=== PATIENT | female | born 1970 | race Caucasian/White ===

== ENCOUNTER → 2019-02-18 15:51 | Outpatient (CLI) | payer OTHER, SELFPAY ==
--- NOTE | 2019-02-18 15:55 | BI_ITS ---
MAMMOGRAPHY - BILATERAL SCREENING REASON FOR EXAM: Female, 48 years old. Routine annual screening examination. PERTINENT HISTORY: Non-contributory. TECHNIQUE: Digital bilateral breast melchor (3D mammographic acquisition) in the CC and MLO projections. 2-D mediolateral oblique (MLO) and craniocaudad (CC) views of both breasts were obtained. CAD: Full Field Digital Mammography with Computer Added Detection was performed. COMPARISON: Comparison is made with prior study dated January 18, 2016 and June 21, 2010. FINDINGS: Breast Composition: The breasts are almost entirely fatty. There are no dominant masses or suspicious calcifications. A tissue clip marker is seen within the inferior medial portion of the right breast. No other significant abnormalities are identified. There has been no significant change since the prior study. BI/SCREENING MAMM (CAD), BILAT IMPRESSION: Stable bilateral screening mammogram. Yearly follow-up mammogram recommended. (A) ASSESSMENT CATEGORY: BIRADS Category 2: Benign. A letter regarding these results will be sent to the patient by the facility within 30 days. Approximately 10% of breast cancers are not detected by mammography. A normal mammogram should not delay biopsy of a clinically suspicious abnormality. [id number] Electronically Signed: Giovanny Whitney, at 8:26 EDT , Service support ,
== END ==
DX: Z12.31 Encounter for screening mammogram for malignant neoplasm of breast (principal)
CPT/HCPCS: 77063; 77067

== ENCOUNTER → 2020-09-13 17:20 | Outpatient (CLI) | payer MEDICAID, SELFPAY | PROVIDERS: PCP Internal Medicine; Visit Provider Internal Medicine | DX: B34.9 Viral infection, unspecified (principal); J45.20 Mild intermittent asthma, uncomplicated | CPT/HCPCS: 87635; C9803; U0003 ==

== ENCOUNTER → 2021-11-21 | Outpatient (CLI) | payer MEDICAID, SELFPAY | END | disposition home or self-care (01) | LOC: LABSPEC 12:51 | PROVIDERS: PCP Internal Medicine; Visit Provider Physician Assistant Surgical | DX: Z20.822 Contact with and (suspected) exposure to COVID-19 (principal) | CPT/HCPCS: 87635; U0005; U0003 ==

== ENCOUNTER 2023-05-16 10:23 | Day surgery (SDC) | payer MEDICAID, SELFPAY ==
[2023-05-16 10:50] VITALS: BP 143/67; PULSE 71; RESP 16; TEMP 36.6; O2SAT 97; BMI 45.2
[2023-05-16] MEDS: Lactated Ringers 1,000 ML 15 ML IV (10:52)
[2023-05-16 11:17] LABS: Bedside Glucose 112 mg/dL (74-106)
[2023-05-16] MEDS: Cefazolin 2 GM in 0.9% Normal Saline 100 ML IV (11:28)
--- NOTE | 2023-05-16 12:00 | CALC_PTH ---
PATIENT: ISAAC CHRISTOPHER LOC: [facility] – [place] U#:[id number] AGE/SX: 52/F ROOM: RE05/16/[address]: Dr. Beata Alanis MD : 1970 BED: DIS: 05/16/2023 SPEC #: [id number] RECD: 05/16/23 12:46 STATUS: EVELIO RIVERA #: [id number] GIGI: 05/16/23 12:[address]: Beata Alanis DEPT: SURGICAL PATHOLOGY RECD BY: Karely Gandhi ENTERED: 05/16/23 13:23 SP TYPE: Calculi OTHR DR: Dr. Librado Barrios MD Tissues: CALCULI Procedures: Surgery Specimen Level I HEADER OPERATION: Cysto, ureteroscopy, retro, laser, stent, stone basket extraction PRE-OP DIAGNOSIS: Right ureteral calculi TISSUE SUBMITTED: Right ureteral calculi pieces GROSS DIAGNOSIS Right ureteral calculi, removal: Unremarkable calculi (gross diagnosis only). AM:tara 05/17/2023 COMMENT The calculus is submitted in its entirety for chemical stone analysis. The results from this study will be reported separately. GROSS DESCRIPTION Received without fixative labeled with the patient's name and designated right ureteral calculi. The specimen consists of multiple irregular fragments of foreman calculi measuring in aggregate 0.5 x 0.3 x 0.2 cm. The entire specimen is submitted for stone analysis. / AM:tara 05/16/2023 CPT: 94885
--- NOTE | 2023-05-16 12:24 | DCINST_ITS ---
Discharge Instructions Diet Discharge Diet: No restrictions Activity Discharge Activity: Return to Normal Activity Dressing / Incision Call your doctor if you observe: Fever of 101 or Higher, Inability to urinate and Inability to have a bowel movement Follow Up Care Please Follow Up With: Beata Alains MD When: Next week for stent removal Test Results: Test results from this visit will be discussed in further detail at your follow- up appointment, if applicable. Discharge Plan Admission Attending Provider: Beata Alains Primary Care Provider: Librado Barrios Discharge Orders/Prescriptions Prescriptions: New phenazopyridine [Pyridium] 200 mg tablet 200 mg PO TID PRN PRN (Reason: Bladder Spasms) 7 Days Qty: 30 0RF cephalexin [cephalexin] 500 mg capsule 500 mg PO Q12 3 Days Qty: 6 0RF Continued multivitamin Tablet 1 tab PO DAILY metformin 500 mg Tablet 500 mg PO BID cetirizine 10 mg Tablet 10 mg PO DAILY meloxicam 15 mg Tablet 15 mg PO DAILY lisinopril 10 mg Tablet 10 mg PO DAILY glipizide 5 mg Tablet 5 mg PO DAILY hydrochlorothiazide 12.5 mg Tablet 12.5 mg PO DAILY cranberry djmd-X-rvdgtwyj coag 250-30-15 mg Tablet 1 tab PO DAILY HEMP OIL 25,000 mg PO/SL BID Mounjaro 5 mg/0.5 mL pen injector 7.5 mg SUBCUT FR oxycodone-acetaminophen [Percocet] 5-325 mg Tablet 1 tab PO Q4H PRN (Reason: Pain) 3 Days Qty: 14 0RF Discontinued tamsulosin 0.4 mg Capsule 0.4 mg PO DAILY Referrals / Follow Up: Librado Barrios MD [Primary Care Provider] - Disposition Disposition (needs filled in before D/C Order can be placed): Home, Self Care
[2023-05-16 12:28] VITALS: BP 113/65; BP 143/67; PULSE 88; RESP 18; TEMP 36.1; O2SAT 94
--- NOTE | 2023-05-16 12:28 | OP.PCM_ITS ---
Report of Operation Date of Procedure: 05/16/23 Pre-Operative Diagnosis: Right ureteral calculus Post-Operative Diagnosis: Same Surgery/Procedure Performed:: Cystoscopy, right ureteroscopy, holmium laser lithotripsy, stone basket extraction, retrograde pyelogram, right ureteral stent insertion Description of Surgical Findings:: Left duplicated ureter, right mid ureteral calculus approximately 7 to 8 mm with mid ureteral narrowing Surgeon: Beata Alanis Type of Anesthesia: General Specimen's removed: Stone fragments Description of Procedure: The patient is a 52-year-old female with a right ureteral calculus and continued pain who presents for surgical intervention. Informed consent was obtained. The patient was taken to the operating room and placed on the operating room table. Anesthesia monitored the head, neck, airway, IV access and vital signs throughout the case. Once anesthesia was appropriately administered, the patient was placed into dorsolithotomy position was prepped and draped in usual sterile fashion. The cystoscope was inserted through the urethra under direct visualization. The bladder mucosa was visualized in its entirety finding a left ureteral duplicated system. The right ureteral orifice was carefully intubated with a 0.035 Glidewire which initially curled at the level of the stone seen on fluoroscopy. It was repositioned and was then seen in the renal pelvis. At this time the semirigid ureteroscope was used to gain access to the right ureter and was gently advanced to the level of the stone. There was narrowing at the area of the stone but access was obtained. A 200 ?m laser fiber was then used to break the stone into small pieces which were removed with stone basket into the urinary bladder. Once all of the fragments seen were removed, a retrograde pyelogram was performed through the ureteroscope revealing narrowing of the ureter but no further filling defects. At this time the ureteroscope was removed under direct visualization revealing no injury to the ureter and no further stone fragments remaining. The cystoscope was then used to insert a 6 [place] 24 cm JJ stent with good positioning in the renal pelvis as well as the urinary bladder. The patient's bladder was then emptied and the stone fragments were irrigated out. After the final fragments were collected, the patient's bladder was emptied and the cystoscope was removed. The patient was then awakened and taken to the recovery room in good condition. There were no complications during this procedure. Grafts/Implants Used: 6 x 24 JJ stent Complications None Admit VTE Documentation VTE Present on Admission: Yes VTE Mechan Device Prophylaxis: SCD's VTE Pharm Prophylaxis ordered?: No Reason prophylaxis not ordered:: Treatment Not Indicated
[2023-05-16 12:30] VITALS: BP 121/65; BP 143/67; PULSE 96; RESP 18; O2SAT 97
[2023-05-16 12:45] VITALS: BP 122/76; BP 143/67; PULSE 82; RESP 18; O2SAT 98
[2023-05-16 12:56] VITALS: BP 116/94; BP 143/67; PULSE 78; RESP 18; TEMP 36.2; O2SAT 95
[2023-05-16 13:23] VITALS: BP 143/67
== END 2023-05-16 13:34 | disposition home or self-care (01) ==
LOC: SDC 10:25 → AC 10:27
PROVIDERS: PCP Internal Medicine; Referring Provider Urology; Visit Provider Urology
PROC: 0TJ98ZZ Inspection of Ureter, Via Natural or Artificial Opening Endoscopic (ICD-10-PCS; CPT 52352; principal; 2023-05-16 11:50)
DX: N20.1 Calculus of ureter (principal); E11.9 Type 2 diabetes mellitus without complications; N13.30 Unspecified hydronephrosis; I10 Essential (primary) hypertension; Z87.891 Personal history of nicotine dependence; Z87.442 Personal history of urinary calculi; Z79.899 Other long term (current) drug therapy; Z79.84 Long term (current) use of oral hypoglycemic drugs
CPT/HCPCS: 52356; 00873; 76000; 82360; 82962; 88300; J7120; C2617; J2405

== ENCOUNTER → 2024-03-13 | Outpatient (CLI) | payer MEDICAID, SELFPAY ==
--- NOTE | 2024-03-13 08:12 | BI_ITS ---
MAMMOGRAPHY - BILATERAL SCREENING REASON FOR EXAM: Female, 53 years old. Routine annual screening examination. PERTINENT HISTORY: Non-contributory. TECHNIQUE: Digital bilateral breast chapito (3D mammographic acquisition) in the CC and MLO projections. 2-D mediolateral oblique (MLO) and craniocaudad (CC) views of both breasts were obtained. CAD: Full Field Digital Mammography with Computer Added Detection was performed. COMPARISON: Comparison is made with prior study February 18, 2019 and September 17, 2016. Comparison also made to prior outside examination from the 2022. FINDINGS: Breast Composition: The breasts are almost entirely fatty. There are no dominant masses or suspicious calcifications. Stable fat-containing bilateral axillary lymph nodes. No other significant abnormalities are identified. There has been no significant change since the prior study. BI/SCRN MAMM (CAD)W/CHAPITO BILAT IMPRESSION: Stable bilateral screening mammogram. Yearly follow-up mammogram recommended. (A) ASSESSMENT CATEGORY: BIRADS Category 2: Benign. A letter regarding these results will be sent to the patient by the facility within 30 days. Approximately 10% of breast cancers are not detected by mammography. A normal mammogram should not delay biopsy of a clinically suspicious abnormality. [id number] Electronically Signed: Giovanny Whitney MD at 15:48 EDT ,
== END | disposition home or self-care (01) ==
LOC: OPBI 08:12
PROVIDERS: PCP Internal Medicine; Referring Provider Internal Medicine; Visit Provider Internal Medicine
DX: Z12.31 Encounter for screening mammogram for malignant neoplasm of breast (principal)
CPT/HCPCS: 77063; 77067

== ENCOUNTER → 2024-04-01 | Outpatient (CLI) | payer MEDICAID, SELFPAY ==
[2024-04-01 15:20] LABS: Mucous, Urine 0 SEEN /hpf (<or=2+); Red Blood Cells-Urine 0 SEEN /hpf (0-5); White Blood Cells 0 SEEN /hpf (0-5)
[2024-04-01 16:47] LABS: Absolute Lymphocyte Count 3.54 X10^3/uL (0.83-4.51); Absolute Neutrophil Count 5.9 X10^3/uL (2.0-7.7); Basophil# 0.05 X10^3/uL; Basophil% 0.5 % (0-1); Color, Urine Yellow (Yellow); Eosinophils% 1.9 % (0-5); Glucose, Dipstick Normal (Normal); Hematocrit 39.7 % (37-47); Hemoglobin 12.9 g/dL (12.0-15.0); Ketone-Dipstick Negative (Negative); Leukocyte Esterase-Dipstick Negative /ul (Negative); Lymphocyte # 3.54 X10^3/ul (0.83-4.51); Lymphocyte % 32.8 % (19-41); Mean Corp Hgb Conc 32.5 g/dL (32-36); Mean Corpuscular Hgb 28.9 pg (27.0-32.0); Mean Corpuscular Volume 88.8 fL (81-99); Mean Platelet Vol. 11.5 fl (6.2-12.0); Monocyte# 1.02 X10^3/uL; Monocyte% 9.5 % (0-10); NRBC Flagged by Analyzer 0 % (0-5); Neutrophil # 5.94 X10^3/uL (2.7-7.7); Nitrite-Dipstick Negative (Negative); Occult Blood-Urine Negative /ul (Negative); Platelet Count 243 K/mm3 (150-450); Protein-Dipstick Negative (Negative); RBC Distribution Width CV 12.6 % (11.6-14.6); RBC Distribution Width SD 40.9 fl (35.1-43.9); Red Blood Count 4.47 M/mm3 (4.2-5.4); Urine Bilirubin Dipstick Negative (Negative); Urine Clarity Clear (Clear); Urine Urobilinogen Normal (Normal); Urine pH 6.5 (5.0 - 8.0); White Blood Count 10.8 K/mm3 (4.4-11.0)
[2024-04-01 16:59] LABS: Bacteria 1+ /hpf (None Seen); Squamous Epithelial Cells - UA 0-5 SEEN /hpf (5-10)
[2024-04-01 17:03] LABS: Vitamin D,25 Hydroxy 36.2 ng/mL
[2024-04-01 17:15] LABS: AST(SGOT) 15 U/L (15-37); Alanine Aminotransfer ALT/SGPT 29 U/L (13-56); Albumin, Serum 3.7 g/dL (3.2-5.0); Alkaline Phosphatase 75 U/L (45-117); Anion Gap 6 (5-15); BUN 16 mg/dL (7-18); BUN/Creat Ratio 29.6 RATIO (10-20); Calcium,Total 9.6 mg/dL (8.5-10.1); Chloride 105 mmol/L (98-107); Creatinine, Serum 0.54 mg/dL (0.55-1.02); EST Glomerular Filtration Rate 125 mL/min (>60); Est Glom Filt Rate - Afr Amer 151 mL/min (>60); Globulin 3.7 g/dL (2.2-4.2); Glucose 106 mg/dL (74-106); Potassium 3.6 mmol/L (3.5-5.1); Protein, Total 7.4 g/dL (6.4-8.2); Sodium Level 139 mmol/L (136-145); Thyroid Stim Hormone (TSH) 0.25 uIU/mL (0.358-3.74); Troponin-I HS < 3 pg/mL (3.0-54.0)
== END | disposition home or self-care (01) ==
LOC: BIMLAB 15:18
PROVIDERS: PCP Internal Medicine; Visit Provider Internal Medicine
DX: R82.71 Bacteriuria (principal); R42 Dizziness and giddiness; R45.86 Emotional lability
CPT/HCPCS: 36415; 80053; 81001; 82306; 84443; 84484; 85025; 87086; 87088

== ENCOUNTER → 2024-06-10 | Outpatient (CLI) | payer MEDICAID, SELFPAY ==
[2024-06-10 12:32] LABS: Absolute Lymphocyte Count 2.22 X10^3/uL (0.83-4.51); Absolute Neutrophil Count 4.5 X10^3/uL (2.0-7.7); Basophil# 0.04 X10^3/uL; Basophil% 0.5 % (0-1); Eosinophil# 0.14 X10^3/uL; Eosinophils% 1.8 % (0-5); Hematocrit 39.8 % (37-47); Hemoglobin 12.7 g/dL (12.0-15.0); Lymphocyte # 2.22 X10^3/ul (0.83-4.51); Mean Corp Hgb Conc 31.9 g/dL (32-36); Mean Corpuscular Hgb 28.2 pg (27.0-32.0); Mean Corpuscular Volume 88.2 fL (81-99); Monocyte# 0.75 X10^3/uL; Monocyte% 9.8 % (0-10); NRBC Flagged by Analyzer 0 % (0-5); Neutrophil # 4.49 X10^3/uL (2.7-7.7); Neutrophil % 58.6 % (47-70); Platelet Count 227 K/mm3 (150-450); RBC Distribution Width CV 13.2 % (11.6-14.6); RBC Distribution Width SD 42.4 fl (35.1-43.9); Red Blood Count 4.51 M/mm3 (4.2-5.4); White Blood Count 7.7 K/mm3 (4.4-11.0)
[2024-06-10 12:56] LABS: ALB/GLOB Ratio 0.9 RATIO (0.9-2.4); AST(SGOT) 17 U/L (15-37); Alanine Aminotransfer ALT/SGPT 32 U/L (13-56); Albumin, Serum 3.5 g/dL (3.2-5.0); Alkaline Phosphatase 70 U/L (45-117); Anion Gap 8 (5-15); BUN 16 mg/dL (7-18); BUN/Creat Ratio 32.9 RATIO (10-20); Calcium,Total 9.1 mg/dL (8.5-10.1); Chloride 105 mmol/L (98-107); Cholesterol 169 mg/dL (200); Creatinine, Serum 0.49 mg/dL (0.55-1.02); EST Glomerular Filtration Rate 141 mL/min (>60); Est Glom Filt Rate - Afr Amer 170 mL/min (>60); Globulin 3.7 g/dL (2.2-4.2); Glucose 134 mg/dL (74-106); High Density Lipoprotein 61 mg/dL; Potassium 3.6 mmol/L (3.5-5.1); Protein, Total 7.2 g/dL (6.4-8.2); Sodium Level 140 mmol/L (136-145); Triglycerides 108 mg/dL; Very Low Density Lipoprotein 22 mg/dL (5-40)
[2024-06-10 13:01] LABS: Microalbumin,Random Urine < 5.0 mg/L (NO RANGE EST.)
[2024-06-10 13:25] LABS: Hemoglobin A1c 6.4 % (3.8-5.6)
== END | disposition home or self-care (01) ==
LOC: BIMLAB 08:50
PROVIDERS: PCP Internal Medicine; Referring Provider Internal Medicine; Visit Provider Internal Medicine
DX: I10 Essential (primary) hypertension (principal); E11.9 Type 2 diabetes mellitus without complications
CPT/HCPCS: 36415; 80053; 80061; 82043; 82570; 83036; 85025

== ENCOUNTER 2024-07-08 16:17 | Emergency (ER) | payer MEDICAID, SELFPAY ==
[2024-07-08 16:18] VITALS: BP 138/85; PULSE 95; RESP 20; TEMP 36; O2SAT 96; BMI 44.3
--- NOTE | 2024-07-08 16:42 | EX.ED.VIS.UR ---
HPI HPI - URI History of Present Illness Chief Complaint: Sore Throat Informant: patient Onset/Context/Timing Onset: Days Context: Gradual Onset Timing: Continuous Quality: Swelling Location: Throat Worsened by: Swallowing, Eating Solids and Drinking Liquids Relieved by: - (Nothing) Associated Symptoms Associated Symptoms: Positive for Nasal Congestion and Nonproductive cough; Negative for Headache, Sinus Pressure, Myalgias, Nausea, Vomiting, Diarrhea, Shortness of Breath, Chest Pain, Hemoptysis or Productive Cough Narrative Narrative: Patient presents with a sore throat that has been getting worse over the past several days. Patient states she went to urgent care few days ago and was given a prescription for prednisone. Patient states she still feels some swelling in her throat. Patient states her pain is worse with swallowing, eating, and drinking. Patient states she has had a nonproductive cough. Patient admits to some nasal congestion. Patient denies any nausea, vomiting, diarrhea. Patient denies any pain in her chest or shortness of breath. Patient denies any fevers or chills. ROS ROS ED Constitutional Constitutional ED: Denies chills or fever(s) Eyes Eyes: Denies blurry vision or change in vision ENT ENT ED: Reports sore throat; Denies rhinorrhea Cardiovascular Cardiovascular: Denies chest pain or palpitations Respiratory/Chest Respiratory/Chest: Reports cough; Denies dyspnea Gastrointestinal Gastrointestinal: Denies nausea or vomiting Genitourinary Genitourinary ED: Reports urinary frequency; Denies dysuria or hematuria Musculoskeletal Musculoskeletal: Denies back pain or neck pain Integumentary Denies abscess or rash Neurologic Neurologic: Denies headache(s) or weakness Allergic/Immunologic Allergic/Immunologic ED: Denies mouth swelling or urticaria [facility] Medical History Allergic reaction caused by a drug History of back problems Breast lump Ureteral calculus Post-menopausal Diabetes History of renal disease Former smoker Asthma History of stress test Home Medications ?Medication ?Instructions ?Recorded ?Last Taken ?Type HEMP OIL 25,000 mg PO/SL BID 05/10/23 Unknown History cetirizine 10 mg tablet 10 mg PO DAILY 05/10/23 Unknown History multivitamin 1 tab PO DAILY 05/10/23 Unknown History lactobacillus combination no.4 3 3,000 mmu cells PO DAILY 03/10/24 Unknown History billion cell capsule (Probiotic) hydrochlorothiazide 12.5 mg tablet 12.5 mg PO DAILY #30 tabs 06/03/24 Unknown Rx lisinopril 10 mg tablet 10 mg PO DAILY #30 tabs 06/03/24 Unknown Rx meloxicam 15 mg tablet 15 mg PO DAILY #30 tabs 06/03/24 Unknown Rx metformin 500 mg tablet 500 mg PO BID #30 tabs 06/03/24 Unknown Rx semaglutide 0.25 mg or 0.5 mg (2 0.5 mg (0.736 mL) subcut QWEEK #3 06/03/24 Unknown Rx mg/3 mL) subcutaneous pen injector mL prednisone 10 mg tablet 10 mg PO DAILY #30 tabs 07/06/24 Unknown Rx Allergy/AdvReac Type Severity Reaction Status Date / Time Anesthetics - Amide Type - Allergy Severe Anaphylaxis Verified 07/08/24 16:18 Select A Penicillins (PCN) Allergy Nausea Verified 07/08/24 16:18 adhesive AdvReac Rash Verified 07/08/24 16:18 Family History Father Asthma Diabetes COPD (chronic obstructive pulmonary disease) CVA (cerebral vascular accident) Depression Hypertension Grandmother Diabetes Asthma Surgical History History of renal stent History of tonsillectomy History of parathyroidectomy Social History adopted: No household members: spouse current occupational status: employed 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 pets and animals: Yes pets and animals: dog(s) and turtle(s) Smoking Status: Former smoker quit date: 11/25/99 pack-years: 1 Tobacco: How many years used: 3 alcohol intake: current alcohol intake frequency: holidays/special occasions only substance use type: marijuana caffeine: Yes (2) Type: carbonated beverages frequency: daily seatbelt use: always do you feel safe at home: Yes EXAM Physical Exam Const Vital Signs: 07/08/24 16:18 07/08/24 17:21 Temperature 96.8 F L Temperature Source Temporal Pulse Rate 95 94 Respiratory Rate 20 H 20 H Blood Pressure 138/85 H 147/88 H Blood Pressure Mean 102 107 Pulse Ox 96 98 Oxygen Delivery Method Room Air Room Air Positive well nourished and well developed General Appearance ED: well developed and NAD HEENT Reports moist mucous membranes HEENT Narrative: Oropharynx is clear. There is no exudate or edema noted. Uvula is midline. There is no unilateral swelling noted. Throat: posterior oropharynx normal Neck supple, no meningeal signs and no JVD Neck Narrative: There is mild tenderness over the trachea in the midline. There is no erythema or warmth noted. General: Negative for anterior neck swelling or lymphadenopathy Resp normal respiratory effort and clear to auscultation bilaterally Cardio Rate: regular rate Rhythm: regular rhythm GI non-tender and non-distended Palpation: soft Neuro oriented x3, CN's II-XII intact bilaterally and no sensory deficits noted Sensorium / Orientation: alert Motor Exam: strength 5/5 throughout Psych mental status grossly normal MDM MDM MDM Narrative Medical decision making narrative: Differential diagnosis includes parapharyngeal abscess, pharyngitis, viral illness, dehydration, electrolyte abnormality, and anxiety. CBC will be obtained to assess for leukocytosis and anemia. Basic metabolic profile will be obtained to assess for electrolyte abnormality and renal function. CT scan of the soft tissue neck will be obtained to assess for parapharyngeal abscess. COVID-19, RSV, and PCR will be obtained to assess for viral infection. Rapid strep will be obtained to assess for strep pharyngitis. Lab Data Attestation: I reviewed the patient's lab results. Lab results narrative: CBC was reviewed and was within normal limits. Basic metabolic profile was reviewed and was essentially within normal limits. COVID-19 PCR was reviewed and was negative. Influenza PCR was reviewed and was negative for influenza A and influenza B. RSV PCR was reviewed and was negative. Rapid strep was reviewed and was negative. Labs: Laboratory Results - last 24 hr 07/08/24 17:18 WBC 10.0 RBC 4.73 Hgb 13.1 Hct 41.1 MCV 86.9 MCH 27.7 MCHC 31.9 L RDW Std Deviation 43.9 RDW Coeff of Brandy 13.9 Plt Count 259 MPV 11.6 Immature Gran % (Auto) 0.400 Neut % (Auto) 77.1 H Lymph % (Auto) 19.1 [place] % (Auto) 3.2 Eos % (Auto) 0.0 Baso % (Auto) 0.2 Absolute Neuts (auto) 7.7 Absolute Lymphs (auto) 1.91 Nucleated RBC % 0 Sodium 138 Potassium 3.8 Chloride 104 Carbon Dioxide 26.0 Anion Gap 8 BUN 17 Creatinine 0.72 Estim Creat Clear Calc 112.33 Est GFR (MDRD) Af Amer 109 Est GFR (MDRD) Non-Af 90 BUN/Creatinine Ratio 23.7 H Glucose 242 H Calcium 9.4 Radiography Diagnostic Testing: Clinical Impression(s) from Imaging Studies Soft Tissue Neck CT 07/08/24 17:08 IMPRESSION: Left thyroid nodule. No adenopathy. No abscess or fluid collection. Electronically Signed: Feliberto Marcos MD at 18:52 EDT , CT scan of the soft tissue neck was obtained. There is a left thyroid nodule measuring approximately 1.9 cm. There is no lymphadenopathy. There is no abscess or fluid collection. This was interpreted by the radiologist and was also independently reviewed by myself. Treatment and Re-Evaluation Narrative: Patient was given IV fluids. Patient was advised of her findings. Patient was instructed to drink plenty of fluids. Patient was instructed to continue her prednisone as prescribed. Patient was instructed to follow-up with her primary care physician in 5 to 7 days. Patient was instructed to return if worse in any way. Patient understood and was agreeable with the plan. All questions were answered. Discharge Plan Triage Chief Complaint: Sore Throat ED Provider: Deshaun Dior Dx/Rx/DC Orders Clinical Impression: Thyroid nodule, Dysphagia Instructions: Treating Thyroid Problems, ED Dysphagia (Adult) Prescriptions: No Action Probiotic 3 billion cell capsule 3,000 mmu cells PO DAILY Rx Instructions: administer with a meal prednisone 10 mg tablet 10 mg PO DAILY Qty: 30 0RF Rx Instructions: 4 tablets daily x3 days, then 3 tablets daily x3 days, then 2 tablets daily x3 days, then 1 tablet daily x3 days multivitamin Tablet 1 tab PO DAILY cetirizine 10 mg Tablet 10 mg PO DAILY HEMP OIL 25,000 mg PO/SL BID hydrochlorothiazide 12.5 mg tablet 12.5 mg PO DAILY Qty: 30 1RF lisinopril 10 mg tablet 10 mg PO DAILY Qty: 30 1RF meloxicam 15 mg tablet 15 mg PO DAILY Qty: 30 1RF metformin 500 mg tablet 500 mg PO BID Qty: 30 1RF semaglutide 0.25 mg or 0.5 mg (2 mg/3 mL) pen injector 0.5 mg subcut QWEEK Qty: 3 1RF Primary Care Provider: Janell Torres Referrals: Janell Torres MD [Primary Care Provider] - 5-7 Days Print Language: Azerbaijani Disposition Disposition: Home, Self Care
--- NOTE | 2024-07-08 17:08 | CT_ITS ---
STUDY: CT SOFT TISSUE NECK WITH CONTRAST REASON FOR EXAM: Female, 54 years old. Throat pain RADIATION DOSAGE (If Supplied By Facility): CTDIvol = ( 17.23 ) mGy, DLP = ( 507.81 ) mGycm TECHNIQUE: The patient was scanned in a multi-detector CT scanner. High resolution transaxial imaging was performed following intravenous administration of [id number] 100ML. Sagittal and coronal images were reconstructed. Individualized dose optimization techniques were used for this CT. COMPARISON: None. FINDINGS: Normal bilateral parotid glands. Normal bilateral conductor orchestra spaces. Normal bilateral parapharyngeal spaces. Normal bilateral carotid spaces. Normal bilateral sublingual and submandibular glands and spaces. Normal visualized nasopharynx. Normal retropharyngeal space. Normal perivertebral space. Normal visualized bilateral faucial tonsils. The visualized tongue, tongue base and oropharynx are normal. The visualized cervical lymph nodes (levels I-) are within normal size limits, and maintain normal morphology. There is no demonstrated solid or cystic mass lesion. There is no abnormal contrast enhancement. Normal epiglottis, bilateral vallecula and hypopharynx. The pre-epiglottic and paraglottic adipose spaces are normal. Normal visualized bilateral piriform sinuses, aryepiglottic folds, vocal cords, and arytenoid-cricoid articulations. Normal subglottic trachea. There is 1.9 cm left thyroid nodule. Normal visualized pulmonary apices. Normal visualized paranasal sinuses. Normal visualized cervical spine. CT/Soft Tissue Neck WITH Contrast IMPRESSION: Left thyroid nodule. No adenopathy. No abscess or fluid collection. Electronically Signed: Feliberto Marcos MD at 18:52 EDT ,
[2024-07-08] MEDS: 0.9% Normal Saline (1000mL) 1,000 ML 1000 ML IV (17:18)
[2024-07-08 17:21] VITALS: BP 147/88; PULSE 94; RESP 20; O2SAT 98
[2024-07-08 17:37] LABS: Absolute Lymphocyte Count 1.91 X10^3/uL (0.83-4.51); Absolute Neutrophil Count 7.7 X10^3/uL (2.0-7.7); Basophil# 0.02 X10^3/uL; Basophil% 0.2 % (0-1); Hematocrit 41.1 % (37-47); Hemoglobin 13.1 g/dL (12.0-15.0); Lymphocyte # 1.91 X10^3/ul (0.83-4.51); Lymphocyte % 19.1 % (19-41); Mean Corp Hgb Conc 31.9 g/dL (32-36); Mean Corpuscular Hgb 27.7 pg (27.0-32.0); Mean Corpuscular Volume 86.9 fL (81-99); Mean Platelet Vol. 11.6 fl (6.2-12.0); Monocyte# 0.32 X10^3/uL; Monocyte% 3.2 % (0-10); NRBC Flagged by Analyzer 0 % (0-5); Neutrophil % 77.1 % (47-70); Platelet Count 259 K/mm3 (150-450); RBC Distribution Width CV 13.9 % (11.6-14.6); RBC Distribution Width SD 43.9 fl (35.1-43.9); Red Blood Count 4.73 M/mm3 (4.2-5.4)
[2024-07-08 17:55] LABS: Anion Gap 8 (5-15); BUN 17 mg/dL (7-18); BUN/Creat Ratio 23.7 RATIO (10-20); Calcium,Total 9.4 mg/dL (8.5-10.1); Chloride 104 mmol/L (98-107); Creatinine, Serum 0.72 mg/dL (0.55-1.02); EST Glomerular Filtration Rate 90 mL/min (>60); Est Glom Filt Rate - Afr Amer 109 mL/min (>60); Estimated Creatinine Clearance 112.33 ml/min; Glucose 242 mg/dL (74-106); Potassium 3.8 mmol/L (3.5-5.1); Sodium Level 138 mmol/L (136-145)
[2024-07-08 19:45] VITALS: BP 144/74; PULSE 87; RESP 16; TEMP 36.4; O2SAT 97
== END 2024-07-08 19:46 | disposition home or self-care (01) ==
PROVIDERS: Emergency Provider Emergency Medicine; PCP Internal Medicine; Visit Provider Emergency Medicine
DX: E04.1 Nontoxic single thyroid nodule (principal); E11.9 Type 2 diabetes mellitus without complications; R13.10 Dysphagia, unspecified; F12.90 Cannabis use, unspecified, uncomplicated; J45.909 Unspecified asthma, uncomplicated; Z87.891 Personal history of nicotine dependence
CPT/HCPCS: 70491; 80048; 85025; 87631; 87651; 96360; 99283; J7030; Q9967; A4216

== ENCOUNTER → 2024-07-14 | Outpatient (CLI) | payer MEDICAID, SELFPAY ==
[2024-07-14 12:42] LABS: Erythrocyte Sedimentation Rate 10 mm/hr (0-30)
[2024-07-14 13:01] LABS: CRP 4.27 mg/L (0.0-3.0); Free T3 2.2 pg/mL (2.18-3.98); Thyroid Stim Hormone (TSH) 0.261 uIU/mL (0.358-3.740)
[2024-07-16 14:10] LABS: Thyroglobulin Antibody 1.5 IU/mL (0.0-0.9); Thyroid Peroxidase AB < 9 IU/mL (0-34)
== END | disposition home or self-care (01) ==
LOC: BIMLAB 11:04
PROVIDERS: PCP Internal Medicine; Visit Provider Nurse Practitioner
DX: E04.1 Nontoxic single thyroid nodule (principal)
CPT/HCPCS: 36415; 84439; 84443; 84481; 85652; 86140; 86376; 86800

== ENCOUNTER → 2024-07-21 | Outpatient (CLI) | payer MEDICAID, SELFPAY ==
--- NOTE | 2024-07-21 14:05 | US_ITS ---
STUDY: THYROID ULTRASOUND REASON FOR EXAM: Female, 54 years old. thyroid nodule TECHNIQUE: Ultrasound evaluation of the thyroid was performed with real-time and static abraham-scale imaging. COMPARISON: None. FINDINGS: RIGHT LOBE: The right lobe of the thyroid gland measures 5.7 x 2.5 x 1.5 cm. There is a homogeneous echotexture. At least 3 solid nodules measuring up to 1.1 x 1.1 x 0.9 cm, 0.8 x 0.8 x 0.6 cm and 1 x 0.9 x 0.7 cm. They all appear somewhat heterogeneous. LEFT LOBE: The left lobe of the thyroid gland measures 5.8 x 2.3 x 2.3 cm. There is a homogeneous echotexture. At least 3 nodules noted. The largest appears complex cystic and measures 2.8 x 1.9 x 1.6 cm. The other 2 appear hypoechoic and measures 0.6 x 0.5 x 0.4 cm and 0.6 x 0.7 x 0.7 cm. ISTHMUS: The isthmus measures 0.7 cm . The regional lymph nodes are normal. US/Thyroid IMPRESSION: Multinodular thyroid goiter. Largest nodule on the left appears complex cystic measuring 2.8 x 1.9 x 1.6 cm. Biopsy recommended. Electronically Signed: Ramin Dowling MD at 0:28 EDT ,
== END | disposition home or self-care (01) ==
LOC: US 14:04
PROVIDERS: PCP Internal Medicine; Referring Provider Nurse Practitioner; Visit Provider Nurse Practitioner
DX: E04.1 Nontoxic single thyroid nodule (principal)
CPT/HCPCS: 76536

== ENCOUNTER → 2024-08-18 | Outpatient (CLI) | payer MEDICAID, SELFPAY ==
--- NOTE | 2024-08-18 | ASPSI_PTH ---
PATIENT: ISAAC CHRISTOPHER LOC: [facility] U#:[id number] AGE/SX: 54/F ROOM: RE08/18/[address]: Dr. Luis Ruiz MD : 1970 BED: DIS: 08/18/2024 SPEC #: [id number] RECD: 08/18/24 10:30 STATUS: EVELIO MIGUEL #: [id number] GIGI: 08/18/24 00:[address]: Luis Ruiz DEPT: CYTOLOGY RECD BY: Clifton Cruz ENTERED: 08/18/24 13:00 SP TYPE: GILLIAN MERINO DR: Dr. Janell Torres MD Tissues: A - Thyroid gland, NOS B - Thyroid gland, NOS Procedures: Surgery Specimen Level IV Cytospin Fluid Cytology Other HEADER OPERATION: Fine needle aspiration of thyroid nodule PRE-OP DIAGNOSIS: Thyroid nodule TISSUE SUBMITTED: A- Left thyroid nodule fluid, B- Left thyroid nodule slides DIAGNOSIS CYTOLOGY A. Left thyroid nodule fluid, fine needle aspiration (cytospin and cellblock): Consistent with benign follicular nodule, Sutherland Category II. B. Left thyroid nodule, fine needle aspiration (smears): Consistent with benign follicular nodule, S[place]land Category II. See comment. mr 08/19/2024 COMMENT The specimen is adequate for evaluation by combining number of clusters of follicular cells present in both specimens A and B. The Sutherland System for thyroid diagnostic categorization was used in the evaluation of this case. Correlation with clinical, radiologic findings and appropriate follow up are necessary. CYTOLOGY STUDY Slides are reviewed. CYTOLOGY GROSS A. Received is 30 ml of red fluid labeled with the patient's name and and designated per the requisition as Left thyroid nodule fluid. Submitted for cytology preparation including cell block. B. Received are 4 smears labeled with the patient's name and designated per the requisition as Left thyroid nodule. Submitted for staining. Mr 08/18/2024 TC:5 CPT: 83168m7,16595
== END | disposition home or self-care (01) ==
LOC: LABSPEC 10:37
PROVIDERS: PCP Internal Medicine; Referring Provider Surgery; Visit Provider Surgery
DX: E04.1 Nontoxic single thyroid nodule (principal)
CPT/HCPCS: 88108; 88161; 88305

== ENCOUNTER 2024-08-23 10:27 | Emergency (ER) | payer MEDICAID, SELFPAY ==
[2024-08-23 10:27] VITALS: BP 143/80; PULSE 72; RESP 16; TEMP 36.6; O2SAT 96; BMI 45.6
--- NOTE | 2024-08-23 10:59 | ED.VIS.CHEST ---
HPI History of Present Illness Chief Complaint: Chest Pain Informant: patient Onset/Context/Timing Onset: Today Activity at onset: sudden Timing: Continuous Quality: Positive for Sharp Location: Substernal Worsened By: Movement of Torso Relieved By: Rest, Remaining Still and - (Albuterol) Associated Symptoms: Positive for Dyspnea, Cough, Lightheadedness and Palpitations; Negative for Nausea, Vomiting, Diaphoresis, Fever or Acid Reflux Narrative Narrative: Patient presents with substernal chest pain that began this morning. Patient states it began approximately 4 hours prior to arrival. Patient describes it as sharp. Patient states it is over the substernal area. Patient states it is worse with movement. Patient states it is better with rest. Patient states she also took an albuterol nebulizer at home which seemed to help. Patient admits to shortness of breath and cough. Patient denies any nausea or vomiting. Patient denies any diaphoresis. Patient does admit to some lightheadedness. Patient also admits to some palpitations where she feels her heart pounding in her back. CVD Risk Factors: Positive for Hypertension and Diabetes; Negative for Hypercholesterolemia, Family History 1' </=55 or Smoking PE Risk Factors: Negative for Recent Immobilization, Prior DVT or PE or Cancer [facility] Medical History Hypertension Allergic reaction caused by a drug History of back problems Breast lump Ureteral calculus Post-menopausal Diabetes History of renal disease Former smoker Asthma History of stress test Home Medications ?Medication ?Instructions ?Recorded ?Last Taken ?Type multivitamin 1 tab PO DAILY 05/10/23 08/23/24 History hydrochlorothiazide 12.5 mg tablet 12.5 mg PO DAILY #30 tabs 06/03/24 08/23/24 Rx lisinopril 10 mg tablet 10 mg PO DAILY #30 tabs 06/03/24 08/23/24 Rx meloxicam 15 mg tablet 15 mg PO DAILY #30 tabs 06/03/24 08/23/24 Rx metformin 1,000 mg tablet 1,000 mg PO BID 90 days #180 tabs 07/14/24 08/23/24 Rx Allergy/AdvReac Type Severity Reaction Status Date / Time Anesthetics - Amide Type - Allergy Severe Anaphylaxis Verified 08/23/24 10:30 Select A Penicillins (PCN) Allergy Nausea Verified 08/23/24 10:30 adhesive AdvReac Rash Verified 08/23/24 10:30 Family History Father Asthma Diabetes COPD (chronic obstructive pulmonary disease) CVA (cerebral vascular accident) Depression Hypertension Grandmother Diabetes Asthma Surgical History History of renal stent History of tonsillectomy History of parathyroidectomy Social History adopted: No household members: spouse current occupational status: employed 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 pets and animals: Yes pets and animals: dog(s) and turtle(s) Smoking Status: Former smoker quit date: 11/25/99 pack-years: 1 Tobacco: How many years used: 3 alcohol intake: current alcohol intake frequency: holidays/special occasions only substance use type: marijuana caffeine: Yes (2) Type: carbonated beverages frequency: daily seatbelt use: always do you feel safe at home: Yes ROS ROS ED Constitutional Constitutional ED: Denies chills or fever(s) Eyes Eyes: Denies blurry vision or change in vision ENT ENT ED: Denies rhinorrhea or sore throat Cardiovascular Cardiovascular: Reports as per HPI, chest pain and palpitations Respiratory/Chest Respiratory/Chest: Reports cough and dyspnea Gastrointestinal Gastrointestinal: Denies nausea or vomiting Genitourinary Genitourinary ED: Denies dysuria or hematuria Musculoskeletal Musculoskeletal: Reports neck pain; Denies back pain Integumentary Denies abscess or rash Neurologic Neurologic: Denies headache(s) or weakness Allergic/Immunologic Allergic/Immunologic ED: Denies mouth swelling or urticaria EXAM Physical Exam Const Vital Signs: 08/23/24 10:27 08/23/24 10:44 08/23/24 11:14 Temperature 97.9 F Temperature Source Oral Pulse Rate 72 Respiratory Rate 16 Respiratory Effort Normal Short of Breath Blood Pressure 143/80 H Blood Pressure Mean 101 Pulse Ox 96 96 Oxygen Delivery Method Room Air Room Air 08/23/24 11:27 08/23/24 12:04 08/23/24 13:00 Temperature Temperature Source Pulse Rate 72 71 70 Respiratory Rate 11 L 17 Respiratory Effort Blood Pressure 136/81 H 133/85 H Blood Pressure Mean 99 101 Pulse Ox 99 97 98 Oxygen Delivery Method Room Air Room Air Room Air Positive well nourished and well developed General Appearance ED: well developed and NAD HEENT Reports moist mucous membranes Neck supple and no JVD Resp normal respiratory effort and clear to auscultation bilaterally Cardio regular rate and regular rhythm Extremity normal to inspection General Extremety ED: Negative for edema or tenderness General Extremity: Negative for edema Neuro oriented x3, CN's II-XII intact bilaterally and no sensory deficits noted Sensorium / Orientation: awake and alert Motor Exam: strength 5/5 throughout Psych mental status grossly normal Heart Score History: Slightly/Non-Suspicious ECG: Normal Age: >45 - <65 years Risk Factors: 1 or 2 Risk Factors Troponin: </= Normal Limit Score: 2 MDM MDM MDM Narrative Medical decision making narrative: Differential diagnosis includes cardiac dysrhythmia, cardiac ischemia, pneumonia, pneumothorax, pneumomediastinum, gastroesophageal reflux disease, and musculoskeletal pain. EKG will be obtained to assess for cardiac dysrhythmia and cardiac ischemia. Chest x-ray will be obtained to assess for pneumonia and pneumothorax. CBC will be obtained to assess for leukocytosis and anemia. Basic metabolic profile will be obtained to assess for electrolyte abnormality and renal function. High-sensitivity troponin will be obtained to assess for cardiac ischemia. 2-hour repeat high-sensitivity troponin will be obtained to assess for ongoing cardiac ischemia. Lab Data Attestation: I reviewed the patient's lab results. Lab results narrative: CBC was reviewed and was within normal limits. Basic metabolic profile was reviewed and was within normal limits. High-sensitivity troponin was reviewed and was less than 3. 2-hour repeat high-sensitivity troponin was reviewed and was less than 3. Labs: Laboratory Results - last 24 hr 08/23/24 08/23/24 10:41 12:43 WBC 7.7 RBC 4.49 Hgb 12.7 Hct 39.9 MCV 88.9 MCH 28.3 MCHC 31.8 L RDW Std Deviation 44.8 H RDW Coeff of Brandy 13.8 Plt Count 221 MPV 11.7 Immature Gran % (Auto) 0.300 Neut % (Auto) 52.9 Lymph % (Auto) 35.4 [place] % (Auto) 8.9 Eos % (Auto) 1.8 Baso % (Auto) 0.7 Absolute Neuts (auto) 4.1 Absolute Lymphs (auto) 2.71 Nucleated RBC % 0 Sodium 141 Potassium 3.5 Chloride 105 Carbon Dioxide 31.0 Anion Gap 5 BUN 11 Creatinine 0.52 L Estim Creat Clear Calc 158.15 Est GFR (MDRD) Af Amer 159 Est GFR (MDRD) Non-Af 131 BUN/Creatinine Ratio 21.2 H Glucose 158 H Calcium 9.5 Troponin I High Sens < 3 L < 3 L Radiography Chest X-Ray - ED: 2 View, Read by ED Physician, Read by Radiologist and No Acute Disease Diagnostic Testing: Clinical Impression(s) from Imaging Studies Chest X-Ray 08/23/24 11:14 IMPRESSION: Degenerative changes, as described above. No demonstrated acute cardiopulmonary process. Electronically Signed: Jairo Giron MD at 12:15 EDT Reading Location ID and State: [facility] / [place] , Service support , [place] and lateral chest x-ray was obtained. There are 2 views. On my independent interpretation, lung ribera are clear. There is normal cardiac silhouette. Bony thorax is normal. There is no acute process noted. Radiologist also interpreted the x-ray and agrees. EKG Initial EKG: Attestation: I personally reviewed and interpreted this EKG as follows: Interpretation: Sinus Rhythm (74) and No Acute Injury Pattern Comments: EKG was obtained. On my independent interpretation, it showed a normal sinus rhythm with a rate of 74. [place] interval, QRS interval, and QTc intervals were all normal. [place] was normal. There are no acute ST or T wave changes. Prior EKG tracings: not available for review Prior: No Prior Treatment and Re-Evaluation :: Patient was given aspirin here. Patient was feeling better on reevaluation. Patient was advised of her findings. Patient has a HEART score of 2. Patient was advised that this is low risk for acute cardiac event. Patient was instructed to follow-up with her primary care physician in 3 to 5 days. Patient was instructed to return if worse in any way. Patient understood and was agreeable with the plan. All questions were answered. Discharge Plan Triage Chief Complaint: Chest Pain ED Provider: Deshaun Dior Dx/Rx/DC Orders Clinical Impression: Chest pain, History of parathyroidectomy Instructions: ED Chest Pain, Uncertain Cause Prescriptions: No Action metformin 1,000 mg tablet 1,000 mg PO BID 90 Days Qty: 180 1RF multivitamin Tablet 1 tab PO DAILY hydrochlorothiazide 12.5 mg tablet 12.5 mg PO DAILY Qty: 30 1RF lisinopril 10 mg tablet 10 mg PO DAILY Qty: 30 1RF meloxicam 15 mg tablet 15 mg PO DAILY Qty: 30 1RF Primary Care Provider: Janell Torres Referrals: Janell Torres MD [Primary Care Provider] - 3-5 Days Print Language: Portuguese Disposition Disposition: Home, Self Care
[2024-08-23 11:14] VITALS: O2SAT 96
--- NOTE | 2024-08-23 11:14 | EKG12_ITS ---
Test Reason : CP Blood Pressure : / mmHG Vent. Rate : 074 BPM Atrial Rate : 074 BPM P-R Int : 138 ms QRS Dur : 094 ms QT Int : 386 ms P-R-T Axes : 021 -10 027 degrees QTc Int : 428 ms Normal sinus rhythm Low voltage QRS Possible Inferior infarct , age undetermined Cannot rule out Anterior infarct , age undetermined Abnormal ECG Confirmed by LISA FERRELL, SAMMY ([id number]), editor publications TAMIKO TREVINO ([id number]) on 08/25/2024 6:30:42 AM Referred By: REBECCA/CAROLYN Confirmed By:SAMMY GONZALEZ MD
--- NOTE | 2024-08-23 11:14 | RAD_ITS ---
STUDY: X-RAY CHEST REASON FOR EXAM: Female, 54 years old. chest pain TECHNIQUE: PA and lateral views of the chest. COMPARISON: None. FINDINGS: The lungs are clear and expanded. There is no demonstrated pleural abnormality. Normal size heart. Normal mediastinum and ariana. Normal visualized pulmonary arteries. There is atherosclerotic calcification of the aortic arch with tortuosity. There are diffuse degenerative changes of the visualized thoracic spine. Normal visualized ribs, clavicles, and shoulders. There is no demonstrated abnormality of the visualized soft tissue structures of the upper abdomen. RAD/Chest PA and Lateral IMPRESSION: Degenerative changes, as described above. No demonstrated acute cardiopulmonary process. Electronically Signed: Jairo Giron MD at 12:15 EDT ,
[2024-08-23] MEDS: Aspirin 81 MG TAB.CHEW 324 MG PO (11:18)
[2024-08-23 11:21] LABS: Absolute Lymphocyte Count 2.71 X10^3/uL (0.83-4.51); Absolute Neutrophil Count 4.1 X10^3/uL (2.0-7.7); Basophil# 0.05 X10^3/uL; Basophil% 0.7 % (0-1); Eosinophil# 0.14 X10^3/uL; Eosinophils% 1.8 % (0-5); Hematocrit 39.9 % (37-47); Hemoglobin 12.7 g/dL (12.0-15.0); Lymphocyte # 2.71 X10^3/ul (0.83-4.51); Lymphocyte % 35.4 % (19-41); Mean Corp Hgb Conc 31.8 g/dL (32-36); Mean Corpuscular Hgb 28.3 pg (27.0-32.0); Mean Corpuscular Volume 88.9 fL (81-99); Mean Platelet Vol. 11.7 fl (6.2-12.0); Monocyte# 0.68 X10^3/uL; Monocyte% 8.9 % (0-10); NRBC Flagged by Analyzer 0 % (0-5); Neutrophil # 4.05 X10^3/uL (2.7-7.7); Neutrophil % 52.9 % (47-70); Platelet Count 221 K/mm3 (150-450); RBC Distribution Width CV 13.8 % (11.6-14.6); RBC Distribution Width SD 44.8 fl (35.1-43.9); Red Blood Count 4.49 M/mm3 (4.2-5.4); White Blood Count 7.7 K/mm3 (4.4-11.0)
[2024-08-23 11:27] VITALS: PULSE 72; O2SAT 99
[2024-08-23 11:40] LABS: Anion Gap 5 (5-15); BUN 11 mg/dL (7-18); BUN/Creat Ratio 21.2 RATIO (10-20); Calcium,Total 9.5 mg/dL (8.5-10.1); Chloride 105 mmol/L (98-107); Creatinine, Serum 0.52 mg/dL (0.55-1.02); EST Glomerular Filtration Rate 131 mL/min (>60); Est Glom Filt Rate - Afr Amer 159 mL/min (>60); Estimated Creatinine Clearance 158.15 ml/min; Glucose 158 mg/dL (74-106); Potassium 3.5 mmol/L (3.5-5.1); Sodium Level 141 mmol/L (136-145); Troponin-I HS (w/2H Reflex) < 3 pg/mL (3.0-54.0)
[2024-08-23 12:04] VITALS: BP 136/81; PULSE 71; RESP 11; O2SAT 97
--- NOTE | 2024-08-23 12:06 | ED.RN ---
Patient ambulated to the restroom.
[2024-08-23 13:00] VITALS: BP 133/85; PULSE 70; RESP 17; O2SAT 98
[2024-08-23 13:17] LABS: Reflex Troponin-HS? (from REC) Y
[2024-08-23 13:34] LABS: Troponin-I HS < 3 pg/mL (3.0-54.0)
[2024-08-23 14:00] VITALS: BP 109/95; BP 133/85; PULSE 69; PULSE 70; RESP 17; TEMP 36.6; O2SAT 98
== END 2024-08-23 14:06 | disposition home or self-care (01) ==
PROVIDERS: Emergency Provider Emergency Medicine; PCP Internal Medicine; Visit Provider Emergency Medicine
DX: R07.9 Chest pain, unspecified (principal); E11.9 Type 2 diabetes mellitus without complications; I10 Essential (primary) hypertension; Z90.89 Acquired absence of other organs; Z79.84 Long term (current) use of oral hypoglycemic drugs; Z79.899 Other long term (current) drug therapy; Z87.891 Personal history of nicotine dependence
CPT/HCPCS: 71046; 80048; 84484; 85025; 93005; 99284; A4216

== ENCOUNTER 2024-09-21 08:54 | Emergency (ER) | payer MEDICAID, SELFPAY ==
[2024-09-21 08:56] VITALS: BP 138/70; PULSE 72; RESP 18; TEMP 36.6; O2SAT 97; BMI 45.8
[2024-09-21 09:04] VITALS: BP 138/76; PULSE 72; RESP 18; TEMP 36.6; O2SAT 97
--- NOTE | 2024-09-21 09:12 | CT_ITS ---
STUDY: CT ABDOMEN AND PELVIS WITHOUT CONTRAST REASON FOR EXAM: Female, 54 years old. Right flank pain. Burning with urination. RADIATION DOSAGE (If Supplied By Facility): CTDIvol = ( 23.91 ) mGy, DLP = ( 1308.14 ) mGycm TECHNIQUE: Transaxial images were obtained from the dome of the diaphragm to the symphysis pubis without oral contrast, and without intravenous contrast. Sagittal and coronal images were reconstructed. Individualized dose optimization techniques were used for this CT. COMPARISON: None. FINDINGS: Minimal increased linear markings in the posterior aspect of the lingular segment of the left upper lobe. The visualized portions of the heart are within normal limits. There is decreased attenuation of the liver consistent with steatosis. Normal gallbladder and extrahepatic biliary system. Normal spleen. Normal pancreas. Normal bilateral adrenal glands. Normal right kidney. There is a 1.7 mm nonobstructive calculus in the upper pole calyx of the left kidney. There is a small hiatal hernia. Normal small intestine. Normal colon. The appendix is visualized and appears normal. Normal abdominal aorta. Normal inferior vena cava. Normal retroperitoneum. Normal urinary bladder. Calcified phleboliths. Normal abdominal wall. This space narrowing and this degeneration at the L5-S1 level with spondylosis. CT/Abdomen/Pelvis without Cont IMPRESSION: Fatty infiltration of the liver. 1.7 mm nonobstructive calculus in the upper pole calyx of the left kidney. Electronically Signed: Giovanny Whitney MD at 10:21 EDT ,
--- NOTE | 2024-09-21 09:13 | EX.ED.DYSGE1 ---
HPI History of Present Illness Chief Complaint: Flank Pain Detail of Chief Complaint: Right flank pain Informant: patient Narrative Narrative: Patient presents with right-sided flank pain that started 2 days ago. Pains been relatively continuous. She had some dysuria yesterday. Patient started taking Azo. She denies fever. She has had some mild nausea. Currently rates her pain an 8 out of 10. She does have history of kidney stones. Pain does wrap around to her back. She denies hematuria. She denies fever. [facility] Medical History Hypertension Allergic reaction caused by a drug History of back problems Breast lump Ureteral calculus Post-menopausal Diabetes History of renal disease Former smoker Asthma History of stress test Home Medications ?Medication ?Instructions ?Recorded ?Last Taken ?Type multivitamin 1 tab PO DAILY 05/10/23 08/23/24 History hydrochlorothiazide 12.5 mg tablet 12.5 mg PO DAILY #30 tabs 06/03/24 08/23/24 Rx lisinopril 10 mg tablet 10 mg PO DAILY #30 tabs 06/03/24 08/23/24 Rx meloxicam 15 mg tablet 15 mg PO DAILY #30 tabs 06/03/24 08/23/24 Rx metformin 1,000 mg tablet 1,000 mg PO BID 90 days #180 tabs 07/14/24 08/23/24 Rx cyclobenzaprine 10 mg tablet 10 mg PO TID PRN Muscle Spasm #20 09/21/24 Unknown Rx TABLETS hydrocodone-acetaminophen 5-325mg 1 tab PO Q4H PRN PRN Pain 2 days 09/21/24 Unknown Rx 5mg-325mg #10 TABLETS Allergy/AdvReac Type Severity Reaction Status Date / Time Anesthetics - Amide Type - Allergy Severe Anaphylaxis Verified 09/21/24 08:55 Select A Penicillins (PCN) Allergy Nausea Verified 09/21/24 08:55 adhesive AdvReac Rash Verified 09/21/24 08:55 Family History Father Asthma Diabetes COPD (chronic obstructive pulmonary disease) CVA (cerebral vascular accident) Depression Hypertension Grandmother Diabetes Asthma Surgical History History of renal stent History of tonsillectomy History of parathyroidectomy Social History adopted: No household members: spouse current occupational status: employed 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 and animals: Yes pets and animals: dog(s) and turtle(s) Smoking Status: Former smoker quit date: 11/25/99 pack-years: 1 Tobacco: How many years used: 3 alcohol intake: current alcohol intake frequency: holidays/special occasions only substance use type: marijuana caffeine: Yes (2) Type: carbonated beverages frequency: daily seatbelt use: always do you feel safe at home: Yes ROS ROS ED Review of Systems ROS Unobtainable: other Constitutional Constitutional ED: Reports lethargy; Denies chills, fever(s), sweats or weight loss Eyes Eyes: Denies blurry vision, change in vision or diplopia ENT ENT ED: Denies rhinorrhea or sore throat Cardiovascular Cardiovascular: Denies chest pain, orthopnea or racing heartbeat Respiratory/Chest Respiratory/Chest: Denies cough, dyspnea, dyspnea on exertion, orthopnea or sputum Gastrointestinal Gastrointestinal: Reports abdominal pain and nausea; Denies diarrhea or vomiting Genitourinary Genitourinary ED: Reports dysuria; Denies hematuria or urinary frequency Musculoskeletal Musculoskeletal: Reports back pain; Denies arthralgias, myalgias or neck pain Integumentary Denies abscess, Abrasions or rash Neurologic Neurologic: Denies headache(s) or weakness Psychiatric Psychiatric: Denies anxiety, depression or suicidal thoughts Endocrine Endocrinology: Denies polydipsia, polyphagia or polyuria Hematologic/Lymphatic Hematologic/Lymphatic: Denies easy bleeding, easy bruising or lymphadenopathy Allergic/Immunologic Allergic/Immunologic ED: Denies mouth swelling, tongue swelling or urticaria EXAM Physical Exam Const Vital Signs: 09/21/24 08:56 09/21/24 09:04 09/21/24 11:08 Temperature 97.8 F 97.8 F 97.3 F L Temperature Source Oral Oral Oral Pulse Rate 72 72 72 Respiratory Rate 18 18 15 Blood Pressure 138/70 H 138/76 H 134/69 H Blood Pressure Mean 92 96 90 Pulse Ox 97 97 98 Oxygen Delivery Method Room Air Room Air Positive well nourished and well developed General Appearance ED: well developed and NAD HEENT Reports TM's clear and moist mucous membranes normocephalic and atraumatic; Negative for trauma or tenderness Tympanic Membrane ED: Yes TM's clear Eyes PERRL and EOMs intact bilaterally General Eye ED: Negative for pale conjunctiva or scleral icterus Neck no lymphadenopathy, supple and no JVD General: Negative for tenderness Chest Wall inspection of chest normal and palpation of chest normal Chest: Negative for tenderness Resp normal respiratory effort and clear to auscultation bilaterally Effort and Inspection: Negative for respiratory distress or pain with movement Auscultation: Negative for rhonchi, wheezes or diminished lung sounds Cardio regular rate, regular rhythm, S1 normal heart sound, S2 normal heart sound and no murmurs Peripheral Pulses: pulses 2+ throughout GI normal to inspection, nondistended, normoactive bowel sounds, soft to palpation, non-distended and no masses GI Narrative: Mild tenderness to the right lower quadrant with some mild guarding. There is no rebound, rigidity, peritoneal signs. She also has some mild CVA tenderness on the right Back/Spine no thoracic nor lumbar tenderness Back/Spine Narrative: Mild CVA tenderness on the right Extremity normal to inspection General Extremety ED: Negative for edema General Extremity: Negative for edema Neuro oriented x3, CN's II-XII intact bilaterally, no sensory deficits noted and gait normal Sensorium / Orientation: awake, alert, oriented to person, oriented to place and oriented to time Motor Exam: strength 5/5 throughout and strength abnormal Psych mental status grossly normal Skin no rashes or lesions noted and no wounds MDM MDM MDM Narrative Medical decision making narrative: Patient presents with right flank pain with prior history of kidney stone. The differential would be kidney stone versus appendicitis versus UTI or other acute process. Musculoskeletal back pain would be in the differential. IV line established. She was medicated with Toradol as well as morphine and Zofran. Her pain resolved. CBC with differential count of 7.2 with hemoglobin 12.4 and platelet count of 213. Chemistries unremarkable. LFTs were normal. Urinalysis without signs of infection. CT scan of the abdomen pelvis showed a left renal stone measuring 1.7 mm that is nonobstructive. Normal appendix. No acute findings otherwise of the abdomen pelvis. This point etiology of her pain unclear. Suspect likely musculoskeletal. Will start on Flexeril and give a few [place] for pain. Advised to follow-up with her primary care physician within the next 3 to 5 days. Patient has an appointment already scheduled for 2 days from now. Patient advised to return if worsening pain, weakness in the extremities, loss of bowel or bladder function, or condition should worsen anyway. Lab Data Attestation: I reviewed the patient's lab results. Labs: Laboratory Results - last 24 hr 09/21/24 09/21/24 09:20 09:25 WBC 7.2 RBC 4.24 Hgb 12.4 Hct 37.5 MCV 88.4 MCH 29.2 MCHC 33.1 RDW Std Deviation 43.1 RDW Coeff of Brandy 13.3 Plt Count 213 MPV 11.1 Immature Gran % (Auto) 0.400 Neut % (Auto) 57.1 Lymph % (Auto) 30.2 [place] % (Auto) 9.7 Eos % (Auto) 2.0 Baso % (Auto) 0.6 Absolute Neuts (auto) 4.1 Absolute Lymphs (auto) 2.16 Nucleated RBC % 0 Sodium 142 Potassium 3.5 Chloride 104 Carbon Dioxide 30.0 Anion Gap 9 BUN 17 Creatinine 0.59 Estim Creat Clear Calc 139.87 Est GFR (MDRD) Af Amer 136 Est GFR (MDRD) Non-Af 112 BUN/Creatinine Ratio 28.7 H Glucose 202 H Calcium 9.0 Total Bilirubin 0.40 Direct Bilirubin 0.12 AST 16 ALT 34 Alkaline Phosphatase 63 Total Protein 6.6 Albumin 3.4 Globulin 3.2 Urine Color Yellow Urine Clarity Sl. Cloudy Urine pH 6.0 Ur Specific [place] 1.015 Urine Protein 15 H Urine Glucose (UA) 250 H Urine Ketones Negative Urine Occult Blood Negative Urine Nitrite Negative Urine Bilirubin Negative Urine Urobilinogen Normal Ur Leukocyte Esterase 25 H Urine RBC 0 SEEN Urine WBC 0-5 SEEN Ur Squamous Epith Cells 0-5 SEEN Urine Bacteria 1+ Urine Mucus 0 SEEN Radiography Diagnostic Testing: Clinical Impression(s) from Imaging Studies Abdomen/Pelvis CT 09/21/24 09:12 IMPRESSION: Fatty infiltration of the liver. 1.7 mm nonobstructive calculus in the upper pole calyx of the left kidney. Electronically Signed: Giovanny Whitney MD at 10:21 EDT , Discharge Plan Triage Chief Complaint: Flank Pain ED Provider: Neto Berman Dx/Rx/DC Orders Clinical Impression: Back pain, Abdominal pain Instructions: ED Abdominal Pain Unkn Cause Fem, ED Back Pain (Acute or Chronic) Prescriptions: New cyclobenzaprine 10 mg tablet 10 mg PO TID PRN (Reason: Muscle Spasm) Qty: 20 0RF hydrocodone-acetaminophen 5-325 mg tablet 1 tab PO Q4H PRN PRN (Reason: Pain) 2 Days Qty: 10 0RF No Action metformin 1,000 mg tablet 1,000 mg PO BID 90 Days Qty: 180 1RF multivitamin Tablet 1 tab PO DAILY hydrochlorothiazide 12.5 mg tablet 12.5 mg PO DAILY Qty: 30 1RF lisinopril 10 mg tablet 10 mg PO DAILY Qty: 30 1RF meloxicam 15 mg tablet 15 mg PO DAILY Qty: 30 1RF Primary Care Provider: Janell Torres Referrals: Janell Torres MD [Primary Care Provider] - 2 Days Print Language: Japanese Disposition Disposition: Home, Self Care
[2024-09-21 09:30] LABS: Mucous, Urine 0 SEEN /hpf (<or=2+); Red Blood Cells-Urine 0 SEEN /hpf (0-5)
[2024-09-21 09:36] LABS: Absolute Lymphocyte Count 2.16 X10^3/uL (0.83-4.51); Absolute Neutrophil Count 4.1 X10^3/uL (2.0-7.7); Basophil# 0.04 X10^3/uL; Basophil% 0.6 % (0-1); Eosinophil# 0.14 X10^3/uL; Hematocrit 37.5 % (37-47); Hemoglobin 12.4 g/dL (12.0-15.0); Lymphocyte # 2.16 X10^3/ul (0.83-4.51); Lymphocyte % 30.2 % (19-41); Mean Corp Hgb Conc 33.1 g/dL (32-36); Mean Corpuscular Hgb 29.2 pg (27.0-32.0); Mean Corpuscular Volume 88.4 fL (81-99); Mean Platelet Vol. 11.1 fl (6.2-12.0); Monocyte# 0.69 X10^3/uL; Monocyte% 9.7 % (0-10); NRBC Flagged by Analyzer 0 % (0-5); Neutrophil # 4.09 X10^3/uL (2.7-7.7); Neutrophil % 57.1 % (47-70); Platelet Count 213 K/mm3 (150-450); RBC Distribution Width CV 13.3 % (11.6-14.6); RBC Distribution Width SD 43.1 fl (35.1-43.9); Red Blood Count 4.24 M/mm3 (4.2-5.4); White Blood Count 7.2 K/mm3 (4.4-11.0)
[2024-09-21 09:44] LABS: Color, Urine Yellow (Yellow); Glucose, Dipstick 250 mg/dl (Normal); Ketone-Dipstick Negative (Negative); Leukocyte Esterase-Dipstick 25 /ul (Negative); Nitrite-Dipstick Negative (Negative); Occult Blood-Urine Negative /ul (Negative); Protein-Dipstick 15 mg/dl (Negative); Specific Gravity, Urine 1.015 (1.002-1.030); Urine Bilirubin Dipstick Negative (Negative); Urine Clarity Sl. Cloudy (Clear); Urine Urobilinogen Normal (Normal)
[2024-09-21 09:44] LABS: Anion Gap 9 (5-15); BUN 17 mg/dL (7-18); BUN/Creat Ratio 28.7 RATIO (10-20); Chloride 104 mmol/L (98-107); Creatinine, Serum 0.59 mg/dL (0.55-1.02); EST Glomerular Filtration Rate 112 mL/min (>60); Est Glom Filt Rate - Afr Amer 136 mL/min (>60); Estimated Creatinine Clearance 139.87 ml/min; Glucose 202 mg/dL (74-106); Potassium 3.5 mmol/L (3.5-5.1); Sodium Level 142 mmol/L (136-145)
[2024-09-21] MEDS: Ketorolac 15 MG/ML Vial IV (09:45)
[2024-09-21] MEDS: Ondansetron 4 MG/2 ML Vial IV (09:45)
[2024-09-21] MEDS: Morphine 4 MG/ML Syringe IV (09:46)
[2024-09-21 09:51] LABS: Bacteria 1+ /hpf (None Seen); Squamous Epithelial Cells - UA 0-5 SEEN /hpf (5-10); White Blood Cells 0-5 SEEN /hpf (0-5)
[2024-09-21 11:08] VITALS: BP 134/69; PULSE 72; RESP 15; TEMP 36.3; O2SAT 98
[2024-09-21 11:09] LABS: AST(SGOT) 16 U/L (15-37); Alanine Aminotransfer ALT/SGPT 34 U/L (13-56); Albumin, Serum 3.4 g/dL (3.2-5.0); Alkaline Phosphatase 63 U/L (45-117); Bilirubin, Direct 0.12 mg/dL (0.00-0.30); Globulin 3.2 g/dL (2.2-4.2); Protein, Total 6.6 g/dL (6.4-8.2)
[2024-09-21 11:40] VITALS: BP 122/76; PULSE 81; RESP 15; TEMP 36.3; O2SAT 97
== END 2024-09-21 11:41 | disposition home or self-care (01) ==
PROVIDERS: Emergency Provider Emergency Medicine; PCP Internal Medicine; Visit Provider Emergency Medicine
DX: M54.9 Dorsalgia, unspecified (principal); E11.9 Type 2 diabetes mellitus without complications; R10.9 Unspecified abdominal pain; Z87.891 Personal history of nicotine dependence
CPT/HCPCS: 74176; 80048; 80076; 81001; 85025; 96374; 96375; 99283; A4216; J2405

== ENCOUNTER → 2024-09-23 | Outpatient (CLI) | payer MEDICAID, SELFPAY ==
[2024-09-23 17:32] LABS: Rheumatoid Factor < 10.0 IU/mL (<15)
[2024-09-23 17:39] LABS: Thyroid Stim Hormone (TSH) 0.458 uIU/mL (0.358-3.740)
--- OUTSIDE RECORDS SUMMARY | 2024-09-23 19:16 | XMS RPT_ITS | CCD ---
Author Organization [facility] Care Team Providers Care Regional Commercial Sales Manager Name Role Phone JAMESON BOOKER Attending Unavailable DO BROWNING Primary Care Unavailable NAM RISK MGRDO LUEVANO Primary Care Physician Denis FERRELL, Librado Douglas Primary Care Provider [phone] Denis FERRELL, Librado Douglas Primary Care Provider [phone] Denis FERRELL, Librado Douglas Primary Care Provider [phone] LALA SAM Referring Unavailable LIBRADO BARRIOS Primary Care Unavailable LALA SAM Referring Unavailable LIBRADO BARRIOS Primary Care Unavailable LIBRADO BARRIOS Referring Unavailable DENIS, LIBRADO Douglas Primary Care Unavailable ROSA ISELA MITCHELL Attending Unavailable LIBRADO BARRIOS Primary Care Unavailable LIBRADO BARRIOS Primary Care Unavailable ROSINA ELIZALDE Attending Unavailable LIBRADO BARRIOS Primary Care Unavailable ROSA ISELA MITCHELL Attending Unavailable LIBRADO BARRIOS Primary Care Unavailable LUX ALEJO Attending Unavailable LIBRADO BARRIOS Primary Care Unavailable ROSA ISELA MITCHELL Referring Unavailable DENIS, LIBRADO Douglas Primary Care Unavailable STEPHENROSA ISELA TREJO Attending Unavailable ROSA ISELA MITCHELL Referring Unavailable LIBRADO BARRIOS Primary Care Unavailable LALA SAM Attending Unavailable LIBRADO BARRIOS Primary Care Unavailable Denis FERRLEL, Librado Douglas Primary Care Provider [phone] Allergies Allergy Classification Reported Allergen(s) Allergy Type Date of Onset Reaction(s) Facility (1 source) Penicillin; Translations: [penicillins] Drug Allergy [facility] (20 sources) Adhesive agent; Translations: [ADHESIVE] Drug Allergy 07-31-2013 Other: See Comments [facility] Work Phone: (20 sources) Penicillin G; Translations: [PENICILLIN G] Drug Allergy 11-15-2005 Swelling, Shortness of Breath [facility] (20 sources) Penicillins; Translations: [PENICILLINS] Drug Allergy 05-24-2022 Hives [facility] (10 sources) Acrylic Acid And Acrylates; Translations: [ACRYLIC ACID AND ACRYLATES] Drug Allergy 05-16-2023 Rash [facility] Medications Current Medications Medication Drug Class(es) Dates Sig (Normalized) Sig (Original) acetaminophen 325 mg / HYDROcodone bitartrate 5 mg oral tablet (2 sources) Opioid Agonist Start: 03-14-2014 take 1 tablet by mouth every six hours [place] 325- 5 mg oral tablet Dose = 1 tab(s), Oral, q6h, # 20 tab(s), 0 Refill(s) Start Date: 03/14/14 Status: Ordered azithromycin 250 mg oral tablet (2 sources) Macrolide Antimicrobial Start: 06-04-2022 End: 06-07-2022 take 1 tablet by mouth once daily azithromycin (ZITHROMAX) 250 mg tablet Indications: Acute non-recurrent maxillary sinusitis Take 1 tablet by mouth once daily for 3 days. 3 tablet 0 06/04/2022 06/07/2022 Active Start: 05-30-2022 End: 06-04-2022 take 2 tablets by mouth once daily, then take 1 tablet by mouth once daily azithromycin (ZITHROMAX) 250 mg tablet Indications: Acute sinusitis, recurrence not specified, unspecified location Take 2 tablets by mouth once daily for 1 day, THEN 1 tablet once daily for 4 days. 6 tablet 0 05/30/2022 06/04/2022 Discontinued Comment on above: Take 1 tablet by love th once daily for 3 days. Take 2 tablets by mo [facility] once daily for 1 day, THEN 1 tablet once daily for 4 days. benzonatate 100 mg oral capsule (2 sources) Non-narcotic Antitussive Start: 3 End: 3 take 1 capsule by mouth every eight hours as needed for cough and cough benzonatate (TESSALON PERLES) 100 mg capsule Indications: Acute cough Take 1 capsule by mouth three times daily as needed for up to 7 days. 21 capsule 0 02/20/2023 02/27/2023 Active Comment on above: Take 1 capsule by mo [facility] three times daily as needed for up to 7 days. doxycycline monohydrate 100 mg oral tablet (2 sources) Tetracycline-class Drug Start: 3 End: 3 take 1 tablet by mouth twice daily doxycycline monohydrate 100 mg tablet Indications: Acute sinusitis, recurrence not specified, unspecified location Take 1 tablet by mouth twice daily for 5 days. 10 tablet 0 02/23/2023 02/28/2023 Active Start: 11-21-2022 End: 12-01-2022 take 1 tablet by mouth twice daily doxycycline monohydrate 100 mg tablet Indications: Bacterial sinusitis Take 1 tablet by mouth twice daily for 10 days. 20 tablet 0 11/21/2022 12/01/2022 Active Comment on above: Take 1 tablet by [facility] twice daily for 10 days. Take 1 tablet by [facility] twice daily for 5 days. fluticasone propionate 0.05 mg/actuat metered dose nasal spray (20 sources) Corticosteroid Start: 05-30-20 22 take 2 spray(s) by mouth once daily fluticasone (FLONASE) 50 mcg/actuation nasal spray Indications: Acute sinusitis, recurrence not specified, unspecified location Use 2 Sprays in each nostril once daily. Rinse mouth after use. 1 Each 05/30/2022 Active Comment on above: Use 2 Sprays in each nostril once daily. Rinse mouth after use. Inhalational Spacing Device (1 source) Start: 02-21-20 End: 02-21-20 Inhalational Spacing Device 1 Device one time only for 1 dose. 1 Each 0 02/20/2023 02/20/2023 Active Comment on above: 1 Device one time on ly for 1 dose. loratadine 10 mg oral tablet (20 sources) Start: 03-04-20 13 take 1 tablet by mouth once daily loratadine 10 mg tablet Take 10 mg by mouth once daily. Patient taking 1 tablet once daily. 0 03/04/2013 Active Comment on above: Take 10 mg by mouth once daily. Patient taking 1 tablet once daily. multivit with minerals/lutein (MULTIVITAMIN 50 PLUS ORAL) (20 sources) multivit with minerals/lutein (MULTIVITAMIN 50 PLUS ORAL) Take by mouth. Active multivit with mi nerals/lutein (MULTIVITAMIN 50 PLUS ORAL) Take by mouth. 0 Active Comment on above: Take by mouth. Multivitamin preparation (1 source) Start: 03-14-2014 take 1 tablet by mouth once daily Multi Vitamin Multi Vitamin, 1 tab, Oral, Daily Start Date: 03/14/14 Status: Ordered nirmatrelvir tablet 300 mg (150 mg x 2) and ritonavir tablet 100 mg in a dose pack (PAXLOVID) (3 sources) Start: 10-22-2023 End: 10-27-2023 nirmatrelvir tablet 300 mg (150 mg x 2) and ritonavir tablet 100 mg in a dose pack (PAXLOVID) Indications: COVID-19 virus infection Administer TWO pink nirmatrelvir 150 mg tablets and ONE white ritonavir 100 mg tablet for a total of three tablets twice daily. 30 tablet 0 10/22/2023 10/27/2023 Active Start: 11-12-2022 End: 11-17-2022 nirmatrelvir tablet 300 mg ( 150 mg x 2) and ritonavir tablet 100 mg in a dose pack (PAXLOVID) Administer TWO pink nirmatrelvir 150 mg tablets and ONE white ritonavir 100 mg tablet for a total of three tablets twice daily. 30 tablet 0 11/12/2022 11/17/2022 Active Comment on above: Administer TWO pink nirmatrelvir 150 mg tablets and ONE white ritonavir 100 mg tablet for a total of three tablets twice daily. phenylephrine hydrochloride 25 mg/ml ophthalmic solution (1 source) alpha-1 Adrenergic Agonist Start: 07-23-20 End: 07-24-20 PHENYLephrine 2.5 % 1 Drop (AK-DILATE, SOUTH-SYNEPHRINE) predniSONE 20 mg oral tablet (2 sources) Start: 02-21-20 End: 02-26-20 take 1 tablet by mouth once daily predniSONE (DELTASONE) 20 mg tablet Indications: Acute cough Take 1 tablet by mouth once daily for 5 days. 5 tablet 0 02/20/2023 02/25/2023 Active Comment on above: Take 1 tablet by [facility] once daily for 5 days. proparacaine hydrochloride 5 mg/ml ophthalmic solution (1 source) Local Anesthetic Start: 07-23-20 End: 07-24-20 proparacaine 0.5 % 1 Drop (ALCAINE) tropicamide 10 mg/ml ophthalmic solution (1 source) Anticholinergic Start: 07-23-20 End: 07-24-20 tropicamide 1 % 1 Drop (MYDRIACYL) Vitamin D3 (1 source) Start: 03-14-20 take 1 tablet by mouth once daily Vitamin D3 Vitamin D3, 1 tab, Oral, Daily, 0 Refill(s) Start Date: 03/14/14 Status: Ordered Vitamin Super B complex (1 source) Start: 03-14-20 take 1 tablet by mouth once daily Vitamin Super B complex Vitamin Super B complex, 1 tab, Oral, Daily Start Date: 03/14/14 Status: Ordered Completed/Discontinued Medications Medication Drug Class(es) Dates Sig (Normalized) Sig (Original) [id number] 200 actuat albuterol 0.09 mg/actuat metered dose inhaler (20 sources) beta2-Adrenergic Agonist Start: 02-20-2023 take 2 puff(s) by inhalation every six hours as needed for wheezing albuterol HFA (PROVENTIL HFA, VENTOLIN HFA) 90 mcg/actuation inhaler Indications: Acute cough Inhale 2 Puffs as instructed every 6 hours as needed for wheezing/shortnes s of breath. 1 Each 0 02/20/2023 Active Start: 12-12-2021 End: 12-17-2022 albuterol (PROVENTIL) 2.5 mg /3 mL (0.083 %) nebulizer solution Indications: Mild intermittent asthma without complication Use 3 mL via nebulizer every 4 hours as needed for wheezing/shortness of breath. Use over 5-15minutes. 90 mL 2 12/17/2022 Active Comment on above: Use 3 mL via nebuliz er every 4 hours as needed for wheezing/shortness of breath. Use over 5-15minutes. Inhale 2 Puffs as in structed every 6 hours as needed for wheezing/shortness of breath. Blood-Glucose Meter,Continuous (DEXCOM G6 BICYCLE I ASSEMBLER) misc (2 sources) Start: 04-15-2023 End: 05-27-2023 Blood-Glucose Meter,Continuous (DEXCOM G6 BICYCLE I ASSEMBLER) misc Indications: Type 2 diabetes mellitus without complication, without long-term current use of insulin (HCC) Dx: Type 2 DM - Controlled E11.9 Insulin: No 1 Each 0 04/15/2023 05/27/2023 Discontinued Start: 04-15-2023 Blood-Glucose Meter,Continuous (DEXCOM G6 BICYCLE I ASSEMBLER) misc Indications: Type 2 diabetes mellitus without complication, without long-term current use of insulin (HCC) Dx: Type 2 DM - Controlled E11.9 Insulin: No 1 Each 0 04/15/2023 Active Comment on above: Dx: Type 2 DM - Cont rolled E11.9 Insulin: No Blood-Glucose Meter,Continuous (DEXCOM G7 BICYCLE I ASSEMBLER) misc (13 sources) Start: 05-27-2023 Blood-Glucose Meter,Continuous (DEXCOM G7 BICYCLE I ASSEMBLER) misc Dx: Type 2 DM - Controlled E11.9 Insulin: No 1 Each 0 05/27/2023 Active Comment on above: Dx: Type 2 DM - Cont rolled E11.9 Insulin: No Blood-Glucose Sensor (DEXCOM G6 SENSOR) hany (2 sources) Start: 04-15-2023 End: 05-27-2023 Blood-Glucose Sensor (DEXCOM G6 SENSOR) hany Indications: Type 2 diabetes mellitus without complication, without long-term current use of insulin ([facility]) Dx: Type 2 DM - Controlled E11.9 Insulin: No 4 Each 3 04/15/2023 05/27/2023 Discontinued Start: 04-15-2023 Blood-Glucose Sensor (DEXCOM G6 SENSOR) hany Indications: Type 2 diabetes mellitus without complication, without long-term current use of insulin ([facility]) Dx: Type 2 DM - Controlled E11.9 Insulin: No 4 Each 3 04/15/2023 Active Comment on above: Dx: Type 2 DM - Cont rolled E11.9 Insulin: No Blood-Glucose Sensor (DEXCOM G7 SENSOR) hany (13 sources) Start: 12-09-2023 Blood-Glucose Sensor (DEXCOM G7 SENSOR) hany Dx: Type 2 DM - Controlled E11.9 Insulin: No 9 Each 3 12/09/2023 Active Start: 05-27-2023 Blood-Glucose Sensor (DEXCOM G7 SENSOR) hany Dx: Type 2 DM - Controlled E11.9 Insulin: No 9 Each 3 05/27/2023 Active Comment on above: Dx: Type 2 DM - Cont rolled E11.9 Insulin: No Blood-Glucose Transmitter (DEXCOM G6 TRANSMITTER) hany (14 sources) Start: 04-15-2023 Blood-Glucose Transmitter (DEXCOM G6 TRANSMITTER) hany Indications: Type 2 diabetes mellitus without complication, without long-term current use of insulin (HCC) Dx: Type 2 DM - Controlled E11.9 Insulin: No 1 Each 4 04/15/2023 Active Comment on above: Dx: Type 2 DM - Cont rolled E11.9 Insulin: No 0.5 ml dulaglutide 3 mg/ml auto-injector (13 sources) GLP-1 Receptor Agonist Start: 04-30-2022 End: 08-13-2022 dulaglutide (TRULICITY) 1.5 mg/0.5 mL pen injector Inject 1.5 mg subcutaneously one time a week. Inject once per week. Discard Pen After 2 mL 2 07/25/2022 08/13/2022 Discontinued (Dosage adjustment) Start: 12-30-2021 inject 0.75 mg by kowalski bcutaneous injection every week dulaglutide (TRULICITY) 0.75 mg/0.5 mL pen injector Inject 0.75 mg subcutaneously one time a week. Inject dose once per week. Discard Pen After 2 mL 2 12/30/2021 Active Comment on above: Inject 0.75 mg subcu taneously one time a week. Inject dose once per week. Discard Pen After Inject 1.5 mg subcut aneously one time a week. Inject once per week. Discard Pen After dulaglutide (TRULICITY) 3 mg/0.5 mL pen injector (8 sources) Start: 022 End: 023 inject 3 mg by subcutaneous injection every week dulaglutide (TRULICITY) 3 mg/0.5 mL pen injector Inject 3 mg subcutaneously one time a week. 2 mL 5 08/13/2022 12/17/2022 Discontinued Start: 08-13-2022 inject 3 mg by subcu taneous injection every week dulaglutide (TRULICITY) 3 mg/0.5 mL pen injector Inject 3 mg subcutaneously one time a week. 2 mL 5 08/13/2022 Active Comment on above: Inject 3 mg subcutan eously one time a week. glipiZIDE 5 mg oral tablet (20 sources) Sulfonylurea Start: take 0.25 tablet by mouth once daily as needed glipiZIDE (GLUCOTROL) 5 mg tablet Indications: Type 2 diabetes mellitus without complication, without long-term current use of insulin (HCC) Take 0.25 tablets by mouth once daily as needed. 0 08/05/2023 Active Start: 04-15-2023 End: 08-05-2023 take 1 tablet by mouth once daily at mealtime glipiZIDE (GLUCOTROL) 5 mg tablet Indications: Type 2 diabetes mellitus without complication, without long-term current use of insulin (HCC) Take 1 tablet by mouth daily with food. 30 tablet 5 04/15/2023 08/05/2023 Discontinued Start: 09-17-2022 End: 04-15-2023 take 1 tablet by mouth once daily at mealtime glipiZIDE (GLUCOTROL) 10 mg tablet Indications: Type 2 diabetes mellitus without complication, without long-term current use of insulin (HCC) Take 1 tablet by mouth daily with food. 90 tablet 3 09/17/2022 04/15/2023 Discontinued Start: 04-30-2022 End: 09-14-2022 take 1 tablet by mouth once daily at mealtime glipiZIDE (GLUCOTROL) 10 mg tablet Indications: Type 2 diabetes mellitus without complication, without long-term current use of insulin (HCC) Take 1 tablet by mouth daily with food. 0 04/30/2022 09/14/2022 Discontinued Start: 08-09-2021 take 1 tablet by love th twice daily before mealtime glipiZIDE (GLUCOTROL) 10 mg tablet Indications: Type 2 diabetes mellitus without complication, without long-term current use of insulin (HCC) Take 1 tablet by mouth twice daily before meals. 180 tablet 3 08/09/2021 Active Comment on above: Take 1 tablet by love th twice daily before meals. Take 1 tablet by love th daily with food. Take 0.25 tablets by mouth once daily as needed. hydroCHLOROthiazide 12.5 mg oral tablet (20 sources) Thiazide Diuretic Start: 023 take 1 tablet by mouth once daily hydroCHLOROthiazide 12.5 mg tablet Take 1 tablet by mouth once daily. 30 tablet 11 08/05/2023 Active Start: 12-12-2021 End: 08-05-2023 take 1 tablet by mouth once daily hydroCHLOROthiazide 25 mg tablet Take 1 tablet by mouth once daily. 30 tablet 5 04/15/2023 08/05/2023 Discontinued Comment on above: [facility] Lactobac no.41/Bifidobact no.7 (PROBIOTIC-10 ORAL) (20 sources) End: 04-15-2023 Lactobac no.41/Bifidobact no.7 (PROBIOTIC-10 ORAL) Take by mouth. 04/15/2023 Discontinued (Course of therapy completed) Lactobac no.41/B ifidobact no.7 (PROBIOTIC-10 ORAL) Take by mouth. 0 Active Comment on above: Take by mouth. lisinopril 10 mg oral tablet (20 sources) Angiotensin Converting Enzyme Inhibitor Start: take 1 tablet by mouth once daily lisinopril (ZESTRIL) 10 mg tablet Indications: Hypertension, unspecified type Take 1 tablet by mouth once daily. 30 tablet 11 08/05/2023 Active Start: 09-17-2022 End: 08-05-2023 take 1 tablet by mouth once daily lisinopril (ZESTRIL, PRINIVIL) 20 mg tablet Indications: Hypertension, unspecified type Take 1 tablet by mouth once daily. 90 tablet 3 09/17/2022 08/05/2023 Discontinued Start: 11-06-2021 End: 09-14-2022 take 1 tablet by mouth once daily lisinopril (ZESTRIL, PRINIVIL) 20 mg tablet Indications: Hypertension, unspecified type Take 1 tablet by mouth once daily. 30 tablet 5 03/30/2022 09/14/2022 Discontinued Start: 03-14-2014 lisinopril 5 m g oral tablet Dose : 5 mg = 1 tab(s), Oral, Daily Start Date: 03/14/14 Status: Ordered Comment on above: Take [facility]. loperamide hydrochloride 2 mg oral capsule (6 sources) Opioid Agonist Start: 10-22-20 take 1 capsule by mouth every six hours as needed loperamide (IMODIUM A-D) 2 mg cap(s) Take 1 capsule by mouth four times a day as needed for diarrhea. 20 capsule 0 10/22/2023 Active Comment on above: Take 1 capsule by mo uth four times a day as needed for diarrhea. meloxicam 15 mg oral tablet (20 sources) Nonsteroidal Anti-inflammatory Drug Start: 12-09-19 End: 02-18-20 take 1 tablet by mouth once daily at mealtime meloxicam (MOBIC) 15 mg tablet Take 1 tablet by mouth once daily. With food. 30 tablet 2 02/18/2024 Active Start: 06-27-2023 End: 10-30-2023 take 1 tablet by mouth once daily at mealtime meloxicam (MOBIC) 15 mg tablet Take 1 tablet by mouth once daily. With food. 30 tablet 2 10/30/2023 Active Start: 09-17-2022 End: 06-25-2023 take 1 tablet by mouth once daily at mealtime meloxicam (MOBIC) 15 mg tablet Take 1 tablet by mouth once daily. With food. 30 tablet 2 12/03/2022 04/03/2023 Discontinued Start: 12-12-2021 End: 09-14-2022 take 1 tablet by mouth once daily at mealtime meloxicam (MOBIC) 15 mg tablet Take 1 tablet by mouth once daily. With food. 30 tablet 2 07/13/2022 09/14/2022 Discontinued Comment on above: Take 1 tablet by love th once daily. With food. metFORMIN hydrochloride 500 mg oral tablet (20 sources) Biguanide Start: take 1 tablet by mouth once daily at breakfast, then take 2 tablets by mouth once daily at dinner metFORMIN (GLUCOPHAGE) 500 mg tablet Indications: Type 2 diabetes mellitus without complication, without long-term current use of insulin (HCC) Take 1 tablet by mouth daily with breakfast AND 2 tablets daily with dinner. 0 12/16/2023 Active Start: 11-06-2021 End: 04-15-2023 take 2 tablets by mouth twice daily at mealtime metFORMIN (GLUCOPHAGE) 500 mg tablet Indications: Type 2 diabetes mellitus without complication, without long-term current use of insulin (HCC) Take 2 tablets by mouth twice daily with meals. 120 tablet 5 04/15/2023 Active Comment on above: Take 2 tablets by mo uth twice daily with meals. Take 1 tablet by love th daily with breakfast AND 2 tablets daily with dinner. ondansetron 4 mg disintegrating oral tablet (7 sources) Serotonin-3 Receptor Antagonist Start: 10-22-20 take 1 tablet by mouth every six hours as needed ondansetron orally disintegrating (ZOFRAN ODT) 4 mg disintegrating tablet Take 1 tablet by mouth every 6 hours as needed for nausea/vomiting. 20 tablet 0 10/22/2023 Active Start: 03-14-2014 take 0.5 tablet by m outh every eight hours Zofran 4 mg oral tablet 1/2 tab(s), Oral, q8h, # 4 tab(s), 0 Refill(s) Start Date: 03/14/14 Status: Ordered Comment on above: Take 1 tablet by love th every 6 hours as needed for nausea/vomiting. semaglutide (OZEMPIC) 1 mg/dose (4 mg/3 mL) pen (1 source) Start: 2021 End: 2021 inject 1 mg by subcutaneous injection every week semaglutide (OZEMPIC) 1 mg/dose (4 mg/3 mL) pen Inject 1 mg subcutaneously one time a week. 3 mL 1 11/14/2022 11/15/2022 Discontinued (Availability) Comment on above: Inject 1 mg subcutan eously one time a week. tirzepatide (MOUNJARO) 10 mg/0.5 mL pen injector (6 sources) Start: 2022 inject 10 mg by subcutaneous injection every week tirzepatide (MOUNJARO) 10 mg/0.5 mL pen injector Inject 10 mg subcutaneously one time a week. 2 mL 5 10/02/2023 Active Start: 05-04-2023 End: 05-24-2023 inject 10 mg by subcutaneous injection every week tirzepatide (MOUNJARO) 10 mg/0.5 mL pen injector Inject 10 mg subcutaneously one time a week. 2 mL 5 05/04/2023 05/24/2023 Discontinued (Availability) Start: 04-15-2023 inject 10 mg by subc utaneous injection every week tirzepatide (MOUNJARO) 10 mg/0.5 mL pen injector Inject 10 mg subcutaneously one time a week. 2 mL 5 04/15/2023 Active Comment on above: Inject 10 mg subcuta neously one time a week. tirzepatide (MOUNJARO) 12.5 mg/0.5 mL pen injector (3 sources) Start: 024 inject 12.5 mg by subcutaneous injection every week tirzepatide (MOUNJARO) 12.5 mg/0.5 mL pen injector Inject 12.5 mg subcutaneously one time a week. 2 mL 5 12/16/2023 Active Comment on above: Inject 12.5 mg subcu taneously one time a week. tirzepatide (MOUNJARO) 5 mg/0.5 mL pen injector (4 sources) Start: 022 End: 023 inject 5 mg by subcutaneous injection every week tirzepatide (MOUNJARO) 5 mg/0.5 mL pen injector Inject 5 mg subcutaneously one time a week. 4 Each 1 11/15/2022 12/17/2022 Discontinued Start: 11-15-2022 inject 5 mg by subcu taneous injection every week tirzepatide (MOUNJARO) 5 mg/0.5 mL pen injector Inject 5 mg subcutaneously one time a week. 4 Each 1 11/15/2022 Active Comment on above: Inject 5 mg subcutan eously one time a week. tirzepatide (MOUNJARO) 7.5 mg/0.5 mL pen injector (13 sources) Start: End: inject 7.5 mg by subcutaneous injection every week tirzepatide (MOUNJARO) 7.5 mg/0.5 mL pen injector Indications: Type 2 diabetes mellitus without complication, without long-term current use of insulin (HCC) Inject 7.5 mg subcutaneously one time a week. 2 mL 5 05/24/2023 10/02/2023 Discontinued (Dosage adjustment) Start: 05-24-2023 inject 7.5 mg by sub cutaneous injection every week tirzepatide (MOUNJARO) 7.5 mg/0.5 mL pen injector Indications: Type 2 diabetes mellitus without complication, without long-term current use of insulin (HCC) Inject 7.5 mg subcutaneously one time a week. 2 mL 5 05/24/2023 Active Start: 12-17-2022 End: 04-15-2023 inject 7.5 mg by subcutaneous injection every week tirzepatide (MOUNJARO) 7.5 mg/0.5 mL pen injector Indications: Type 2 diabetes mellitus without complication, without long-term current use of insulin (HCC) Inject 7.5 mg subcutaneously one time a week. 2 mL 5 12/17/2022 04/15/2023 Discontinued Start: 12-17-2022 inject 7.5 mg by sub cutaneous injection every week tirzepatide (MOUNJARO) 7.5 mg/0.5 mL pen injector Indications: Type 2 diabetes mellitus without complication, without long-term current use of insulin (HCC) Inject 7.5 mg subcutaneously one time a week. 2 mL 5 12/17/2022 Active Comment on above: Inject 7.5 mg subcut aneously one time a week. vit A/vit C/vit E/zinc/copper (PRESERVISION AREDS ORAL) (20 sources) End: 08-05-2023 vit A/vit C/vit E/zinc/copper (PRESERVISION AREDS ORAL) Take by mouth. generic 08/05/2023 Discontinued (Discontinued by Patient) End: 08-05-2023 vit A/vit C/vit E/zinc/coppe r (PRESERVISION AREDS ORAL) Take by mouth. generic 0 08/05/2023 Discontinued (Discontinued by Patient) vit A/vit C/vit E/zinc/copper (PRESERVISION AREDS ORAL) Take by mouth. generic 0 Active Comment on above: Take by mouth. gener ic Problems Problem Classification Problem Date Documented Da te Episodic/Chronic Asthma (20 sources) Asthma; Translations: [Unspecified asthma, uncomplicated] Onset: 07-08-2019 12-17-2019 Chronic Blindness and vision defects (2 sources) Bilateral myopia of eyes; Translations: [Myopia, bilateral] 07-23-2023 Episodic Diabetes mellitus with complications (1 source) Diabetes mellitus due to underlying condition with hyperosmolarity without nonketotic hyperglycemic-hyperos molar coma ([facility]); Translations: [Diabetes mellitus due to underlying condition with hyperosmolarity without coma, without long-term current use of insulin (HCC)] Onset: 12-17-2019 Chronic Diabetes mellitus without complication (20 sources) Type 2 diabetes mellitus without complication; Translations: [Type 2 diabetes mellitus without complications] Onset: 04-07-2019 Chronic Essential hypertension (20 sources) Hypertensive disorder; Translations: [Essential (primary) hypertension] Onset: 03-04-2013 12-17-2019 Chronic Immunizations and screening for infectious disease (6 sources) Patient encounter status; Translations: [Encounter for immunization] Onset: 08-05-2023 Episodic Inflammation; infection of eye (except that caused by tuberculosis or sexually transmitteddisease) (1 source) Chronic allergic conjunctivitis; Translations: [Other chronic allergic conjunctivitis] Chronic Other connective tissue disease (1 source) Calcaneal spur of left foot; Translations: [Calcaneal spur, left foot] 01-03-2024 Episodic Other connective tissue disease (1 source) Left achilles tendonitis; Translations: [Achilles tendinitis, left leg] 01-03-2024 Episodic Other connective tissue disease (1 source) Calcaneal spur, left foot; Translations: [Calcaneal spur of foot, left] Onset: 12-25-2023 Episodic Other connective tissue disease (1 source) Achilles tendinitis, left leg; Translations: [Tendonitis, Achilles, left] Onset: 12-25-2023 Episodic Other endocrine disorders (20 sources) Hyperparathyroidism; Translations: [Hyperparathyroidism, unspecified] 07-08-2019 Chronic Other endocrine disorders (1 source) Hyperparathyroidism, unspecified; Translations: [Hyperparathyroidism (HCC)] Onset: 07-08-2019 Chronic Other eye disorders (2 sources) Tear film insufficiency; Translations: [Dry eye syndrome of bilateral lacrimal glands] Episodic Other gastrointestinal disorders (1 source) Loose stool; Translations: [Other fecal abnormalities] Episodic Other lower respiratory disease (1 source) Cough; Translations: [Acute cough] Episodic Other lower respiratory disease (1 source) Cough; Translations: [Acute cough] 02-20-2023 Episodic Other nervous system disorders (1 source) Lesion of ulnar nerve; Translations: [Lesion of ulnar nerve, unspecified upper limb] Onset: 02-14-2022 Chronic Other nutritional; endocrine; and metabolic disorders (20 sources) Body mass index 40+ - severely obese; Translations: [Morbid (severe) obesity due to excess calories] Onset: 07-23-2019 07-23-2019 Chronic Other nutritional; endocrine; and metabolic disorders (1 source) Morbid (severe) obesity due to excess calories; Translations: [Obesity, Class III, BMI 40-49.9 (morbid obesity) (HCC)] Onset: 07-23-2019 Chronic Other screening for suspected conditions (not mental disorders or infectious disease) (2 sources) Encounter for screening mammogram for malignant neoplasm of breast; Translations: [Encounter for screening for malignant neoplasm of colon] Onset: 08-05-2023 Episodic Other upper respiratory infections (1 source) Bacterial sinusitis; Translations: [Chronic sinusitis, unspecified] Chronic Other upper respiratory infections (3 sources) Sore throat symptom; Translations: [Acute pharyngitis, unspecified] Episodic Residual codes; unclassified (1 source) Treatment not available; Translations: [Procedure and treatment not carried out for other reasons] Episodic Unclassified (1 source) None (qualifier value) 03-14-2014 Viral infection (2 sources) Disease caused by 2019-nCoV; Translations: [COVID-19] Episodic Results Test Name Value Interpretation Reference Range Facility [facility] 01-23-2024 CNPN Telephone (INTMWS) -------- ISAAC AVILES ([id number]) 1970 F Date Time Provider Department 01/23/24 LIBRADO BARRIOS INTELEN During your visit today, we recorded the following information about you: Raquel Chew RN 01/23/2024 4:50 PM Signed Patient calls and states that she is losing Medicaid tomorrow and will have a government subsidiary insurance. Patient does not think this will cover Mounjaro. Patient asking what other medication options are? Please review and advise, ZAIRE Santacruz Victor H, MD 01/24/2024 3:29 PM Signed Similar medications are Ozempic or Trulicity. I suggest she check with her plan so we know what will be preferred. Berlin Moreno RN 01/24/2024 3:41 PM Signed Phoned pt and given provider's message below. Patient reports she has 1 mounjaro pen left-12.5 mg, and then she has the 7.5 mg, and plans to take that if she has to wait on insurance to get back to her. Reports she hasn't received the cards yet, but expecting them soon. Allergies As of Date: 01/23/2024 Noted Allergy Reaction PENICILLIN G 11/15/2005 7 - Swelling 12 - Shortness of Breath ACRYLIC ACID AND ACRYLATES 05/16/2023 2 - Rash ADHESIVE 07/31/2013 14 - Other: See Comments Comments: Patient notes severe reaction to almost any type of adhesive in the past. Most recently developed significant ulceration at site where steri-strips were used after core biopsy PENICILLINS 05/24/2022 4 - Hives Date Reviewed: 12/24/2023 Reviewed by: Candelaria Siegel RN - Fully Assessed Reason for Visit: Patient Question [1477] Prescriptions as of 01/28/2024 - tirzepatide (MOUNJARO) 12.5 mg/0.5 mL pen injector Inject 12.5 mg subcutaneously one time a week. - metFORMIN (GLUCOPHAGE) 500 mg tablet Take 1 tablet by mouth daily with breakfast AND 2 tablets daily with dinner. - Blood-Glucose Sensor (DEXCOM G7 SENSOR) hany Dx: Type 2 DM - Controlled E11.9 Insulin: No - meloxicam (MOBIC) 15 mg tablet Take 1 tablet by mouth once daily. With food. - ondansetron orally disintegrating (ZOFRAN ODT) 4 mg disintegrating tablet Take 1 tablet by mouth every 6 hours as needed for nausea/vomiting. - loperamide (IMODIUM A-D) 2 mg cap(s) Take 1 capsule by mouth four times a day as needed for diarrhea. - lisinopril (ZESTRIL) 10 mg tablet Take 1 tablet by mouth once daily. - hydroCHLOROthiazide 12.5 mg tablet Take 1 tablet by mouth once daily. - Blood-Glucose Meter,Continuous (DEXCOM G7 BICYCLE I ASSEMBLER) misc Dx: Type 2 DM - Controlled E11.9 Insulin: No - Blood-Glucose Transmitter (DEXCOM G6 TRANSMITTER) hany Dx: Type 2 DM - Controlled E11.9 Insulin: No - albuterol HFA (PROVENTIL HFA, VENTOLIN HFA) 90 mcg/actuation inhaler Inhale 2 Puffs as instructed every 6 hours as needed for wheezing/shortness of breath. - albuterol (PROVENTIL) 2.5 mg /3 mL (0.083 %) nebulizer solution Use 3 mL via nebulizer every 4 hours as needed for wheezing/shortness of breath. Use over 5-15minutes. - fluticasone (FLONASE) 50 mcg/actuation nasal spray Use 2 Sprays in each nostril once daily. Rinse mouth after use. - multivit with minerals/lutein (MULTIVITAMIN 50 PLUS ORAL) Take by mouth. - loratadine 10 mg tablet Take 10 mg by mouth once daily. Patient taking 1 tablet once daily. Problem List As Of Date 01/23/2024 Noted Resolved Hypertension [I10] 03/04/2013 Asthma [J45.909] 07/08/2019 DM (diabetes mellitus) ([facility]) [E11.9] 04/07/2019 Hyperparathyroidism ([facility]) [E21.3] Obesity, Class III, BMI >= 40 [E66.01] 07/23/2019 Encounter Status:Closed by RAQUEL CHEW on 01/28/24 [facility]on [facility]-03[facility] ([facility] -------- ISAAC AVILES ([id number]) 1970 F Date Time Provider Department 01/03/24 10:30 AM NURSE/DAR[facility] PODIWS During your visit today, we recorded the following information about you: Ceci Pendleton LPN 01/03/2024 4:28 PM Signed Per Isaac Keyes was provided with powerstep original inserts, size 9, and instructed/educated in its application, wear, and care. All questions were answered, and patient was able to demonstrate competence with the necessary skills to utilize the above equipment. Ceci Pendleton LPN Referring Provider: LALA SAM [[id number]] Allergies As of Date: 01/03/2024 Noted Allergy Reaction PENICILLIN G 11/15/2005 7 - Swelling 12 - Shortness of Breath ACRYLIC ACID AND ACRYLATES 05/16/2023 2 - Rash ADHESIVE 07/31/2013 14 - Other: See Comments Comments: Patient notes severe reaction to almost any type of adhesive in the past. Most recently developed significant ulceration at site where steri-strips were used after core biopsy PENICILLINS 05/24/2022 4 - Hives Date Reviewed: 12/24/2023 Reviewed by: Candelaria Siegel RN - Fully Assessed Primary Visit Diagnosis:Calcaneal spur of foot, left [M77.32] Other Visit Diagnosis:Tendonitis, Achilles, left [M76.62] Prescriptions as of 01/03/2024 - tirzepatide (MOUNJARO) 12.5 mg/0.5 mL pen injector Inject 12.5 mg subcutaneously one time a week. - metFORMIN (GLUCOPHAGE) 500 mg tablet Take 1 tablet by mouth daily with breakfast AND 2 tablets daily with dinner. - Blood-Glucose Sensor (DEXCOM G7 SENSOR) hany Dx: Type 2 DM - Controlled E11.9 Insulin: No - meloxicam (MOBIC) 15 mg tablet Take 1 tablet by mouth once daily. With food. - ondansetron orally disintegrating (ZOFRAN ODT) 4 mg disintegrating tablet Take 1 tablet by mouth every 6 hours as needed for nausea/vomiting. - loperamide (IMODIUM A-D) 2 mg cap(s) Take 1 capsule by mouth four times a day as needed for diarrhea. - lisinopril (ZESTRIL) 10 mg tablet Take 1 tablet by mouth once daily. - hydroCHLOROthiazide 12.5 mg tablet Take 1 tablet by mouth once daily. - Blood-Glucose Meter,Continuous (DEXCOM G7 BICYCLE I ASSEMBLER) misc Dx: Type 2 DM - Controlled E11.9 Insulin: No - Blood-Glucose Transmitter (DEXCOM G6 TRANSMITTER) hany Dx: Type 2 DM - Controlled E11.9 Insulin: No - albuterol HFA (PROVENTIL HFA, VENTOLIN HFA) 90 mcg/actuation inhaler Inhale 2 Puffs as instructed every 6 hours as needed for wheezing/shortness of breath. - albuterol (PROVENTIL) 2.5 mg /3 mL (0.083 %) nebulizer solution Use 3 mL via nebulizer every 4 hours as needed for wheezing/shortness of breath. Use over 5-15minutes. - fluticasone (FLONASE) 50 mcg/actuation nasal spray Use 2 Sprays in each nostril once daily. Rinse mouth after use. - multivit with minerals/lutein (MULTIVITAMIN 50 PLUS ORAL) Take by mouth. - loratadine 10 mg tablet Take 10 mg by mouth once daily. Patient taking 1 tablet once daily. Problem List As Of Date 01/03/2024 Noted Resolved Hypertension [I10] 03/04/2013 Asthma [J45.909] 07/08/2019 DM (diabetes mellitus) ([facility]) [E11.9] 04/07/2019 Hyperparathyroidism ([facility]) [E21.3] Obesity, Class III, BMI >= 40 [E66.01] 07/23/2019 Encounter Status:Closed by CECI PENDLETON on 01/03/24 [facility] XR FOOT 3V AP/LAT/OBL BILon 12-25-2023 XR FOOT 3V AP/LAT/OBL STANISLAW * * *Final Report* * * DATE OF EXAM: Dec 25 2023 9:18AM [id number] [id number] - XR FOOT 3V AP/LAT/OBL STANISLAW / PROCEDURE REASON: multiple diagnoses * * * * Physician Interpretation * * * * EXAMINATION: XR FOOT 3V AP/LAT/OBL STANISLAW CLINICAL HISTORY: Bilateral foot pain Technique: XR FOOT 3V AP/LAT/OBL STANISLAW -- BILATERAL with 5 views on 5 images Comparison: None RESULT: Right foot: No acute fracture or dislocation. Joint spaces are maintained. Plantar and posterior calcaneal spurs. Left foot: No acute fracture or dislocation. Joint spaces are maintained. Soft tissue calcifications of the peroneal tendon insertion. Plantar and posterior calcaneal spurs. IMPRESSION: No acute osseous abnormality Report Checker: PSCB Transcribe Date/Time: Dec 26 2023 10:28A Dictated by : LAURA GALLEGO MD This examination was interpreted and the report reviewed and electronically signed by: LAURA GALLEGO MD on Dec 26 2023 10:34AM EST [id number] Normal [facility] CNOVon 12-24-2023 CNOV Office Visit (PODIWS ) -------- ISAAC AVILES ([id number]) 1970 F Date Time Provider Department 12/24/23 2:15 PM LALA SAM During your visit today, we recorded the following information about you: Candelaria Siegel, ZAIRE 12/24/2023 3:39 PM Signed Patient presents with: Left Heel - New Patient, Pain Patient presents for second opinion regarding heel pain. Seen by Dr. Whitman and was advised surgery. Patient does not wish to have surgery at this time. She has tried 2 cortisone injections, Salonpas OTC, brace and [place]okka shoes. Lala Sam 02/25/2024 9:09 AM Addendum Initial Office Visit Subjective: This 53 year old female presents to clinic for diabetic foot check. Patient has the following complaints: left heel pain. Patient presents to clinic for evaluation of left heel. She has pain to the posterior aspect of left heel radiating to the plantar aspect She states the pain has been present for a couple of months. She has seen Dr. Whitman who initially treated her as tendonitis. Patient was treated with two steroid injections taken two weeks ago. She states the injections were administered two weeks apart. She recently had xray after the injections and was told she has posterior heel spur. Patient has been offered surgical intervention. Patient is not interested in surgery as she does not have the time to stay off her foot for 2 months. Patient is here for 2nd opinion. Patient admits to being diabetic for 10 years now and states that their blood sugar was 111 mg/dL this AM. Aldo'ts last A1c in October was 5.8. Patient +B/T/N in feet at this time. Patient -pain in legs when walking. No other pedal complaints at this time. No change in medications or medical history since last visit. PAIN EVALUATION 12/22/20232047 Pain Level: 7 Pain Location: Foot-Left Description: Aching;Burning;Sore;Tigh tness Duration Amount of Time: 24 Duration Units: Hours Frequency: Continuous Intervention/Comfort measure: Medication;Relaxation;Ot her: See comment Comments: Sometimes ice helps Hemoglobin A1C (%) Date Value 11/12/2023 5.8 04/08/2023 6.5 12/12/2022 7.0 03/07/2022 7.3 12/06/2021 10.1 05/31/2021 7.2 11/04/2020 7.5 05/11/2020 7.7 12/10/2019 6.6 Hemoglobin A1C (POCT) (%) Date Value 06/04/2022 6.4 PCP: Librado Barrios MD PAST MEDICAL HISTORY Diagnosis Date Asthma 07/08/2019 Breast mass, right 07/20/2013 fibrous. Cellulitis 08/01/2019 neck surgical site Depression 2012 DM (diabetes mellitus) (HCC) 04/07/2019 Hyperparathyroidism (HCC) 05/04/2019 Hypertension 03/04/2013 Infection of right breast 07/28/2013 Obesity, Class III, BMI >= 40 07/23/2019 Open wound of right breast 07/28/2013 Current Outpatient Medications Medication Sig tirzepatide (MOUNJARO) 12.5 mg/0.5 mL pen injector Inject 12.5 mg subcutaneously one time a week. metFORMIN (GLUCOPHAGE) 500 mg tablet Take 1 tablet by mouth daily with breakfast AND 2 tablets daily with dinner. Blood-Glucose Sensor (DEXCOM G7 SENSOR) hany Dx: Type 2 DM - Controlled E11.9 Insulin: No meloxicam (MOBIC) 15 mg tablet Take 1 tablet by mouth once daily. With food. ondansetron orally disintegrating (ZOFRAN ODT) 4 mg disintegrating tablet Take 1 tablet by mouth every 6 hours as needed for nausea/vomiting. loperamide (IMODIUM A-D) 2 mg cap(s) Take 1 capsule by mouth four times a day as needed for diarrhea. lisinopril (ZESTRIL) 10 mg tablet Take 1 tablet by mouth once daily. hydroCHLOROthiazide 12.5 mg tablet Take 1 tablet by mouth once daily. Blood-Glucose Meter,Continuous (DEXCOM G7 BICYCLE I ASSEMBLER) misc Dx: Type 2 DM - Controlled E11.9 Insulin: No Blood-Glucose Transmitter (DEXCOM G6 TRANSMITTER) hany Dx: Type 2 DM - Controlled E11.9 Insulin: No albuterol HFA (PROVENTIL HFA, VENTOLIN HFA) 90 mcg/actuation inhaler Inhale 2 Puffs as instructed every 6 hours as needed for wheezing/shortness of breath. albuterol (PROVENTIL) 2.5 mg /3 mL (0.083 %) nebulizer solution Use 3 mL via nebulizer every 4 hours as needed for wheezing/shortness of breath. Use over 5-15minutes. fluticasone (FLONASE) 50 mcg/actuation nasal spray Use 2 Sprays in each nostril once daily. Rinse mouth after use. multivit with minerals/lutein (MULTIVITAMIN 50 PLUS ORAL) Take by mouth. loratadine 10 mg tablet Take 10 mg by mouth once daily. Patient taking 1 tablet once daily. No current facility-administered medications for this visit. ALLERGIES Allergen Reactions Penicillin G Swelling, Shortness of Breath Acrylic Acid And Ac* Rash Adhesive Other: See Comments Patient notes severe reaction to almost any type of adhesive in the past. Most recently developed significant ulceration at site where steri-strips were used after core biopsy Penicillins Hives PAST SURGICAL HISTORY Procedure Laterality Date BREAST BIOPSY INCISIONAL RIGHT Right 07/20/2013 fibr (more content not included)... Normal [facility] CNOVon 12-16-2023 CNOV Office Visit (INTMWS ) -------- ISAAC AVILES ([id number]) 1970 F Date Time Provider Department 12/16/23 3:40 PM ROSA ISELA MITCHELL INTMWS During your visit today, we recorded the following information about you: Temperature Pulse Respiration Blood pressure 97.7 degrees 89/minute 14/minute 118/58 Weight Height 114.3 kg 1.6 m Rosa Isela Mitchell, RISK MGR.DATABASE ADMINISTRATOR 12/16/2023 4:11 PM Signed CC: Patient presents with: Follow Up: 4 month follow up -left heel spur seeing on 12/24/23 [facility] Isaac Aviles is a 53 year old female who presents today for above. Diabetes: Home blood sugar readings: significantly improved Hypoglycemia: No She is compliant with medication(s) but notes side effects of diarrhea due to Metformin. Last Ophthalmology exam: within the past 12 months Patient's last HgA1C : Hemoglobin A1C (%) Date Value 11/12/2023 5.8 04/08/2023 6.5 12/06/2021 10.1 05/31/2021 7.2 Hemoglobin A1C (POCT) (%) Date Value 06/04/2022 6.4 Initially able to lose 40 lbs easily on Mounjaro but has plateaued over the past few months. Admits to not exercising much due to weather and issues with her foot. Review of Systems See [facility] PAST MEDICAL HISTORY Diagnosis Date Asthma 07/08/2019 Breast mass, right 07/20/2013 fibrous. Cellulitis 08/01/2019 neck surgical site Depression 2012 DM (diabetes mellitus) ([facility]) 04/07/2019 Hyperparathyroidism ([facility]) 05/04/2019 Hypertension 03/04/2013 Infection of right breast 07/28/2013 Obesity, Class III, BMI >= 40 07/23/2019 Open wound of right breast 07/28/2013 PAST SURGICAL HISTORY Procedure Laterality Date BREAST BIOPSY INCISIONAL RIGHT Right 07/20/2013 fibrous PARATHYROIDECTOMY/EXPLOR ATION PARATHYROIDS 07/23/2019 REMOVAL OF KIDNEY STONE 04/2023 REMOVE TONSILS/ADENOIDS,<12 Y/O 1975 THYROID FINE NEEDLE ASPIRATION Left 05/04/2019 ALLERGIES Penicillin G, Acrylic Acid And Acrylates, Adhesive, and Penicillins MEDICATIONS metFORMIN (GLUCOPHAGE) 500 mg tablet Take 2 tablets by mouth two times a day with meals. Blood-Glucose Sensor (DEXCOM G7 SENSOR) hany Dx: Type 2 DM - Controlled E11.9 Insulin: No meloxicam (MOBIC) 15 mg tablet Take 1 tablet by mouth once daily. With food. ondansetron orally disintegrating (ZOFRAN ODT) 4 mg disintegrating tablet Take 1 tablet by mouth every 6 hours as needed for nausea/vomiting. loperamide (IMODIUM A-D) 2 mg cap(s) Take 1 capsule by mouth four times a day as needed for diarrhea. tirzepatide (MOUNJARO) 10 mg/0.5 mL pen injector Inject 10 mg subcutaneously one time a week. lisinopril (ZESTRIL) 10 mg tablet Take 1 tablet by mouth once daily. glipiZIDE (GLUCOTROL) 5 mg tablet Take 0.25 tablets by mouth once daily as needed. hydroCHLOROthiazide 12.5 mg tablet Take 1 tablet by mouth once daily. Blood-Glucose Meter,Continuous (DEXCOM G7 BICYCLE I ASSEMBLER) misc Dx: Type 2 DM - Controlled E11.9 Insulin: No Blood-Glucose Transmitter (DEXCOM G6 TRANSMITTER) hany Dx: Type 2 DM - Controlled E11.9 Insulin: No albuterol HFA (PROVENTIL HFA, VENTOLIN HFA) 90 mcg/actuation inhaler Inhale 2 Puffs as instructed every 6 hours as needed for wheezing/shortness of breath. albuterol (PROVENTIL) 2.5 mg /3 mL (0.083 %) nebulizer solution Use 3 mL via nebulizer every 4 hours as needed for wheezing/shortness of breath. Use over 5-15minutes. fluticasone (FLONASE) 50 mcg/actuation nasal spray Use 2 Sprays in each nostril once daily. Rinse mouth after use. multivit with minerals/lutein (MULTIVITAMIN 50 PLUS ORAL) Take by mouth. loratadine 10 mg tablet Take 10 mg by mouth once daily. Patient taking 1 tablet once daily. FAMILY HISTORY Problem Relation Age of Onset Diabetes Father Blindness Father Possibly related to diabetes, no history of blindness per patient other (CHF) Father 58 other (CVA) Father No Ocular Disease Mother Diabetes Maternal Grandmother No Ocular Disease Maternal Grandmother No Ocular Disease Maternal Grandfather No Ocular Disease Paternal Grandmother No Ocular Disease Paternal Grandfather Anesthesia Problems No Family History Blood Clots No Family History Clotting Disorder No Family History Social History Tobacco Use Smoking status: Former Smokeless tobacco: Never Tobacco comments: stopped in her 20's Vaping Use Vaping Use: Never used Substance Use Topics Alcohol use: No Drug use: No Comment: THC drops BP 118/58 (BP Site: Right Arm, BP Position: Sitting, BP Cuff Size: Large Adult) Pulse 89 Temp 36.5 ?C (97.7 ?F) Resp 14 Ht 160 cm (5' 3 ) Wt 114.3 kg (252 lb) LMP (LMP Unknown) SpO2 98% BMI 44.64 kg/m? Physical Exam Vitals reviewed. Constitutional: Appearance: Normal appearance. Neurological: Mental Status: She is alert. Psychiatric: Mood and Affect: Mood normal. Health maintenance reviewed with patient: Shingrix Vaccine(1 of 2) Never done Covid-19 Vaccine( (more content not included)... Normal [facility] CNPNon 12-16-2023 CNPN Telephone (INTMWS) -------- ISAAC AVILES ([id number]) 1970 F Date Time Provider Department 12/16/23 LIBRADO BARRIOS INTMWS During your visit today, we recorded the following information about you: Gladys Gleason RN 12/16/2023 5:20 PM Signed [facility] tells patient she needs prior authorization for increased dose of Mounjaro. PRIOR AUTHORIZATION Medication for Prior Authorization: Mounjaro 12.5 mg Other formulary meds available : NO Insurance Company: [place] Medicaid Insurance Company phone number: Patient insurance ID number: [id number] ZAIRE Epstein Janice, LPN 12/17/2023 8:46 AM Signed Prior authorization approved Payer: [facility] Your PA request for [id number] was approved for 120 days. The PA# assigned is [id number]. Approval Details Authorization number: [id number] Authorized from December 17, 2023 to April 15, 2024 My chart message to pt. Allergies As of Date: 12/16/2023 Noted Allergy Reaction PENICILLIN G 11/15/2005 7 - Swelling 12 - Shortness of Breath ACRYLIC ACID AND ACRYLATES 05/16/2023 2 - Rash ADHESIVE 07/31/2013 14 - Other: See Comments Comments: Patient notes severe reaction to almost any type of adhesive in the past. Most recently developed significant ulceration at site where steri-strips were used after core biopsy PENICILLINS 05/24/2022 4 - Hives Date Reviewed: 12/16/2023 Reviewed by: Rosa Isela Mitchell APRN.DATABASE ADMINISTRATOR - Fully Assessed Reason for Visit: Insurance Authorization [[id number]] Prescriptions as of 12/17/2023 - tirzepatide (MOUNJARO) 12.5 mg/0.5 mL pen injector Inject 12.5 mg subcutaneously one time a week. - metFORMIN (GLUCOPHAGE) 500 mg tablet Take 1 tablet by mouth daily with breakfast AND 2 tablets daily with dinner. - Blood-Glucose Sensor (DEXCOM G7 SENSOR) hany Dx: Type 2 DM - Controlled E11.9 Insulin: No - meloxicam (MOBIC) 15 mg tablet Take 1 tablet by mouth once daily. With food. - ondansetron orally disintegrating (ZOFRAN ODT) 4 mg disintegrating tablet Take 1 tablet by mouth every 6 hours as needed for nausea/vomiting. - loperamide (IMODIUM A-D) 2 mg cap(s) Take 1 capsule by mouth four times a day as needed for diarrhea. - lisinopril (ZESTRIL) 10 mg tablet Take 1 tablet by mouth once daily. - hydroCHLOROthiazide 12.5 mg tablet Take 1 tablet by mouth once daily. - Blood-Glucose Meter,Continuous (DEXCOM G7 BICYCLE I ASSEMBLER) misc Dx: Type 2 DM - Controlled E11.9 Insulin: No - Blood-Glucose Transmitter (DEXCOM G6 TRANSMITTER) hany Dx: Type 2 DM - Controlled E11.9 Insulin: No - albuterol HFA (PROVENTIL HFA, VENTOLIN HFA) 90 mcg/actuation inhaler Inhale 2 Puffs as instructed every 6 hours as needed for wheezing/shortness of breath. - albuterol (PROVENTIL) 2.5 mg /3 mL (0.083 %) nebulizer solution Use 3 mL via nebulizer every 4 hours as needed for wheezing/shortness of breath. Use over 5-15minutes. - fluticasone (FLONASE) 50 mcg/actuation nasal spray Use 2 Sprays in each nostril once daily. Rinse mouth after use. - multivit with minerals/lutein (MULTIVITAMIN 50 PLUS ORAL) Take by mouth. - loratadine 10 mg tablet Take 10 mg by mouth once daily. Patient taking 1 tablet once daily. Problem List As Of Date 12/16/2023 Noted Resolved Hypertension [I10] 03/04/2013 Asthma [J45.909] 07/08/2019 DM (diabetes mellitus) ([facility]) [E11.9] 04/07/2019 Hyperparathyroidism ([facility]) [E21.3] Obesity, Class III, BMI >= 40 [E66.01] 07/23/2019 Encounter Status:Closed by NEGAR FALCON on 12/17/23 Normal [facility] ALBUMIN/CREAT RATIO RND URon 11-12-2023 Albumin DL <= 20 mg/L (U) [Mass/Vol] mg/dL Normal [facility] Comment on above: Order Comment: Speci men Type: URINE SPECIMENOrdering Facility: [facility] Address: [address] [place] [address] Performed By: #### U ACR ####[facility] LABCLIA [id number] [place] [address] [place] Albumin/Creatinine (U) [Mass ratio] Normal [facility] Comment on above: Order Comment: Speci men Type: URINE SPECIMENOrdering Facility: [facility] Address: [address] [place] [address] Result Comment: Not calculated Adult Male and Female Nephrotic Criteria: <30 mg/g is considered normal to mildly increased 30-300 mg/g is considered moderately increased >300 mg/g is considered severely increased KDIGO. (2013). KDIGO 2012 Clinical Practice Guideline for the Evaluation and Management of Chronic Kidney Disease. Official Journal of the International Society of Nephrology, 3(1), 1-150. Performed By: #### U ACR ####[facility] LABCLIA [id number] [place] [address] [place] Creatinine (U) [Mass/Vol] 19.2 mg/dL Low 20.0-300.0 [facility] Comment on above: Order Comment: Speci men Type: URINE SPECIMENOrdering Facility: [facility] Address: [address] [place] [address] Performed By: #### U ACR ####[facility] LABCLIA [id number] [place] [address] [place] HbA1c (Bld)on 11-12-2023 Average glucose Estimated from glycated hemoglobin (Bld) [Mass/Vol] 120 mg/dL Normal [facility] Comment on above: Order Comment: Kym figueroa Type: BLOOD SPECIMENOrdering Facility: [facility] Address: [address] [place] [address] Result Comment: eAG: (Estimated average glucose) is a calculated value from HgbA1c and is solar sales representative of the average blood glucose level in the last 2-3 month period. Performed By: #### 5 5454-3 ####[facility] LABIA [id number] [place] [address] [place] HbA1c (Bld) [Mass fraction] 5.8 % High 4.3-5.6 [facility] Comment on above: Order Comment: Kym figueroa Type: BLOOD SPECIMENOrdering Facility: [facility] Address: [address] [place] [address] Result Comment: Amer ican Diabetes Association guidelines indicate that patients with HgbA1c in the range 5.7-6.4% are at increased risk for development of diabetes, and intervention by lifestyle modification may be beneficial. HgbA1c greater or equal to 6.5% is considered diagnostic of diabetes. Performed By: #### 5 5454-3 ####[facility] LABCLIA [id number] [place] [address] [place] Lipid 1996 panelon 3 Cholesterol [Mass/Vol] 167 mg/dL Normal <200 [facility] Comment on above: Order Comment: Kym figueroa Type: BLOOD SPECIMENOrdering Facility: [facility] Address: [address] [place] [address] Result Comment: <200 mg/dL, Desirable 200-239 mg/dL, Borderline high >239 mg/dL, High Performed By: #### 2 4331-1 ####[facility] LABIA [id number] [place] [address] [place] Cholesterol in HDL [Mass/Vol] 60 mg/dL Normal >39 [facility] Comment on above: Order Comment: Speci men Type: BLOOD SPECIMENOrdering Facility: [facility] Address: [address] [place] [address] Result Comment: 40-5 9 mg/dL, Acceptable >59 mg/dL, High: Negative risk factor for coronary heart disease <40 mg/dL, Low: Positive risk factor for coronary heart disease Performed By: #### 2 4331-1 ####[facility] LABCLIA [id number] [place] [address] [place] Cholesterol in LDL [Mass/Vol] 93 mg/dL Normal <100 [facility] Comment on above: Order Comment: Luz Marinai henry Type: BLOOD SPECIMENOrdering Facility: [facility] Address: [address] [place] [address] Result Comment: <100 mg/dL, Optimal 100-129 mg/dL, Near optimal/above optimal 130-159 mg/dL, Borderline high 160-189 mg/dL, High >189 mg/dL, Very high Secondary prevention optimal LDL Cholesterol levels are recommended to be < 70 mg/dL Performed By: #### 2 4331-1 ####[facility] LABCLIA [id number] [place] [address] [place] Cholesterol in LDL/Cholesterol in HDL [Mass ratio] 1.55 {ratio} Normal <2.54 [facility] Comment on above: Order Comment: Kym figueroa Type: BLOOD SPECIMENOrdering Facility: [facility] Address: [address] [place] [address] Result Comment: Jonathan le: 1. National Cholesterol Education Program ATP III Guideline At-A-Glance Quick Desk Reference: National Heart, Lung, and Blood [place]. National Institutes of Health. 2001: NIH Publication No. 01-3305. 2. An International Atherosclerosis Society position paper: global recommendations for the management of dyslipidemia: executive summary, Atherosclerosis. 2014: 232(2):410-413. Performed By: #### 2 4331-1 ####[facility] LABCLIA [id number] [place] [address] [place] Cholesterol in VLDL [Mass/Vol] 14 mg/dL Normal <30 [facility] Comment on above: Order Comment: Speci men Type: BLOOD SPECIMENOrdering Facility: [facility] Address: [address] [place] [address] Performed By: #### 2 4331-1 ####[facility] LABCLIA [id number] [place] [address] [place] Cholesterol non HDL [Mass/Vol] 107 mg/dL Normal <130 [facility] Comment on above: Order Comment: Speci men Type: BLOOD SPECIMENOrdering Facility: [facility] Address: [address] [place] [address] Result Comment: <130 mg/dL, Optimal 130-159 mg/dL, Near optimal/above optimal 160-189 mg/dL, Borderline high 190-219 mg/dL, High >219 mg/dL, Very high Secondary prevention optimal non HDL Cholesterol levels are recommended to be <100 mg/dL Performed By: #### 2 4331-1 ####[facility] LABCLIA [id number] [place] [address] [place] Cholesterol.total/C holesterol in HDL [Mass ratio] 2.78 {ratio} Normal <5.10 [facility] Comment on above: Order Comment: Speci men Type: BLOOD SPECIMENOrdering Facility: [facility] Address: [address] [place] [address] Performed By: #### 2 4331-1 ####[facility] LABCLIA [id number] [place] [address] [place] FASTING TIME 12 hrs Normal [facility] Comment on above: Order Comment: Speci men Type: BLOOD SPECIMENOrdering Facility: [facility] Address: [address] [place] [address] Performed By: #### 2 4331-1 ####[facility] LABCLIA [id number] [place] [address] [place] Triglyceride [Mass/Vol] 69 mg/dL Normal <150 [facility] Comment on above: Order Comment: Speci men Type: BLOOD SPECIMENOrdering Facility: [facility] Address: [address] [place] [address] Result Comment: <150 mg/dL, Normal 150-199 mg/dL, Borderline high 200-499 mg/dL, High >499 mg/dL, Very high Performed By: #### 2 4331-1 ####[facility] LABCLIA [id number] [id number] [id number] [facility] CNPNon 11-05-2023 CNPN Telephone (INTMWS) -------- ISAAC AVILES ([id number]) 1970 F Date Time Provider Department 11/05/23 LIBRADO BARRIOS INTWS During your visit today, we recorded the following information about you: Ebonie Pelaez LPN 11/05/2023 8:18 AM Signed Pt has an apt coming up 12/16/23 for 4 month follow up. Pt calling to get lab orders for fasting blood work. Please advise pt when orders are in place. Ignacia Valle LPN, LPN 11/05/2023 3:36 PM Signed Patient notified fasting lab order is in. Ignacia Carmona LPN Allergies As of Date: 11/05/2023 Noted Allergy Reaction PENICILLIN G 11/15/2005 7 - Swelling 12 - Shortness of Breath ACRYLIC ACID AND ACRYLATES 05/16/2023 2 - Rash ADHESIVE 07/31/2013 14 - Other: See Comments Comments: Patient notes severe reaction to almost any type of adhesive in the past. Most recently developed significant ulceration at site where steri-strips were used after core biopsy PENICILLINS 05/24/2022 4 - Hives Date Reviewed: 10/22/2023 Reviewed by: Lux Alejo APRN.RIBBON CLEANER - Fully Assessed Reason for Visit: requesting lab orders [Other] Primary Visit Diagnosis:Type 2 diabetes mellitus without complication, without long-term current use of insulin (HCC) [E11.9] Order(s):HGB A1C [EBWKS6A] Order #: [id number] FUTURE LIPID PANEL BASIC [SQLIPB] Order #: [id number] FUTURE ALBUMIN/CREAT RATIO RND UR [SQUACR] Order #: [id number] FUTURE Prescriptions as of 11/05/2023 - meloxicam (MOBIC) 15 mg tablet Take 1 tablet by mouth once daily. With food. - ondansetron orally disintegrating (ZOFRAN ODT) 4 mg disintegrating tablet Take 1 tablet by mouth every 6 hours as needed for nausea/vomiting. - loperamide (IMODIUM A-D) 2 mg cap(s) Take 1 capsule by mouth four times a day as needed for diarrhea. - tirzepatide (MOUNJARO) 10 mg/0.5 mL pen injector Inject 10 mg subcutaneously one time a week. - lisinopril (ZESTRIL) 10 mg tablet Take 1 tablet by mouth once daily. - glipiZIDE (GLUCOTROL) 5 mg tablet Take 0.25 tablets by mouth once daily as needed. - hydroCHLOROthiazide 12.5 mg tablet Take 1 tablet by mouth once daily. - Blood-Glucose Meter,Continuous (DEXCOM G7 BICYCLE I ASSEMBLER) misc Dx: Type 2 DM - Controlled E11.9 Insulin: No - Blood-Glucose Sensor (DEXCOM G7 SENSOR) hany Dx: Type 2 DM - Controlled E11.9 Insulin: No - metFORMIN (GLUCOPHAGE) 500 mg tablet Take 2 tablets by mouth twice daily with meals. - Blood-Glucose Transmitter (DEXCOM G6 TRANSMITTER) hany Dx: Type 2 DM - Controlled E11.9 Insulin: No - albuterol HFA (PROVENTIL HFA, VENTOLIN HFA) 90 mcg/actuation inhaler Inhale 2 Puffs as instructed every 6 hours as needed for wheezing/shortness of breath. - albuterol (PROVENTIL) 2.5 mg /3 mL (0.083 %) nebulizer solution Use 3 mL via nebulizer every 4 hours as needed for wheezing/shortness of breath. Use over 5-15minutes. - fluticasone (FLONASE) 50 mcg/actuation nasal spray Use 2 Sprays in each nostril once daily. Rinse mouth after use. - multivit with minerals/lutein (MULTIVITAMIN 50 PLUS ORAL) Take by mouth. - loratadine 10 mg tablet Take 10 mg by mouth once daily. Patient taking 1 tablet once daily. Problem List As Of Date 11/05/2023 Noted Resolved Hypertension [I10] 03/04/2013 Asthma [J45.909] 07/08/2019 DM (diabetes mellitus) ([facility]) [E11.9] 04/07/2019 Hyperparathyroidism ([facility]) [E21.3] Obesity, Class III, BMI >= 40 [E66.01] 07/23/2019 Encounter Status:Closed by IGNACIA CARMONA [facility] Telephone ([facility]) -------- ISAAC AVILES ([id number]) 1970 F Date Time Provider Department 10/02/23 LIBRADO BARRIOS [facility] During your visit today, we recorded the following information about you: Odalis Ambrocio LPN 10/02/2023 12:02 PM Signed PRIOR AUTHORIZATION Medication for Prior Authorization: Mounjaro 10mg Other formulary meds available : NA Insurance Company: Medicaid Insurance Company phone number: [phone] Patient insurance ID number: [id number] Patient Plan number: [id number] This med was authorized from 03/2023-03/2024 however pharmacy is saying they are not seeing approval, pt switched pharmacies. Erinn Lino LPN, Ma 10/02/2023 12:31 PM Signed PA on file shows approval for 10 mg till 04/17. Called patient to verify she is wanting to go to 10 mg. States rx was transferred to [facility] but advised 10 mg was canceled when that dose out of stock an sent 7.5 mg. Please send 10 mg to [facility] . Alla reprocessed PA was not going through due to denial before approval. They will call [facility] to fix issue Erinn Hathaway Ma Haily Hathaway Mabeth 10/02/2023 2:04 PM Signed Patient notified rx sent and alla notified [facility] of claim to make sure went through as paid. Patient will let us know if any other issue Erinn Hathaway Ma Allergies As of Date: 10/02/2023 Noted Allergy Reaction PENICILLIN G 11/15/2005 7 - Swelling 12 - Shortness of Breath ACRYLIC ACID AND ACRYLATES 05/16/2023 2 - Rash ADHESIVE 07/31/2013 14 - Other: See Comments Comments: Patient notes severe reaction to almost any type of adhesive in the past. Most recently developed significant ulceration at site where steri-strips were used after core biopsy PENICILLINS 05/24/2022 4 - Hives Date Reviewed: 08/05/2023 Reviewed by: Rosa Isela Yanez APRN.DATABASE ADMINISTRATOR - Fully Assessed Reason for Visit: Insurance Authorization [1693] Order(s):tirzepatide (MOUNJARO) 10 mg/0.5 mL pen injectorInject 10 mg subcutaneously one time a week.Disp: 2 mLRfl: 5 Prescriptions as of 10/02/2023 - tirzepatide (MOUNJARO) 10 mg/0.5 mL pen injector Inject 10 mg subcutaneously one time a week. - lisinopril (ZESTRIL) 10 mg tablet Take 1 tablet by mouth once daily. - glipiZIDE (GLUCOTROL) 5 mg tablet Take 0.25 tablets by mouth once daily as needed. - hydroCHLOROthiazide 12.5 mg tablet Take 1 tablet by mouth once daily. - meloxicam (MOBIC) 15 mg tablet Take 1 tablet by mouth once daily. With food. - Blood-Glucose Meter,Continuous (DEXCOM G7 BICYCLE I ASSEMBLER) misc Dx: Type 2 DM - Controlled E11.9 Insulin: No - Blood-Glucose Sensor (DEXCOM G7 SENSOR) hany Dx: Type 2 DM - Controlled E11.9 Insulin: No - metFORMIN (GLUCOPHAGE) 500 mg tablet Take 2 tablets by mouth twice daily with meals. - Blood-Glucose Transmitter (DEXCOM G6 TRANSMITTER) hany Dx: Type 2 DM - Controlled E11.9 Insulin: No - albuterol HFA (PROVENTIL HFA, VENTOLIN HFA) 90 mcg/actuation inhaler Inhale 2 Puffs as instructed every 6 hours as needed for wheezing/shortness of breath. - albuterol (PROVENTIL) 2.5 mg /3 mL (0.083 %) nebulizer solution Use 3 mL via nebulizer every 4 hours as needed for wheezing/shortness of breath. Use over 5-15minutes. - fluticasone (FLONASE) 50 mcg/actuation nasal spray Use 2 Sprays in each nostril once daily. Rinse mouth after use. - multivit with minerals/lutein (MULTIVITAMIN 50 PLUS ORAL) Take by mouth. - loratadine 10 mg tablet Take 10 mg by mouth once daily. Patient taking 1 tablet once daily. Problem List As Of Date 10/02/2023 Noted Resolved Hypertension [I10] 03/04/2013 Asthma [J45.909] 07/08/2019 DM (diabetes mellitus) ([facility]) [E11.9] 04/07/2019 Hyperparathyroidism ([facility]) [E21.3] Obesity, Class III, BMI >= 40 [E66.01] 07/23/2019 Prescriptions ordered this encounter Disp Refills Start End TIRZEPATIDE 10 MG/0.5 ML SUBCUTANEOU* 2 mL 5 10/02/2023 Route: SUBCUTANEOUS Sig: Inject 10 mg subcutaneously one time a week. Medications Discontinued During This Encounter Prescriptions - tirzepatide (MOUNJARO) 7.5 mg/0.5 mL pen injector (Discontinued) Inject 7.5 mg subcutaneously one time a week. Encounter Status:Closed by ERINN HATHAWAY MA on 10/02/23 [facility] CNOVaamir 08-05-2023 CNOV Office Visit (INT[facility] ) -------- ISAAC AVILES ([id number]) 1970 F Date Time Provider Department 08/05/23 3:20 PM OLDER, ROSA ISELA INTMWS During your visit today, we recorded the following information about you: Pulse Respiration Blood pressure Weight 72/minute 16/minute 103/71 112.5 kg Older, Rosa IselaRON 08/05/2023 4:03 PM Signed CC: Patient presents with: Follow Up Immunizations: Flu vaccination HPI Isaac Aviles is a 53 year old female who presents today for above. She is doing well overall, denies any concerns or issues today. She is taking all medications as prescribed without side effects. Her blood sugars are well controlled on CGM. She has lost about 40 lbs since starting Mounjaro but has reached a plateau. She would like to increase the dose of Mounjaro from 7.5 mg to 10 mg weekly however this dosage is not available at this time due to supply issues. She had bladder surgery for kidney stones by Dr. Alanis a few months ago and no issues since then. REVIEW OF SYSTEMS GENERAL: Negative for malaise,fever, night sweats RESPIRATORY: Negative for cough, wheezing and shortness of breath CARDIOVASCULAR: Negative for chest pain, leg swelling and palpitations PAST MEDICAL HISTORY Diagnosis Date Asthma 07/08/2019 Breast mass, right 07/20/2013 fibrous. Cellulitis 08/01/2019 neck surgical site Depression 2012 DM (diabetes mellitus) (HCC) 04/07/2019 Hyperparathyroidism (HCC) 05/04/2019 Hypertension 03/04/2013 Infection of right breast 07/28/2013 Obesity, Class III, BMI >= 40 07/23/2019 Open wound of right breast 07/28/2013 PAST SURGICAL HISTORY Procedure Laterality Date BREAST BIOPSY INCISIONAL RIGHT Right 07/20/2013 fibrous PARATHYROIDECTOMY/EXPLOR ATION PARATHYROIDS 07/23/2019 REMOVAL OF KIDNEY STONE 04/2023 REMOVE TONSILS/ADENOIDS,<12 Y/O 1975 THYROID FINE NEEDLE ASPIRATION Left 05/04/2019 ALLERGIES Penicillin G, Acrylic Acid And Acrylates, Adhesive, and Penicillins MEDICATIONS meloxicam (MOBIC) 15 mg tablet Take 1 tablet by mouth once daily. With food. Blood-Glucose Meter,Continuous (DEXCOM G7 BICYCLE I ASSEMBLER) misc Dx: Type 2 DM - Controlled E11.9 Insulin: No Blood-Glucose Sensor (DEXCOM G7 SENSOR) hany Dx: Type 2 DM - Controlled E11.9 Insulin: No tirzepatide (MOUNJARO) 7.5 mg/0.5 mL pen injector Inject 7.5 mg subcutaneously one time a week. metFORMIN (GLUCOPHAGE) 500 mg tablet Take 2 tablets by mouth twice daily with meals. hydroCHLOROthiazide 25 mg tablet Take 1 tablet by mouth once daily. (Patient taking differently: Take 12.5 mg by mouth once daily.) glipiZIDE (GLUCOTROL) 5 mg tablet Take 1 tablet by mouth daily with food. (Patient taking differently: Take by mouth daily with food. Taking half on a half tablet as needed) Blood-Glucose Transmitter (DEXCOM G6 TRANSMITTER) hany Dx: Type 2 DM - Controlled E11.9 Insulin: No albuterol HFA (PROVENTIL HFA, VENTOLIN HFA) 90 mcg/actuation inhaler Inhale 2 Puffs as instructed every 6 hours as needed for wheezing/shortness of breath. albuterol (PROVENTIL) 2.5 mg /3 mL (0.083 %) nebulizer solution Use 3 mL via nebulizer every 4 hours as needed for wheezing/shortness of breath. Use over 5-15minutes. lisinopril (ZESTRIL, PRINIVIL) 20 mg tablet Take 1 tablet by mouth once daily. (Patient taking differently: Take 10 mg by mouth once daily.) fluticasone (FLONASE) 50 mcg/actuation nasal spray Use 2 Sprays in each nostril once daily. Rinse mouth after use. multivit with minerals/lutein (MULTIVITAMIN 50 PLUS ORAL) Take by mouth. loratadine 10 mg tablet Take 10 mg by mouth once daily. Patient taking 1 tablet once daily. vit A/vit C/vit E/zinc/copper (PRESERVISION AREDS ORAL) Take by mouth. generic (Patient not taking: Reported on 08/05/2023) FAMILY HISTORY Problem Relation Age of Onset Diabetes Father Blindness Father Possibly related to diabetes, no history of blindness per patient other (CHF) Father 58 other (CVA) Father No Ocular Disease Mother Diabetes Maternal Grandmother No Ocular Disease Maternal Grandmother No Ocular Disease Maternal Grandfather No Ocular Disease Paternal Grandmother No Ocular Disease Paternal Grandfather Anesthesia Problems No Family History Blood Clots No Family History Clotting Disorder No Family History Social History Tobacco Use Smoking status: Former Smokeless tobacco: Never Tobacco comments: stopped in her 20's Vaping Use Vaping Use: Never used Substance Use Topics Alcohol use: No Drug use: No Comment: THC drops PHYSICAL EXAM BP 103/71 Pulse 72 Resp 16 Wt 112.5 kg (248 lb) LMP (LMP Unknown) BMI 43.93 kg/m? General Appearance: well appearing, in no acute distress, alert Pysch: mood and affect broad and appropriate Health maintenance reviewed with patient: INFLUENZA(1) due on 07/26/2023 LDL CHOLESTEROL due on 08/07/2023 COLORECTAL CANCER SCREENING due on (more content not included)... Normal [facility] CNCOon 07-05-2023 CNCO Letter Text [facility] CNPNon 07-05-2023 [facility] ISAAC AVILES ([id number]) 1970 F Date Time Provider Department 07/05/23 [facility] During your visit today, we recorded the following information about you: Lulu Garcia, ZAIRE 07/05/2023 12:31 PM Signed Patient calling to see if Dr. Monroy will write a letter for her to get out of jury duty on 07/22. She has already received her subpoena. 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 States she does not leave him for long periods and if she is at work,she is able to watch him. 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 Also anxiety and behavior issues. States Dr. Monroy knows him well. If Dr. 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 Brian Monroy MD 07/05/2023 12:38 PM Signed written Mary Ann Reyes 07/05/2023 3:37 PM Signed Patient informed letter is ready. She states she will pick it up on Saturday. Taken to medical records. Mary Ann Reyes Allergies As of Date: 07/05/2023 Noted Allergy Reaction PENICILLIN G 11/15/2005 7 - Swelling 12 - Shortness of Breath ADHESIVE 07/31/2013 14 - Other: See Comments Comments: Patient notes severe reaction to almost any type of adhesive in the past. Most recently developed significant ulceration at site where steri-strips were used after core biopsy PENICILLINS 05/24/2022 4 - Hives Date Reviewed: 05/02/2023 Reviewed by: Randolph Basurto APRN.DATABASE ADMINISTRATOR - Fully Assessed Reason for Visit: letter for jury duty release [Other] Prescriptions as of 07/05/2023 - meloxicam (MOBIC) 15 mg tablet Take 1 tablet by mouth once daily. With food. - Blood-Glucose Meter,Continuous (DEXCOM G7 BICYCLE I ASSEMBLER) misc Dx: Type 2 DM - Controlled E11.9 Insulin: No - Blood-Glucose Sensor (DEXCOM G7 SENSOR) hayn Dx: Type 2 DM - Controlled E11.9 Insulin: No - tirzepatide (MOUNJARO) 7.5 mg/0.5 mL pen injector Inject 7.5 mg subcutaneously one time a week. - metFORMIN (GLUCOPHAGE) 500 mg tablet Take 2 tablets by mouth twice daily with meals. - hydroCHLOROthiazide 25 mg tablet Take 1 tablet by mouth once daily. - glipiZIDE (GLUCOTROL) 5 mg tablet Take 1 tablet by mouth daily with food. - Blood-Glucose Transmitter (DEXCOM G6 TRANSMITTER) hany Dx: Type 2 DM - Controlled E11.9 Insulin: No - albuterol HFA (PROVENTIL HFA, VENTOLIN HFA) 90 mcg/actuation inhaler Inhale 2 Puffs as instructed every 6 hours as needed for wheezing/shortness of breath. - albuterol (PROVENTIL) 2.5 mg /3 mL (0.083 %) nebulizer solution Use 3 mL via nebulizer every 4 hours as needed for wheezing/shortness of breath. Use over 5-15minutes. - lisinopril (ZESTRIL, PRINIVIL) 20 mg tablet Take 1 tablet by mouth once daily. - fluticasone (FLONASE) 50 mcg/actuation nasal spray Use 2 Sprays in each nostril once daily. Rinse mouth after use. - multivit with minerals/lutein (MULTIVITAMIN 50 PLUS ORAL) Take by mouth. - vit A/vit C/vit E/zinc/copper (PRESERVISION AREDS ORAL) Take by mouth. generic - loratadine 10 mg tablet Take 10 mg by mouth once daily. Patient taking 1 tablet once daily. Problem List As Of Date 07/05/2023 Noted Resolved Hypertension [I10] 03/04/2013 Asthma [J45.909] 07/08/2019 DM (diabetes mellitus) ([facility]) [E11.9] 04/07/2019 Hyperparathyroidism ([facility]) [E21.3] Obesity, Class III, BMI >= 40 [E66.01] 07/23/2019 Encounter Status:Closed by MARY ANN REYES [facility]23 [facility] [facility]) -------- ISAAC AVILES ([id number]) 1970 F Date Time Provider Department 06/05/23 LIBRADO BARRIOS [facility] During your visit today, we recorded the following information about you: Ryanne Foster WORKDAY SENIOR ASSOCIATE 06/05/2023 11:41 AM Signed 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 Negar Falcon LPN 06/05/2023 12:13 PM Signed CALLED THE PHARMACY AND THEY REPORT FIRST THEY THE FILL WAS TOO SOON. PT FILLED DEXCOM 6 AND DEXCOM 7 WAS PROMPTING TOO SOON REJECTION. NOW THEY SAY IT JUST SAYS PA NEEDED.WITH NO EXPLANATION. Negar Falcon LPN 06/05/2023 1:02 PM Signed ISAAC AVILES (Connell: [id number]) - [id number] Dexcom G7 Lab Specialist device Status: Sent To Plan Created: June 05, 2023 Sent: June 05, 2023 Negar Falcon LPN 06/05/2023 3:48 PM Signed ALLA'S RESPONSE IS NO PA IS NEEDED. THIS INFO WAS SENT TO THE PHARMACY. Allergies As of Date: 06/05/2023 Noted Allergy Reaction PENICILLIN G 11/15/2005 7 - Swelling 12 - Shortness of Breath ADHESIVE 07/31/2013 14 - Other: See Comments Comments: Patient notes severe reaction to almost any type of adhesive in the past. Most recently developed significant ulceration at site where steri-strips were used after core biopsy PENICILLINS 05/24/2022 4 - Hives Date Reviewed: 05/02/2023 Reviewed by: Randolph Basurto APRN.DATABASE ADMINISTRATOR - Fully Assessed Reason for Visit: Insurance Authorization [[id number]] Prescriptions as of 06/05/2023 - Blood-Glucose Meter,Continuous (DEXCOM G7 BICYCLE I ASSEMBLER) misc Dx: Type 2 DM - Controlled E11.9 Insulin: No - Blood-Glucose Sensor (DEXCOM G7 SENSOR) hany Dx: Type 2 DM - Controlled E11.9 Insulin: No - tirzepatide (MOUNJARO) 7.5 mg/0.5 mL pen injector Inject 7.5 mg subcutaneously one time a week. - metFORMIN (GLUCOPHAGE) 500 mg tablet Take 2 tablets by mouth twice daily with meals. - hydroCHLOROthiazide 25 mg tablet Take 1 tablet by mouth once daily. - glipiZIDE (GLUCOTROL) 5 mg tablet Take 1 tablet by mouth daily with food. - Blood-Glucose Transmitter (DEXCOM G6 TRANSMITTER) hany Dx: Type 2 DM - Controlled E11.9 Insulin: No - meloxicam (MOBIC) 15 mg tablet Take 1 tablet by mouth once daily. With food. - albuterol HFA (PROVENTIL HFA, VENTOLIN HFA) 90 mcg/actuation inhaler Inhale 2 Puffs as instructed every 6 hours as needed for wheezing/shortness of breath. - albuterol (PROVENTIL) 2.5 mg /3 mL (0.083 %) nebulizer solution Use 3 mL via nebulizer every 4 hours as needed for wheezing/shortness of breath. Use over 5-15minutes. - lisinopril (ZESTRIL, PRINIVIL) 20 mg tablet Take 1 tablet by mouth once daily. - fluticasone (FLONASE) 50 mcg/actuation nasal spray Use 2 Sprays in each nostril once daily. Rinse mouth after use. - multivit with minerals/lutein (MULTIVITAMIN 50 PLUS ORAL) Take by mouth. - vit A/vit C/vit E/zinc/copper (PRESERVISION AREDS ORAL) Take by mouth. generic - loratadine 10 mg tablet Take 10 mg by mouth once daily. Patient taking 1 tablet once daily. Problem List As Of Date 06/05/2023 Noted Resolved Hypertension [I10] 03/04/2013 Asthma [J45.909] 07/08/2019 DM (diabetes mellitus) ([facility]) [E11.9] 04/07/2019 Hyperparathyroidism ([facility]) [E21.3] Obesity, Class III, BMI >= 40 [E66.01] 07/23/2019 Encounter Status:Closed by NEGAR FALCON LPN on 06/05/23 [facility] Juan 05-24-2023 JULIANA Telephone (INTMWS) -------- ISAAC AVILES ([id number]) 1970 F Date Time Provider Department 05/24/23 ROSA ISELA YANEZ INTZAIRA During your visit today, we recorded the following information about you: Lulu Garcia RN 05/24/2023 12:50 PM Signed Pt calling and states when she saw Rosa Isela last, her dose of Mounjaro was supposed to be increased to 10 mg from 7.5 mg. Pt states she has called a couple pharmacies with no luck on finding the medication. Pt instructed to attempt to call more pharmacies and let us know if she finds anyone with the med. But in the meantime, pt is wondering should she just stay on the 7.5 mg Mounjero or would Rosa Isela like to prescribe something different. If going to stay on 7.5 mg, pt will need new RX for it. Please call and advise. Rosa Isela Yanez APRN.DATABASE ADMINISTRATOR 05/24/2023 1:06 PM Signed Continue with 7.5 mg dose for now, hopefully will be able to get the 10 mg dose soon Rosa Isela Yanez APRN.TRIXIE Garcia RN 05/24/2023 1:53 PM Signed Pt called and is notified of providers results and instructions. Pt voices understanding. Pt states has the Dexcom G6 and states there is a lawsuit against the G6. She is wondering if Rosa Isela can order the G7? Also she wanted to let Rosa Isela know that she had a 10 mm kidney surgically removed last by Dr. Beata Alanis. ZAIRE Jackson APRN.TRIXIE 05/27/2023 10:14 AM Signed The following approved medication requests have been transmitted electronically. Requested Prescriptions Signed Prescriptions Disp Refills tirzepatide (MOUNJARO) 7.5 mg/0.5 mL pen injector 2 mL 5 Sig: Inject 7.5 mg subcutaneously one time a week. Authorizing Provider: ROSA ISELA YANEZ Blood-Glucose Meter,Continuous (DEXCOM G7 BICYCLE I ASSEMBLER) misc 1 Each 0 Sig: Dx: Type 2 DM - Controlled E11.9 Insulin: No Authorizing Provider: ROSA ISELA YANEZ Blood-Glucose Sensor (DEXCOM G7 SENSOR) hany 9 Each 3 Sig: Dx: Type 2 DM - Controlled E11.9 Insulin: No Authorizing Provider: ROSA ISELA YANEZ APRN.CNP Barbara Rhoads, RN 05/27/2023 4:15 PM Signed Pt called and is notified of providers instructions. Pt voices understanding. Lulu Garcia RN Allergies As of Date: 05/24/2023 Noted Allergy Reaction PENICILLIN G 11/15/2005 7 - Swelling 12 - Shortness of Breath ADHESIVE 07/31/2013 14 - Other: See Comments Comments: Patient notes severe reaction to almost any type of adhesive in the past. Most recently developed significant ulceration at site where steri-strips were used after core biopsy PENICILLINS 05/24/2022 4 - Hives Date Reviewed: 05/02/2023 Reviewed by: Randolph Basurto APRN.DATABASE ADMINISTRATOR - Fully Assessed Reason for Visit: Medication Problem [65] Visit Diagnosis:Type 2 diabetes mellitus without complication, without long-term current use of insulin (HCC) [E11.9] Order(s):tirzepatide (MOUNJARO) 7.5 mg/0.5 mL pen injectorInject 7.5 mg subcutaneously one time a week.Disp: 2 mLRfl: 5 Blood-Glucose Meter,Continuous (DEXCOM G7 BICYCLE I ASSEMBLER) miscDx: Type 2 DM - Controlled E11.9 Insulin: NoDisp: 1 EachRfl: 0 Blood-Glucose Sensor (DEXCOM G7 SENSOR) deviDx: Type 2 DM - Controlled E11.9 Insulin: NoDisp: 9 EachRfl: 3 Prescriptions as of 05/27/2023 - Blood-Glucose Meter,Continuous (DEXCOM G7 BICYCLE I ASSEMBLER) misc Dx: Type 2 DM - Controlled E11.9 Insulin: No - Blood-Glucose Sensor (DEXCOM G7 SENSOR) hany Dx: Type 2 DM - Controlled E11.9 Insulin: No - tirzepatide (MOUNJARO) 7.5 mg/0.5 mL pen injector Inject 7.5 mg subcutaneously one time a week. - metFORMIN (GLUCOPHAGE) 500 mg tablet Take 2 tablets by mouth twice daily with meals. - hydroCHLOROthiazide 25 mg tablet Take 1 tablet by mouth once daily. - glipiZIDE (GLUCOTROL) 5 mg tablet Take 1 tablet by mouth daily with food. - Blood-Glucose Transmitter (DEXCOM G6 TRANSMITTER) hany Dx: Type 2 DM - Controlled E11.9 Insulin: No - meloxicam (MOBIC) 15 mg tablet Take 1 tablet by mouth once daily. With food. - albuterol HFA (PROVENTIL HFA, VENTOLIN HFA) 90 mcg/actuation inhaler Inhale 2 Puffs as instructed every 6 hours as needed for wheezing/shortness of breath. - albuterol (PROVENTIL) 2.5 mg /3 mL (0.083 %) nebulizer solution Use 3 mL via nebulizer every 4 hours as needed for wheezing/shortness of breath. Use over 5-15minutes. - lisinopril (ZESTRIL, PRINIVIL) 20 mg tablet Take 1 tablet by mouth once daily. - fluticasone (FLONASE) 50 mcg/actuation nasal spray Use 2 Sprays in each nostril once daily. Rinse mouth after use. - multivit with minerals/lutein (MULTIVITAMIN 50 PLUS ORAL) Take by mouth. - vit A/vit C/vit E/zinc/copper (PRESERVISION AREDS ORAL) Take by mouth. generic - loratadine 10 mg tablet Take 10 mg by mouth once daily. Patient taking 1 tablet once daily. Problem List As Of Date 05/24/2023 Noted Resolved Hypertension [I10] 03/04/2013 Asthma [J45.909] 07/08/2019 DM (diabetes mellitus) ([facility]) [E11.9] 04/07/2019 Hyperparathyroidism ([facility]) [E2 (more content not included)... Normal [facility] CNOVon 05-02-2023 CNOV Office Visit (UCWSTR ) -------- ISAAC AVILES ([id number]) 1970 F Date Time Provider Department 05/02/23 9:30 AM RANDOLPH BASURTO [facility] During your visit today, we recorded the following information about you: Temperature Pulse Respiration Blood pressure 97 degrees 76/minute 16/minute 122/78 Weight 121.3 kg Randolph Basurto, RISK MGR.DATABASE ADMINISTRATOR 05/02/2023 9:59 AM Signed Subjective HPI Nontoxic-appearing female presents urgent care chief plaint nausea vomiting. Duration of symptoms 2 days. Associated symptoms nausea vomiting transient abdominal pain. States she has not vomited since yesterday. 1 episode of loose stool. Did take Pepto-Bismol today this is helped. No abdominal pain currently. Did have generalized abdominal pain. Presents today for evaluation. Unable to go to work due to nausea vomiting. No known sick contacts. No current pain. Denies any fever cough chest pain shortness of breath pleuritic pain hemoptysis or rashes. No urinary symptoms. Past medical history prescription medication use allergies reviewed. .Patient presents with: Nausea AND Vomiting: Nausea, vomiting, diarrhea, chills and right side pain x 2 days PAST MEDICAL HISTORY Diagnosis Date Asthma 07/08/2019 Breast mass, right 07/20/2013 fibrous. Cellulitis 08/01/2019 neck surgical site Depression 2012 DM (diabetes mellitus) ([facility]) 04/07/2019 Hyperparathyroidism ([facility]) 05/04/2019 Hypertension 03/04/2013 Infection of right breast 07/28/2013 Obesity, Class III, BMI >= 40 07/23/2019 Open wound of right breast 07/28/2013 PAST SURGICAL HISTORY Procedure Laterality Date BREAST BIOPSY INCISIONAL RIGHT Right 07/20/2013 fibrous PARATHYROIDECTOMY/EXPLOR ATION PARATHYROIDS 07/23/2019 REMOVE TONSILS/ADENOIDS,<12 Y/O 1975 THYROID FINE NEEDLE ASPIRATION Left 05/04/2019 ALLERGIES Penicillin G, Adhesive, and Penicillins MEDICATIONS metFORMIN (GLUCOPHAGE) 500 mg tablet Take 2 tablets by mouth twice daily with meals. hydroCHLOROthiazide 25 mg tablet Take 1 tablet by mouth once daily. glipiZIDE (GLUCOTROL) 5 mg tablet Take 1 tablet by mouth daily with food. tirzepatide (MOUNJARO) 10 mg/0.5 mL pen injector Inject 10 mg subcutaneously one time a week. Blood-Glucose Sensor (DEXCOM G6 SENSOR) hany Dx: Type 2 DM - Controlled E11.9 Insulin: No Blood-Glucose Meter,Continuous (DEXCOM G6 BICYCLE I ASSEMBLER) misc Dx: Type 2 DM - Controlled E11.9 Insulin: No Blood-Glucose Transmitter (DEXCOM G6 TRANSMITTER) hany Dx: Type 2 DM - Controlled E11.9 Insulin: No meloxicam (MOBIC) 15 mg tablet Take 1 tablet by mouth once daily. With food. albuterol HFA (PROVENTIL HFA, VENTOLIN HFA) 90 mcg/actuation inhaler Inhale 2 Puffs as instructed every 6 hours as needed for wheezing/shortness of breath. albuterol (PROVENTIL) 2.5 mg /3 mL (0.083 %) nebulizer solution Use 3 mL via nebulizer every 4 hours as needed for wheezing/shortness of breath. Use over 5-15minutes. lisinopril (ZESTRIL, PRINIVIL) 20 mg tablet Take 1 tablet by mouth once daily. fluticasone (FLONASE) 50 mcg/actuation nasal spray Use 2 Sprays in each nostril once daily. Rinse mouth after use. multivit with minerals/lutein (MULTIVITAMIN 50 PLUS ORAL) Take by mouth. vit A/vit C/vit E/zinc/copper (PRESERVISION AREDS ORAL) Take by mouth. generic loratadine 10 mg tablet Take 10 mg by mouth once daily. Patient taking 1 tablet once daily. FAMILY HISTORY Problem Relation Age of Onset Diabetes Father Blindness Father Possibly related to diabetes, no history of blindness per patient other (CHF) Father 58 other (CVA) Father No Ocular Disease Mother Diabetes Maternal Grandmother No Ocular Disease Maternal Grandmother No Ocular Disease Maternal Grandfather No Ocular Disease Paternal Grandmother No Ocular Disease Paternal Grandfather Anesthesia Problems No Family History Blood Clots No Family History Clotting Disorder No Family History Social History Tobacco Use Smoking status: Former Smokeless tobacco: Never Tobacco comments: stopped in her 20's Vaping Use Vaping Use: Never used Substance Use Topics Alcohol use: No Drug use: No Comment: THC drops BP 122/78 Pulse 76 Temp 36.1 ?C (97 ?F) (Tympanic) Resp 16 Wt 121.3 kg (267 lb 6.4 oz) LMP (LMP Unknown) SpO2 97% BMI 47.37 kg/m? Review of Systems Constitutional: Negative for chills, fever and malaise/fatigue. HENT: Negative for congestion, ear discharge, ear pain, sinus pain and sore throat. Eyes: Negative for blurred vision, pain, discharge and redness. Respiratory: Negative for cough, hemoptysis, sputum production, shortness of breath, wheezing and stridor. Cardiovascular: Negative for chest pain. Gastrointestinal: Positive for abdominal pain, diarrhea, nausea and vomiting. Negative for blood in stool and melena. Musculoskeletal: Negative for myalgias. Skin: Negative for itching and rash. Neurological: Ne (more content not included)... Normal [facility] 04-17-2023 [facility] Telephone (INTNitric BioWS) -------- ISAAC AVILES ([id number]) 1970 F Date Time Provider Department 04/17/23 LIBRADO BARRIOS INTBerlinWS During your visit today, we recorded the following information about you: Negar Falcon SOWMYA 04/18/2023 9:31 AM Signed Rec'd covermymed PA for tirzepatide. Pts insurance has denied this. She must try 3 formulary medicines for DM for 120 days. They are byetta 5 or 10 mcg Victozia 18mg/3ml pen Trulicity 0.75mg, 1.5mg, 3 mg and 4.5mg Farxiga 5 or 10 mg Invokana 100mg 300mg Jardaince 10 mg and 25mg Negar Curren WORKDAY SENIOR ASSOCIATE 04/18/2023 4:55 PM Signed NOW REC'D APPROVAL FROM 04/17/23 TO 04/18/24. PHARMACY NOTIFIED. MY CHART MESSAGE TO PT. Allergies As of Date: 04/17/2023 Noted Allergy Reaction PENICILLIN G 11/15/2005 7 - Swelling 12 - Shortness of Breath ADHESIVE 07/31/2013 14 - Other: See Comments Comments: Patient notes severe reaction to almost any type of adhesive in the past. Most recently developed significant ulceration at site where steri-strips were used after core biopsy PENICILLINS 05/24/2022 4 - Hives Date Reviewed: 04/15/2023 Reviewed by: Rosa Isela Yanez APRN.DATABASE ADMINISTRATOR - Fully Assessed Reason for Visit: Insurance Authorization [[id number]] Prescriptions as of 04/18/2023 - metFORMIN (GLUCOPHAGE) 500 mg tablet Take 2 tablets by mouth twice daily with meals. - hydroCHLOROthiazide 25 mg tablet Take 1 tablet by mouth once daily. - glipiZIDE (GLUCOTROL) 5 mg tablet Take 1 tablet by mouth daily with food. - tirzepatide (MOUNJARO) 10 mg/0.5 mL pen injector Inject 10 mg subcutaneously one time a week. - Blood-Glucose Sensor (DEXCOM G6 SENSOR) hany Dx: Type 2 DM - Controlled E11.9 Insulin: No - Blood-Glucose Meter,Continuous (DEXCOM G6 BICYCLE I ASSEMBLER) [facility] [place] Dx: Type 2 DM - Controlled E11.9 Insulin: No - Blood-Glucose Transmitter (DEXCOM G6 TRANSMITTER) hany Dx: Type 2 DM - Controlled E11.9 Insulin: No - meloxicam (MOBIC) 15 mg tablet Take 1 tablet by mouth once daily. With food. - albuterol HFA (PROVENTIL HFA, VENTOLIN HFA) 90 mcg/actuation inhaler Inhale 2 Puffs as instructed every 6 hours as needed for wheezing/shortness of breath. - albuterol (PROVENTIL) 2.5 mg /3 mL (0.083 %) nebulizer solution Use 3 mL via nebulizer every 4 hours as needed for wheezing/shortness of breath. Use over 5-15minutes. - lisinopril (ZESTRIL, PRINIVIL) 20 mg tablet Take 1 tablet by mouth once daily. - fluticasone (FLONASE) 50 mcg/actuation nasal spray Use 2 Sprays in each nostril once daily. Rinse mouth after use. - multivit with minerals/lutein (MULTIVITAMIN 50 PLUS ORAL) Take by mouth. - vit A/vit C/vit E/zinc/copper (PRESERVISION AREDS ORAL) Take by mouth. generic - loratadine 10 mg tablet Take 10 mg by mouth once daily. Patient taking 1 tablet once daily. Problem List As Of Date 04/17/2023 Noted Resolved Hypertension [I10] 03/04/2013 Asthma [J45.909] 07/08/2019 DM (diabetes mellitus) ([facility]) [E11.9] 04/07/2019 Hyperparathyroidism ([facility]) [E21.3] Obesity, Class III, BMI >= 40 [E66.01] 07/23/2019 Encounter Status:Closed by NEGAR FALCON LPN on 04/18/23 [facility] CNOVon 04-15-2023 CNOV Office Visit (INTMWS ) -------- STEFANISAAC Andres ([id number]) 1970 F Date Time Provider Department 04/15/23 3:40 PM ROSA ISELA YANEZ INTMWS During your visit today, we recorded the following information about you: Pulse Respiration Blood pressure Weight 82/minute 18/minute 114/72 120.2 kg Rosa Isela Yanez APRN.CNP 04/15/2023 3:50 PM Signed CC: Patient presents with: 4 month follow up HPI Isaac Campos Stefan is a 52 year old female who presents today for above. Diabetes: Home blood sugar readings: fasting average in the 120's-130's. Hypoglycemia: Yes, the past few weeks at least once a week her blood sugar has dropped into the 50's She is compliant with medication(s) and is tolerating med(s) without any side effects. Patient's last HgA1C was Hemoglobin A1C (%) Date Value 04/08/2023 6.5 12/12/2022 7.0 12/06/2021 10.1 05/31/2021 7.2 Hemoglobin A1C (POCT) (%) Date Value 06/04/2022 6.4 REVIEW OF SYSTEMS See HPI PAST MEDICAL HISTORY Diagnosis Date Asthma 07/08/2019 Breast mass, right 07/20/2013 fibrous. Cellulitis 08/01/2019 neck surgical site Depression 2012 DM (diabetes mellitus) ([facility]) 04/07/2019 Hyperparathyroidism (HCC) 05/04/2019 Hypertension 03/04/2013 Infection of right breast 07/28/2013 Obesity, Class III, BMI >= 40 07/23/2019 Open wound of right breast 07/28/2013 PAST SURGICAL HISTORY Procedure Laterality Date BREAST BIOPSY INCISIONAL RIGHT Right 07/20/2013 fibrous PARATHYROIDECTOMY/EXPLOR ATION PARATHYROIDS 07/23/2019 REMOVE TONSILS/ADENOIDS,<12 Y/O 1975 THYROID FINE NEEDLE ASPIRATION Left 05/04/2019 ALLERGIES Penicillin G, Adhesive, and Penicillins MEDICATIONS meloxicam (MOBIC) 15 mg tablet Take 1 tablet by mouth once daily. With food. albuterol HFA (PROVENTIL HFA, VENTOLIN HFA) 90 mcg/actuation inhaler Inhale 2 Puffs as instructed every 6 hours as needed for wheezing/shortness of breath. albuterol (PROVENTIL) 2.5 mg /3 mL (0.083 %) nebulizer solution Use 3 mL via nebulizer every 4 hours as needed for wheezing/shortness of breath. Use over 5-15minutes. tirzepatide (MOUNJARO) 7.5 mg/0.5 mL pen injector Inject 7.5 mg subcutaneously one time a week. hydroCHLOROthiazide (HYDRODIURIL, ESIDRIX) 25 mg tablet Take 1 tablet by mouth once daily. metFORMIN (GLUCOPHAGE) 500 mg tablet Take 2 tablets by mouth twice daily with meals. glipiZIDE (GLUCOTROL) 10 mg tablet Take 1 tablet by mouth daily with food. lisinopril (ZESTRIL, PRINIVIL) 20 mg tablet Take 1 tablet by mouth once daily. fluticasone (FLONASE) 50 mcg/actuation nasal spray Use 2 Sprays in each nostril once daily. Rinse mouth after use. (Patient not taking: No sig reported) multivit with minerals/lutein (MULTIVITAMIN 50 PLUS ORAL) Take by mouth. vit A/vit C/vit E/zinc/copper (PRESERVISION AREDS ORAL) Take by mouth. generic Lactobac no.41/Bifidobact no.7 (PROBIOTIC-10 ORAL) Take by mouth. (Patient not taking: No sig reported) loratadine 10 mg tablet Take 10 mg by mouth once daily. Patient taking 1 tablet once daily. FAMILY HISTORY Problem Relation Age of Onset Diabetes Father Blindness Father Possibly related to diabetes, no history of blindness per patient other (CHF) Father 58 other (CVA) Father No Ocular Disease Mother Diabetes Maternal Grandmother No Ocular Disease Maternal Grandmother No Ocular Disease Maternal Grandfather No Ocular Disease Paternal Grandmother No Ocular Disease Paternal Grandfather Anesthesia Problems No Family History Blood Clots No Family History Clotting Disorder No Family History Social History Tobacco Use Smoking status: Former Smokeless tobacco: Never Tobacco comments: stopped in her 20's Vaping Use Vaping Use: Never used Substance Use Topics Alcohol use: No Drug use: No Comment: THC drops PHYSICAL EXAM BP 114/72 Pulse 82 Resp 18 Wt 120.2 kg (265 lb) LMP (LMP Unknown) BMI 46.94 kg/m? General Appearance: well appearing, in no acute distress, alert Pysch: mood and affect broad and appropriate Health maintenance reviewed with patient: SHINGRIX VACCINE(1 of 2) due on 08/13/2023 COVID-19 VACCINE(4 - Booster for Moderna series) due on 08/13/2023 DILATED RETINAL EXAM due on 05/29/2023 LDL CHOLESTEROL due on 08/07/2023 COLORECTAL CANCER SCREENING due on 08/13/2023 HBA1C due on 10/09/2023 URINE ALBUMIN:CREATININE RATIO due on 12/17/2023 DIABETIC FOOT EXAM due on 12/17/2023 ANNUAL PCP TEAM CHRONIC DISEASE VISIT due on 12/17/2023 MAMMOGRAM due on 01/15/2024 BP CONTROLLED (<130/80) due on 02/23/2024 PAP TESTING due on 01/11/2025 HPV TESTING due on 01/11/2025 DTAP,TDAP,TD(2 - Td or Tdap) due on 12/12/2031 SPIROMETRY Completed INFLUENZA Completed DEPRESSION ASSESSMENT Completed HEPATITIS C SCREENING Completed HIV SCREENING Completed PNEUMOCOCCAL Completed HEPATITIS B Discontinued DATA REVIEWED: Most recent labs ASSESSMENT/PLAN: 1. Ty (more content not included)... Normal [facility] Basic metabolic 2000 panelon 04-08-2023 Anion gap [Moles/Vol] 11 mmol/L Normal 9-18 [facility] Comment on above: Order Comment: Speci men Type: BLOOD SPECIMENOrdering Facility: [facility] Address: [address] [address] Performed By: #### 2 4321-2, 3016-3 ####[facility] LABCLIA [id number] [place] [address] [place] Calcium [Mass/Vol] 9.5 mg/dL Normal 8.5-10.2 [facility] Comment on above: Order Comment: Speci men Type: BLOOD SPECIMENOrdering Facility: [facility] Address: [address] Performed By: #### 2 4321-2, 3016-3 ####[facility] LABCLIA [id number] [place] [address] [place] Chloride [Moles/Vol] 101 mmol/L Normal 97-105 [facility] Comment on above: Order Comment: Speci men Type: BLOOD SPECIMENOrdering Facility: [facility] Address: [address] Performed By: #### 2 4321-2, 3016-3 ####[facility] LABCLIA [id number] [place] [address] [place] CO2 [Moles/Vol] 26 mmol/L Normal 22-30 [facility] Comment on above: Order Comment: Speci men Type: BLOOD SPECIMENOrdering Facility: [facility] Address: [address] Performed By: #### 2 4321-2, 3016-3 ####[facility] LABCLIA [id number] [address] STATES OF [facility] Creatinine [Mass/Vol] 0.58 mg/dL Normal 0.58-0.96 [facility] Comment on above: Order Comment: Speci men Type: BLOOD SPECIMENOrdering Facility: [facility] Address: [address] [address] Performed By: #### 2 4321-2, 3016-3 ####[facility] LABCLIA [id number] [address] OF [facility] ESTIMATED GLOMERULAR FILTRATION RATE 109 mL/min/1.73m??? Normal >=60 [facility] Comment on above: Order Comment: Speci men Type: BLOOD SPECIMENOrdering Facility: [facility] Address: [address] [place] [address] Result Comment: Vera mated Glomerular Filtration Rate (eGFR) is calculated using the 2020 CKD-EPI creatinine equation. This equation utilizes serum creatinine, sex, and age as parameters. The creatinine assay has traceable calibration to isotope dilution-mass spectrometry. Refer to KDIGO guidelines for clinical interpretation. In patients with unstable renal function, e.g. those with acute kidney injury, the eGFR may not accurately reflect actual GFR. Performed By: #### 2 4321-2, 6-3 ####[facility] LABIA [id number] [place] [address] [place] Glucose [Mass/Vol] 99 mg/dL Normal 74-99 [facility] Comment on above: Order Comment: Speci men Type: BLOOD SPECIMENOrdering Facility: [facility] Address: [address] [address] Result Comment: The [place] Diabetes Association (ADA) provides guidance for cutoff values for fasting glucose and random glucose. The ADA defines fasting as no caloric intake for at least 8 hours. Fasting plasma glucose results between 100 to 125 mg/dL indicate increased risk for diabetes (prediabetes). Fasting plasma glucose results greater than or equal to 126 mg/dL meet the criteria for diagnosis of diabetes. In the absence of unequivocal hyperglycemia, results should be confirmed by repeat testing. In a patient with classic symptoms of hyperglycemia or hyperglycemic crisis, random plasma glucose results greater than or equal to 200 mg/dL meet the criteria for diagnosis of diabetes. Reference: Standards of Medical Care in Diabetes 2016, [place] [employer] Association. Diabetes Care. 2016.39(Suppl 1). Performed By: #### 2 4321-2, 6-3 ####[facility] LABCLIA [id number] [place] [address] [place] Potassium [Moles/Vol] 4.0 mmol/L Normal 3.7-5.1 [facility] Comment on above: Order Comment: Kym figueroa Type: BLOOD SPECIMENOrdering Facility: [facility] Address: [address] [place] [address] Performed By: #### 2 4320-, 3015-3 ####[facility] LABCLIA [id number] [place] [address] [place] Sodium [Moles/Vol] 138 mmol/L Normal 136-144 [facility] Comment on above: Order Comment: Kym figueroa Type: BLOOD SPECIMENOrdering Facility: [facility] Address: [address] [place] [address] Performed By: #### 2 4320-2, 3015-3 ####[facility] LABCLIA [id number] [place] [address] [place] Urea nitrogen [Mass/Vol] 15 mg/dL Normal 7-21 [facility] Comment on above: Order Comment: Kym figueroa Type: BLOOD SPECIMENOrdering Facility: [facility] Address: [address] [place] [address] Performed By: #### 2 4320-2, 3015-3 ####[facility] LABCLIA [id number] [place] [address] [place] HbA1c (Bld)on 04-08-2023 Average glucose Estimated from glycated hemoglobin (Bld) [Mass/Vol] 140 mg/dL Normal [facility] Comment on above: Order Comment: Kym figueroa Type: BLOOD SPECIMENOrdering Facility: [facility] Address: [address] [place] [address] Result Comment: eAG: (Estimated average glucose) is a calculated value from HgbA1c and is solar sales representative of the average blood glucose level in the last 2-3 month period. Performed By: #### 5 5454-3 ####[facility] LABIA [id number] [place] [address] [place] [facility] HbA1c (Bld) [Mass fraction] 6.5 % High 4.3-5.6 [facility] Comment on above: Order Comment: Kym figueroa Type: BLOOD SPECIMENOrdering Facility: [facility] Address: [address] [place] [address] Result Comment: [place] Diabetes Association guidelines indicate that patients with HgbA1c in the range 5.7-6.4% are at increased risk for development of diabetes, and intervention by lifestyle modification may be beneficial. HgbA1c greater or equal to 6.5% is considered diagnostic of diabetes. Performed By: #### 5 5454-3 ####[facility] LABIA [id number] [place] [address] [place] TSH SerPl-aCncon 04-08-2023 TSH Qn 0.572 m[IU]/L Normal 0.270-4.200 [facility] Comment on above: Order Comment: Kym figueroa Type: BLOOD SPECIMENOrdering Facility: [facility] Address: [address] [place] [address] Performed By: #### 2 4321-2, 3016-3 ####[facility] LABIA [id number] [place] [address] [place] XR CHEST 2V FRONTAL/LATon [facility] XR Chest PA and Lateralon IMPRESSION: Stable and overall unremarkable exam with no acute radiographic abnormality. Report Checker: CLAUDE Transcribe Date/Time: Feb 20 2023 9:22A Dictated by : JAC LEE MD This examination was interpreted and the report reviewed and electronically signed by: JAC LEE MD on Feb 20 2023 9:23AM [facility] DIVISION OF RADIOLOGY * * *Final Report* * * DATE OF EXAM: Feb 20 2023 9:06AM WOX 5291 - XR CHEST 2V FRONTAL/LAT / PROCEDURE REASON: Acute cough * * * * Physician Interpretation * * * * EXAMINATION: CHEST RADIOGRAPH (2 VIEW FRONTAL & LATERAL) CLINICAL HISTORY: Acute cough MQ: XC2_6 EXAM DATE/TIME: 02/20/2023 9:06 AM COMPARISON: 01/08/2020. RESULT: Lines, tubes, and devices: None. Lungs and pleura: No consolidation. No lung mass. No pleural effusion. No pneumothorax. Cardiomediastinal silhouette: Normal cardiomediastinal silhouette. Bones and soft tissues: There are mild degenerative changes involving the thoracic spine. DIVISION OF RADIOLOGY Provider, [facility] - 02/20/2023 * * *Final Report* * * DATE OF EXAM: Feb 20 2023 9:06AM WOX 5291 - XR CHEST 2V FRONTAL/LAT / PROCEDURE REASON: Acute cough * * * * Physician Interpretation * * * * EXAMINATION: CHEST RADIOGRAPH (2 VIEW FRONTAL & LATERAL) CLINICAL HISTORY: Acute cough MQ: XC2_6 EXAM DATE/TIME: 02/20/2023 9:06 AM COMPARISON: 01/08/2020. RESULT: Lines, tubes, and devices: None. Lungs and pleura: No consolidation. No lung mass. No pleural effusion. No pneumothorax. Cardiomediastinal silhouette: Normal cardiomediastinal silhouette. Bones and soft tissues: There are mild degenerative changes involving the thoracic spine. IMPRESSION IMPRESSION: Stable and overall unremarkable exam with no acute radiographic abnormality. Report Checker: CLAUDE Transcribe Date/Time: Feb 20 2023 9:22A Dictated by : JAC LEE MD This examination was interpreted and the report reviewed and electronically signed by: JAC LEE MD on Feb 20 2023 9:23AM [facility] Study observation (narrative) [facility] XR Chest PA and LateralOrder ed By: [facility] Provider on 02-20-2023 [facility] HEMOGLOBIN A1C (POC)on 06-04 HbA1c (Bld) [Mass fraction] 6.4 % 4.2 - 5.6 % [facility] STREP A MOLECULAR (POC)on Procedural Control Valid [facility] Strep A (POCT) Negative Negative [facility] ALLIED HEALTHon 01-08-2020 ALLIED HEALTH HNO ID: [id number] Author: Yelena (Rt) Javier Leigh Service: Radiology Author Type: Fire Technician Type: Allied Health Filed: 01/08/2020 3:52 PM Note Text: Radiology Service Progress Note PATIENT NAME: Isaac Aviles DATE OF SERVICE: January 08, 2020 TIME: 3:52 PM PATIENT IDENTITY VERIFICATION COMPLETED USING TWO (2) IDENTIFIERS: Name and Date of confirmed by patient verbally. PATIENT GENDER DATA: Female. status: : No status: NO. PATIENT RELEVANT IMPLANT DATA REVIEWED: Not Applicable RADIOLOGY DEPARTMENT: General X-ray: Exam(s) Completed: Chest X-Ray PERIPHERAL IV DATA: Not applicable SIGNED BY: RT Ez January 08, 2020 3:52 PM Normal [facility] CBC and Differentialon 01-08 Abs Baso 0.03 k/uL Normal <0.11 [facility] Comment on above: Performed By: #### C BCDIF, DDMER, PT, CK, CMP, LIPA, MG1 ####[facility] Asmixtd[address]i7238 [phone] Abs [place] 0.79 k/uL Normal <0.87 [facility] Comment on above: Performed By: #### C BCDIF, DDMER, PT, CK, CMP, LIPA, MG1 ####[facility] Rnxheyasfu1745 [phone] Abs Neut 5.93 k/uL Normal 1.45-7.50 [facility] Comment on above: Performed By: #### C BCDIF, DDMER, PT, CK, CMP, LIPA, MG1 ####[facility] Thq[address]h1053 [phone] Basophils/100 WBC (Bld) 0.3 % Normal [facility] Comment on above: Performed By: #### C BCDIF, DDMER, PT, CK, CMP, LIPA, MG1 ####[place] [address] Eosinophils (Bld) [#/Vol] 0.16 10*3/uL Normal <0.46 [facility] Comment on above: Performed By: #### C BCDIF, DDMER, PT, CK, CMP, LIPA, MG1 ####[address] [place] [address] Eosinophils/100 WBC (Bld) 1.6 % Normal [facility] Comment on above: Performed By: #### C BCDIF, DDMER, PT, CK, CMP, LIPA, MG1 ####[address] [place] [address] Erythrocyte distribution width (RBC) [Ratio] 13.6 % Normal 11.5-15.0 [facility] Comment on above: Performed By: #### C BCDIF, DDMER, PT, CK, CMP, LIPA, MG1 ####[address] [address] Hematocrit (Bld) [Volume fraction] 38.3 % Normal 36.0-46.0 [facility] Comment on above: Performed By: #### C BCDIF, DDMER, PT, CK, CMP, LIPA, MG1 ####[address] [place] [address] Hemoglobin (Bld) [Mass/Vol] 12.3 g/dL Normal 11.5-15.5 [facility] Comment on above: Performed By: #### C BCDIF, DDMER, PT, CK, CMP, LIPA, MG1 ####[address] [address] Lymphocytes (Bld) [#/Vol] 3.00 10*3/uL Normal 1.00-4.00 [facility] Comment on above: Performed By: #### C BCDIF, DDMER, PT, CK, CMP, LIPA, MG1 ####[address] [place] [address] Lymphocytes/100 WBC (Bld) 30.3 % Normal [facility] Comment on above: Performed By: #### C BCDIF, DDMER, PT, CK, CMP, LIPA, MG1 ####[facility] [address] [place] [address] MCH (RBC) [Entitic mass] 27.5 pG Normal 26.0-34.0 [facility] Comment on above: Performed By: #### C BCDIF, DDMER, PT, CK, CMP, LIPA, MG1 ####[facility] [address] [place] [address] MCHC (RBC) [Mass/Vol] 32.1 g/dL Normal 30.5-36.0 [facility] Comment on above: Performed By: #### C BCDIF, DDMER, PT, CK, CMP, LIPA, MG1 ####[address] [address] MCV (RBC) [Entitic vol] 85.7 fL Normal 80.0-100.0 [facility] Comment on above: Performed By: #### C BCDIF, DDMER, PT, CK, CMP, LIPA, MG1 ####[place] [address] Monocytes/100 WBC (Bld) 8.0 % Normal [facility] Comment on above: Performed By: #### C BCDIF, DDMER, PT, CK, CMP, LIPA, MG1 ####[place] [address] Neutrophils/100 WBC (Bld) 59.8 % Normal [facility] Comment on above: Performed By: #### C BCDIF, DDMER, PT, CK, CMP, LIPA, MG1 ####[place] [address] Platelet mean volume (Bld) [Entitic vol] 11.5 fL Normal 9.0-12.7 [facility] Comment on above: Performed By: #### C BCDIF, DDMER, PT, CK, CMP, LIPA, MG1 ####[facility] [address] [place] [address] Platelets (Bld) [#/Vol] 266 10*3/uL Normal 150-400 [facility] Comment on above: Performed By: #### C BCDIF, DDMER, PT, CK, CMP, LIPA, MG1 ####[facility] [address] [place] [address] RBC (Bld) [#/Vol] 4.47 10*6/uL Normal 3.90-5.20 [facility] Comment on above: Performed By: #### C BCDIF, DDMER, PT, CK, CMP, LIPA, MG1 ####[address] [address] WBC (Bld) [#/Vol] 9.91 10*3/uL Normal 3.70-11.00 [facility] Comment on above: Performed By: #### C BCDIF, DDMER, PT, CK, CMP, LIPA, MG1 ####[place] [address] CKon 01-08-2020 CK [Catalytic activity/Vol] 60 U/L Normal 42-196 [facility] Comment on above: Performed By: #### C BCDIF, DDMER, PT, CK, CMP, LIPA, MG1 ####[place] [address] Comp Metabolic Panelon 01-08 Albumin [Mass/Vol] 4.3 g/dL Normal 3.9-4.9 [facility] Comment on above: Performed By: #### C BCDIF, DDMER, PT, CK, CMP, LIPA, MG1 ####[place] [address] ALP [Catalytic activity/Vol] 72 U/L Normal 34-123 [facility] Comment on above: Performed By: #### C BCDIF, DDMER, PT, CK, CMP, LIPA, MG1 ####[place] [address] ALT [Catalytic activity/Vol] 19 U/L Normal 7-38 [facility] Comment on above: Performed By: #### C BCDIF, DDMER, PT, CK, CMP, LIPA, MG1 ####[facility] [address] [place] [address] Anion gap [Moles/Vol] 14 mmol/L Normal 9-18 [facility] Comment on above: Performed By: #### C BCDIF, DDMER, PT, CK, CMP, LIPA, MG1 ####[facility] [address] [place] [address] AST [Catalytic activity/Vol] 17 U/L Normal 13-35 [facility] Comment on above: Performed By: #### C BCDIF, DDMER, PT, CK, CMP, LIPA, MG1 ####[facility] [address] [place] [address] Bilirubin [Mass/Vol] 0.2 mg/dL Normal 0.2-1.3 [facility] Comment on above: Performed By: #### C BCDIF, DDMER, PT, CK, CMP, LIPA, MG1 ####[place] [address] Calcium [Mass/Vol] 10.0 mg/dL Normal 8.5-10.2 [facility] Comment on above: Performed By: #### C BCDIF, DDMER, PT, CK, CMP, LIPA, MG1 ####[place] [address] Chloride [Moles/Vol] 98 mmol/L Normal 97-105 [facility] Comment on above: Performed By: #### C BCDIF, DDMER, PT, CK, CMP, LIPA, MG1 ####[facility] [address] [place] [address] CO2 [Moles/Vol] 28 mmol/L Normal 22-30 [facility] Comment on above: Performed By: #### C BCDIF, DDMER, PT, CK, CMP, LIPA, MG1 ####[place] [address] Creatinine [Mass/Vol] 0.58 mg/dL Normal 0.58-0.96 [facility] Comment on above: Performed By: #### C BCDIF, DDMER, PT, CK, CMP, LIPA, MG1 ####[facility] [address] [place], [place] [phone] eGFR- Amer. >60 Normal [facility] Comment on above: Performed By: #### C BCDIF, DDMER, PT, CK, CMP, LIPA, MG1 ####[facility] [address]ux[address] GFR/1.73 sq M predicted among non-blacks MDRD (S/P/Bld) [Vol rate/Area] mL/min/{1.73_m2} Normal [facility] Comment on above: Result Comment: eGFR (Estimated GFR) Units of measure: mL/min/1.73 meters squared eGFR is derived from the reexpressed MDRD Study equation using the following parameters: serum creatinine, age, gender and race. The creatinine assay has been calibrated to be traceable to IDMS. An eGFR <60 mL/min/1.73m2 for >3 months is consistent with chronic kidney disease. Refer to KDOQI guidelines for clinical interpretation. In patients with unstable renal function, e.g. those with acute kidney injury, the eGFR may not accurately reflect actual GFR. Performed By: #### C BCDIF, DDMER, PT, CK, CMP, LIPA, MG1 ####[facility] [address] Glucose [Mass/Vol] 189 mg/dL High 74-99 [facility] Comment on above: Result Comment: The [place] Diabetes Association (ADA) provides guidance for cutoff values for fasting glucose and random glucose. The ADA defines fasting as no caloric intake for at least 8 hours. Fasting plasma glucose results between 100 to 125 mg/dL indicate increased risk for diabetes (prediabetes). Fasting plasma glucose results greater than or equal to 126 mg/dL meet the criteria for diagnosis of diabetes. In the absence of unequivocal hyperglycemia, results should be confirmed by repeat testing. In a patient with classic symptoms of hyperglycemia or hyperglycemic crisis, random plasma glucose results greater than or equal to 200 mg/dL meet the criteria for diagnosis of diabetes. Reference: Standards of Medical Care in Diabetes 2016, [place] [employer]. Diabetes Care. 2016.39(Suppl 1). Performed By: #### C BCDIF, DDMER, PT, CK, CMP, LIPA, MG1 ####[facility] [address] [place] [phone] Potassium [Moles/Vol] 3.7 mmol/L Normal 3.7-5.1 [facility] Comment on above: Performed By: #### C BCDIF, DDMER, PT, CK, CMP, LIPA, MG1 ####[facility] [address] [place] [address] Protein [Mass/Vol] 7.3 g/dL Normal 6.3-8.0 [facility] Comment on above: Performed By: #### C BCDIF, DDMER, PT, CK, CMP, LIPA, MG1 ####[facility] [address] [place] [address] Sodium [Moles/Vol] 140 mmol/L Normal 136-144 [facility] Comment on above: Performed By: #### C BCDIF, DDMER, PT, CK, CMP, LIPA, MG1 ####[facility] [address] [place] [address] Urea nitrogen [Mass/Vol] 13 mg/dL Normal 7-21 [facility] Comment on above: Performed By: #### C BCDIF, DDMER, PT, CK, CMP, LIPA, MG1 ####[facility] [address] [place] [address] D dimeron 01-08-2020 D dimer 330 ng/mL FEU Normal <500 [facility] Comment on above: Result Comment: 500 ng/mL FEU is the D Dimer cutoff to exclude DVT (deep vein thrombosis) and PE (pulmonary embolism) in patients with a low pre test probability. Supplemental Comment: In patients over 50 years with a low pre test probability for DVT and/or PE, an age adjusted D dimer cutoff can be calculated as [age x 10] ng/mL FEU. For example, a patient of 88 years would have an age adjusted D dimer cutoff of 880 ng/mL FEU. For patients with a suspected DVT, a D dimer level below 500 ng/mL FEU has a negative predictive value of >98.9%, a sensitivity of >96.9% and a specificity of >35.7%. For patients with a suspected PE, a D dimer level below 500 ng/mL FEU has a negative predictive value of >98.5%, and a sensitivity of >96.5% and a specificity of >38.8%. Reference: Pauly M, et al. CHRISTINA 2014 311:1117 and Van Renuka N, et al. Deborah Int Med 2016 165:253. Performed By: #### C BCDIF, DDMER, PT, CK, CMP, LIPA, MG1 ####[facility] [address] [place] [phone] ECG COMPLETEon 01-08-2020 ECG COMPLETE NAME : ISAAC AVILES PID : [id number] : 1970 Gender : Female Race : ORD : [id number] Procedure Date : Jan 08 2020 15:52:49 Edit Date : Jan 08 2020 16:22:01 Diagnosis:NORMAL SINUS RHYTHM INFERIOR INFARCT , AGE UNDETERMINED POSSIBLE ANTEROLATERAL INFARCT , AGE UNDETERMINED ABNORMAL ECG 1600 01/08/2020 Confirmed by DO DOYLE ALAN ([id number]), editor newspaper CULLEN HUMMEL ([id number]) on 01/08/2020 4:21:59 PM Ventricular Rate : 87 BPM Atrial Rate : 87 BPM P-R Interval : 136 ms QRS Duration : 92 ms Q-T Interval : 376 ms QTC Calculation(Bazett) : 452 ms P [place] : 40 degrees R [place] : -16 degrees T [place] : 30 degrees Test Reason : Chest Pain Location : 1 : ER 1 Overread By : DO DOYLE ALAN Edited By : CULLEN HUMMEL Referred By : , Acquired by : DEIRDRE [facility] ED NOTEon 01-08-2020 ED NOTE HNO ID: [id number] Author: Margarita PérezRn) ZAIRE Ulrich Service: ? Author Type: Registered Nurse Type: ED Notes Filed: 01/08/2020 6:39 PM Note Text: Patient in stable condition upon discharge. resp Even and unlabored. No distress or chest pain noted. Patient states she will take her bp meds wihen she gets home and is requesting to be discharged. Patient will follow up with primary doc in 2 days. Patient states she will return if any symptoms return or worsen. [facility] ED NOTE HNO ID: [id number] Author: Gwen PérezRnNancy Eldridge RN Service: Nursing Author Type: Registered Nurse Type: ED Notes Filed: 01/08/2020 3:34 PM Note Text: Pt presents to ED with c/o chest pain for two weeks. Pt takes lisinopril and HCTZ. Her MD told her she should go to ER when the chest pain first started but they decided to change medication dosages to see if that would help. She's noticed no difference in the chest pain after changing medications Normal [facility] ED PROV NOTEon 01-08-2020 ED PROV NOTE HNO ID: [id number] Author: Ronald Doyle DO Service: Emergency Medicine Author Type: Physician Type: ED Provider Notes Filed: 01/08/2020 6:21 PM Note Text: ED Provider Note Patient Name: Isaac Aviles SERVICE DATE: 01/08/20 History Patient presents with: Chest Pain: 2 weeks 49-year-old female patient presents to ED with intermittent right-sided chest pain ?2 weeks. It's a 4/10 in intensity at this time. No cough. No hemoptysis. No travel. No prolonged immobility. No history of DVT or PE. She has a history of hypertension, diabetes, hyperparathyroidism, right breast infection, right breast mass, asthma and cellulitis in the neck as well as depression. Patient does not relate the pain to meals. 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 She also believes that when her Dr. increased her lisinopril that coincided with the onset of the chest pain. She stopped that and started hydrochlorothiazide. She is also taking her meloxicam 3 times a day instead of 2. She takes this for diabetic neuropathy. PAST MEDICAL HISTORY Diagnosis Date - Asthma 07/08/2019 - Breast mass, right 07/20/2013 fibrous. - Cellulitis 08/01/2019 neck surgical site - Depression 2012 - DM (diabetes mellitus) (HCC) 04/07/2019 - Hyperparathyroidism (HCC) 05/04/2019 - Hypertension 03/04/2013 - Infection of right breast 07/28/2013 - Obesity, Class III, BMI >= 40 07/23/2019 - Open wound of right breast 07/28/2013 PAST SURGICAL HISTORY Procedure Laterality Date - BREAST BIOPSY INCISIONAL RIGHT Right 07/20/2013 fibrous - EXPLORE PARATHYROID GLANDS 07/23/2019 - REMOVE TONSILS/ADENOIDS,<12 Y/O 1975 - THYROID FINE NEEDLE ASPIRATION Left 05/04/2019 FAMILY HISTORY Problem Relation Age of Onset - Diabetes Father - other (CHF) Father 58 - other (CVA) Father - Diabetes Maternal Grandmother - Anesthesia Problems No Family History - Blood Clots No Family History - Clotting Disorder No Family History Social History Tobacco Use - Smoking status: Former Smoker - Smokeless tobacco: Never Used - Tobacco comment: stopped in her 20's Substance and Sexual Activity - Alcohol use: No Frequency: Never Binge frequency: Never - Drug use: No - Sexual activity: Not on file ALLERGIES Allergen Reactions - Penicillin G Swelling, Shortness of Breath - Adhesive Other: See Comments Patient notes severe reaction to almost any type of adhesive in the past. Most recently developed significant ulceration at site where steri-strips were used after core biopsy Review of Systems Constitutional: Negative for activity change and appetite change. HENT: Negative for congestion, drooling, rhinorrhea, sore throat, trouble swallowing and voice change. Eyes: Negative for photophobia, pain and visual disturbance. Respiratory: Negative for cough, chest tightness and shortness of breath. Cardiovascular: Positive for chest pain. Negative for leg swelling. Gastrointestinal: Negative for abdominal pain, blood in stool, constipation, diarrhea, nausea and vomiting. Genitourinary: Negative for decreased urine volume, dysuria, flank pain, frequency, hematuria and urgency. Musculoskeletal: Negative for back pain, joint swelling and neck pain. Skin: Negative for rash. Neurological: Negative for dizziness, weakness, light-headedness and headaches. Hematological: Negative for adenopathy. Psychiatric/Behavioral: The patient is not nervous/anxious. Physical Exam BP 177/84 Pulse 89 Temp (Src) 98.1 (Temporal) Resp 18 Wt 286 lb (129.7kg) SpO2 98% O2 Therapy: Room Air Physical Exam Vitals signs and nursing note reviewed. Constitutional: General: She is not in acute distress. Appearance: She is well-developed. HENT: Head: Normocephalic. Nose: Nose normal. Eyes: General: No scleral icterus. Right eye: No discharge. Left eye: No discharge. Conjunctiva/sclera: Conjunctivae normal. Pupils: Pupils are equal, round, and reactive to light. Neck: Musculoskeletal: Normal range of motion and neck supple. Trachea: No tracheal deviation. Cardiovascular: Rate and Rhythm: Normal rate and regular rhythm. Heart sounds: Normal heart sounds. No murmur. Pulmonary: Effort: Pulmonary effort is normal. No respiratory distress. Breath sounds: Normal breath sounds. No wheezing. Chest: Chest wall: No tenderness. Abdominal: General: Bowel sounds are normal. There is no distension. Palpations: Abdomen is soft. There is no mass. Tenderness: There is no abdominal tenderness. There is no guarding or rebound. Musculoskeletal: Normal range of motion. General: No tenderness. Right lower leg: She exhibits no swelling. Left lower leg: She exhibits no swelling. Lymphadenopathy: Cervical: No cervical adenopathy. Skin: General: Skin is warm and dry. Findings: No rash. Neurological: Mental Status: She is alert and oriented to person, place, and time. Cranial Nerves: No cranial nerve deficit. Deep Tendon Reflexes: Reflexes are normal and symmetric. Diagnostic Testing ED Labs Ordered and Reviewed - No data to display Procedures ED Course / Clinical Impression Clinical Impressions as of Jan 08 1820 Right-sided chest pain Shortness of breath Anxiety MDM / Disposition / Plan 49-year-old female patient presents to ED as above. She is not in distress. Work up initiated clean chest x-ray come EKG laboratory studies. She'll be medicated with aspirin. I gave her enteric-coated aspirin as she is concerned about ulcers with aspirin and her meloxicam. She'll be placed on a color television console monitor here and monitored throughout her workup in the ED. Workup: EKG obtained: EKG sinus rhythm 87 beats for minute. [place] interval 136 ms. QRS 92 ms. [place] is left axis deviated. Flat T wave in lead 3. ST segments are isoelectric. No acute ischemia. XR CHEST 2V FRONTAL/LAT Final Result IMPRESSION: No acute rubber turner: PSCB Transcribe Date/Time: Jan 08 2020 3:53P Dictated by : GHAZAL RUSHING DO This examination was interpreted and the report reviewed and electronically signed by: GHAZAL RUSHING DO on Jan 08 2020 3:54PM EST Results for orders placed or performed during the hospital encounter of 01/08/20 -COMP METABOLIC PANEL Result Value Ref Range Protein, Total 7.3 6.3 - 8.0 g/dL Albumin 4.3 3.9 - 4.9 g/dL Calcium 10.0 8.5 - 10.2 mg/dL Bilirubin, Total 0.2 0.2 - 1.3 mg/dL Alkaline Phosphatase 72 34 - 123 U/L AST 17 13 - 35 U/L Glucose 189 (H) 74 - 99 mg/dL BUN 13 7 - 21 mg/dL Creatinine 0.58 0.58 - 0.96 mg/dL Sodium 140 136 - 144 mmol/L Potassium 3.7 3.7 - 5.1 mmol/L Chloride 98 97 - 105 mmol/L CO2 28 22 - 30 mmol/L Anion Gap 14 9 - 18 mmol/L ALT 19 7 - 38 U/L eGFR- >60 eGFR-All Other Races >60 . -MAGNESIUM BLD Result Value Ref Range Magnesium 1.7 1.7 - 2.3 mg/dL -CK CREATINE KINASE Result Value Ref Range CK 60 42 - 196 U/L -HIGH SENSITIVITY TROPONIN T Result Value Ref Range BHUMIKA High Sensitivity <6 <12 ng/L -HIGH SENSITIVITY TROPONIN T Result Value Ref Range BHUMIKA High Sensitivity <6 <12 ng/L -D-DIMER Result Value Ref Range d Dimer 330 <500 ng/mL FEU -CBC + DIFF Result Value Ref Range WBC 9.91 3.70 - 11.00 k/uL RBC 4.47 3.90 - 5.20 m/uL Hemoglobin 12.3 11.5 - 15.5 g/dL Hematocrit 38.3 36.0 - 46.0 % MCV 85.7 80.0 - 100.0 fL MCH 27.5 26.0 - 34.0 pG MCHC 32.1 30.5 - 36.0 g/dL RDW-CV 13.6 11.5 - 15.0 % Platelet Count 266 150 - 400 k/uL MPV 11.5 9.0 - 12.7 fL Neut% 59.8 % Abs Neut (ANC) 5.93 1.45 - 7.50 k/uL Lymph% 30.3 % Abs Lymph 3.00 1.00 - 4.00 k/uL [place]% 8.0 % Abs [place] 0.79 <0.87 k/uL Eosin% 1.6 % Abs Eosin 0.16 <0.46 k/uL Baso% 0.3 % Abs Baso 0.03 <0.11 k/uL -PROTHROMBIN TIME/PT Result Value Ref Range PT Sec 10.2 9.7 - 13.0 sec PT INR 1.0 0.9 - 1.3 -LIPASE BLD Result Value Ref Range Lipase 24 16 - 61 U/L -ECG COMPLETE Result Value Ref Range 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 NAME : ISAAC AVILES PID : [id number] : 1970 Gender : Female Race : ORD : [id number] Procedure Date : Jan 08 2020 15:52:49 Edit Date : Jan 08 2020 16:22:01 Diagnosis:NORMAL SINUS RHYTHM INFERIOR INFARCT , AGE UNDETERMINED POSSIBLE ANTEROLATERAL INFARCT , AGE UNDETERMINED ABNORMAL ECG 1600 01/08/2020 Confirmed by DO DOYLE ALAN ([id number]), editor newspaper CULLEN HUMMEL ([id number]) on 01/08/2020 4:21:59 PM Ventricular Rate : 87 BPM Atrial Rate : 87 BPM P-R Interval : 136 ms QRS Duration : 92 ms Q-T Interval : 376 ms QTC Calculation(Bazett) : 452 ms P [place] : 40 degrees R [place] : -16 degrees T [place] : 30 degrees Test Reason : Chest Pain Location : 1 : ER 1 Overread By : DO DOYLE ALAN Edited By : CULLEN HUMMEL Referred By : , Acquired by : DEIRDRE, Chest x-ray negative. Troponins are negative ?2. Patient cleared by cardiac protocol. D-dimer normal. On reassessment she is rather anxious and talks about this and then becomes tearful. She notes a lot of stress especially overwork. I do believe some of her symptoms are related to that but I will refer her to cardiology for stress test. She passed her last stress test without difficulties. No other specific complaints. No chest discomfort on reassessment. The patient was DISCHARGED: Counseled patient and family regarding lab results AND radiology results AND suspected diagnosis AND need for follow-up. Discharged home with verbal and written instructions. They were instructed to return as needed for persistent or worsening symptoms or any new concerns. Condition at time of disposition: improved and stable SIGNATURE: DO Ronald Parson DO 01/08/20 1821 Normal [facility] High Sens Troponin Ton 01-08 High Sensitivity BHUMIKA <6 Normal <12 [facility] Comment on above: Result Comment: When assessing risk for acute coronary syndromes: In patients undergoing blood draw greater than or equal to 2 hours from symptom onset, with history of very low to moderate risk and non-ischemic ECG, an initial hs-Troponin T less than 12 ng/L AND a 1 hour delta hs-Troponin T less than 3 ng/L should be considered very low risk for 30 day MACE. Performed By: #### C BC, BHB #### [facility] [address] [facility] [phone] High Sensitivity BHUMIKA <6 Normal <12 [facility] Comment on above: Result Comment: When assessing risk for acute coronary syndromes: In patients undergoing blood draw greater than or equal to 2 hours from symptom onset, with history of very low to moderate risk and non-ischemic ECG, an initial hs-Troponin T less than 12 ng/L AND a 1 hour delta hs-Troponin T less than 3 ng/L should be considered very low risk for 30 day MACE. Performed By: #### H STNT ####[facility] [address] [place] [address] Lipaseon 01-08-2020 Lipase [Catalytic activity/Vol] 24 U/L Normal 16-61 [facility] Comment on above: Performed By: #### C BCDIF, DDMER, PT, CK, CMP, LIPA, MG1 ####[facility] [address] [place] [address] Magnesiumon 01-08-2020 Magnesium [Mass/Vol] 1.7 mg/dL Normal 1.7-2.3 [facility] Comment on above: Performed By: #### C BCDIF, DDMER, PT, CK, CMP, LIPA, MG1 ####[facility] [address] [place], [place] [id number] Protimeon 01-08-2020 PT Coag (PPP) [Time] 10.2 s Normal 9.7-13.0 [facility] Comment on above: Performed By: #### C BCDIF, DDMER, PT, CK, CMP, LIPA, MG1 ####[facility] [address] [place] [address] PT Coag (PPP) [Time] 1.0 s Normal 0.9-1.3 [facility] Comment on above: Result Comment: Bree min K Antagonist (VKA) Therapeutic Range: INR 2 to 3 (Target INR of 2.5) Note: For patients treated with VKA drugs, such as warfarin, the [place] [employer] 2012 Guideline recommends a therapeutic INR range of 2 to 3 (target INR of 2.5). This recommendation includes high-risk patients with antiphospholipid syndrome with previous arterial or venous thromboembolism, current-generation mechanical or bioprosthetic aortic heart valve replacement. Note: Patients with mechanical aortic valve replacement and additional risk factors for thromboembolic events (atrial fibrillation, previous thromboembolism, LV dysfunction, hypercoagulable conditions) or an older generation mechanical AVR (i.e., ball in-Cage) or any mechanical MVR should have a INR therapeutic range of 2.5 to 3.5 (target INR of 3). Dontae GH, et al. Chest 2012, 141:7S-47S Samantha RA, et al. [facility] 2017, 70: 252-289 Performed By: #### C BCDIF, DDMER, PT, CK, CMP, LIPA, MG1 ####[facility] [address] [place] [phone] XR CHEST 2V FRONTAL/LATon XR CHEST 2V FRONTAL/LAT * * *Final Report* * * DATE OF EXAM: Jan 08 2020 3:51PM MDX 5291 - XR CHEST 2V FRONTAL/LAT / PROCEDURE REASON: Chest pain * * * * Physician Interpretation * * * * EXAMINATION: CHEST RADIOGRAPH (2 VIEW FRONTAL and LATERAL) CLINICAL HISTORY: Chest pain MQ: XC2_5 Comparison: None RESULT: 1. Lines, Tubes, and Devices: None 2. Lungs and Pleura: The lungs are clear. No infiltrates, nodules or pleural effusions are seen. 3. Cardiomediastinal silhouette: Heart size within normal limits. Pulmonary vascularity is unremarkable. 4. Other: Bony structures unremarkable. IMPRESSION: No acute rubber turner: PSCB Transcribe Date/Time: Jan 08 2020 3:53P Dictated by : GHAZAL RUSHING DO This examination was interpreted and the report reviewed and electronically signed by: GHAZAL RUSHING DO on Jan 08 2020 3:54PM EST [id number] Normal [facility] CBC and Differentialon 10-28 Platelet mean volume (Bld) [Entitic vol] 13.5 fL High 9.0-12.7 [facility] Comment on above: Performed By: #### C BCDIF, IRON, TSH, FT4, CMP, LIPB, FERR, HBA1C, VITD #### [facility] Routine Lab [address] [phone] Platelets (Bld) [#/Vol] Normal 150-400 [facility] Comment on above: Result Comment: 169 Result checked and verified No clot detected. Performed By: #### C BCDIF, IRON, TSH, FT4, CMP, LIPB, FERR, HBA1C, VITD #### [facility] Routine Lab [address] [place] [phone] Abs Baso 0.05 k/uL Normal <0.11 [facility] Comment on above: Performed By: #### C BCDIF, IRON, TSH, FT4, CMP, LIPB, FERR, HBA1C, VITD #### [facility] Routine Lab [address] [place] [phone] Abs [place] 0.75 k/uL Normal <0.87 [facility] Comment on above: Performed By: #### C BCDIF, IRON, TSH, FT4, CMP, LIPB, FERR, HBA1C, VITD #### [facility] Routine Lab [address] [place] [phone] Abs Neut 5.85 k/uL Normal 1.45-7.50 [facility] Comment on above: Performed By: #### C BCDIF, IRON, TSH, FT4, CMP, LIPB, FERR, HBA1C, VITD #### [facility] Routine Lab [address] [place] [phone] Absolute nRBC <0.01 Normal <0.01 [facility] Comment on above: Performed By: #### C BCDIF, IRON, TSH, FT4, CMP, LIPB, FERR, HBA1C, VITD #### [facility] Routine Lab [address] [place] [phone] Basophils/100 WBC (Bld) 0.6 % Normal [facility] Comment on above: Performed By: #### C BCDIF, IRON, TSH, FT4, CMP, LIPB, FERR, HBA1C, VITD #### [facility] Routine Lab [address] [phone] DTYPE ADIFF Normal [facility] Comment on above: Performed By: #### C BCDIF, IRON, TSH, FT4, CMP, LIPB, FERR, HBA1C, VITD #### [facility] Routine Lab [address] [place] [phone] Eosinophils (Bld) [#/Vol] 0.14 10*3/uL Normal <0.46 [facility] Comment on above: Performed By: #### C BCDIF, IRON, TSH, FT4, CMP, LIPB, FERR, HBA1C, VITD #### [facility] Routine Lab [address] [place] [phone] Eosinophils/100 WBC (Bld) 1.6 % Normal [facility] Comment on above: Performed By: #### C BCDIF, IRON, TSH, FT4, CMP, LIPB, FERR, HBA1C, VITD #### [facility] Routine Lab [address] [place] [phone] Erythrocyte distribution width (RBC) [Ratio] 15.6 % High 11.5-15.0 [facility] Comment on above: Performed By: #### C BCDIF, IRON, TSH, FT4, CMP, LIPB, FERR, HBA1C, VITD #### [facility] Routine Lab [address] [place] [phone] Hematocrit (Bld) [Volume fraction] 39.8 % Normal 36.0-46.0 [facility] Comment on above: Performed By: #### C BCDIF, IRON, TSH, FT4, CMP, LIPB, FERR, HBA1C, VITD #### [facility] Routine Lab [address] [place] [phone] Hemoglobin (Bld) [Mass/Vol] 11.9 g/dL Normal 11.5-15.5 [facility] Comment on above: Performed By: #### C BCDIF, IRON, TSH, FT4, CMP, LIPB, FERR, HBA1C, VITD #### [facility] Routine Lab [address] [place] [address] Lymphocytes (Bld) [#/Vol] 2.12 10*3/uL Normal 1.00-4.00 [facility] Comment on above: Performed By: #### C BCDIF, IRON, TSH, FT4, CMP, LIPB, FERR, HBA1C, VITD #### [facility] Routine Lab [address] [place] [address] Lymphocytes/100 WBC (Bld) 23.8 % Normal [facility] Comment on above: Performed By: #### C BCDIF, IRON, TSH, FT4, CMP, LIPB, FERR, HBA1C, VITD #### [facility] Routine Lab [address] [place] [address] MCH (RBC) [Entitic mass] 26.6 pG Normal 26.0-34.0 [facility] Comment on above: Performed By: #### C BCDIF, IRON, TSH, FT4, CMP, LIPB, FERR, HBA1C, VITD #### [facility] Routine Lab [address] [place] [address] MCHC (RBC) [Mass/Vol] 29.9 g/dL Low 30.5-36.0 [facility] Comment on above: Performed By: #### C BCDIF, IRON, TSH, FT4, CMP, LIPB, FERR, HBA1C, VITD #### [facility] Routine Lab [address] [place] [address] MCV (RBC) [Entitic vol] 88.8 fL Normal 80.0-100.0 [facility] Comment on above: Performed By: #### C BCDIF, IRON, TSH, FT4, CMP, LIPB, FERR, HBA1C, VITD #### [facility] Routine Lab [address] [place] [address] Monocytes/100 WBC (Bld) 8.4 % Normal [facility] Comment on above: Performed By: #### C BCDIF, IRON, TSH, FT4, CMP, LIPB, FERR, HBA1C, VITD #### [facility] Routine Lab [address] [address] Neutrophils/100 WBC (Bld) 65.6 % Normal [facility] Comment on above: Performed By: #### C BCDIF, IRON, TSH, FT4, CMP, LIPB, FERR, HBA1C, VITD #### [facility] Routine Lab [address] [place] [address] NRBCs 0.0 /100 WBC Normal 0 [facility] Comment on above: Performed By: #### C BCDIF, IRON, TSH, FT4, CMP, LIPB, FERR, HBA1C, VITD #### [facility] Routine Lab [address] [place] [address] RBC (Bld) [#/Vol] 4.48 10*6/uL Normal 3.90-5.20 [facility] Comment on above: Performed By: #### C BCDIF, IRON, TSH, FT4, CMP, LIPB, FERR, HBA1C, VITD #### [facility] Routine Lab [address] [place] [address] WBC (Bld) [#/Vol] 8.91 10*3/uL Normal 3.70-11.00 [facility] Comment on above: Performed By: #### C BCDIF, IRON, TSH, FT4, CMP, LIPB, FERR, HBA1C, VITD #### [facility] Routine Lab [address] [place] [address] Comp Metabolic Panelon 10-28 Albumin [Mass/Vol] 4.0 g/dL Normal 3.9-4.9 [facility] Comment on above: Performed By: #### C BCDIF, IRON, TSH, FT4, CMP, LIPB, FERR, HBA1C, VITD #### [facility] Routine Lab [address] [address] ALP [Catalytic activity/Vol] 66 U/L Normal 34-123 [facility] Comment on above: Performed By: #### C BCDIF, IRON, TSH, FT4, CMP, LIPB, FERR, HBA1C, VITD #### [facility] Routine Lab [address] [address] ALT [Catalytic activity/Vol] 17 U/L Normal 7-38 [facility] Comment on above: Performed By: #### C BCDIF, IRON, TSH, FT4, CMP, LIPB, FERR, HBA1C, VITD #### [facility] Routine Lab [address] [place] [address] Anion gap [Moles/Vol] 14 mmol/L Normal 9-18 [facility] Comment on above: Performed By: #### C BCDIF, IRON, TSH, FT4, CMP, LIPB, FERR, HBA1C, VITD #### [facility] Routine Lab [address] [place] [address] AST [Catalytic activity/Vol] 21 U/L Normal 13-35 [facility] Comment on above: Performed By: #### C BCDIF, IRON, TSH, FT4, CMP, LIPB, FERR, HBA1C, VITD #### [facility] Routine Lab [address] [place] [address] Bilirubin Ql (U) 0.3 mg/dL Normal 0.2-1.3 [facility] Lab Comment on above: Performed By: #### C BCDIF, IRON, TSH, FT4, CMP, LIPB, FERR, HBA1C, VITD #### [facility] Routine Lab [address] [phone] Calcium [Mass/Vol] 9.2 mg/dL Normal 8.5-10.2 [facility] Comment on above: Performed By: #### C BCDIF, IRON, TSH, FT4, CMP, LIPB, FERR, HBA1C, VITD #### [facility] Routine Lab [address] [place] [address] Chloride [Moles/Vol] 103 mmol/L Normal 97-105 [facility] Comment on above: Performed By: #### C BCDIF, IRON, TSH, FT4, CMP, LIPB, FERR, HBA1C, VITD #### [facility] Routine Lab [address] [place] [phone] CO2 [Moles/Vol] 22 mmol/L Normal 22-30 [facility] Comment on above: Performed By: #### C BCDIF, IRON, TSH, FT4, CMP, LIPB, FERR, HBA1C, VITD #### [facility] Routine Lab [address] [place] [address] Creatinine [Mass/Vol] 0.51 mg/dL Low 0.58-0.96 [facility] Comment on above: Performed By: #### C BCDIF, IRON, TSH, FT4, CMP, LIPB, FERR, HBA1C, VITD #### [facility] Routine Lab [address] [place] [address] eGFR- Amer. >60 Normal [facility] Comment on above: Performed By: #### C BCDIF, IRON, TSH, FT4, CMP, LIPB, FERR, HBA1C, VITD #### [facility] Routine Lab [address] [place] [address] GFR/1.73 sq M predicted among non-blacks MDRD (S/P/Bld) [Vol rate/Area] mL/min/{1.73_m2} Normal [facility] Comment on above: Performed By: #### C BCDIF, IRON, TSH, FT4, CMP, LIPB, FERR, HBA1C, VITD #### [facility] Routine Lab [address] [place] [address] Glucose [Mass/Vol] 141 mg/dL High 74-99 [facility] Comment on above: Performed By: #### C BCDIF, IRON, TSH, FT4, CMP, LIPB, FERR, HBA1C, VITD #### [facility] Routine Lab [address] [place], [place] [address] Potassium [Moles/Vol] 4.3 mmol/L Normal 3.7-5.1 [facility] Comment on above: Performed By: #### C BCDIF, IRON, TSH, FT4, CMP, LIPB, FERR, HBA1C, VITD #### [facility] Routine Lab [address] [place], [place] [address] Protein [Mass/Vol] 6.8 g/dL Normal 6.3-8.0 [facility] Comment on above: Performed By: #### C BCDIF, IRON, TSH, FT4, CMP, LIPB, FERR, HBA1C, VITD #### [facility] Routine Lab [address] [place] [address] Sodium [Moles/Vol] 139 mmol/L Normal 136-144 [facility] Comment on above: Performed By: #### C BCDIF, IRON, TSH, FT4, CMP, LIPB, FERR, HBA1C, VITD #### [facility] Routine Lab [address] [place] [address] Urea nitrogen [Mass/Vol] 14 mg/dL Normal 7-21 [facility] Comment on above: Performed By: #### C BCDIF, IRON, TSH, FT4, CMP, LIPB, FERR, HBA1C, VITD #### [facility] Routine Lab [address] [place], [place] [address] Ferritinon 10-28-2019 Ferritin [Mass/Vol] 43.6 ng/mL Normal 14.7-205.1 [facility] Comment on above: Performed By: #### C BCDIF, IRON, TSH, FT4, CMP, LIPB, FERR, HBA1C, VITD #### [facility] Routine Lab [address] [address] Free T4on 10-28-2019 Free T4 [Mass/Vol] 1.1 ng/dL Normal 0.9-1.7 [facility] Comment on above: Performed By: #### C BCDIF, IRON, TSH, FT4, CMP, LIPB, FERR, HBA1C, VITD #### [facility] Routine Lab [address] [place] [address] Hemoglobin A1con 10-28-2019 HbA1c (Bld) [Mass fraction] 140 mg/dL Normal [facility] Comment on above: Performed By: #### C BCDIF, IRON, TSH, FT4, CMP, LIPB, FERR, HBA1C, VITD #### [facility] Routine Lab [address] [place] [address] HbA1c (Bld) [Mass fraction] 6.5 % High 4.3-5.6 [facility] Comment on above: Performed By: #### C BCDIF, IRON, TSH, FT4, CMP, LIPB, FERR, HBA1C, VITD #### [facility] Routine Lab [address] [place] [address] Iron and TIBCon 10-28-2019 Iron [Mass/Vol] 65 ug/dL Normal 41-186 [facility] Comment on above: Performed By: #### C BCDIF, IRON, TSH, FT4, CMP, LIPB, FERR, HBA1C, VITD #### [facility] Routine Lab [address] [place] [address] TIBC 303 ug/dL Normal 232-386 [facility] Comment on above: Performed By: #### C BCDIF, IRON, TSH, FT4, CMP, LIPB, FERR, HBA1C, VITD #### [facility] Routine Lab [address] [place] [address] Transferrin Saturatn 21 % Normal 15-57 [facility] Comment on above: Performed By: #### C BCDIF, IRON, TSH, FT4, CMP, LIPB, FERR, HBA1C, VITD #### [facility] Routine Lab [address] [place], [place] [address] Lipid Panel, Bas[place] 019 Cholesterol [Mass/Vol] 155 mg/dL Normal <200 [facility] Comment on above: Performed By: #### C BCDIF, IRON, TSH, FT4, CMP, LIPB, FERR, HBA1C, VITD #### [facility] Routine Lab [address] [place], [place] [address] Cholesterol in HDL [Mass/Vol] 46 mg/dL Normal >39 [facility] Comment on above: Performed By: #### C BCDIF, IRON, TSH, FT4, CMP, LIPB, FERR, HBA1C, VITD #### [facility] Routine Lab [address] [place], [place] [address] Cholesterol in LDL [Mass/Vol] 93 mg/dL Normal <100 [facility] Comment on above: Performed By: #### C BCDIF, IRON, TSH, FT4, CMP, LIPB, FERR, HBA1C, VITD #### [facility] Routine Lab [address] [place], [place] [address] Cholesterol in VLDL [Mass/Vol] 16 mg/dL Normal <30 [facility] Comment on above: Performed By: #### C BCDIF, IRON, TSH, FT4, CMP, LIPB, FERR, HBA1C, VITD #### [facility] Routine Lab [address] [place], [place] [address] Cholesterol non HDL [Mass/Vol] 109 mg/dL Normal <130 [facility] Comment on above: Performed By: #### C BCDIF, IRON, TSH, FT4, CMP, LIPB, FERR, HBA1C, VITD #### [facility] Routine Lab [address] [place], [place] [address] LDL:HDL Ratio 2.02 Normal <2.54 [facility] Comment on above: Performed By: #### C BCDIF, IRON, TSH, FT4, CMP, LIPB, FERR, HBA1C, VITD #### [facility] Routine Lab [address] [place] [phone] TC:HDL Ratio 3.37 Normal <5.10 [facility] Comment on above: Performed By: #### C BCDIF, IRON, TSH, FT4, CMP, LIPB, FERR, HBA1C, VITD #### [facility] Routine Lab [address] [place] [phone] Triglyceride [Mass/Vol] 79 mg/dL Normal <150 [facility] Comment on above: Performed By: #### C BCDIF, IRON, TSH, FT4, CMP, LIPB, FERR, HBA1C, VITD #### [facility] Routine Lab [address] [place] [phone] TSHon 10-28-2019 TSH Qn 0.887 uU/mL Normal 0.270-4.200 [facility] Comment on above: Performed By: #### C BCDIF, IRON, TSH, FT4, CMP, LIPB, FERR, HBA1C, VITD #### [facility] Routine Lab [address] [place] [phone] Vitamin D 25 Hydroxyon 10-28 Vitamin D 25 Hydroxy 35.3 ng/mL Normal 31.0-80.0 [facility] Comment on above: Performed By: #### C BCDIF, IRON, TSH, FT4, CMP, LIPB, FERR, HBA1C, VITD #### [facility] Routine Lab [address] [place] [phone] Lipid Panel, [place] 019 Fasting Time 12 hrs Normal [facility] Comment on above: Performed By: #### C BCDIF, IRON, TSH, FT4, CMP, LIPB, FERR, HBA1C, VITD #### [facility] [address] [place] [phone] ALLIED HEALTHon 08-01-2019 ALLIED HEALTH HNO ID: [id number] Author: WALTER Baer (Ct) Service: Radiology Author Type: Clinical Fire Technician Type: Allied Health Filed: 08/01/2019 2:52 AM Note Text: Radiology Service Progress Note PATIENT NAME: Isaac Aviles DATE OF SERVICE: August 01, 2019 TIME: 2:51 AM PATIENT IDENTITY VERIFICATION COMPLETED USING TWO (2) METHODS: Name and Date of confirmed by patient verbally. PATIENT GENDER DATA: Female. status: : No status: NO. PATIENT RELEVANT IMPLANT DATA REVIEWED: Not Applicable RADIOLOGY DEPARTMENT: CT; Exam(s) Completed: Neck PERIPHERAL IV DATA: Site assessment: Clean,Dry and Intact, Site disposition Left in for next appointment SIGNED BY: WALTER Baer August 01, 2019 2:51 AM Normal [facility] B-Hydroxybutyrateon 08-01-20 19 B-Hydroxybutyrate 0.21 mmol/L Normal <0.28 [facility] Comment on above: Performed By: #### C BC, BHB #### [facility] Laboratory [address] [place] [address] Blood Cultureon 08-01-2019 Bacteria identified Cx Nom (Bld) Culture Result - No growth 5 days Normal [facility] Comment on above: Performed By: #### B LCUL ####[address] [place], [place] [phone] Bacteria identified Cx Nom (Bld) Sp. Request/Comment: - The blood culture bottles are underfilled. Adding volume lower or higher than the 8 to 10 mL per bottle, which is the manufacturers recommended volume, may adversely affect the recovery and/or detection of organisms. 6.4 Culture Result - No growth 5 days Normal [facility] Comment on above: Performed By: #### B LCUL ####[address] [place], [place] [phone] CBCon 08-01-2019 Erythrocyte distribution width (RBC) [Ratio] 13.9 % Normal 11.5-15.0 [facility] Comment on above: Performed By: #### C BC, BHB #### [facility] [address] [phone] Hematocrit (Bld) [Volume fraction] 37.6 % Normal 36.0-46.0 [facility] Comment on above: Performed By: #### CARY AMIN #### [facility] [address] [phone] Hemoglobin (Bld) [Mass/Vol] 12.1 g/dL Normal 11.5-15.5 [facility] Comment on above: Performed By: #### CARY AMIN #### [facility] [address] [phone] MCH (RBC) [Entitic mass] 27.6 pG Normal 26.0-34.0 [facility] Comment on above: Performed By: #### CARY AMIN #### [facility] [address] [phone] MCHC (RBC) [Mass/Vol] 32.2 g/dL Normal 30.5-36.0 [facility] Comment on above: Performed By: #### CARY AMIN #### [facility] [address] [phone] MCV (RBC) [Entitic vol] 85.8 fL Normal 80.0-100.0 [facility] Comment on above: Performed By: #### CARY AMIN #### [facility] [address] [phone] Platelet mean volume (Bld) [Entitic vol] 12.0 fL Normal 9.0-12.7 [facility] Comment on above: Performed By: #### CARY AMIN #### [facility] [address] [phone] Platelets (Bld) [#/Vol] 220 10*3/uL Normal 150-400 [facility] Comment on above: Performed By: #### CARY AMIN #### [facility] [address] [phone] RBC (Bld) [#/Vol] 4.38 10*6/uL Normal 3.90-5.20 [facility] Comment on above: Performed By: #### CARY AMIN #### [facility] [address] [phone] WBC (Bld) [#/Vol] 13.23 10*3/uL High 3.70-11.00 [facility] Comment on above: Performed By: #### C , [facility] #### [facility] [address] [facility] [phone] CT NECK SOFT TISSUE W IVCONo n 08-01-2019 CT NECK SOFT TISSUE W IVCON * * *Final Report* * * DATE OF EXAM: Aug 01 2019 2:48AM [facility] 0013 - CT NECK SOFT TISSUE W IVCON / PROCEDURE REASON: Post operative complication suspected * * * * Physician Interpretation * * * * Examination: CT scan of the soft tissue neck with contrast. CT Contrast: Omnipaque 300 CT Contrast Volume (ml): 100 CT Contrast Route of Administration: Intravenous Dose-Length Product (DLP): 409 mGy*cm. CT Dose Reduction Employed: Automated exposure control (AEC) Clinical indication: Postoperative. Comparison: 07/08/2019. Findings: Postoperative/posttreatm ent changes: Minimal infiltration of the suprasternal subcutaneous fat with a small amount of underlying fluid may be postoperative in nature or inflammatory/infectious. Amount of fluid measures approximately 2.9 transverse by 0.8 AP centimeters. Nasal and oral cavities are unremarkable. Pharyngeal mucosal space is normal. Parotid and submandibular glands are unremarkable. Stable low-attenuation lesion within the left lobe of thyroid gland measuring 1.7 cm short axis. Remainder of the fascial spaces of the neck and their contents are normal. There is no lymphadenopathy by size criteria. Imaged intracranial contents are unremarkable. Imaged portions of the lungs are grossly clear. Infraglottic airway is patent. Osseous structures are unremarkable. Imaged paranasal sinuses are clear. Skull base and orbits unremarkable. Impression: Infiltration subcutaneous fat anterior aspect of the neck as above could be postoperative or inflammatory/infectious. Report Checker: PSCB Transcribe Date/Time: Aug 01 2019 3:11A Dictated by : MUSTAPHA SCHWARZ MD This examination was interpreted and the report reviewed and electronically signed by: MUSTAPHA SCHWARZ MD on Aug 01 2019 3:17AM EST [id number] Normal [facility] Comp Metabolic Panelon 08-01 Albumin [Mass/Vol] 4.3 g/dL Normal 3.9-4.9 [facility] Comment on above: Performed By: #### C MP #### [facility] [address] ALP [Catalytic activity/Vol] 87 U/L Normal 34-123 [facility] Comment on above: Performed By: #### C MP #### [facility] [address] [address] ALT [Catalytic activity/Vol] 19 U/L Normal 7-38 [facility] Comment on above: Performed By: #### C MP #### [facility] [address] [address] Anion gap [Moles/Vol] 13 mmol/L Normal 9-18 [facility] Comment on above: Performed By: #### C MP #### [facility] [address] [address] AST [Catalytic activity/Vol] 14 U/L Normal 13-35 [facility] Comment on above: Performed By: #### C MP #### [facility] [address] [address] Bilirubin [Mass/Vol] 0.3 mg/dL Normal 0.2-1.3 [facility] Comment on above: Performed By: #### C MP #### [facility] [address] [address] Calcium [Mass/Vol] 9.7 mg/dL Normal 8.5-10.2 [facility] Comment on above: Performed By: #### C MP #### [facility] [address] [address] Chloride [Moles/Vol] 102 mmol/L Normal 97-105 [facility] Comment on above: Performed By: #### C MP #### [facility] [address] CO2 [Moles/Vol] 22 mmol/L Normal 22-30 [facility] Comment on above: Performed By: #### C MP #### [facility] [address] [address] Creatinine [Mass/Vol] 0.55 mg/dL Low 0.58-0.96 [facility] Comment on above: Performed By: #### C MP #### [facility] [address] [address] eGFR- Amer. >60 Normal [facility] Comment on above: Performed By: #### C MP #### [facility] [address] [facility] [phone] GFR/1.73 sq M predicted among non-blacks MDRD (S/P/Bld) [Vol rate/Area] mL/min/{1.73_m2} Normal [facility] Comment on above: Result Comment: eGFR (Estimated GFR) Units of measure: mL/min/1.73 meters squared eGFR is derived from the reexpressed MDRD Study equation using the following parameters: serum creatinine, age, gender and race. The creatinine assay has been calibrated to be traceable to IDMS. An eGFR <60 mL/min/1.73m2 for >3 months is consistent with chronic kidney disease. Refer to KDOQI guidelines for clinical interpretation. In patients with unstable renal function, e.g. those with acute kidney injury, the eGFR may not accurately reflect actual GFR. Performed By: #### C MP #### [facility] [address] [facility] [phone] Glucose [Mass/Vol] 147 mg/dL High 74-99 [facility] Comment on above: Result Comment: The [place] [employer] (ADA) provides guidance for cutoff values for fasting glucose and random glucose. The ADA defines fasting as no caloric intake for at least 8 hours. Fasting plasma glucose results between 100 to 125 mg/dL indicate increased risk for diabetes (prediabetes). Fasting plasma glucose results greater than or equal to 126 mg/dL meet the criteria for diagnosis of diabetes. In the absence of unequivocal hyperglycemia, results should be confirmed by repeat testing. In a patient with classic symptoms of hyperglycemia or hyperglycemic crisis, random plasma glucose results greater than or equal to 200 mg/dL meet the criteria for diagnosis of diabetes. Reference: Standards of Medical Care in Diabetes 2016, [place] [employer]. Diabetes Care. 2016.39(Suppl 1). Performed By: #### C MP #### [facility] [address] [facility] [phone] Potassium [Moles/Vol] 3.8 mmol/L Normal 3.7-5.1 [facility] Comment on above: Performed By: #### C MP #### [facility] [address] [place] [address] Protein [Mass/Vol] 7.1 g/dL Normal 6.3-8.0 [facility] Comment on above: Performed By: #### C MP #### [facility] [address] [facility] [phone] Sodium [Moles/Vol] 137 mmol/L Normal 136-144 [facility] Comment on above: Performed By: #### C MP #### [facility] [address] [facility] [phone] Urea nitrogen [Mass/Vol] 14 mg/dL Normal 7-21 [facility] Comment on above: Performed By: #### C MP #### [facility] [address] [facility] [phone] ED NOTEon 08-01-2019 ED NOTE HNO ID: [id number] Author: Edith PérezRn) ZAIRE Lang Service: Nursing Author Type: Registered Nurse Type: ED Notes Filed: 08/01/2019 5:25 AM Note Text: Pt leaving at this time with [facility]. Report was given to transport team. [facility] ED NOTE HNO ID: [id number] Author: Edith PérezRnNancy Lang RN Service: Nursing Author Type: Registered Nurse Type: ED Notes Filed: 08/01/2019 5:05 AM Note Text: Pt tearful, very stressed and anxious about being readmitted to the hospital. [facility] ED NOTE HNO ID: [id number] Author: Mariana Alvarado RN Service: Nursing Author Type: Registered Nurse Type: ED Notes Filed: 08/01/2019 4:53 AM Note Text: Assisted up to restroom to void with steady gait. [facility] ED NOTE HNO ID: [id number] Author: Edith PérezRn) Rickey, RN Service: Nursing Author Type: Registered Nurse Type: ED Notes Filed: 08/01/2019 4:37 AM Note Text: Report called to Marily at [phone] [facility] ED NOTE HNO ID: [id number] Author: Edith PérezRnNancy Lang, RN Service: Nursing Author Type: Registered Nurse Type: ED Notes Filed: 08/01/2019 4:33 AM Note Text: Spoke to [facility] transport to confirm what is needed for transport [facility] ED NOTE HNO ID: [id number] Author: Edith PérezRnNancy Lang RN Service: Nursing Author Type: Registered Nurse Type: ED Notes Filed: 08/01/2019 3:43 AM Note Text: Pt up to the bathroom at this time. Son at bedside. [facility] ED NOTE HNO ID: [id number] Author: Edith PérezRn) ZAIRE Lang Service: Nursing Author Type: Registered Nurse Type: ED Notes Filed: 08/01/2019 3:43 AM Note Text: DrFransico at bedside with patient discussing transfer [facility] ED NOTE HNO ID: [id number] Author: Annetta (Rn) ZAIRE Quinones Service: ? Author Type: Registered Nurse Type: ED Notes Filed: 08/01/2019 12:58 AM Note Text: Patient had one of her parathyroid removed on Thrus by Dr Ventura at [facility]. Today became SOB flushed in the face And noticed that her incision was red and sore. [facility] ED PROV NOTEon 08-01-2019 ED PROV NOTE HNO ID: [id number] Author: Manohar Eaton MD Service: ? Author Type: Physician Type: ED Provider Notes Filed: 08/02/2019 6:23 AM Note Text: ED Provider Note Patient Name: Isaac Aviles SERVICE DATE: 08/01/19 History Patient presents with: Wound Care: post op incesion Shortness of Breath Patient is post-op one week parathyroidectomy. She has had increasing pain, swelling in the area of her incision, and it is now getting red and painful in the soft tissue of her neck above her incision. She has had redness there with pain for about three days, but it has been getting worse. She has also been having some high glucose readings in the last day. PAST MEDICAL HISTORY Diagnosis Date - Asthma - DM (diabetes mellitus) (HCC) - Hyperparathyroidism (HCC) - Hypertension PAST SURGICAL HISTORY Procedure Laterality Date - REMOVE TONSILS/ADENOIDS,<12 Y/O 76 FAMILY HISTORY Problem Relation Age of Onset - other (CHF) Father 58 - other (CVA) Father - Anesthesia Problems No Family History - Blood Clots No Family History - Clotting Disorder No Family History Social History Tobacco Use - Smoking status: Former Smoker - Smokeless tobacco: Never Used - Tobacco comment: stopped in her 20's Substance and Sexual Activity - Alcohol use: No - Drug use: No - Sexual activity: Not on file ALLERGIES Allergen Reactions - Penicillin G Swelling, Shortness of Breath - Adhesive Other: See Comments Patient notes severe reaction to almost any type of adhesive in the past. Most recently developed significant ulceration at site where steri-strips were used after core biopsy Review of Systems Constitutional: Negative. HENT: Negative. Eyes: Negative. Respiratory: Positive for shortness of breath. Cardiovascular: Negative. Gastrointestinal: Negative. Endocrine: Negative. Genitourinary: Negative. Musculoskeletal: Positive for neck pain. Skin: Negative. Allergic/Immunologic: Negative. Neurological: Negative. Hematological: Negative. Psychiatric/Behavioral: Negative. Physical Exam BP 186/84 Pulse 85 Temp (Src) 97 (Oral) Resp 16 Ht 5' 5 (1.65m) Wt 290 lb (131.5kg) SpO2 97% LMP 07/08/2019 BMI 48.26 kg/(m2). O2 Therapy: Room Air Physical Exam Constitutional: She is oriented to person, place, and time. She appears well-developed and well-nourished. HENT: Head: Normocephalic. Right Ear: External ear normal. Left Ear: External ear normal. Mouth/Throat: Oropharynx is clear and moist. Eyes: Conjunctivae and EOM are normal. Neck: Tenderness and erythema above incision, cellulitic appearance into neck almost to jaw Cardiovascular: Normal rate, regular rhythm and normal heart sounds. Pulmonary/Chest: Effort normal and breath sounds normal. Abdominal: Soft. Musculoskeletal: Normal range of motion. Neurological: She is alert and oriented to person, place, and time. Skin: Capillary refill takes less than 2 seconds. There is erythema. Psychiatric: She has a normal mood and affect. Her behavior is normal. Judgment and thought content normal. Nursing note and vitals reviewed. Diagnostic Testing ED Labs Ordered and Reviewed COMP METABOLIC PANEL - Abnormal; Notable for the following components: Result Value Ref Range Glucose 147 (*) 74 - 99 mg/dL Creatinine 0.55 (*) 0.58 - 0.96 mg/dL All other components within normal limits CBC - Abnormal; Notable for the following components: WBC 13.23 (*) 3.70 - 11.00 k/uL All other components within normal limits CRITICAL CARE PROFILE VENOUS - Abnormal; Notable for the following components: Carboxyhemoglobin, Venous 0.9 (*) % All other components within normal limits KETONES/ACETONE/BHB BLOOD CULTURE DRAW BLOOD CULTURE DRAW ..Course: Vital signs were reviewed. Triage records were reviewed. Medical records were reviewed. Nursing notes were reviewed and incorporated. Intravenous fluids were given. The following medications were administered: Vancomycin Labs reviewed and interpreted as .. Labs Reviewed COMP METABOLIC PANEL - Abnormal; Notable for the following components: Result Value Glucose 147 (*) Creatinine 0.55 (*) All other components within normal limits CBC - Abnormal; Notable for the following components: WBC 13.23 (*) All other components within normal limits CRITICAL CARE PROFILE VENOUS - Abnormal; Notable for the following components: Carboxyhemoglobin, Venous 0.9 (*) All other components within normal limits KETONES/ACETONE/BHB BLOOD CULTURE DRAW BLOOD CULTURE DRAW Radiographs were reviewed ..CT NECK SOFT TISSUE W IVCON Final Result A consult was requested and obtained from life consultant(s) Dr Montgomery, development consultant for endocrine surgery The life consultant made the following conclusions/recommendati ons: will transfer to [facility] for admission and surgery consult The case was discussed with the admitting physician. Medical Decision Making: Patient presents post-op about a week, parathyroidectomy, now worsening apparent cellulitis for 3 days, with a fluid collection in the area of incision, consistent with post-op abscess/cellulitis. Her lactate is normal, her WBC is elevated, she is PCN allergic. She was given IV fluids and started on IV Vancomycin. The attending who evaluated and managed this patient was Manohar Eaton . Plan: The patient was transferred Manohar Eaton MD Procedures ED Course / Clinical Impression Clinical Impressions as of Aug 02 622 Cellulitis, neck MDM / Disposition / Plan MDM SIGNATURE: MD Manohar Joyner MD 08/02/19 0623 [facility] NM THY UPTAKE AND SCANon NM THY UPTAKE AND SCAN * * *Final Report* * * DATE OF EXAM: May 21 2019 10:30AM [facility] 0040 - NM THY UPTAKE AND SCAN / PROCEDURE REASON: E05.90-Thyrotoxicosis without thyroid storm, unspecified thyrotoxicosis type * * * * Physician Interpretation * * * * I- I-123 NECK UPTAKE AND THYROID SCAN: HISTORY: 40-year-old female with history of hyperparathyroidism with bilateral thyroid nodules status post FNA of the left thyroid gland 04/2019. TECHNIQUE: 224.2 microcuries 123-I sodium iodide orally. COMPARISON: None CORRELATION: 03/26/2019 thyroid ultrasound RESULT: 4-hour neck uptake is 5.1% (normal range 5-15%). 24-hour neck uptake is 16.4% (normal range 10-25%). Parallel hole collimator images demonstrate no focal abnormal decreased uptake in the bilateral lobes. There is subtle increased uptake in the mid right lobe. IMPRESSION: * No definite scintigraphic abnormality corresponding to the thyroid nodules described on the final 03/26/2019 thyroid ultrasound. Follow-up thyroid ultrasound may be performed at a clinically suitable interval. * Normal 24-hour uptake of 16.4%. Report Checker: CLAUDE Transcribe Date/Time: May 21 2019 11:50A Dictated by : ERIN CHAVEZ MD This examination was interpreted and the report reviewed and electronically signed by: RIVERA LUTZ MD on May 21 2019 1:17PM EST [id number] [facility] HEALTH 05-20-2019 ALLIED HEALTH HNO ID: [id number] Author: [facility] WALTER Clark Service: Radiology Author Type: Clinical Fire Technician Type: Allied Health Filed: 05/20/2019 12:42 PM Note Text: RADIOLOGY SERVICE PROGRESS NOTE SERVICE DATE: 05/20/2019 SERVICE TIME: 12:40 PM PATIENT IDENTITY VERIFICATION COMPLETED USING TWO (2) METHODS: Patient confirmed name and Date of verbally. PATIENT GENDER DATA: .female : No ALLERGIES: Reviewed and unchanged MEDICATIONS REVIEWED: Not applicable PATIENT RELEVANT IMPLANT DATA REVIEWED: Not Applicable CREATININE: No results found for: CREAT, EGFROTH, EGFRAA P.O.C.T. RESULTS: N/A May 20, [address] PERFORMED: No IV SITE: NM only - not applicable, oral or physician administered agents given to patient POST EXAM PIV STATUS: Not applicable PROCEDURE TYPE: NM THYROID UPTAKE AND SCAN. 224.2 uCi I-123 administered orally ADMINISTRATION TIME: 9:52 PATIENT DISCHARGED TO: Ambulatory patient, left SD department area. A Diagnostic radioactive procedure has taken place, with no further precautions necessary other than routine body substance precautions. More information regarding radiation safety can be found using this link: [email or web address] SIGNATURE: Ashley Clark [facility] PATIENT NAME: Isaac Aviles DATE: May 20, 2019 TIME: 12:40 PM PAGER/CONTACT #: Normal [facility] PTH, [place] 03-04-2019 PTH, Intact 85 pg/mL High 15-65 [facility] Comment on above: Performed By: #### C BCDIF, IRON, TSH, FT4, CMP, LIPB, FERR, HBA1C, VITD #### [facility] Routine Lab [address] [phone] CBC and Differentialon 02-18 Abs Baso 0.05 k/uL Normal <0.11 [facility] Comment on above: Performed By: #### C BCDIF, IRON, TSH, FT4, CMP, LIPB, FERR, HBA1C, VITD #### [facility] Lab [address] [phone] Abs [place] 0.91 k/uL High <0.87 [facility] Comment on above: Performed By: #### C BCDIF, IRON, TSH, FT4, CMP, LIPB, FERR, HBA1C, VITD #### [facility] Lab [address] [place] [phone] Abs Neut 5.56 k/uL Normal 1.45-7.50 [facility] Comment on above: Performed By: #### C BCDIF, IRON, TSH, FT4, CMP, LIPB, FERR, HBA1C, VITD #### [facility] [address] [phone] Absolute nRBC <0.01 Normal <0.01 [facility] Comment on above: Performed By: #### C BCDIF, IRON, TSH, FT4, CMP, LIPB, FERR, HBA1C, VITD #### [facility] [address] [address] Basophils/100 WBC (Bld) 0.6 % Normal [facility] Comment on above: Performed By: #### C BCDIF, IRON, TSH, FT4, CMP, LIPB, FERR, HBA1C, VITD #### [facility] [address] [phone] DTYPE ADIFF Normal [facility] Comment on above: Performed By: #### C BCDIF, IRON, TSH, FT4, CMP, LIPB, FERR, HBA1C, VITD #### [facility] Lab [address] [place] [phone] Eosinophils (Bld) [#/Vol] 0.14 10*3/uL Normal <0.46 [facility] Comment on above: Performed By: #### C BCDIF, IRON, TSH, FT4, CMP, LIPB, FERR, HBA1C, VITD #### [facility] [address] [phone] Eosinophils/100 WBC (Bld) 1.6 % Normal [facility] Comment on above: Performed By: #### C BCDIF, IRON, TSH, FT4, CMP, LIPB, FERR, HBA1C, VITD #### [facility]ine Lab [address] [place] [phone] Erythrocyte distribution width (RBC) [Ratio] 13.2 % Normal 11.5-15.0 [facility] Comment on above: Performed By: #### C BCDIF, IRON, TSH, FT4, CMP, LIPB, FERR, HBA1C, VITD #### [facility] [address] [place] [phone] Hematocrit (Bld) [Volume fraction] 40.1 % Normal 36.0-46.0 [facility] Comment on above: Performed By: #### C BCDIF, IRON, TSH, FT4, CMP, LIPB, FERR, HBA1C, VITD #### [facility] [address], [place] [phone] Hemoglobin (Bld) [Mass/Vol] 12.7 g/dL Normal 11.5-15.5 [facility] Comment on above: Performed By: #### C BCDIF, IRON, TSH, FT4, CMP, LIPB, FERR, HBA1C, VITD #### [facility] [address] [place] [address] Lymphocytes (Bld) [#/Vol] 2.19 10*3/uL Normal 1.00-4.00 [facility] Comment on above: Performed By: #### C BCDIF, IRON, TSH, FT4, CMP, LIPB, FERR, HBA1C, VITD #### [facility] [address] [place] [address] Lymphocytes/100 WBC (Bld) 24.7 % Normal [facility] Comment on above: Performed By: #### C BCDIF, IRON, TSH, FT4, CMP, LIPB, FERR, HBA1C, VITD #### [facility] [address] [place] [address] MCH (RBC) [Entitic mass] 30.0 pG Normal 26.0-34.0 [facility] Comment on above: Performed By: #### C BCDIF, IRON, TSH, FT4, CMP, LIPB, FERR, HBA1C, VITD #### [facility] [address] [place] [address] MCHC (RBC) [Mass/Vol] 31.7 g/dL Normal 30.5-36.0 [facility] Comment on above: Performed By: #### C BCDIF, IRON, TSH, FT4, CMP, LIPB, FERR, HBA1C, VITD #### [facility] [address] [place] [address] MCV (RBC) [Entitic vol] 94.8 fL Normal 80.0-100.0 [facility] Comment on above: Performed By: #### C BCDIF, IRON, TSH, FT4, CMP, LIPB, FERR, HBA1C, VITD #### [facility] [address] [place], [place] [address] Monocytes/100 WBC (Bld) 10.3 % Normal [facility] Comment on above: Performed By: #### C BCDIF, IRON, TSH, FT4, CMP, LIPB, FERR, HBA1C, VITD #### [facility] [address] [place], [place] [address] Neutrophils/100 WBC (Bld) 62.8 % Normal [facility] Comment on above: Performed By: #### C BCDIF, IRON, TSH, FT4, CMP, LIPB, FERR, HBA1C, VITD #### [facility] [address] [place] [address] NRBCs 0.0 /100 WBC Normal 0 [facility] Comment on above: Performed By: #### C BCDIF, IRON, TSH, FT4, CMP, LIPB, FERR, HBA1C, VITD #### [facility] [address] [place] [address] Platelet mean volume (Bld) [Entitic vol] 12.9 fL High 9.0-12.7 [facility] Comment on above: Performed By: #### C BCDIF, IRON, TSH, FT4, CMP, LIPB, FERR, HBA1C, VITD #### [facility] [address] [place] [address] Platelets (Bld) [#/Vol] 203 10*3/uL Normal 150-400 [facility] Comment on above: Performed By: #### C BCDIF, IRON, TSH, FT4, CMP, LIPB, FERR, HBA1C, VITD #### [facility] [address] [place] [address] RBC (Bld) [#/Vol] 4.23 10*6/uL Normal 3.90-5.20 [facility] Reference Lab Comment on above: Performed By: #### C BCDIF, IRON, TSH, FT4, CMP, LIPB, FERR, HBA1C, VITD #### [facility] [address] [place] [address] WBC (Bld) [#/Vol] 8.87 10*3/uL Normal 3.70-11.00 [facility] Lab Comment on above: Performed By: #### C BCDIF, IRON, TSH, FT4, CMP, LIPB, FERR, HBA1C, VITD #### [facility] [place] [address] Comp Metabolic Panelon 02-18 Albumin [Mass/Vol] 4.1 g/dL Normal 3.9-4.9 [facility] Lab Comment on above: Performed By: #### C BCDIF, IRON, TSH, FT4, CMP, LIPB, FERR, HBA1C, VITD #### [facility] [address] [place] [address] ALP [Catalytic activity/Vol] 71 U/L Normal 34-123 [facility] Comment on above: Performed By: #### C BCDIF, IRON, TSH, FT4, CMP, LIPB, FERR, HBA1C, VITD #### [facility] [address] [place] [address] ALT [Catalytic activity/Vol] 23 U/L Normal 7-38 [facility] Comment on above: Performed By: #### C BCDIF, IRON, TSH, FT4, CMP, LIPB, FERR, HBA1C, VITD #### [facility] [address] [place] [address] Anion gap [Moles/Vol] 12 mmol/L Normal 9-18 [facility] Comment on above: Performed By: #### C BCDIF, IRON, TSH, FT4, CMP, LIPB, FERR, HBA1C, VITD #### [facility] [address] [place] [address] AST [Catalytic activity/Vol] 19 U/L Normal 13-35 [facility] Comment on above: Performed By: #### C BCDIF, IRON, TSH, FT4, CMP, LIPB, FERR, HBA1C, VITD #### [facility] [address] [place] [address] Bilirubin Ql (U) 0.2 mg/dL Normal 0.2-1.3 [facility] Reference Lab Comment on above: Performed By: #### C BCDIF, IRON, TSH, FT4, CMP, LIPB, FERR, HBA1C, VITD #### [facility] [address] [place] [address] Calcium [Mass/Vol] 10.7 mg/dL High 8.5-10.2 [facility] Comment on above: Performed By: #### C BCDIF, IRON, TSH, FT4, CMP, LIPB, FERR, HBA1C, VITD #### [facility] [address] [place] [address] Chloride [Moles/Vol] 103 mmol/L Normal 97-105 [facility] Comment on above: Performed By: #### C BCDIF, IRON, TSH, FT4, CMP, LIPB, FERR, HBA1C, VITD #### [facility] [address] [place] [address] CO2 [Moles/Vol] 27 mmol/L Normal 22-30 [facility] Comment on above: Performed By: #### C BCDIF, IRON, TSH, FT4, CMP, LIPB, FERR, HBA1C, VITD #### [facility] [address] [place], [place] [phone] Creatinine [Mass/Vol] 0.61 mg/dL Normal 0.58-0.96 [facility] Comment on above: Performed By: #### C BCDIF, IRON, TSH, FT4, CMP, LIPB, FERR, HBA1C, VITD #### [facility] [address] [place] [address] eGFR- Amer. >60 Normal [facility] Comment on above: Performed By: #### C BCDIF, IRON, TSH, FT4, CMP, LIPB, FERR, HBA1C, VITD #### [facility] [address] [place] [address] GFR/1.73 sq M predicted among non-blacks MDRD (S/P/Bld) [Vol rate/Area] mL/min/{1.73_m2} Normal [facility] Comment on above: Performed By: #### C BCDIF, IRON, TSH, FT4, CMP, LIPB, FERR, HBA1C, VITD #### [facility] [address] [place] [address] Glucose [Mass/Vol] 142 mg/dL High 74-99 [facility] Comment on above: Performed By: #### C BCDIF, IRON, TSH, FT4, CMP, LIPB, FERR, HBA1C, VITD #### [facility] [address] [place] [address] Potassium [Moles/Vol] 4.4 mmol/L Normal 3.7-5.1 [facility] Comment on above: Performed By: #### C BCDIF, IRON, TSH, FT4, CMP, LIPB, FERR, HBA1C, VITD #### [facility] [address] [place] [address] Protein [Mass/Vol] 7.0 g/dL Normal 6.3-8.0 [facility] Comment on above: Performed By: #### C BCDIF, IRON, TSH, FT4, CMP, LIPB, FERR, HBA1C, VITD #### [facility] [address] [place] [address] Sodium [Moles/Vol] 142 mmol/L Normal 136-144 [facility] Comment on above: Performed By: #### C BCDIF, IRON, TSH, FT4, CMP, LIPB, FERR, HBA1C, VITD #### [facility] Routine Lab [address] [place] [address] Urea nitrogen [Mass/Vol] 15 mg/dL Normal 7-21 [facility] Comment on above: Performed By: #### C BCDIF, IRON, TSH, FT4, CMP, LIPB, FERR, HBA1C, VITD #### [facility] [address] [place] [address] Free T4on 02-18-2019 Free T4 [Mass/Vol] 1.1 ng/dL Normal 0.9-1.7 [facility] Comment on above: Performed By: #### C BCDIF, IRON, TSH, FT4, CMP, LIPB, FERR, HBA1C, VITD #### [facility] [address] [place] [address] Hemoglobin A1con 02-18-2019 HbA1c (Bld) [Mass fraction] 6.0 % High 4.3-5.6 [facility] Comment on above: Performed By: #### C BCDIF, IRON, TSH, FT4, CMP, LIPB, FERR, HBA1C, VITD #### [facility] Routine Lab [address] [place] [address] HbA1c (Bld) [Mass fraction] 126 mg/dL Normal [facility] Comment on above: Performed By: #### C BCDIF, IRON, TSH, FT4, CMP, LIPB, FERR, HBA1C, VITD #### [facility] [address] [place] [address] Lipid Panel, [place] 019 Cholesterol [Mass/Vol] 154 mg/dL Normal <200 [facility] Comment on above: Performed By: #### C BCDIF, IRON, TSH, FT4, CMP, LIPB, FERR, HBA1C, VITD #### [facility] [address] [place] [address] Cholesterol in HDL [Mass/Vol] 51 mg/dL Normal >39 [facility] Comment on above: Performed By: #### C BCDIF, IRON, TSH, FT4, CMP, LIPB, FERR, HBA1C, VITD #### [facility] Routine Lab [address] [place] [address] Cholesterol in LDL [Mass/Vol] 79 mg/dL Normal <100 [facility] Comment on above: Performed By: #### C BCDIF, IRON, TSH, FT4, CMP, LIPB, FERR, HBA1C, VITD #### [facility] [address] [place] [address] Cholesterol in VLDL [Mass/Vol] 24 mg/dL Normal <30 [facility] Comment on above: Performed By: #### C BCDIF, IRON, TSH, FT4, CMP, LIPB, FERR, HBA1C, VITD #### [facility] [address] [place] [address] Cholesterol non HDL [Mass/Vol] 103 mg/dL Normal <130 [facility] Comment on above: Performed By: #### C BCDIF, IRON, TSH, FT4, CMP, LIPB, FERR, HBA1C, VITD #### [facility] Routine Lab [address] [place] [address] LDL:HDL Ratio 1.55 Normal <2.54 [facility] Comment on above: Performed By: #### C BCDIF, IRON, TSH, FT4, CMP, LIPB, FERR, HBA1C, VITD #### [facility] Lab [address] [place] [address] TC:HDL Ratio 3.02 Normal <5.10 [facility] Comment on above: Performed By: #### C BCDIF, IRON, TSH, FT4, CMP, LIPB, FERR, HBA1C, VITD #### [facility] [address] [place] [phone] Triglyceride [Mass/Vol] 120 mg/dL Normal <150 [facility] Comment on above: Performed By: #### C BCDIF, IRON, TSH, FT4, CMP, LIPB, FERR, HBA1C, VITD #### [facility] [address] [place] [address] TSHon 02-18-2019 TSH Qn 0.461 uU/mL Normal 0.400-5.500 [facility] Comment on above: Performed By: #### C BCDIF, IRON, TSH, FT4, CMP, LIPB, FERR, HBA1C, VITD #### [facility] [address] [place] [address] Vitamin D 25 Hydroxyon 02-18 Vitamin D 25 Hydroxy 35.3 ng/mL Normal 31.0-80.0 [facility] Comment on above: Performed By: #### C BCDIF, IRON, TSH, FT4, CMP, LIPB, FERR, HBA1C, VITD #### [facility] [address] [place], [place] [phone] Lipid Panel, [place] 019 Fasting Time 12 hrs Normal [facility] Comment on above: Performed By: #### C BCDIF, IRON, TSH, FT4, CMP, LIPB, FERR, HBA1C, VITD #### [facility] [address] [place] [address] HPV w/Genotypeon 01-13-2019 HPV HighRisk Other PCR. Normal [facility] HPV HighRisk Type 16 NHPV16 Normal [facility] HPV HighRisk Type 18 NHPV18 Normal [facility] CYTOLOGYon 01-08-2019 CYTOLOGY ADDITIONAL PROCEDURES PRESENT Specimen #: [id number] Submitting Physician: JOEL LOAIZA SPECIMEN SUBMITTED A: CERVICAL, SCREENING, FLUID FINAL DIAGNOSIS A. CERVICAL, SCREENING, FLUID Satisfactory for interpretation. No endocervical component. Negative for intraepithelial lesion or malignancy. This specimen has been analyzed by the ThinPrep Imaging System, an automated imaging and review system, which assists the laboratory in evaluating cells on ThinPrep Pap tests. Following automated imaging, selected ribera from every slide are reviewed by a ice handler. WALTER Burch(ASCP) (Electronic Signature) ADDITIONAL PROCEDURE(S) HUMAN PAPILLOMA VIRUS Date Ordered: 01/12/2019 Date Reported: 01/13/2019 Procedure Results and Interpretation Negative for HPV DNA high risk type 16 by PCR. Negative for HPV DNA high risk type 18 by PCR. Negative for HPV DNA high risk types: 31,33,35,39,45,51,52,56, 58,59,66,68 by PCR. This test was developed and its performance characteristics determined by [facility]'s [facility] [place] ([facility]). It has not been cleared or approved by the FDA. [facility] is regulated under CLIA as qualified to perform high-complexity testing. This test is used for clinical purposes. It should not be regarded as investigational or for research. CLINICAL DATA HPV Testing: Automatic HPV typing (HPV) Date of Last Menstrual Period: 1 month Clinical History: ROUTINE STAINS A: CERVICAL, SCREENING, FLUID THIN PREP MECHANICAL SERVICE SPECIALIST Sandra Navas M.D., Labor Economics Teacher Date of Report: 01/13/2019 Date of Procedure: 01/08/2019 Date of Receipt: 01/12/2019 Submitted by: JOEL LOAIZA Location: Diagnostic interpretation performed at [facility], [address] [place] [address]. The Pap Smear is a screening test for cervical cancer. False negative results occur with all screening tests, emphasizing the need for rescreening at recommended intervals, and clinical correlation. Normal [facility] Comment on above: Performed By: #### C #### See report for performing lab information. CBC and Differentialon 11-12 Abs Baso 0.05 k/uL Normal <0.11 [facility] Comment on above: Performed By: #### C BCDIF, IRON, TSH, FT4, CMP, LIPB, FERR, HBA1C, VITD #### [facility] [address] [place] [phone] Abs [place] 0.77 k/uL Normal <0.87 [facility] Lab Comment on above: Performed By: #### C BCDIF, IRON, TSH, FT4, CMP, LIPB, FERR, HBA1C, VITD #### [facility] [address] [place] [phone] Abs Neut 5.07 k/uL Normal 1.45-7.50 [facility] Comment on above: Performed By: #### C BCDIF, IRON, TSH, FT4, CMP, LIPB, FERR, HBA1C, VITD #### [facility] [address] [place] [address] Absolute nRBC <0.01 Normal <0.01 [facility] Comment on above: Performed By: #### C BCDIF, IRON, TSH, FT4, CMP, LIPB, FERR, HBA1C, VITD #### [facility] [address] [place] [phone] Basophils/100 WBC (Bld) 0.6 % Normal [facility] Comment on above: Performed By: #### C BCDIF, IRON, TSH, FT4, CMP, LIPB, FERR, HBA1C, VITD #### [facility] Lab [address] [place] [phone] DTYPE ADIFF Normal [facility] Lab Comment on above: Performed By: #### C BCDIF, IRON, TSH, FT4, CMP, LIPB, FERR, HBA1C, VITD #### [facility] [address] [place] [phone] Eosinophils (Bld) [#/Vol] 0.16 10*3/uL Normal <0.46 [facility] Comment on above: Performed By: #### C BCDIF, IRON, TSH, FT4, CMP, LIPB, FERR, HBA1C, VITD #### [facility] [address] [place] [phone] Eosinophils/100 WBC (Bld) 1.9 % Normal [facility] Comment on above: Performed By: #### C BCDIF, IRON, TSH, FT4, CMP, LIPB, FERR, HBA1C, VITD #### [facility] [address] [place] [phone] Erythrocyte distribution width (RBC) [Ratio] 13.0 % Normal 11.5-15.0 [facility] Comment on above: Performed By: #### C BCDIF, IRON, TSH, FT4, CMP, LIPB, FERR, HBA1C, VITD #### [facility] [address] [place] [phone] Hematocrit (Bld) [Volume fraction] 42.7 % Normal 36.0-46.0 [facility] Comment on above: Performed By: #### C BCDIF, IRON, TSH, FT4, CMP, LIPB, FERR, HBA1C, VITD #### [facility] [address] [place] [address] Hemoglobin (Bld) [Mass/Vol] 13.4 g/dL Normal 11.5-15.5 [facility] Comment on above: Performed By: #### C BCDIF, IRON, TSH, FT4, CMP, LIPB, FERR, HBA1C, VITD #### [facility] [address] [place] [address] Lymphocytes (Bld) [#/Vol] 2.23 10*3/uL Normal 1.00-4.00 [facility] Comment on above: Performed By: #### C BCDIF, IRON, TSH, FT4, CMP, LIPB, FERR, HBA1C, VITD #### [facility] [address] [place] [phone] Lymphocytes/100 WBC (Bld) 26.9 % Normal [facility] Comment on above: Performed By: #### C BCDIF, IRON, TSH, FT4, CMP, LIPB, FERR, HBA1C, VITD #### [facility] [address] [place] [address] MCH (RBC) [Entitic mass] 30.0 pG Normal 26.0-34.0 [facility] Comment on above: Performed By: #### C BCDIF, IRON, TSH, FT4, CMP, LIPB, FERR, HBA1C, VITD #### [facility] [address] [place] [address] MCHC (RBC) [Mass/Vol] 31.4 g/dL Normal 30.5-36.0 [facility] Comment on above: Performed By: #### C BCDIF, IRON, TSH, FT4, CMP, LIPB, FERR, HBA1C, VITD #### [facility] [address] [place] [address] MCV (RBC) [Entitic vol] 95.5 fL Normal 80.0-100.0 [facility] Comment on above: Performed By: #### C BCDIF, IRON, TSH, FT4, CMP, LIPB, FERR, HBA1C, VITD #### [facility] [address] [place] [address] Monocytes/100 WBC (Bld) 9.3 % Normal [facility] Comment on above: Performed By: #### C BCDIF, IRON, TSH, FT4, CMP, LIPB, FERR, HBA1C, VITD #### [facility] [address] [place] [address] Neutrophils/100 WBC (Bld) 61.3 % Normal [facility] Comment on above: Performed By: #### C BCDIF, IRON, TSH, FT4, CMP, LIPB, FERR, HBA1C, VITD #### [facility] [address] [place] [address] NRBCs 0.0 /100 WBC Normal 0 [facility] Comment on above: Performed By: #### C BCDIF, IRON, TSH, FT4, CMP, LIPB, FERR, HBA1C, VITD #### [facility] [address] [place] [address] Platelet mean volume (Bld) [Entitic vol] 12.6 fL Normal 9.0-12.7 [facility] Comment on above: Performed By: #### C BCDIF, IRON, TSH, FT4, CMP, LIPB, FERR, HBA1C, VITD #### [facility] [address] [place] [address] Platelets (Bld) [#/Vol] 180 10*3/uL Normal 150-400 [facility] Comment on above: Performed By: #### C BCDIF, IRON, TSH, FT4, CMP, LIPB, FERR, HBA1C, VITD #### [facility] [address] [place], [place] [address] RBC (Bld) [#/Vol] 4.47 10*6/uL Normal 3.90-5.20 [facility] Lab Comment on above: Performed By: #### C BCDIF, IRON, TSH, FT4, CMP, LIPB, FERR, HBA1C, VITD #### [facility] [address] [place] [address] WBC (Bld) [#/Vol] 8.28 10*3/uL Normal 3.70-11.00 [facility] Comment on above: Performed By: #### C BCDIF, IRON, TSH, FT4, CMP, LIPB, FERR, HBA1C, VITD #### [facility] [address] [place] [address] Comp Metabolic Panelon 11-12 Albumin [Mass/Vol] 4.1 g/dL Normal 3.9-4.9 [facility] Comment on above: Performed By: #### C BCDIF, IRON, TSH, FT4, CMP, LIPB, FERR, HBA1C, VITD #### [facility] [address] [place] [address] ALP [Catalytic activity/Vol] 72 U/L Normal 34-123 [facility] Comment on above: Performed By: #### C BCDIF, IRON, TSH, FT4, CMP, LIPB, FERR, HBA1C, VITD #### [facility] [address] [place] [address] ALT [Catalytic activity/Vol] 24 U/L Normal 7-38 [facility] Comment on above: Performed By: #### C BCDIF, IRON, TSH, FT4, CMP, LIPB, FERR, HBA1C, VITD #### [facility] [address] [place] [address] Anion gap [Moles/Vol] 12 mmol/L Normal 9-18 [facility] Comment on above: Performed By: #### C BCDIF, IRON, TSH, FT4, CMP, LIPB, FERR, HBA1C, VITD #### [facility] [address] [place] [address] AST [Catalytic activity/Vol] 24 U/L Normal 13-35 [facility] Comment on above: Performed By: #### C BCDIF, IRON, TSH, FT4, CMP, LIPB, FERR, HBA1C, VITD #### [facility] [address] [place] [address] Bilirubin Ql (U) 0.5 mg/dL Normal 0.2-1.3 [facility] Lab Comment on above: Performed By: #### C BCDIF, IRON, TSH, FT4, CMP, LIPB, FERR, HBA1C, VITD #### [facility] [address] [place] [address] Calcium [Mass/Vol] 10.8 mg/dL High 8.5-10.2 [facility] Comment on above: Performed By: #### C BCDIF, IRON, TSH, FT4, CMP, LIPB, FERR, HBA1C, VITD #### [facility] [address] [place] [address] Chloride [Moles/Vol] 104 mmol/L Normal 97-105 [facility] Comment on above: Performed By: #### C BCDIF, IRON, TSH, FT4, CMP, LIPB, FERR, HBA1C, VITD #### [facility] [address] [place] [address] CO2 [Moles/Vol] 22 mmol/L Normal 22-30 [facility] Comment on above: Performed By: #### C BCDIF, IRON, TSH, FT4, CMP, LIPB, FERR, HBA1C, VITD #### [facility] [address] [place] [address] Creatinine [Mass/Vol] 0.59 mg/dL Normal 0.58-0.96 [facility] Comment on above: Performed By: #### C BCDIF, IRON, TSH, FT4, CMP, LIPB, FERR, HBA1C, VITD #### [facility] [address] [place], [place] [address] eGFR- Amer. >60 Normal [facility] Comment on above: Performed By: #### C BCDIF, IRON, TSH, FT4, CMP, LIPB, FERR, HBA1C, VITD #### [facility] [address] [place] [address] GFR/1.73 sq M predicted among non-blacks MDRD (S/P/Bld) [Vol rate/Area] mL/min/{1.73_m2} Normal [facility] Comment on above: Performed By: #### C BCDIF, IRON, TSH, FT4, CMP, LIPB, FERR, HBA1C, VITD #### [facility] [address] [place] [address] Glucose [Mass/Vol] 152 mg/dL High 74-99 [facility] Comment on above: Performed By: #### C BCDIF, IRON, TSH, FT4, CMP, LIPB, FERR, HBA1C, VITD #### [facility] [address] [place] [phone] Potassium [Moles/Vol] 4.4 mmol/L Normal 3.7-5.1 [facility] Comment on above: Performed By: #### C BCDIF, IRON, TSH, FT4, CMP, LIPB, FERR, HBA1C, VITD #### [facility] [address] [place], [place] [address] Protein [Mass/Vol] 7.0 g/dL Normal 6.3-8.0 [facility] Comment on above: Performed By: #### C BCDIF, IRON, TSH, FT4, CMP, LIPB, FERR, HBA1C, VITD #### [facility] [address] [place] [address] Sodium [Moles/Vol] 138 mmol/L Normal 136-144 [facility] Comment on above: Performed By: #### C BCDIF, IRON, TSH, FT4, CMP, LIPB, FERR, HBA1C, VITD #### [facility]ine [facility] [address] [place] [phone] Urea nitrogen [Mass/Vol] 11 mg/dL Normal 7-21 [facility] Comment on above: Performed By: #### C BCDIF, IRON, TSH, FT4, CMP, LIPB, FERR, HBA1C, VITD #### [facility] [address] [place] [phone] Ferritinon 11-12-2018 Ferritin [Mass/Vol] 77.0 ng/mL Normal 14.7-205.1 [facility] Comment on above: Performed By: #### C BCDIF, IRON, TSH, FT4, CMP, LIPB, FERR, HBA1C, VITD #### [facility] [address] [place] [phone] Free T4on 11-12-2018 Free T4 [Mass/Vol] 1.1 ng/dL Normal 0.9-1.7 [facility] Comment on above: Performed By: #### C BCDIF, IRON, TSH, FT4, CMP, LIPB, FERR, HBA1C, VITD #### [facility] [address] [place] [address] Hemoglobin A1con 11-12-2018 HbA1c (Bld) [Mass fraction] 134 mg/dL Normal [facility] Comment on above: Performed By: #### C BCDIF, IRON, TSH, FT4, CMP, LIPB, FERR, HBA1C, VITD #### [facility] [address] [place] [address] HbA1c (Bld) [Mass fraction] 6.3 % High 4.3-5.6 [facility] Comment on above: Performed By: #### C BCDIF, IRON, TSH, FT4, CMP, LIPB, FERR, HBA1C, VITD #### [facility] Routine Lab [address] [address] Iron and TIBCon 11-12-2018 Iron [Mass/Vol] 75 ug/dL Normal 41-186 [facility] Comment on above: Performed By: #### C BCDIF, IRON, TSH, FT4, CMP, LIPB, FERR, HBA1C, VITD #### [facility] [address] [address] TIBC 302 ug/dL Normal 232-386 [facility] Comment on above: Performed By: #### C BCDIF, IRON, TSH, FT4, CMP, LIPB, FERR, HBA1C, VITD #### [facility] [address] [address] Transferrin Saturatn 25 % Normal 15-57 [facility] Comment on above: Performed By: #### C BCDIF, IRON, TSH, FT4, CMP, LIPB, FERR, HBA1C, VITD #### [facility] [address] [place] [address] Lipid Panel, [place] 018 Cholesterol [Mass/Vol] 157 mg/dL Normal <200 [facility] Comment on above: Performed By: #### C BCDIF, IRON, TSH, FT4, CMP, LIPB, FERR, HBA1C, VITD #### [facility] [address] [address] Cholesterol in HDL [Mass/Vol] 46 mg/dL Normal >39 [facility] Comment on above: Performed By: #### C BCDIF, IRON, TSH, FT4, CMP, LIPB, FERR, HBA1C, VITD #### [facility] Routine Lab [address] [phone] Cholesterol in LDL [Mass/Vol] 95 mg/dL Normal <100 [facility] Comment on above: Performed By: #### C BCDIF, IRON, TSH, FT4, CMP, LIPB, FERR, HBA1C, VITD #### [facility] [address] [phone] Cholesterol in VLDL [Mass/Vol] 16 mg/dL Normal <30 [facility] Comment on above: Performed By: #### C BCDIF, IRON, TSH, FT4, CMP, LIPB, FERR, HBA1C, VITD #### [facility] [address] [place] [phone] Cholesterol non HDL [Mass/Vol] 111 mg/dL Normal <130 [facility] Comment on above: Performed By: #### C BCDIF, IRON, TSH, FT4, CMP, LIPB, FERR, HBA1C, VITD #### [facility] [address] [phone] LDL:HDL Ratio 2.07 Normal <2.54 [facility] Comment on above: Performed By: #### C BCDIF, IRON, TSH, FT4, CMP, LIPB, FERR, HBA1C, VITD #### [facility] [address] [place] [phone] TC:HDL Ratio 3.41 Normal <5.10 [facility] Comment on above: Performed By: #### C BCDIF, IRON, TSH, FT4, CMP, LIPB, FERR, HBA1C, VITD #### [facility] [address] [phone] Triglyceride [Mass/Vol] 80 mg/dL Normal <150 [facility] Comment on above: Performed By: #### C BCDIF, IRON, TSH, FT4, CMP, LIPB, FERR, HBA1C, VITD #### [facility] Routine Lab [address] [phone] Fasting Time 12 hrs Normal [facility] Comment on above: Performed By: #### C BCDIF, IRON, TSH, FT4, CMP, LIPB, FERR, HBA1C, VITD #### [facility] Routine Lab [address] [address] TSHon 11-12-2018 TSH Qn 0.433 uU/mL Normal 0.400-5.500 [facility] Comment on above: Performed By: #### C BCDIF, IRON, TSH, FT4, CMP, LIPB, FERR, HBA1C, VITD #### [facility] Routine Lab [address] [address] Vitamin D 25 Hydroxyon 11-12 Vitamin D 25 Hydroxy 54.6 ng/mL Normal 31.0-80.0 [facility] Comment on above: Performed By: #### C BCDIF, IRON, TSH, FT4, CMP, LIPB, FERR, HBA1C, VITD #### [facility] Routine Lab [address] [address] Vital Signs Date Time Vital Sign Value Performing Clinician Facility 08-05-2023 15:16-0400 Body weight 112.49 kg Rosa Isela Older RISK MGR.DATABASE ADMINISTRATOR Work Phone: [facility] 08-05-2023 15:16-0400 Diastolic blood pressure 71 mm[Hg] Rosa Isela Older RISK MGR.DATABASE ADMINISTRATOR Work Phone: [facility] 08-05-2023 15:16-0400 Heart rate 72 /min Rosa Isela Older RISK MGR.DATABASE ADMINISTRATOR Work Phone: [facility] 08-05-2023 15:16-0400 Respiratory rate 16 /min Rosa Isela Older RISK MGR.DATABASE ADMINISTRATOR Work Phone: [facility] 08-05-2023 15:16-0400 Systolic blood pressure 103 mm[Hg] Rosa Isela Older RISK MGR.DATABASE ADMINISTRATOR Work Phone: [facility] 05-02-2023 09:33-0400 Body temperature 97 [degF] Randolph Pendlebury RISK MGR.DATABASE ADMINISTRATOR Work Phone: [facility] 05-02-2023 09:33-0400 Body weight 121.29 kg Randolph Pendlebury RISK MGR.DATABASE ADMINISTRATOR Work Phone: [facility] 05-02-2023 09:33-0400 Diastolic blood pressure 78 mm[Hg] Randolph Pendlebury RISK MGR.DATABASE ADMINISTRATOR Work Phone: [facility] 05-02-2023 09:33-0400 Heart rate 76 /min Randolph Pendlebury RISK MGR.DATABASE ADMINISTRATOR Work Phone: [facility] 05-02-2023 09:33-0400 Respiratory rate 16 /min Randolph Pendlebury RISK MGR.DATABASE ADMINISTRATOR Work Phone: [facility] 05-02-2023 09:33-0400 SaO2% (BldA) [Mass fraction] 97 % Randolph Pendlebury RISK MGR.DATABASE ADMINISTRATOR Work Phone: [facility] 05-02-2023 09:33-0400 Systolic blood pressure 122 mm[Hg] Randolph Pendlebury RISK MGR.DATABASE ADMINISTRATOR Work Phone: [facility] 02-22-2023 16:35-0400 Body temperature 98.8 [degF] Dary Praisler-Wood RISK MGR.DATABASE ADMINISTRATOR Work Phone: [facility] 02-22-2023 16:35-0400 Body weight 123.83 kg Dary Praisler-Wood RISK MGR.DATABASE ADMINISTRATOR Work Phone: [facility] 02-22-2023 16:35-0400 Diastolic blood pressure 74 mm[Hg] Dary Praisler-Wood RISK MGR.DATABASE ADMINISTRATOR Work Phone: [facility] 02-22-2023 16:35-0400 Heart rate 83 /min Dary Praisler-Wood RISK MGR.DATABASE ADMINISTRATOR Work Phone: [facility] 02-22-2023 16:35-0400 Respiratory rate 18 /min Dary Praisler-Wood RISK MGR.DATABASE ADMINISTRATOR Work Phone: [facility] 02-22-2023 16:35-0400 SaO2% (BldA) [Mass fraction] 97 % Dary Burger APRN.DATABASE ADMINISTRATOR Work Phone: [facility] 02-22-2023 16:35-0400 Systolic blood pressure 126 mm[Hg] Dary Burger APRN.DATABASE ADMINISTRATOR Work Phone: [facility] 02-20-2023 08:50-0400 Body temperature 97.39 [degF] Ciara Pena APRN.DATABASE ADMINISTRATOR Work Phone: [facility] 02-20-2023 08:50-0400 Body weight 123.83 kg Ciara Pena APRN.DATABASE ADMINISTRATOR Work Phone: [facility] 02-20-2023 08:50-0400 Diastolic blood pressure 80 mm[Hg] Ciara Pena APRN.DATABASE ADMINISTRATOR Work Phone: [facility] 02-20-2023 08:50-0400 Heart rate 88 /min Ciara Pena APRN.DATABASE ADMINISTRATOR Work Phone: [facility] 02-20-2023 08:50-0400 Respiratory rate 16 /min Ciara Pena APRN.DATABASE ADMINISTRATOR Work Phone: [facility] 02-20-2023 08:50-0400 SaO2% (BldA) [Mass fraction] 97 % Ciara Pena APRN.DATABASE ADMINISTRATOR Work Phone: [facility] 02-20-2023 08:50-0400 Systolic blood pressure 132 mm[Hg] Ciara Pena APRN.DATABASE ADMINISTRATOR Work Phone: [facility] 12-17-2022 13:26-0500 Body temperature 97 [degF] Librado Barrios MD Work Phone: [facility] 12-17-2022 13:26-0500 Body weight 125.19 kg Librado Barrios MD Work Phone: [facility] 12-17-2022 13:26-0500 Diastolic blood pressure 68 mm[Hg] Librado Barrios MD Work Phone: [facility] 12-17-2022 13:26-0500 Heart rate 80 /min Librado Barrios MD Work Phone: [facility] 12-17-2022 13:26-0500 Respiratory rate 20 /min Librado Barrios MD Work Phone: [facility] 12-17-2022 13:26-0500 Systolic blood pressure 130 mm[Hg] Librado Barrios MD Work Phone: [facility] 11-21-2022 12:45-0500 Body temperature 98.2 [degF] Sidney Carlos RISK MGR.DATABASE ADMINISTRATOR Work Phone: [facility] 11-21-2022 12:45-0500 Body weight 125.19 kg Sidney Carlos RISK MGR.DATABASE ADMINISTRATOR Work Phone: [facility] 11-21-2022 12:45-0500 Diastolic blood pressure 76 mm[Hg] Sidney Carlos RISK MGR.DATABASE ADMINISTRATOR Work Phone: [facility] 11-21-2022 12:45-0500 Heart rate 96 /min Sidney Carlos RISK MGR.DATABASE ADMINISTRATOR Work Phone: [facility] 11-21-2022 12:45-0500 Respiratory rate 16 /min Sidney Carlos RISK MGR.DATABASE ADMINISTRATOR Work Phone: [facility] 11-21-2022 12:45-0500 SaO2% (BldA) [Mass fraction] 97 % Sidney Carlos RISK MGR.DATABASE ADMINISTRATOR Work Phone: [facility] 11-21-2022 12:45-0500 Systolic blood pressure 128 mm[Hg] Sidney Carlos RISK MGR.DATABASE ADMINISTRATOR Work Phone: [facility] 08-13-2022 08:24-0400 Body weight 124.74 kg Rosa Isela Older RISK MGR.DATABASE ADMINISTRATOR Work Phone: [facility] 08-13-2022 08:24-0400 Diastolic blood pressure 78 mm[Hg] Rosa Isela Older RISK MGR.DATABASE ADMINISTRATOR Work Phone: [facility] 08-13-2022 08:24-0400 Heart rate 78 /min Rosa Isela Older RISK MGR.DATABASE ADMINISTRATOR Work Phone: [facility] 08-13-2022 08:24-0400 Respiratory rate 18 /min Rosa Isela Older RISK MGR.DATABASE ADMINISTRATOR Work Phone: [facility] 08-13-2022 08:24-0400 Systolic blood pressure 130 mm[Hg] Rosa Isela Older RISK MGR.DATABASE ADMINISTRATOR Work Phone: [facility] 06-04-2022 19:33-0400 Body temperature 97.7 [degF] Librado Barrios MD Work Phone: [facility] 06-04-2022 19:33-0400 Body weight 124.29 kg Librado Barrios MD Work Phone: [facility] 06-04-2022 19:33-0400 Diastolic blood pressure 80 mm[Hg] Librado Barrios MD Work Phone: [facility] 06-04-2022 19:33-0400 Heart rate 76 /min Librado Barrios MD Work Phone: [facility] 06-04-2022 19:33-0400 Respiratory rate 18 /min Librado Barrios MD Work Phone: [facility] 06-04-2022 19:33-0400 Systolic blood pressure 132 mm[Hg] Librado Barrios MD Work Phone: [facility] 05-24-2022 14:16-0400 Body temperature 98.01 [degF] Ramin Nelson MD Work Phone: [facility] 05-24-2022 14:16-0400 Body weight 124.92 kg Ramin Nelson MD Work Phone: [facility] 05-24-2022 14:16-0400 Diastolic blood pressure 84 mm[Hg] Ramin Nelson MD Work Phone: [facility] 05-24-2022 14:16-0400 Heart rate 84 /min Ramin Nelson MD Work Phone: [facility] 05-24-2022 14:16-0400 Respiratory rate 21 /min Ramin Nelson MD Work Phone: [facility] 05-24-2022 14:16-0400 SaO2% (BldA) [Mass fraction] 97 % Ramin Nelson MD Work Phone: [facility] 05-24-2022 14:16-0400 Systolic blood pressure 128 mm[Hg] Ramin Nelson MD Work Phone: [facility] 02-14-2022 11:24-0400 Body height 165.1 cm PAO DAVE MD [facility] 02-14-2022 11:24-0400 Body temperature 98.24 [degF] PAO DAVE MD [facility] 02-14-2022 11:24-0400 Body weight 124 kg PAO DAVE MD [facility] 02-14-2022 11:24-0400 diastolic 65 mm[Hg] PAO DAVE MD [facility] 02-14-2022 11:24-0400 Heart rate 81 /min PAO DAVE MD [facility] 02-14-2022 11:24-0400 Respiratory rate 16 /min PAO DAVE MD [facility] 02-14-2022 11:24-0400 systolic 125 mm[Hg] PAO DAVE MD [facility] Encounters Encounter Date Encounter Type Care Provider Facility Start: 02-18-2024 Refill Rosa Isela Slade Rylan juarez RISK MGR.DATABASE ADMINISTRATOR Work Phone: [facility] [place] Comment on above: Refill Request Start: 01-03-2024 End: 01-03-2024 ambulatory LALA SAM Facility:[facility] Start: 01-03-2024 End: 01-03-2024 Nursing evaluation of patient and report Nurse/Testrake [facility] Work Phone: Podiatry Comment on above: Calcaneal spur of fo ot, left (Primary Dx); Tendonitis, Achilles, left Start: 01-02-2024 ambulatory Lala vazquez Work Phone: Podiatry Comment on above: Foot pain Start: 12-25-2023 End: 12-25-2023 ambulatory LALA ARRIAGAVELMA Facility:[facility] Start: 12-24-2023 End: 12-24-2023 ambulatory [facility] Facility:[facility] Start: 12-16-2023 End: 12-17-2023 ambulatory ROSA ISELA Slade STEPHEN Facility:[facility] Start: 11-12-2023 End: 11-13-2023 ambulatory ROSA ISELA Slade STEPHEN Facility:[facility] Start: 11-05-2023 Telephone encounter Librado valencia MD Work Phone: [facility] [place] Comment on above: requesting lab order s Start: 10-30-2023 Refill Librado vickers MD Work Phone: [facility] [place] Comment on above: Refill Request Start: 10-22-2023 End: 10-22-2023 ambulatory LUX ALEJO Facility:[facility] Start: 10-22-2023 End: 10-22-2023 ambulatory Lux Alejo RISK MGR.RIBBON CLEANER Work Phone: [facility] [place] Comment on above: COVID-19 virus infec tion (Primary Dx) Start: 10-22-2023 End: 10-22-2023 Telemedicine consultation with patient Lux Alejo MARIEL.RIBBON CLEANER Work Phone: [facility] Start: 10-02-2023 Telephone encounter Librado valencia MD Work Phone: [facility] [place] Comment on above: Insurance Authorizat ion Start: 08-05-2023 End: 08-06-2023 ambulatory ROSA ISELA MITCHELL Facility:[facility] Start: 08-05-2023 End: 08-05-2023 Patient encounter procedure Rosa Isela Yanez RISK MGR.DATABASE ADMINISTRATOR Work Phone: [facility] [place] Comment on above: Type 2 diabetes chava itus without complication, without long- term current use of insulin (HCC) (Primary Dx); Obesity, Class III, BMI >= 40; Hypertension, unspecified type; Need for influenza vaccination; Screen for colon cancer Start: 07-23-2023 End: 07-23-2023 ambulatory ROSINA ELIZALDE Facility:[facility] Start: 07-23-2023 End: 07-23-2023 Patient encounter procedure Rosina Elizalde OD Work Phone: Ophthalmology Comment on above: Type 2 diabetes chava itus without complication, without long- term current use of insulin (HCC) (Primary Dx); Dry eye syndrome of both eyes; Myopia, bilateral; Presbyopia Start: 07-05-2023 Telephone encounter Brian Monroy MD Work Phone: [facility] [place] Comment on above: letter for jury duty release Start: 06-25-2023 Refill Librado vickers MD Work Phone: [facility] [place] Comment on above: Refill Request Start: 06-05-2023 Telephone encounter Librado valencia MD Work Phone: [facility] [place] Comment on above: Insurance Authorizat ion Start: 05-24-2023 Telephone encounter Rosa Isela Yanez APRN.DATABASE ADMINISTRATOR Work Phone: [facility] [place] Comment on above: Medication Problem Start: 05-02-2023 End: 05-02-2023 ambulatory LIBRADO BARRIOS Facility:[facility] Start: 05-02-2023 End: 05-02-2023 Office outpatient visit 15 minutes Randolph Basurto RISK MGR.DATABASE ADMINISTRATOR Work Phone: [facility] Comment on above: Loose stools (Primar y Dx) Start: 04-15-2023 End: 04-15-2023 ambulatory ROSA ISELA MITCHELL Facility:[facility] Start: 04-08-2023 End: 04-09-2023 ambulatory LIBRADO BARRIOS Facility:[facility] Start: 04-03-2023 Refill Librado vickers MD Work Phone: [facility] [place] Comment on above: Refill Request Start: 02-22-2023 End: 02-22-2023 Patient encounter procedure Dary Burger RISK MGR.DATABASE ADMINISTRATOR Work Phone: [facility] Comment on above: Acute sinusitis, rec urrence not specified, unspecified location (Primary Dx) Start: 02-20-2023 End: 02-20-2023 Subsequent hospital visit by physician Xr [facility] [place] Work Phone: Radiology Comment on above: Acute cough [R05.1] Start: 02-20-2023 End: 02-20-2023 Patient encounter procedure Ciara Pena APRN.DATABASE ADMINISTRATOR Work Phone: [facility] Comment on above: Acute cough (Primary Dx) Start: 01-16-2023 Documentation procedure [facility]og re[facility] Start: 01-16-2023 Letter encounter Mammography Coordinator [facility] Department Start: 12-17-2022 End: 12-17-2022 Patient encounter procedure Librado Barrios MD Work Phone: [facility] [place] Comment on above: Type 2 diabetes chava itus without complication, without long- term current use of insulin (HCC) (Primary Dx); Mild intermittent asthma without complication; Encounter for screening mammogram for malignant neoplasm of breast; Hyperparathyroidism (HCC) Start: 12-03-2022 Refill Rosa Isela Yanez APRN .DATABASE ADMINISTRATOR Work Phone: [facility] [place] Comment on above: Refill Request Start: 11-21-2022 End: 11-21-2022 Patient encounter procedure Sidney Gonzalez APRN.DATABASE ADMINISTRATOR Work Phone: [facility] Comment on above: Bacterial sinusitis (Primary Dx) Start: 11-13-2022 Telephone encounter Rosa Isela Yanez APRN.DATABASE ADMINISTRATOR Work Phone: [facility] [place] Comment on above: Medication Problem Start: 11-12-2022 End: 11-12-2022 ambulatory Ryan Christensen PA-C Work Phone: Telemedicine Comment on above: Treatment not availa ble (Primary Dx) COVID-19 virus infec tion (Primary Dx) Start: 11-12-2022 End: 11-12-2022 Telemedicine consultation with patient Rosa Isela Yanez APRN.DATABASE ADMINISTRATOR Work Phone: [facility] Start: 09-14-2022 Refill Librado vickers MD Work Phone: [facility] [place] Start: 08-13-2022 End: 08-13-2022 Patient encounter procedure Rosa Isela Yanez APRN.[facility] Work Phone: [facility] [place] Comment on above: Type 2 diabetes chava itus without complication, without long- term current use of insulin (HCC) (Primary Dx); Obesity, Class III, BMI >= 40; Primary hypertension; Encounter for immunization Start: 07-25-2022 Refill Librado vickers MD Work Phone: [facility] [place] Comment on above: Refill Request Start: 07-12-2022 Telephone encounter Rosa Isela Yanez APRN.[facility] Work Phone: [facility] [place] Comment on above: Lab Orders Refill Request Start: 06-04-2022 End: 06-04-2022 Patient encounter procedure Librado Barrios MD Work Phone: [facility] [place] Comment on above: Acute non-recurrent maxillary sinusitis (Primary Dx); Type 2 diabetes mellitus without complication, without long-term current use of insulin (HCC) Start: 05-29-2022 End: 05-29-2022 Patient encounter procedure Ernesto Ko MD Work Phone: Ophthalmology Comment on above: Type 2 diabetes chava itus without complication, without long- term current use of insulin (HCC) (Primary Dx); Dry eye syndrome of both eyes; Other chronic allergic conjunctivitis of both eyes Start: 05-25-2022 Telephone encounter Librado valencia MD Work Phone: [facility] [place] Comment on above: Patient Request Start: 05-24-2022 End: 05-24-2022 Patient encounter procedure Ramin Nelson MD Work Phone: [facility] Comment on above: Sore throat (Primary Dx) Start: 05-23-2022 Refill Rosa Isela Older RISK MGR .DATABASE ADMINISTRATOR Work Phone: [facility] [place] Comment on above: Refill Request Start: 03-27-2022 MC Get Medical Advice Librado Barrios MD Work Phone: [facility] [place] Comment on above: Medication refills Start: 03-01-2022 Refill Librado vickers MD Work Phone: [facility] [place] Comment on above: Refill Request Start: 02-21-2022 ambulatory Rosa Isela Older RISK MGR .DATABASE ADMINISTRATOR Work Phone: [facility] [place] Comment on above: Labs Start: 02-14-2022 End: 02-14-2022 Emergency department patient visit PAO DAVE MD [facility] Start: 01-25-2019 End: 01-25-2019 Emergency department patient visit JAMESON FARMERIENZA Facility:B Procedures Date Procedure Procedure Detail Performing Clinician Start: 08-05-2023 INFLUENZA VACCINE, A GE 6 MO - 64 YR, QUADRIVALENT (AFLURIA, FLULAVAL, FLUZONE) Rosa Isela Older RISK MGR.DATABASE ADMINISTRATOR Work Phone: Start: 02-20-2023 Radiologic exam ches t 2 views Ciara Pena RISK MGR.DATABASE ADMINISTRATOR Work Phone: Start: 01-15-2023 Mammography Mammograph y Coordinator Start: 08-13-2022 INFLUENZA VACCINE QUADRIVALENT 6 MO - 64 YRS IM Rosa Isela Older RISK MGR.DATABASE ADMINISTRATOR Work Phone: Start: 08-13-2022 Adult depression scr eening assessment Rosa Isela Older RISK MGR.DATABASE ADMINISTRATOR Work Phone: Start: 06-04-2022 Hemoglobin A1c/Hemoglobin.total in Blood Librado Barrios MD Work Phone: Start: 05-24-2022 STREP A MOLECULAR (POC) Ramin Nelson MD Work Phone: Start: 01-03-2022 Mammography Rosa Isela Older RISK MGR.DATABASE ADMINISTRATOR Work Phone: Start: 06-06-2021 Adult depression scr eening assessment Rosa Isela Older RISK MGR.DATABASE ADMINISTRATOR Work Phone: Tonsillectomy and adenoidectomy PAO DAVE MD Plan of Treatment Date Care Activity Detail Author Start: 12-12-2031 Urine microalbumin profile [facility] Start: 08-22-2026 Cologuard (FIT-DNA) Cologuard (FIT-DNA) [facility] Start: 08-22-2026 Colorectal Cancer Screening Colorectal Cancer Screening [facility] Start: 08-22-2026 Screening for malignant neoplasm of colon [facility] Start: 03-13-2025 Screening for malignant neoplasm of breast Mammogram Screening [facility] Start: 01-11-2025 HPV TESTING HPV TESTING [facility] Start: 01-11-2025 PAP TESTING PAP TESTING [facility] Start: 01-11-2025 Screening for malignant neoplasm of cervix [facility] Start: 12-16-2024 Annual PCP Team Chronic Disease Visit Annual PCP Team Chronic Disease Visit [facility] Start: 12-16-2024 BP Controlled (<130/80) BP Controlled (<130/80) [facility] Start: 11-12-2024 Hepatitis B screening Urine Albumin:Creatinine Ratio [facility] Start: 11-12-2024 Hepatitis B surface antibody level LDL Cholesterol [facility] Start: 08-05-2024 ANNUAL PCP TEAM CHRONIC DISEASE VISIT ANNUAL PCP TEAM CHRONIC DISEASE VISIT [facility] Start: 08-05-2024 BP CONTROLLED (<130/80) BP CONTROLLED (<130/80) [facility] Start: 07-26-2024 Covid-19 Vaccine () Covid-19 Vaccine () [facility] Start: 07-26-2024 Influenza vaccination Influenza Vaccine (#1) [facility] Start: 07-23-2024 Glaucoma screening Dilated Retinal Exam [facility] Start: 07-23-2024 Hepatitis C antibody, confirmatory test DILATED RETINAL EXAM [facility] Start: 05-13-2024 Hemoglobin A1c measurement HbA1C [facility] Start: 05-02-2024 BP CONTROLLED (<130/80) BP CONTROLLED (<130/80) [facility] Start: 04-15-2024 ANNUAL PCP TEAM CHRONIC DISEASE VISIT ANNUAL PCP TEAM CHRONIC DISEASE VISIT [facility] Start: 02-23-2024 BP CONTROLLED (<130/80) BP CONTROLLED (<130/80) [facility] Start: 01-15-2024 Mammography [facility] Start: 01-15-2024 Screening for malignant neoplasm of breast Mammogram Screening [facility] Start: 12-17-2023 3 comp foot exam completed DIABETIC FOOT EXAM [facility] Start: 12-17-2023 ANNUAL PCP TEAM CHRONIC DISEASE VISIT ANNUAL PCP TEAM CHRONIC DISEASE VISIT [facility] Start: 12-17-2023 Diabetic foot examination Diabetic Foot Exam [facility] Start: 12-17-2023 Hepatitis B screening URINE ALBUMIN:CREATININE RATIO [facility] Start: 11-21-2023 BP CONTROLLED (<130/80) BP CONTROLLED (<130/80) [facility] Start: 11-12-2023 ANNUAL PCP TEAM CHRONIC DISEASE VISIT ANNUAL PCP TEAM CHRONIC DISEASE VISIT [facility] Start: 11-05-2023 End: 02-04-2024 ALBUMIN/CREAT RATIO RND UR ALBUMIN/CREAT RATIO RND UR Lab Routine Type 2 diabetes mellitus without complication, without long-term current use of insulin (HCC) Expected: 11/05/2023, Expires: 02/04/2024 [facility] Work Phone: Comment on above: Expected: 11/05/2023, Expires: 4 Start: 11-05-2023 End: 02-04-2024 Hemoglobin A1c in Blood HGB A1C Lab Routine Type 2 diabetes mellitus without complication, without long-term current use of insulin (HCC) Expected: 11/05/2023, Expires: 02/04/2024 [facility] Work Phone: Comment on above: Expected: 11/05/2023, Expires: 4 Start: 11-05-2023 End: 02-04-2024 Lipid 1996 panel - Serum or Plasma LIPID PANEL BASIC Lab Routine Type 2 diabetes mellitus without complication, without long-term current use of insulin (HCC) Expected: 11/05/2023, Expires: 02/04/2024 [facility] Work Phone: Comment on above: Expected: 11/05/2023, Expires: 4 Start: 10-09-2023 Hemoglobin A1c measurement HbA1C [facility] Start: 10-09-2023 Hemoglobin A1c/Hemoglobin.total in Blood HBA1C [facility] Start: 08-13-2023 Adult depression screening assessment DEPRESSION SCREENING [facility] Start: 08-13-2023 ANNUAL PCP TEAM CHRONIC DISEASE VISIT ANNUAL PCP TEAM CHRONIC DISEASE VISIT [facility] Start: 08-13-2023 BP CONTROLLED (<130/80) BP CONTROLLED (<130/80) [facility] Start: 08-13-2023 COLORECTAL CANCER SCREENING COLORECTAL CANCER SCREENING [facility] Start: 08-13-2023 COVID-19 VACCINE (4 - Booster for Moderna series) COVID-19 VACCINE (4 - Booster for Moderna series) [facility] Comment on above: Postponed from 01/22/2022 (Declined at t his time) Postponed from 11/16 (Declined at this time) Start: 08-13-2023 COVID-19 VACCINE (4 - Moderna series) COVID-19 VACCINE (4 - Moderna series) [facility] Comment on above: Postponed from 11/16/2021 (Declined at t his time) Start: 08-13-2023 FECAL OCCULT BLOOD FECAL OCCULT BLOOD [facility] Start: 08-13-2023 Screening for malignant neoplasm of colon Fecal Occult Blood [facility] Start: 08-13-2023 SHINGRIX VACCINE (1 of 2) SHINGRIX VACCINE (1 of 2) [facility] Comment on above: Postponed from 2020 (Declined at t his time) Start: 08-07-2023 Hepatitis B surface antibody level LDL CHOLESTEROL [facility] Start: 08-05-2023 End: 10-05-2023 Hemoglobin A1c in Blood HGB A1C Lab Routine Type 2 diabetes mellitus without complication, without long-term current use of insulin (HCC) Expected: 08/05/2023, Expires: 10/05/2023 [facility] Work Phone: Comment on above: Expected: 08/05/2023, Expires: 3 Start: 08-05-2023 End: 10-05-2023 Lipid 1996 panel - Serum or Plasma LIPID PANEL BASIC Lab Routine Type 2 diabetes mellitus without complication, without long-term current use of insulin (HCC) Expected: 08/05/2023, Expires: 10/05/2023 [facility] Work Phone: Comment on above: Expected: 08/05/2023, Expires: 3 Start: 07-26-2023 Covid-19 Vaccine () Covid-19 Vaccine () [facility] Start: 07-26-2023 Influenza vaccination INFLUENZA (#1) [facility] Start: 06-11-2023 Hemoglobin A1c/Hemoglobin.total in Blood HBA1C [facility] Start: 06-04-2023 ANNUAL PCP TEAM CHRONIC DISEASE VISIT ANNUAL PCP TEAM CHRONIC DISEASE VISIT [facility] Start: 05-29-2023 Hepatitis C antibody, confirmatory test DILATED RETINAL EXAM [facility] Start: 04-30-2023 ANNUAL PCP TEAM CHRONIC DISEASE VISIT ANNUAL PCP TEAM CHRONIC DISEASE VISIT [facility] Start: 04-30-2023 BP CONTROLLED (<130/80) BP CONTROLLED (<130/80) [facility] Start: 04-16-2023 End: 06-16-2023 Basic metabolic 2000 panel - Serum or Plasma BASIC METABOLIC PNL Lab Routine Type 2 diabetes mellitus without complication, without long-term current use of insulin (HCC) Expected: 04/16/2023, Expires: 06/16/2023 [facility] Work Phone: Comment on above: Expected: 04/16/2023, Expires: 3 Start: 04-16-2023 End: 06-16-2023 Hemoglobin A1c in Blood HGB A1C Lab Routine Type 2 diabetes mellitus without complication, without long-term current use of insulin (HCC) Expected: 04/16/2023, Expires: 06/16/2023 [facility] Work Phone: Comment on above: Expected: 04/16/2023, Expires: 3 Start: 04-16-2023 End: 06-16-2023 Thyrotropin [Units/volume] in Serum or Plasma TSH BLD Lab Routine Hyperparathyroidism (HCC) Expected: 04/16/2023, Expires: 06/16/2023 [facility] Work Phone: Comment on above: Expected: 04/16/2023, Expires: 3 Start: 01-03-2023 Mammography MAMMOGRAM [facility] Start: 12-17-2022 End: 02-16-2023 ALBUMIN/CREAT RATIO RND UR [facility] Work Phone: Comment on above: Expected: 12/17/2022, Expires: 3 Start: 12-12-2022 ANNUAL PCP TEAM CHRONIC DISEASE VISIT ANNUAL PCP TEAM CHRONIC DISEASE VISIT [facility] Start: 12-12-2022 BP CONTROLLED (<130/80) BP CONTROLLED (<130/80) [facility] Start: 12-06-2022 Hepatitis B screening URINE ALBUMIN:CREATININE RATIO [facility] Start: 12-05-2022 Hemoglobin A1c/Hemoglobin.total in Blood HBA1C [facility] Start: 11-25-2022 DEPRESSION ASSESSMENT DEPRESSION ASSESSMENT [facility] Start: 11-12-2022 End: 01-12-2023 Hemoglobin A1c in Blood HGB A1C Lab Routine Type 2 diabetes mellitus without complication, without long-term current use of insulin (HCC) Expected: 11/12/2022, Expires: 01/12/2023 [facility] Work Phone: Comment on above: Expected: 11/12/2022, Expires: 3 Start: 09-06-2022 Hemoglobin A1c/Hemoglobin.total in Blood HBA1C [facility] Start: 08-12-2022 End: 10-12-2022 CBC panel - Blood by Automated count CBC Lab Routine Type 2 diabetes mellitus without complication, without long-term current use of insulin (HCC) Expected: 08/12/2022, Expires: 10/12/2022 [facility] Work Phone: Comment on above: Expected: 08/12/2022, Expires: 2 Start: 08-12-2022 End: 10-12-2022 Comprehensive metabolic 2000 panel - Serum or Plasma COMP METABOLIC PANEL Lab Routine Type 2 diabetes mellitus without complication, without long-term current use of insulin (HCC) Expected: 08/12/2022, Expires: 10/12/2022 [facility] Work Phone: Comment on above: Expected: 08/12/2022, Expires: 2 Start: 08-12-2022 End: 10-12-2022 Lipid 1996 panel - Serum or Plasma LIPID PANEL BASIC Lab Routine Type 2 diabetes mellitus without complication, without long-term current use of insulin (HCC) Expected: 08/12/2022, Expires: 10/12/2022 [facility] Work Phone: Comment on above: Expected: 08/12/2022, Expires: 2 Start: 07-26-2022 Influenza vaccination INFLUENZA (#1) [facility] Start: 06-06-2022 3 comp foot exam completed DIABETIC FOOT EXAM [facility] Start: 06-06-2022 Adult depression screening assessment DEPRESSION SCREENING [facility] Start: 06-06-2022 BP CONTROLLED (<130/80) BP CONTROLLED (<130/80) [facility] Start: 05-31-2022 Hepatitis B surface antibody level LDL CHOLESTEROL [facility] Start: 05-29-2022 Hepatitis C antibody, confirmatory test DILATED RETINAL EXAM [facility] Comment on above: Postponed from 01/17/2022 (Currently Sarah eduled) Start: 05-24-2022 End: 06-07-2022 SARS-CoV-2 (COVID-19) RNA [Presence] in Respiratory specimen by LISA with probe detection [facility] Work Phone: Comment on above: Expected: 05/24/2022, Expires: 2 Start: 03-06-2022 Hemoglobin A1c/Hemoglobin.total in Blood HBA1C [facility] Start: 03-02-2022 End: 05-02-2022 Basic metabolic 2000 panel - Serum or Plasma BASIC METABOLIC PNL Lab Routine Type 2 diabetes mellitus without complication, without long-term current use of insulin (HCC) Expected: 03/02/2022, Expires: 05/02/2022 [facility] Work Phone: Comment on above: Expected: 03/02/2022, Expires: 2 Start: 03-02-2022 End: 05-02-2022 Hemoglobin A1c/Hemoglobin.total in Blood HGB A1C Lab Routine Type 2 diabetes mellitus without complication, without long-term current use of insulin (HCC) Expected: 03/02/2022, Expires: 05/02/2022 [facility] Work Phone: Comment on above: Expected: 03/02/2022, Expires: 2 Start: 01-22-2022 COVID-19 VACCINE (4 - Booster for Moderna series) COVID-19 VACCINE (4 - Booster for Moderna series) [facility] Start: 01-17-2022 Hepatitis C antibody, confirmatory test DILATED RETINAL EXAM [facility] Start: 11-25-2021 DEPRESSION ASSESSMENT DEPRESSION ASSESSMENT [facility] Start: 08-28-2021 COLORECTAL CANCER SCREENING COLORECTAL CANCER SCREENING [facility] Start: 08-28-2021 FECAL OCCULT BLOOD FECAL OCCULT BLOOD [facility] Start: 2020 SHINGRIX VACCINE (1 of 2) SHINGRIX VACCINE (1 of 2) [facility] Start: 2015 COLOGUARD (FIT-DNA) COLOGUARD (FIT-DNA) [facility] Start: 2015 Colonoscopy COLONOSCOPY [facility] Start: [address] COLONOGRAPHY [facility] Start: 2015 Screening for malignant neoplasm of colon [facility] Start: 2015 SIGMOIDOSCOPY SIGMOIDOSCOPY [facility] Start: 1988 Anxiety Screening Anxiety Screening [facility] Start: 1988 Depression Screening Depression Screening [facility] COLOGUARD COLOGUARD Lab Ro utine Screen for colon cancer Ordered: 08/05/2023 [facility] Work Phone: Comment on above: Ordered: 08/05/2023 End: 01-16-2024 DOUG SCREENING DOUG SCREENING Radiology Routine Encounter for screening mammogram for malignant neoplasm of breast 1 Occurrences starting 12/17/2022 until 01/16/2024 [facility] Work Phone: Comment on above: 1 Occurrences starting 12/17/2022 until 01/16/2024 [facility] Immunizations Immunization Date Immunization Notes Care Provider Mirella becker 12-16-2023 COVID-19 vaccine, ag e 12+ yr, 2022- season ([employer]) Nurse/Testrake Wstr Work Phone: [facility] Work Phone: 08-05-2023 influenza, injectabl e, quadrivalent, contains preservative Rosa Isela Older RISK MGR.DATABASE ADMINISTRATOR Work Phone: [facility] Work Phone: 08-05-2023 influenza virus vacc ine, unspecified formulation Xr [place] Work Phone: [facility] 08-13-2022 influenza, injectabl e, quadrivalent, contains preservative Rosa Isela Older RISK MGR.DATABASE ADMINISTRATOR Work Phone: [facility] 04-30-2022 pneumococcal (PCV20) vaccine, 20 valent (PREVNAR 20) Rosa Isela Older RISK MGR.DATABASE ADMINISTRATOR Work Phone: [facility] 12-12-2021 tetanus toxoid, redu arnulfo diphtheria toxoid, and acellular pertussis vaccine, adsorbed Rosa Isela Older RISK MGR.DATABASE ADMINISTRATOR Work Phone: [facility] 08-19-2020 influenza, injectabl e, quadrivalent, contains preservative Rosa Isela Older RISK MGR.DATABASE ADMINISTRATOR Work Phone: [facility] 08-19-2020 pneumococcal polysaccharide vaccine, 23 valent Rosa Isela Older RISK MGR.DATABASE ADMINISTRATOR Work Phone: [facility] 08-31-2019 influenza, seasonal, injectable Rosa Isela Older RISK MGR.DATABASE ADMINISTRATOR Work Phone: [facility] Work Phone: 08-29-2019 influenza, seasonal, injectable Rosa Isela Older RISK MGR.DATABASE ADMINISTRATOR Work Phone: [facility] Payers Date Payer Category Payer Medicaid [id number] 2020 Medicaid [employer] [id number] 2020-Present [phone] [address] [place] [address] Medicaid [id number] 2020 Medicaid [id number] 2019 Self-pay 1970 Unknown [id number] Social History Date Type Detail Facility Never smoked tob acco (finding) [facility] Sex Assigned At [facility] Start: 07-08-2019 End: 11-21-2022 Tobacco smoking status NHIS Ex-smoker [facility] Work Phone: Start: 07-08-2019 End: 11-21-2022 Tobacco use and exposure Smokeless tobacco non-user [facility] Work Phone: Start: 12-12-2021 End: 02-20-2023 Alcohol intake Current non-drinker of alcohol (finding) [facility] Start: 01-11-2020 End: 11-12-2022 History SDOH Alcohol Frequency 1 [facility] Start: 08-17-2020 History SDOH Alcohol Std Drinks 98 [facility] Start: 08-17-2020 End: 11-12-2022 History SDOH Social Connections Phone 3 [facility] Start: 01-11-2020 End: 11-12-2022 History SDOH Social Connections Get Together 2 [facility] Start: 01-11-2020 History SDOH Physical Activity DPW 5 [facility] Start: 08-17-2020 History SDOH Physical Activity MPS 4 [facility] Start: 12-14-2019 Education 12 [facility] Start: 07-08-2019 End: 11-21-2022 Tobacco Comment stopped in her 20's [facility] Start: 1970 Sex Assigned At Female [facility] Start: 03-19-2022 End: 08-07-2022 Exposure to SARS-CoV-2 (event) Not sure [facility] Work Phone: History of tobacco use Current smoker [facility] Work Phone: Start: 11-12-2022 History SDOH Alcohol Std Drinks 0 [facility] Start: 11-12-2022 History SDOH Physical Activity DPW 6 [facility] Start: 11-12-2022 History SDOH Physical Activity MPS 14 [facility] Start: 11-12-2022 End: 12-07-2022 History of Social function [facility] Start: 11-12-2022 End: 12-07-2022 Social connection and isolation panel [facility] Do you belong to any clubs or organizations such as shinto groups, unions, [employer] or athletic groups, or school groups? No [facility] Are you now , , , , never or living with a partner? [facility] How often to you hav e a drink containing alcohol? Never [facility] How many standard dr inks containing alcohol do you have on a typical day? Patient does not drink [facility] How hard is it for y ou to pay for the very basics like food, housing, medical care, and heating Somewhat hard [facility] Do you feel stress - tense, restless, nervous, or anxious, or unable to sleep at night because your mind is troubled all the time - these days [OSQ] Not at all [facility] (I/We) worried wheth er (my/our) food would run out before (I/we) got money to buy more. Never true [facility] Start: 05-16-2019 Gender identity Identifies as female gender (finding) [facility] Start: 05-16-2019 Sexual orientation Heterosexual (finding) [facility] Clinical Notes 02-14-2022 to 02-18-2024 Telephone Encounter - Mark Guidry MA - 02/18/2024 8:52 AM EDTSCeci retana LPN - 01/03/2024 4:27 PM ESTTelephone Encounter - Ignacia Carmona SOWMYA - 11/05/2023 3:35 PM ESTPatient Instructions Note Date & Type Note [facility] 02-18-2024 Miscellaneous Notes Requested Prescriptions Pending Prescriptions Disp Refills meloxicam (MOBIC) 15 mg tablet 30 tablet 2 Sig: Take 1 tablet by mouth once daily. With food. Date of last office visit in primary care: 12/16/2023 Date of next office visit in primary care: 04/21/2024 Please advise. Thank you. Mark Guidry MA. documented in this encounter [facility] 01-03-2024 Note HNO ID: [id number] Author: CECI PENDLETON LPN Service: ? Author Type: LICENSED NURSE Type: Progress Notes Filed: 01/03/2024 16:28 Note Text: Per Dr. Sam, Isaac was provided with powerstep original inserts, size 9, and instructed/educated in its application, wear, and care. All questions were answered, and patient was able to demonstrate competence with the necessary skills to utilize the above equipment. Ceci Pendleton LPN [facility] 01-03-2024 History of Present illness Narrative Per Dr. Sam, Isaac was provided with powerstep original inserts, size 9, and instructed/educated in its application, wear, and care. All questions were answered, and patient was able to demonstrate competence with the necessary skills to utilize the above equipment. Ceci Pendleton LPN documented in this encounter [facility] 12-25-2023 Note HNO ID: [id number] Author: MALLORY WANG RT(Kali) Service: ? Author Type: Technologist Type: Progress Notes Filed: 12/25/2023 09:20 Note Text: Radiology Service Progress Note PATIENT NAME: Isaac Aviles DATE OF SERVICE: December 25, 2023 TIME: 9:02 AM PATIENT IDENTITY VERIFICATION COMPLETED USING TWO (2) IDENTIFIERS: Name and Date of confirmed by patient verbally. FALL SCREENING: Has the patient had 2 falls in the last year or 1 fall with injury or currently using an Ambulatory Assistive Device (Walker, Cane, Wheelchair, Crutches, etc.)? No PATIENT GENDER DATA: Female. status: : No status: NO. PATIENT RELEVANT IMPLANT DATA REVIEWED: Not Applicable PATIENT PRESENTS WITH AN IMPLANTABLE OR ATTACHED MICA SPREADER: No RADIOLOGY DEPARTMENT: General X-ray: Exam(s) Completed: Lower Extremity X-Ray(s): Feet, Bilateral and Wt. Bearing PERIPHERAL IV DATA: Not applicable SIGNED BY: RT Hebert(R) December 25, 2023 9:02 AM [facility] 12-24-2023 Note HNO ID: [id number] Author: CANDELARIA SIEGEL RN Service: ? Author Type: Registered Nurse Type: Progress Notes Filed: 12/24/2023 15:39 Note Text: Per Dr. Sam, Isaac was provided with a gel Achilles sleeve, size L/XL, and instructed/educated in its application, wear, and care. All questions were answered, and patient was able to demonstrate competence with the necessary skills to utilize the above equipment. Candelaria Siegel RN [facility] 12-24-2023 Note HNO ID: [id number] Author: LALA SAM, ? Service: ? Author Type: Physician Type: Progress Notes Filed: 02/25/2024 09:09 Note Text: Initial Office Visit Subjective: This 53 year old female presents to clinic for diabetic foot check. Patient has the following complaints: left heel pain. Patient presents to clinic for evaluation of left heel. She has pain to the posterior aspect of left heel radiating to the plantar aspect She states the pain has been present for a couple of months. She has seen Dr. Whitman who initially treated her as tendonitis. Patient was treated with two steroid injections taken two weeks ago. She states the injections were administered two weeks apart. She recently had xray after the injections and was told she has posterior heel spur. Patient has been offered surgical intervention. Patient is not interested in surgery as she does not have the time to stay off her foot for 2 months. Patient is here for 2nd opinion. Patient admits to being diabetic for 10 years now and states that their blood sugar was 111 mg/dL this AM. Patien'ts last A1c in October was 5.8. Patient +B/T/N in feet at this time. Patient -pain in legs when walking. No other pedal complaints at this time. No change in medications or medical history since last visit. PAIN EVALUATION 12/22/20232047 Pain Level: 7 Pain Location: Foot-Left Description: Aching;Burning;Sore;Tightness Duration Amount of Time: 24 Duration Units: Hours Frequency: Continuous Intervention/Comfort measure: Medication;Relaxation;Other: See comment Comments: Sometimes ice helps Hemoglobin A1C (%) Date Value 11/12/2023 5.8 04/08/2023 6.5 12/12/2022 7.0 03/07/2022 7.3 12/06/2021 10.1 05/31/2021 7.2 11/04/2020 7.5 05/11/2020 7.7 12/10/2019 6.6 Hemoglobin A1C (POCT) (%) Date Value 06/04/2022 6.4 PCP: Librado Barrios MD PAST MEDICAL HISTORY Diagnosis Date Asthma 07/08/2019 Breast mass, right 07/20/2013 fibrous. Cellulitis 08/01/2019 neck surgical site Depression 2012 DM (diabetes mellitus) (HCC) 04/07/2019 Hyperparathyroidism (HCC) 05/04/2019 Hypertension 03/04/2013 Infection of right breast 07/28/2013 Obesity, Class III, BMI >= 40 07/23/2019 Open wound of right breast 07/28/2013 Current Outpatient Medications Medication Sig tirzepatide (MOUNJARO) 12.5 mg/0.5 mL pen injector Inject 12.5 mg subcutaneously one time a week. metFORMIN (GLUCOPHAGE) 500 mg tablet Take 1 tablet by mouth daily with breakfast AND 2 tablets daily with dinner. Blood-Glucose Sensor (MeMeMeCOM G7 SENSOR) hany Dx: Type 2 DM - Controlled E11.9 Insulin: No meloxicam (MOBIC) 15 mg tablet Take 1 tablet by mouth once daily. With food. ondansetron orally disintegrating (ZOFRAN ODT) 4 mg disintegrating tablet Take 1 tablet by mouth every 6 hours as needed for nausea/vomiting. loperamide (IMODIUM A-D) 2 mg cap(s) Take 1 capsule by mouth four times a day as needed for diarrhea. lisinopril (ZESTRIL) 10 mg tablet Take 1 tablet by mouth once daily. hydroCHLOROthiazide 12.5 mg tablet Take 1 tablet by mouth once daily. Blood-Glucose Meter,Continuous (DEXCOM G7 BICYCLE I ASSEMBLER) misc Dx: Type 2 DM - Controlled E11.9 Insulin: No Blood-Glucose Transmitter (DEXCOM G6 TRANSMITTER) hany Dx: Type 2 DM - Controlled E11.9 Insulin: No albuterol HFA (PROVENTIL HFA, VENTOLIN HFA) 90 mcg/actuation inhaler Inhale 2 Puffs as instructed every 6 hours as needed for wheezing/shortness of breath. albuterol (PROVENTIL) 2.5 mg /3 mL (0.083 %) nebulizer solution Use 3 mL via nebulizer every 4 hours as needed for wheezing/shortness of breath. Use over 5-15minutes. fluticasone (FLONASE) 50 mcg/actuation nasal spray Use 2 Sprays in each nostril once daily. Rinse mouth after use. multivit with minerals/lutein (MULTIVITAMIN 50 PLUS ORAL) Take by mouth. loratadine 10 mg tablet Take 10 mg by mouth once daily. Patient taking 1 tablet once daily. No current facility-administered medications for this visit. ALLERGIES Allergen Reactions Penicillin G Swelling, Shortness of Breath Acrylic Acid And Ac* Rash Adhesive Other: See Comments Patient notes severe reaction to almost any type of adhesive in the past. Most recently developed significant ulceration at site where steri-strips were used after core biopsy Penicillins Hives PAST SURGICAL HISTORY Procedure Laterality Date BREAST BIOPSY INCISIONAL RIGHT Right 07/20/2013 fibrous PARATHYROIDECTOMY/EXPLORATION PARATHYROIDS 07/23/2019 REMOVAL OF KIDNEY STONE 04/2023 REMOVE TONSILS/ADENOIDS,<12 Y/O 1975 THYROID FINE NEEDLE ASPIRATION Left 05/04/2019 FAMILY HISTORY Problem Relation Age of Onset Diabetes Father Blindness Father Possibly related to diabetes, no history of blindness per patient other (CHF) Father 58 other (CVA) Father No Ocular Disease Mother Diabetes Maternal Grandmother No Ocular Disease Maternal Grandmother No Ocular Disease Maternal Grandfather (more content not included)... [facility] 12-24-2023 Note HNO ID: [id number] Author: CANDELARIA SIEGEL, RN Service: ? Author Type: Registered Nurse Type: Progress Notes Filed: 12/24/2023 15:39 Note Text: Patient presents with: Left Heel - New Patient, Pain Patient presents for second opinion regarding heel pain. Seen by Dr. Whitman and was advised surgery. Patient does not wish to have surgery at this time. She has tried 2 cortisone injections, Salonpas OTC, brace and Hokka shoes. [facility] 12-16-2023 Note HNO ID: [id number] Author: ROSA ISELA MITCHELL APRN.DATABASE ADMINISTRATOR Service: ? Author Type: Nurse Practitioner Type: Progress Notes Filed: 12/16/2023 16:11 Note Text: CC: Patient presents with: Follow Up: 4 month follow up -left heel spur seeing on 12/24/23 [facility] Isaac Aviles is a 53 year old female who presents today for above. Diabetes: Home blood sugar readings: significantly improved Hypoglycemia: No She is compliant with medication(s) but notes side effects of diarrhea due to Metformin. Last Ophthalmology exam: within the past 12 months Patient's last HgA1C : Hemoglobin A1C (%) Date Value 11/12/2023 5.8 04/08/2023 6.5 12/06/2021 10.1 05/31/2021 7.2 Hemoglobin A1C (POCT) (%) Date Value 06/04/2022 6.4 Initially able to lose 40 lbs easily on Mounjaro but has plateaued over the past few months. Admits to not exercising much due to weather and issues with her foot. Review of Systems See HPI PAST MEDICAL HISTORY Diagnosis Date Asthma 07/08/2019 Breast mass, right 07/20/2013 fibrous. Cellulitis 08/01/2019 neck surgical site Depression 2012 DM (diabetes mellitus) (HCC) 04/07/2019 Hyperparathyroidism (HCC) 05/04/2019 Hypertension 03/04/2013 Infection of right breast 07/28/2013 Obesity, Class III, BMI >= 40 07/23/2019 Open wound of right breast 07/28/2013 PAST SURGICAL HISTORY Procedure Laterality Date BREAST BIOPSY INCISIONAL RIGHT Right 07/20/2013 fibrous PARATHYROIDECTOMY/EXPLORATION PARATHYROIDS 07/23/2019 REMOVAL OF KIDNEY STONE 04/2023 REMOVE TONSILS/ADENOIDS,<12 Y/O 1976 THYROID FINE NEEDLE ASPIRATION Left 05/04/2019 ALLERGIES Penicillin G, Acrylic Acid And Acrylates, Adhesive, and Penicillins MEDICATIONS metFORMIN (GLUCOPHAGE) 500 mg tablet Take 2 tablets by mouth two times a day with meals. Blood-Glucose Sensor (DEXCOM G7 SENSOR) hany Dx: Type 2 DM - Controlled E11.9 Insulin: No meloxicam (MOBIC) 15 mg tablet Take 1 tablet by mouth once daily. With food. ondansetron orally disintegrating (ZOFRAN ODT) 4 mg disintegrating tablet Take 1 tablet by mouth every 6 hours as needed for nausea/vomiting. loperamide (IMODIUM A-D) 2 mg cap(s) Take 1 capsule by mouth four times a day as needed for diarrhea. tirzepatide (MOUNJARO) 10 mg/0.5 mL pen injector Inject 10 mg subcutaneously one time a week. lisinopril (ZESTRIL) 10 mg tablet Take 1 tablet by mouth once daily. glipiZIDE (GLUCOTROL) 5 mg tablet Take 0.25 tablets by mouth once daily as needed. hydroCHLOROthiazide 12.5 mg tablet Take 1 tablet by mouth once daily. Blood-Glucose Meter,Continuous (DEXCOM G7 BICYCLE I ASSEMBLER) [facility] [place] Dx: Type 2 DM - Controlled E11.9 Insulin: No Blood-Glucose Transmitter (DEXCOM G6 TRANSMITTER) hany Dx: Type 2 DM - Controlled E11.9 Insulin: No albuterol HFA (PROVENTIL HFA, VENTOLIN HFA) 90 mcg/actuation inhaler Inhale 2 Puffs as instructed every 6 hours as needed for wheezing/shortness of breath. albuterol (PROVENTIL) 2.5 mg /3 mL (0.083 %) nebulizer solution Use 3 mL via nebulizer every 4 hours as needed for wheezing/shortness of breath. Use over 5-15minutes. fluticasone (FLONASE) 50 mcg/actuation nasal spray Use 2 Sprays in each nostril once daily. Rinse mouth after use. multivit with minerals/lutein (MULTIVITAMIN 50 PLUS ORAL) Take by mouth. loratadine 10 mg tablet Take 10 mg by mouth once daily. Patient taking 1 tablet once daily. FAMILY HISTORY Problem Relation Age of Onset Diabetes Father Blindness Father Possibly related to diabetes, no history of blindness per patient other (CHF) Father 58 other (CVA) Father No Ocular Disease Mother Diabetes Maternal Grandmother No Ocular Disease Maternal Grandmother No Ocular Disease Maternal Grandfather No Ocular Disease Paternal Grandmother No Ocular Disease Paternal Grandfather Anesthesia Problems No Family History Blood Clots No Family History Clotting Disorder No Family History Social History Tobacco Use Smoking status: Former Smokeless tobacco: Never Tobacco comments: stopped in her 20's Vaping Use Vaping Use: Never used Substance Use Topics Alcohol use: No Drug use: No Comment: THC drops BP 118/58 (BP Site: Right Arm, BP Position: Sitting, BP Cuff Size: Large Adult) Pulse 89 Temp 36.5 ?C (97.7 ?F) Resp 14 Ht 160 cm (5' 3 ) Wt 114.3 kg (252 lb) LMP (LMP Unknown) SpO2 98% BMI 44.64 kg/m? Physical Exam Vitals reviewed. Constitutional: Appearance: Normal appearance. Neurological: Mental Status: She is alert. Psychiatric: Mood and Affect: Mood normal. Health maintenance reviewed with patient: Shingrix Vaccine(1 of 2) Never done Covid-19 Vaccine( season) due on 07/26/2023 Depression Assessment due on 11/25/2023 Diabetic Foot Exam due on 12/17/2023 Mammogram Screening due on 01/15/2024 HbA1C due on 05/13/2024 Dilated Retinal Exam due on 07/23/2024 Annual PCP Team Chronic Disease Visit due on 08/05/2024 BP Controlled (<130/80) due (more content not included)... [facility] 11-05-2023 Miscellaneous Notes Patient notified fasting lab order is in. Ignacia Carmona LPN Pt has an apt coming up 12/16/23 for 4 month follow up. Pt calling to get lab orders for fasting blood work. Please advise pt when orders are in place. Ebonie Pelaez LPN documented in this encounter [facility] 10-30-2023 Miscellaneous Notes Patient has been identified by name and date of : Yes Patient phones for refill(s): Requested Prescriptions Pending Prescriptions Disp Refills meloxicam (MOBIC) 15 mg tablet 30 tablet 2 Sig: Take 1 tablet by mouth once daily. With food. Date of last office visit in primary care: 08/05/2023 Date of next office visit in primary care: 12/16/2023 Last 2 Encounter Wt Readings: Date: Wt: 08/05/2023 112.5 kg (248 lb) 05/02/2023 121.3 kg (267 lb 6.4 oz) Previous labs/tests for medication: Not applicable Please advise. Thank you. Ignacia Carmona LPN. Patient has been identified by name and date of : Yes Requested Prescriptions Pending Prescriptions Disp Refills meloxicam (MOBIC) 15 mg tablet 30 tablet 2 Sig: Take 1 tablet by mouth once daily. With food. RX INSTRUCTIONS: Patient aware RX will be sent to [facility]'s pharmacy. No need to notify patient. Sharlene Schulz documented in this encounter [facility] 10-22-2023 Note HNO ID: [id number] Author: Lux Alejo APRN.RIBBON CLEANER Service: ? Author Type: Nurse Specialist Type: Progress Notes Filed: 10/22/2023 9:40 AM Note Text: Telemedicine Evaluation for COVID-19 Infection MyChart Zoom Video Visit was used for evaluation of this patient. I have communicated my name and active licensure. The patient's identity and physical location were verified at the time of this visit. Either the patient or their legal solar sales representative has been informed of the risks and benefits of -- and alternatives to -- treatment through a remote evaluation and consents to proceed with the evaluation remotely. SUBJECTIVE Isaac Aviles is a 53 year old female who presents with 1 day of symptoms that are worsening. Symptoms include: Fever (?100.4F): No or Chills: Yes Cough: Yes Shortness of breath: No or Difficulty breathing: No Fatigue: Yes Muscle aches: Yes Headache: Yes New loss of smell or taste: No Sore throat: Yes Nasal congestion: Yes or Rhinorrhea: Yes Nausea: Yes or Vomiting: No Diarrhea: Yes OTC meds/remedies that patient has tried: NSAIDs. High risk category assessment Diabetes Hypertension Exposures: Sick contacts? No Family or close contacts with confirmed/probable COVID-19 in last 14 days? No OBJECTIVE VIDEO EXAM no VS GENERAL: Ill-appearing, but non-toxic HEENT: no conjunctival injection, pupils equal and moist mucous membranes PULMONARY: breathing comfortably on room air , no coughing noted, and no wheezing noted Creatinine Date Value Ref Range Status 04/08/2023 0.58 0.58 - 0.96 mg/dL Final 08/07/2022 0.55 (L) 0.58 - 0.96 mg/dL Final 03/07/2022 0.48 (L) 0.58 - 0.96 mg/dL Final 05/31/2021 0.55 (L) 0.58 - 0.96 mg/dL Final ASSESSMENT/PLAN (U07.1) COVID-19 virus infection (primary encounter diagnosis) - Discussed symptom monitoring and supportive care - Red flag symptoms requiring follow up discussed This patient encounter involved the screening or treatment of novel coronavirus infection (COVID-19). Nirmatrelvir/Ritonavir (Paxlovid) Considerations Paxlovid is FDA-approved for treatment of mild to moderate COVID-19 in adults who are at high risk for progression to severe COVID-19. Consider use of Paxlovid in the following examples of high risk patients (list is not all inclusive): Age over 65 years Cardiovascular and cerebrovascular disease Chronic disease state (kidney, liver, lung) Diabetes (type 1 or type 2) Immunocompromised state (cancer, solid organ or blood stem cell transplant, HIV) Obesity Paxlovid warnings include serious drug interactions (co-administration with drugs highly dependent on CYP3A for clearance), hypersensitivity reactions, hepatotoxicity, and risk of HIV-1 resistance development. Lux Alejo APRN.RIBBON CLEANER October 22, 2023 9:33 AM 20 min in visit [facility] 10-22-2023 History of Present illness Narrative Telemedicine Evaluation for COVID-19 Infection MyChart Zoom Video Visit was used for evaluation of this patient. I have communicated my name and active licensure. The patient's identity and physical location were verified at the time of this visit. Either the patient or their legal solar sales representative has been informed of the risks and benefits of -- and alternatives to -- treatment through a remote evaluation and consents to proceed with the evaluation remotely. SUBJECTIVE Isaac Aviles is a 53 year old female who presents with 1 day of symptoms that are worsening. Symptoms include: Fever (?100.4F): No or Chills: Yes Cough: Yes Shortness of breath: No or Difficulty breathing: No Fatigue: Yes Muscle aches: Yes Headache: Yes New loss of smell or taste: No Sore throat: Yes Nasal congestion: Yes or Rhinorrhea: Yes Nausea: Yes or Vomiting: No Diarrhea: Yes OTC meds/remedies that patient has tried: NSAIDs. High risk category assessment Diabetes Hypertension Exposures: Sick contacts? No Family or close contacts with confirmed/probable COVID-19 in last 14 days? No OBJECTIVE VIDEO EXAM no VS GENERAL: Ill-appearing, but non-toxic HEENT: no conjunctival injection, pupils equal and moist mucous membranes PULMONARY: breathing comfortably on room air , no coughing noted, and no wheezing noted Creatinine Date Value Ref Range Status 04/08/2023 0.58 0.58 - 0.96 mg/dL Final 08/07/2022 0.55 (L) 0.58 - 0.96 mg/dL Final 03/07/2022 0.48 (L) 0.58 - 0.96 mg/dL Final 05/31/2021 0.55 (L) 0.58 - 0.96 mg/dL Final ASSESSMENT/PLAN (U07.1) COVID-19 virus infection (primary encounter diagnosis) - Discussed symptom monitoring and supportive care - Red flag symptoms requiring follow up discussed This patient encounter involved the screening or treatment of novel coronavirus infection (COVID-19). Nirmatrelvir/Ritonavir (Paxlovid) Considerations Paxlovid is FDA-approved for treatment of mild to moderate COVID-19 in adults who are at high risk for progression to severe COVID-19. Consider use of Paxlovid in the following examples of high risk patients (list is not all inclusive): Age over 65 years Cardiovascular and cerebrovascular disease Chronic disease state (kidney, liver, lung) Diabetes (type 1 or type 2) Immunocompromised state (cancer, solid organ or blood stem cell transplant, HIV) Obesity Paxlovid warnings include serious drug interactions (co-administration with drugs highly dependent on CYP3A for clearance), hypersensitivity reactions, hepatotoxicity, and risk of HIV-1 resistance development. Lux Alejo APRN.CNS October 22, 2023 9:33 AM 20 min in visit documented in this encounter [facility] 10-22-2023 Instructions Lux Alejo APRN.CNS - 10/22/2023 9:27 AM EST Images from the original note were not included. Beginning Home Isolation Isolation is used to separate people infected with SARS-CoV-2, the virus that causes COVID-19, from people who are not infected. People who are in isolation should stay home until it s safe for them to be around others. In the home, anyone sick or infected should separate themselves from others by staying in a specific sick room or area and using a separate bathroom (if available). Isolation or Quarantine: What's the difference? Quarantine keeps someone who might have been exposed to the virus away from others. Isolation keeps someone who is infected with the virus away from others, even in their home. Who needs to isolate People who have COVID-19 People who have symptoms of COVID-19 and are able to recover at home People who have no symptoms (are asymptomatic) but have tested positive for infection with SARS-CoV-2 Steps to take Stay home except to get medical care Monitor your symptoms. Stay in a separate room from other household members, if possible Use a separate bathroom, if possible Avoid contact with other members of the household and pets Don t share personal household items, like cups, towels, and utensils Wear a mask when around other people, if you are able to When to seek emergency medical attention Look for emergency warning signs* for COVID-19. If someone is showing any of these signs, seek emergency medical care immediately: Trouble breathing Persistent pain or pressure in the chest New confusion Inability to wake or stay awake Bluish lips or face *This list is not all possible symptoms. Please call your medical provider for any other symptoms that are severe or concerning to you. Call 911 or call ahead to your local emergency facility: Notify the screwdown operator that you are seeking care for someone who has or may have COVID-19. Ending Home Isolation - When you can be around others after you had or likely had COVID-19 When you can be around others after you had or likely had COVID-19 If You Test Positive for COVID-19 (Isolation) Everyone, regardless of vaccination status: Stay home for 5 days. Note: Day 0 is your first day of symptoms or the date of collection of a positive viral test if no symptoms. Day 1 is the first full day after symptoms developed or test specimen was collected. If you have no symptoms or your symptoms are resolving after 5 days, you can leave your house. Continue to wear a mask around others for 5 additional days. If you have a fever, continue to stay home until your fever resolves, even if it is longer than 5 days. If You Were Exposed to Someone with COVID-19 (Quarantine) If you: 1. Have been boosted OR 2. Completed the primary series of Pfizer or Moderna vaccine within the last 6 months OR 3. Completed the primary series of J&J vaccine within the last 2 months THEN: 1. Wear a mask around others for 10 days. 2. Test on day 5, if possible. If you develop symptoms get a test and stay home. If You Were Exposed to Someone with COVID-19 (Quarantine) If you: 1. Completed the primary series of Pfizer or Moderna vaccine over 6 months ago and are not boosted OR 2. Completed the primary series of J&J over 2 months ago and are not boosted OR 3. Are unvaccinated THEN: 1. Stay home for 5 days. After that continue to wear a mask around others for 5 additional days. 2. If you can't quarantine you must wear a mask for 10 days. 3. Test on day 5 if possible. If you develop symptoms get a test and stay home. I had COVID-19 or I tested positive for COVID-19 and I have a weakened immune system If you have a weakened immune system (immunocompromised) due to a health condition or medication, you might need to stay home and isolate longer than 10 days. Talk to your healthcare provider for more information. Your doctor may work with an infectious disease expert at your local health department to determine when you can be around others. How to Manage Common Symptoms Associated with COVID for Adults Fever- Fever is a temperature over 100.4 F and can occur when the body is fighting an infection. To help treat a fever: Drink plenty of fluids and stay well hydrated. Eat small amounts of easy to digest food. Rest. Your body needs rest to recover, but getting up and moving around the house frequently is a good idea. You should try to continue doing your normal daily activities (bathing, toileting, grooming, cooking), though you will probably feel tired, and need to rest often. Avoid any heavy activity or exercise, as this will increase your body temperature. Dress in light clothing and stay covered in a light sheet. Keep the room temperature cool. Take a slightly warm (not cold or cool) bath, or apply damp washcloths to the forehead and wrists. Cough- Cough is a common symptom associated with COVID and can be bothersome. To help treat a cough: Stay well hydrated. Try warm water or tea with lemon and/or honey to help soothe the cough. Use a humidifier to add moisture to the air. Try a product with menthol, like a cough drop or a rub for your chest such as Vicks, which can help reduce cough. Try cough drops. Avoid smoking and other strong odors or perfumes. Try breathing exercises to keep your lungs open and clear. Take a big deep breath through your nose and hold for 5 seconds before slowly releasing. Repeat frequently, while you are awake. Congestion- Runny nose or nasal congestion can occur with COVID. Treatment can help relieve symptoms: Try OTC nasal saline spray, or nasal saline rinse to relieve mucus congestion. Nasal strips can help keep nasal passages open, to increase airflow. Elevating your head with an extra pillow in bed can help reduce congestion. Using a humidifier can increase moisture in the air, and make breathing easier. Sore Throat- Another common symptom with COVID, can be managed at home by: Stay well hydrated. Gargle with salt water - mix teaspoon salt with 1 cup of warm water and gargle. This helps to loosen mucus in the back of the throat and may reduce discomfort. Try ice chips, popsicles or lozenges to soothe the throat. Nausea/Vomiting/Diarrhea- These are common symptoms, and staying hydrated is most important. If you are nauseous or vomiting, start with small sips of water every 10-15 minutes and increase as tolerated. You can try sucking an ice cube too. If tolerating, you can try pedialyte or Gatorade, or flat sprite or mitul-chikis. Start slowly and increase as you are able to. Instead of meals, try smaller, more frequent snacks. Try eating bland foods like crackers, toast, rice, and applesauce. Avoid spicy, greasy or fried foods and dairy containing foods. Even if you aren't feeling hungry due to lack of smell or taste, it is important to try to take in some food when you are able. After drinking and eating, rest in an upright position for up to two hours as needed to help decrease nauseous feelings. Try closing your eyes, avoid moving and watching TV. Avoid strong odors that can make you feel more nauseated. When to seek emergency medical attention Look for emergency warning signs for COVID-19. If having any of these symptoms, seek emergency medical care immediately: Trouble breathing Persistent pain or pressure in the chest New confusion Inability to wake or stay awake Bluish lips or face *This list is not all possible symptoms. Please call your medical provider for any other symptoms that are severe or concerning to you. FACT SHEET FOR PATIENTS, PARENTS, AND CAREGIVERS EMERGENCY USE AUTHORIZATION (EUA) OF PAXLOVID FOR CORONAVIRUS DISEASE 2019 (COVID-19) You are being given this Fact Sheet because your healthcare provider believes it is necessary to provide you with PAXLOVID for the treatment of aufr-yc-qvimsuke coronavirus disease (COVID-19) caused by the SARS-CoV-2 virus. This Fact Sheet contains information to help you understand the risks and benefits of taking the PAXLOVID you may receive. This Fact Sheet also contains information about how to take PAXLOVID and how to report side effects or problems with the appearance or packaging of PAXLOVID. The U.S. Food and Drug Administration (FDA) has issued an Emergency Use Authorization (EUA) to make PAXLOVID available for the treatment of mnnz-ep-owyizklq COVID-19 in adults and children 12 years of age and older weighing at least 88 pounds (40 kg) who are at high risk for progression to severe COVID-19, including hospitalization or (for more details about an EUA please see What is an Emergency Use Authorization? at the end of this document). Read this Fact Sheet for information about PAXLOVID. Talk to your healthcare provider about your options or if you have any questions. It is your choice to take PAXLOVID. What is COVID-19? COVID-19 is caused by a virus called a coronavirus. You can get COVID-19 through close contact with another person who has the virus. COVID-19 illnesses have ranged from very derw-tm-kwevow, including illness resulting in . While information so far suggests that most COVID-19 illness is mild, serious illness can happen and may cause some of your other medical conditions to become worse. Older people and people of all ages with severe, long lasting (chronic) medical conditions like heart disease, lung disease, and diabetes, for example seem to be at higher risk of being hospitalized for COVID-19. What is PAXLOVID? PAXLOVID is a medicine that is available under EUA for the treatment of rglb-kg-tyorpxby COVID-19 in adults and children 12 years of age and older weighing at least 88 pounds (40 kg) who are at high risk for progression to severe COVID-19, including hospitalization or . Although PAXLOVID is FDA-approved for the treatment of COVID-19 in certain adults (see section What other treatment choices are there?), PAXLOVID use in children remains investigational because it is still being studied. There is limited information about the safety and effectiveness of using PAXLOVID to treat children with pmnc-mo-kdidjqsg COVID-19. What is the most important information I should know about PAXLOVID? PAXLOVID can interact with other medicines causing severe or life-threatening side effects or . It is important to know the medicines that should not be taken with PAXLOVID. Do not take PAXLOVID if: you are taking any of the following medicines: o alfuzosin o amiodarone o apalutamide o carbamazepine o colchicine o dihydroergotamine o dronedarone o eletriptan o eplerenone o ergotamine o finerenone o flecainide o flibanserin o ivabradine o lomitapide o lovastatin o lumacaftor/ivacaftor o lurasidone o methylergonovine o midazolam (oral) o naloxegol o phenobarbital o phenytoin o pimozide o primidone o propafenone o quinidine o ranolazine o rifampin o rifapentine o [place] s Wort (hypericum perforatum) o sildenafil (Revatio ) for pulmonary arterial hypertension o silodosin o simvastatin o tolvaptan o triazolam o ubrogepant o voclosporin These are not the only medicines that may cause serious or life-threatening side effects if taken with PAXLOVID. PAXLOVID may increase or decrease the levels of multiple other medicines. It is very important to tell your healthcare provider about all of the medicines you are taking because additional laboratory tests or changes in the dose of your other medicines may be necessary during treatment with PAXLOVID. Your healthcare provider may also tell you about specific symptoms to watch out for that may indicate that you need to stop or decrease the dose of some of your other medicines. you are allergic to nirmatrelvir, ritonavir, or any of the ingredients in PAXLOVID. See the end of this leaflet for a complete list of ingredients in PAXLOVID. See What are the important possible side effects of PAXLOVID? for signs and symptoms of allergic reactions. What should I tell my healthcare provider before I take PAXLOVID? Tell your healthcare provider if you: have kidney problems. You may need a different dose of PAXLOVID. have liver problems, including hepatitis. have Human Immunodeficiency Virus 1 (HIV-1) infection. PAXLOVID may lead to some HIV-1 medicines not working as well in the future. are or plan to become . It is not known if PAXLOVID can harm your unborn baby. Tell your healthcare provider right away if you are or if you become . are or plan to breastfeed. It is not known if PAXLOVID can pass into your breast milk. Talk to your healthcare provider about the best way to feed your baby during treatment with PAXLOVID. Some medicines may interact with PAXLOVID and may cause serious side effects. Tell your healthcare provider about all the medicines you take, including prescription and pdby-kod-hvymwxv medicines, vitamins, and herbal supplements. Your healthcare provider can tell you if it is safe to take PAXLOVID with other medicines. You can ask your healthcare provider or pharmacist for a list of medicines that interact with PAXLOVID. Do not start taking a new medicine without telling your healthcare provider. Tell your healthcare provider if you are taking combined control (hormonal contraceptive). PAXLOVID may affect how your hormonal contraceptives work. Females who are able to become should use another effective alternative form of contraception or an additional barrier method of contraception during treatment with PAXLOVID. Talk to your healthcare provider if you have any questions about contraceptive methods that might be right for you. How do I take PAXLOVID? Take PAXLOVID exactly as your healthcare provider tells you to take it. PAXLOVID consists of 2 medicines: nirmatrelvir tablets and ritonavir tablets. The 2 medicines are taken together 2 times each day for 5 days. Nirmatrelvir is an oval, pink tablet. Ritonavir is a white or off-white tablet. PAXLOVID is available in 2 Dose Packs (see Figures A and B below). Your healthcare provider will prescribe the PAXLOVID Dose Pack that is right for you. If you have kidney disease, your healthcare provider may prescribe a lower dose (see Figure B). Talk to your healthcare provider to make sure you receive the correct Dose Pack. Do not remove your PAXLOVID tablets from the blister card before you are ready to take your dose. Take your first dose of PAXLOVID in the morning or evening, depending on when you sweet pickled fruit maker your prescription, or as your healthcare provider tells you to. Swallow the tablets whole. Do not chew, break, or crush the tablets. Take PAXLOVID with or without food. Do not stop taking PAXLOVID without talking to your healthcare provider, even if you feel better. If you miss a dose of PAXLOVID within 8 hours of the time it is usually taken, take it as soon as you remember. If you miss a dose by more than 8 hours, skip the missed dose and take the next dose at your regular time. Do not take 2 doses of PAXLOVID at the same time. If you take too much PAXLOVID, call your healthcare provider or go to the nearest hospital emergency room right away. If you are taking a ritonavir- or cobicistat-containing medicine to treat hepatitis C or HIV-1 infection, you should continue to take your medicine as prescribed by your healthcare provider. Talk to your healthcare provider if you do not feel better or if you feel worse after 5 days. What are the important possible side effects of PAXLOVID? PAXLOVID may cause serious side effects, including: Allergic reactions, including severe allergic reactions (anaphylaxis) have happened during treatment with PAXLOVID. Stop taking PAXLOVID and get medical help right away if you get any of the following symptoms of an allergic reaction: o skin rash, hives, blisters or peeling skin o painful sores or ulcers in the mouth, nose, throat or genital area o swelling of the mouth, lips, tongue or face o trouble swallowing or breathing o throat tightness o hoarseness Liver Problems. Tell your healthcare provider right away if you get any of the following signs and symptoms of liver problems during treatment with PAXLOVID: o loss of appetite o yellowing of your skin and the white of eyes o dark-colored urine o pale colored stools o itchy skin o stomach-area (abdominal) pain The most common side effects of PAXLOVID include: altered sense of taste and diarrhea. Other possible side effects include: headache vomiting abdominal pain nausea high blood pressure feeling generally unwell These are not all the possible side effects of PAXLOVID. For more information, ask your healthcare provider or pharmacist. What other treatment choices are there? PAXLOVID is FDA-approved for the treatment of csqi-fv-titpzrxh COVID-19 in certain adults; however, there are not sufficient quantities of the approved presentations (i.e., dose packs) of PAXLOVID at this time. This EUA continues to authorize the emergency use of PAXLOVID for the approved patient population to ensure continued access in order to meet the public health need. VEKLURY (remdesivir) is FDA-approved for the treatment of riku-du-kcfcvxtv COVID-19 in certain adults and children. Talk with your healthcare provider to see if VEKLURY is appropriate for you. For information on the emergency use of other medicines that are authorized by FDA to treat people with COVID-19, please go to https://www.fda.gov/emergency-prep mmsbcpos-dru-rhkefylz/nxb-bmtzr-at ggxkbiah-yrq-aacznd-framework/zakia pupee-huj-kmxbgzhtanwxh. Your healthcare provider may talk with you about clinical trials for which you may be eligible. It is your choice to be treated or not to be treated with PAXLOVID. Should you decide not to receive it or for your child not to receive it, it will not change your standard medical care. What if I am or ? There is limited experience treating women or mothers with PAXLOVID. For a mother and unborn baby, the benefit of taking PAXLOVID may be greater than the risk from the treatment. If you are , discuss your options and specific situation with your healthcare provider. If you are , discuss your options and specific situation with your healthcare provider. How do I report side effects or problems with the appearance or packaging of PAXLOVID? Contact your healthcare provider if you have any side effects that bother you or do not go away. Report side effects or problems with the appearance or packaging of PAXLOVID (see Figures A and B above for examples of PAXLOVID Dose Packs) to [employer] at www.fda.gov/medWedding.com.my or call 2-700-WYB-5657 or you can report side effects to [employer] at the contact information provided below. How should I store PAXLOVID? Store PAXLOVID tablets at room temperature, between 68?F to 77?F (20?C to 25?C). Keep PAXLOVID and all medicines out of the reach of children. What if I have questions about the expiration date for my PAXLOVID? The FDA has extended the expiration date (shelf-life) for some lots of PAXLOVID. To find the extended expiration date, enter the lot number found on the side of carton or bottom of blister pack at this website: https://www.paxlovidlotexTrans [employer]/ or talk with your healthcare provider. Information on the authorized shelf-life extensions for PAXLOVID may also be found at https://www.fda.gov/emergency-prep rqhvkifa-jkl-qnuovmed/pwm-pjsnc-ri fyfscxbu-cty-tfcigj-framework/expi gmwshy-jdaezl-rguafncdn. How can I learn more about COVID-19? Ask your healthcare provider. Visit https://www.cdc.gov/COVID19. Contact your local or state public health department. What is an Emergency Use Authorization (EUA)? The [place] FDA has made PAXLOVID available under an emergency access mechanism called an Emergency Use Authorization (EUA). The EUA is supported by a [place] of Health and Human Services ([facility]) declaration that circumstances exist to justify the emergency use of drugs and biological products during the COVID-19 pandemic. In issuing an EUA, the FDA has determined, among other things, that based on the total amount of scientific evidence available including data from adequate and well-controlled clinical trials, if available, it is reasonable to believe that the product may be effective for diagnosing, treating, or preventing COVID-19, or a serious or life-threatening disease or condition caused by COVID-19; that the known and potential benefits of the product, when used to diagnose, treat, or prevent such disease or condition, outweigh the known and potential risks of such product; and that there are no adequate, approved, and available alternatives. All of these criteria must be met to allow for the product to be available under an EUA. The EUA for PAXLOVID is in effect for the duration of the COVID-19 declaration justifying emergency use of this product, unless the relevant EUA declaration is terminated or the EUA revoked (after which the products may no longer be used under the EUA). What are the ingredients in PAXLOVID? Active ingredient: nirmatrelvir and ritonavir Nirmatrelvir inactive ingredients: colloidal silicon dioxide, croscarmellose sodium, lactose monohydrate, microcrystalline cellulose, and sodium stearyl fumarate. Film-coating contains: hydroxy propyl methylcellulose, iron oxide red, polyethylene glycol, and titanium dioxide. Ritonavir inactive ingredients: anhydrous dibasic calcium phosphate, colloidal silicon dioxide, copovidone, sodium stearyl fumarate, and sorbitan monolaurate. The film coating may contain: colloidal anhydrous silica, colloidal silicon dioxide, hydroxypropyl cellulose, hypromellose, polyethylene glycol, polysorbate 80, talc, and titanium dioxide. Additional Information For general questions, visit the website or call the telephone number provided below. Website: www.[employer] Telephone number: (1-877-c19-pack) Distributed by [employer] of [employer] [place] [address] [id number] Revised: 03/2023 documented in this encounter [facility] 10-02-2023 Miscellaneous Notes Patient notified rx sent and alla notified [facility] of claim to make sure went through as paid. Patient will let us know if any other issue Erinn Hathaway Ma PA on file shows approval for 10 mg till 04/17. Called patient to verify she is wanting to go to 10 mg. States rx was transferred to [facility] but advised 10 mg was canceled when that dose out of stock an sent 7.5 mg. Please send 10 mg to [facility] . Alla reprocessed PA was not going through due to denial before approval. They will call jarad to fix issue Erinn Hathaway Ma PRIOR AUTHORIZATION Medication for Prior Authorization: Mounjaro 10mg Other formulary meds available : NA Insurance Company: Medicaid Insurance Company phone number: [phone] Patient insurance ID number: [id number] Patient Plan number: [id number] This med was authorized from 03/2023-03/2024 however pharmacy is saying they are not seeing approval, pt switched pharmacies. Odalis Ambrocio LPN documented in this encounter [facility] 08-05-2023 Note HNO ID: [id number] Author: Rosa Isela Yanez APRN.DATABASE ADMINISTRATOR Service: ? Author Type: Nurse Practitioner Type: Progress Notes Filed: 08/05/2023 4:03 PM Note Text: CC: Patient presents with: Follow Up Immunizations: Flu vaccination HPI Isaac Aviles is a 53 year old female who presents today for above. She is doing well overall, denies any concerns or issues today. She is taking all medications as prescribed without side effects. Her blood sugars are well controlled on CGM. She has lost about 40 lbs since starting Mounjaro but has reached a plateau. She would like to increase the dose of Mounjaro from 7.5 mg to 10 mg weekly however this dosage is not available at this time due to supply issues. She had bladder surgery for kidney stones by Dr. Alanis a few months ago and no issues since then. REVIEW OF SYSTEMS GENERAL: Negative for malaise,fever, night sweats RESPIRATORY: Negative for cough, wheezing and shortness of breath CARDIOVASCULAR: Negative for chest pain, leg swelling and palpitations PAST MEDICAL HISTORY Diagnosis Date Asthma 07/08/2019 Breast mass, right 07/20/2013 fibrous. Cellulitis 08/01/2019 neck surgical site Depression 2012 DM (diabetes mellitus) (HCC) 04/07/2019 Hyperparathyroidism (HCC) 05/04/2019 Hypertension 03/04/2013 Infection of right breast 07/28/2013 Obesity, Class III, BMI >= 40 07/23/2019 Open wound of right breast 07/28/2013 PAST SURGICAL HISTORY Procedure Laterality Date BREAST BIOPSY INCISIONAL RIGHT Right 07/20/2013 fibrous PARATHYROIDECTOMY/EXPLORATION PARATHYROIDS 07/23/2019 REMOVAL OF KIDNEY STONE 04/2023 REMOVE TONSILS/ADENOIDS,<12 Y/O 1975 THYROID FINE NEEDLE ASPIRATION Left 05/04/2019 ALLERGIES Penicillin G, Acrylic Acid And Acrylates, Adhesive, and Penicillins MEDICATIONS meloxicam (MOBIC) 15 mg tablet Take 1 tablet by mouth once daily. With food. Blood-Glucose Meter,Continuous (DEXCOM G7 BICYCLE I ASSEMBLER) misc Dx: Type 2 DM - Controlled E11.9 Insulin: No Blood-Glucose Sensor (DEXCOM G7 SENSOR) hany Dx: Type 2 DM - Controlled E11.9 Insulin: No tirzepatide (MOUNJARO) 7.5 mg/0.5 mL pen injector Inject 7.5 mg subcutaneously one time a week. metFORMIN (GLUCOPHAGE) 500 mg tablet Take 2 tablets by mouth twice daily with meals. hydroCHLOROthiazide 25 mg tablet Take 1 tablet by mouth once daily. (Patient taking differently: Take 12.5 mg by mouth once daily.) glipiZIDE (GLUCOTROL) 5 mg tablet Take 1 tablet by mouth daily with food. (Patient taking differently: Take by mouth daily with food. Taking half on a half tablet as needed) Blood-Glucose Transmitter (DEXCOM G6 TRANSMITTER) hany Dx: Type 2 DM - Controlled E11.9 Insulin: No albuterol HFA (PROVENTIL HFA, VENTOLIN HFA) 90 mcg/actuation inhaler Inhale 2 Puffs as instructed every 6 hours as needed for wheezing/shortness of breath. albuterol (PROVENTIL) 2.5 mg /3 mL (0.083 %) nebulizer solution Use 3 mL via nebulizer every 4 hours as needed for wheezing/shortness of breath. Use over 5-15minutes. lisinopril (ZESTRIL, PRINIVIL) 20 mg tablet Take 1 tablet by mouth once daily. (Patient taking differently: Take 10 mg by mouth once daily.) fluticasone (FLONASE) 50 mcg/actuation nasal spray Use 2 Sprays in each nostril once daily. Rinse mouth after use. multivit with minerals/lutein (MULTIVITAMIN 50 PLUS ORAL) Take by mouth. loratadine 10 mg tablet Take 10 mg by mouth once daily. Patient taking 1 tablet once daily. vit A/vit C/vit E/zinc/copper (PRESERVISION AREDS ORAL) Take by mouth. generic (Patient not taking: Reported on 08/05/2023) FAMILY HISTORY Problem Relation Age of Onset Diabetes Father Blindness Father Possibly related to diabetes, no history of blindness per patient other (CHF) Father 58 other (CVA) Father No Ocular Disease Mother Diabetes Maternal Grandmother No Ocular Disease Maternal Grandmother No Ocular Disease Maternal Grandfather No Ocular Disease Paternal Grandmother No Ocular Disease Paternal Grandfather Anesthesia Problems No Family History Blood Clots No Family History Clotting Disorder No Family History Social History Tobacco Use Smoking status: Former Smokeless tobacco: Never Tobacco comments: stopped in her 20's Vaping Use Vaping Use: Never used Substance Use Topics Alcohol use: No Drug use: No Comment: THC drops PHYSICAL EXAM BP 103/71 Pulse 72 Resp 16 Wt 112.5 kg (248 lb) LMP (LMP Unknown) BMI 43.93 kg/m? General Appearance: well appearing, in no acute distress, alert Pysch: mood and affect broad and appropriate Health maintenance reviewed with patient: INFLUENZA(1) due on 07/26/2023 LDL CHOLESTEROL due on 08/07/2023 COLORECTAL CANCER SCREENING due on 08/13/2023 SHINGRIX VACCINE(1 of 2) due on 08/13/2023 COVID-19 VACCINE(4 - Moderna series) due on 08/13/2023 HBA1C due on 10/09/2023 URINE ALBUMIN:CREATININE RATIO due on 12/17/2023 DIABETIC FOOT EXAM due on 12/17/2023 MAMMOGRAM due on (more content not included)... [facility] 08-05-2023 History of Present illness Narrative CC: Patient presents with: Follow Up Immunizations: Flu vaccination HPI Isaac Aviles is a 53 year old female who presents today for above. She is doing well overall, denies any concerns or issues today. She is taking all medications as prescribed without side effects. Her blood sugars are well controlled on CGM. She has lost about 40 lbs since starting Mounjaro but has reached a plateau. She would like to increase the dose of Mounjaro from 7.5 mg to 10 mg weekly however this dosage is not available at this time due to supply issues. She had bladder surgery for kidney stones by Dr. Alanis a few months ago and no issues since then. REVIEW OF SYSTEMS GENERAL: Negative for malaise,fever, night sweats RESPIRATORY: Negative for cough, wheezing and shortness of breath CARDIOVASCULAR: Negative for chest pain, leg swelling and palpitations PAST MEDICAL HISTORY Diagnosis Date Asthma 07/08/2019 Breast mass, right 07/20/2013 fibrous. Cellulitis 08/01/2019 neck surgical site Depression 2012 DM (diabetes mellitus) (HCC) 04/07/2019 Hyperparathyroidism (HCC) 05/04/2019 Hypertension 03/04/2013 Infection of right breast 07/28/2013 Obesity, Class III, BMI >= 40 07/23/2019 Open wound of right breast 07/28/2013 PAST SURGICAL HISTORY Procedure Laterality Date BREAST BIOPSY INCISIONAL RIGHT Right 07/20/2013 fibrous PARATHYROIDECTOMY/EXPLORATION PARATHYROIDS 07/23/2019 REMOVAL OF KIDNEY STONE 04/2023 REMOVE TONSILS/ADENOIDS,<12 Y/O 1975 THYROID FINE NEEDLE ASPIRATION Left 05/04/2019 ALLERGIES Penicillin G, Acrylic Acid And Acrylates, Adhesive, and Penicillins MEDICATIONS meloxicam (MOBIC) 15 mg tablet Take 1 tablet by mouth once daily. With food. Blood-Glucose Meter,Continuous (DEXCOM G7 BICYCLE I ASSEMBLER) misc Dx: Type 2 DM - Controlled E11.9 Insulin: No Blood-Glucose Sensor (DEXCOM G7 SENSOR) hany Dx: Type 2 DM - Controlled E11.9 Insulin: No tirzepatide (MOUNJARO) 7.5 mg/0.5 mL pen injector Inject 7.5 mg subcutaneously one time a week. metFORMIN (GLUCOPHAGE) 500 mg tablet Take 2 tablets by mouth twice daily with meals. hydroCHLOROthiazide 25 mg tablet Take 1 tablet by mouth once daily. (Patient taking differently: Take 12.5 mg by mouth once daily.) glipiZIDE (GLUCOTROL) 5 mg tablet Take 1 tablet by mouth daily with food. (Patient taking differently: Take by mouth daily with food. Taking half on a half tablet as needed) Blood-Glucose Transmitter (DEXCOM G6 TRANSMITTER) hany Dx: Type 2 DM - Controlled E11.9 Insulin: No albuterol HFA (PROVENTIL HFA, VENTOLIN HFA) 90 mcg/actuation inhaler Inhale 2 Puffs as instructed every 6 hours as needed for wheezing/shortness of breath. albuterol (PROVENTIL) 2.5 mg /3 mL (0.083 %) nebulizer solution Use 3 mL via nebulizer every 4 hours as needed for wheezing/shortness of breath. Use over 5-15minutes. lisinopril (ZESTRIL, PRINIVIL) 20 mg tablet Take 1 tablet by mouth once daily. (Patient taking differently: Take 10 mg by mouth once daily.) fluticasone (FLONASE) 50 mcg/actuation nasal spray Use 2 Sprays in each nostril once daily. Rinse mouth after use. multivit with minerals/lutein (MULTIVITAMIN 50 PLUS ORAL) Take by mouth. loratadine 10 mg tablet Take 10 mg by mouth once daily. Patient taking 1 tablet once daily. vit A/vit C/vit E/zinc/copper (PRESERVISION AREDS ORAL) Take by mouth. generic (Patient not taking: Reported on 08/05/2023) FAMILY HISTORY Problem Relation Age of Onset Diabetes Father Blindness Father Possibly related to diabetes, no history of blindness per patient other (CHF) Father 58 other (CVA) Father No Ocular Disease Mother Diabetes Maternal Grandmother No Ocular Disease Maternal Grandmother No Ocular Disease Maternal Grandfather No Ocular Disease Paternal Grandmother No Ocular Disease Paternal Grandfather Anesthesia Problems No Family History Blood Clots No Family History Clotting Disorder No Family History Social History Tobacco Use Smoking status: Former Smokeless tobacco: Never Tobacco comments: stopped in her 20's Vaping Use Vaping Use: Never used Substance Use Topics Alcohol use: No Drug use: No Comment: THC drops PHYSICAL EXAM BP 103/71 Pulse 72 Resp 16 Wt 112.5 kg (248 lb) LMP (LMP Unknown) BMI 43.93 kg/m General Appearance: well appearing, in no acute distress, alert Pysch: mood and affect broad and appropriate Health maintenance reviewed with patient: INFLUENZA(1) due on 07/26/2023 LDL CHOLESTEROL due on 08/07/2023 COLORECTAL CANCER SCREENING due on 08/13/2023 SHINGRIX VACCINE(1 of 2) due on 08/13/2023 COVID-19 VACCINE(4 - Moderna series) due on 08/13/2023 HBA1C due on 10/09/2023 URINE ALBUMIN:CREATININE RATIO due on 12/17/2023 DIABETIC FOOT EXAM due on 12/17/2023 MAMMOGRAM due on 01/15/2024 ANNUAL PCP TEAM CHRONIC DISEASE VISIT due on 04/15/2024 BP CONTROLLED (<130/80) due on 05/02/2024 DILATED RETINAL EXAM due on 07/23/2024 PAP TESTING due on 01/11/2025 HPV TESTING due on 01/11/2025 DTAP,TDAP,TD(2 - Td or Tdap) due on 12/12/2031 SPIROMETRY Completed DEPRESSION ASSESSMENT Completed HEPATITIS C SCREENING Completed HIV SCREENING Completed PNEUMOCOCCAL Completed HEPATITIS B Discontinued DATA REVIEWED: Most recent labs ASSESSMENT/PLAN: 1. Type 2 diabetes mellitus without complication, without long-term current use of insulin (HCC) - ICD9: 250.00, ICD10: E11.9 (primary diagnosis) - Controlled - Continue current medications. She will call if Monjauro 10 mg dose becomes available and we will increase Due for labs - LIPID PANEL BASIC - HGB A1C - GLIPIZIDE 5 MG TABLET 2. Obesity, Class III, BMI >= 40 - ICD9: 278.01, ICD10: E66.01 Stable See above 3. Hypertension, unspecified type - ICD9: 401.9, ICD10: I10 - Controlled - Continue current medications - Recommend home blood pressure monitoring, to bring results to next visit - Encouraged sodium restriction, DASH or Mediterranean diet - LISINOPRIL 10 MG TABLET 4. Need for influenza vaccination - ICD9: V04.81, ICD10: Z23 - INFLUENZA VACCINE, AGE 6 MO - 64 YR, QUADRIVALENT (AFLURIA, FLULAVAL, FLUZONE) 5. Screen for colon cancer - ICD9: V76.51, ICD10: Z12.11 - COLOGUARD Prescription instructions reviewed with patient as applicable. Potential red flag symptoms discussed with the patient. Reviewed appropriate action plan to take if red flag symptoms occur. Patient agreeable to treatment plan. During this patient visit I have spent approximately 20 minutes in counseling regarding treatment options, medications, test results, and coordinating care. Rosa Isela Yanez APRN.CNP documented in this encounter [facility] 07-23-2023 Note HNO ID: [id number] Author: Rosina Elizalde OD Service: ? Author Type: PROJECT ESTIMATOR Type: Progress Notes Filed: 07/23/2023 1:56 PM Note Text: 1. Type 2 diabetes mellitus without complication, without long-term current use of insulin (HCC) Risk of diabetic changes and vision loss can be minimized by tight control of blood sugar, blood pressure, and cholesterol levels. Educated patient to continue care with primary care doctor and/or stone circular sawyer to maintain optimum levels as they are important to avoid ocular complications. Encouraged patient to call the office immediately with any changes to vision or visual concerns. Advised to not wait until the next scheduled exam. 2. Dry eye syndrome of both eyes Mild- monitor Use artificial tears as needed 3. Myopia, bilateral 4. Presbyopia Finalized spec rx for distance only Continue with OTC readers for near Follow-up in 1 year for diabetic eye exam or sooner as needed Rosina Elizalde, MARIO July 23, 2023 1:55 PM [facility] [facility] 07-23-2023 History of Present illness Narrative 1. Type 2 diabetes mellitus without complication, without long-term current use of insulin (HCC) Risk of diabetic changes and vision loss can be minimized by tight control of blood sugar, blood pressure, and cholesterol levels. Educated patient to continue care with primary care doctor and/or stone circular sawyer to maintain optimum levels as they are important to avoid ocular complications. Encouraged patient to call the office immediately with any changes to vision or visual concerns. Advised to not wait until the next scheduled exam. 2. Dry eye syndrome of both eyes Mild- monitor Use artificial tears as needed 3. Myopia, bilateral 4. Presbyopia Finalized spec rx for distance only Continue with OTC readers for near Follow-up in 1 year for diabetic eye exam or sooner as needed Rosina Elizalde, OD July 23, 2023 1:55 PM documented in this encounter [facility] 07-05-2023 Miscellaneous Notes Patient informed letter is ready. She states she will pick it up on Saturday. Taken to medical records. Mary Ann Reyes written Patient calling to see if Dr. Monroy will write a letter for her to get out of jury duty on 07/22. She has already received her subpoena. 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 States she does not leave him for long periods and if she is at work,she is able to watch him. 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 Also anxiety and behavior issues. States Dr. Monroy knows him well. If Dr. 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 documented in this encounter [facility] 06-25-2023 Miscellaneous Notes Patient has been identified by name and date of : Yes, Salma Rahman RN Date 06/25/2023 Time 12:00 pm Pharmacy phones for refill(s): Requested Prescriptions Pending Prescriptions Disp Refills meloxicam (MOBIC) 15 mg tablet 30 tablet 2 Sig: Take 1 tablet by mouth once daily. With food. Date of last office visit with pcp: 04/15/2023 Future appt: 08/05/2023 Last 2 Encounter Wt Readings: Date: Wt: 05/02/2023 121.3 kg (267 lb 6.4 oz) 04/15/2023 120.2 kg (265 lb) Previous labs/tests for medication: Blood Pressure: BUN (mg/dL) Date Value 04/08/2023 15 05/31/2021 12 Sodium (mmol/L) Date Value 04/08/2023 138 05/31/2021 139 Last 1 Encounter BP Readings: Date: BP: 05/02/2023 122/78 Liver Function: ALT (U/L) Date Value 08/07/2022 25 05/31/2021 28 AST (U/L) Date Value 08/07/2022 19 05/31/2021 22 Please advise. Thank you. Salma Rahman RN documented in this encounter [facility] 06-05-2023 Miscellaneous Notes ALLA'S RESPONSE IS NO PA IS NEEDED. THIS INFO WAS SENT TO THE PHARMACY. ISAAC AVILES (Connell: [id number]) - [id number] Dexcom G7 Lab Specialist device Status: Sent To Plan Created: June 05, 2023 Sent: June 05, 2023 CALLED THE PHARMACY AND THEY REPORT FIRST THEY THE FILL WAS TOO SOON. PT FILLED DEXCOM 6 AND DEXCOM 7 WAS PROMPTING TOO SOON REJECTION. NOW THEY SAY IT JUST SAYS PA NEEDED.WITH NO EXPLANATION. 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 documented in this encounter [facility] 05-27-2023 Miscellaneous Notes Pt called and is notified of providers instructions. Pt voices understanding. Lulu Garcia RN The following approved medication requests have been transmitted electronically. Requested Prescriptions Signed Prescriptions Disp Refills tirzepatide (MOUNJARO) 7.5 mg/0.5 mL pen injector 2 mL 5 Sig: Inject 7.5 mg subcutaneously one time a week. Authorizing Provider: ROSA ISELA YANEZ Blood-Glucose Meter,Continuous (DEXCOM G7 BICYCLE I ASSEMBLER) misc 1 Each 0 Sig: Dx: Type 2 DM - Controlled E11.9 Insulin: No Authorizing Provider: ROSA ISELA YANEZ Blood-Glucose Sensor (DEXCOM G7 SENSOR) hany 9 Each 3 Sig: Dx: Type 2 DM - Controlled E11.9 Insulin: No Authorizing Provider: ROSA ISELA YANEZ APRN.CNP Pt called and is notified of providers results and instructions. Pt voices understanding. Pt states has the Dexcom G6 and states there is a lawsuit against the G6. She is wondering if Rosa Isela can order the G7? Also she wanted to let Rosa Isela know that she had a 10 mm kidney surgically removed last by Dr. Beata Alanis. Lulu Garcia RN Continue with 7.5 mg dose for now, hopefully will be able to get the 10 mg dose soon Rosa Isela Yanez APRN.CNP Pt calling and states when she saw Rosa Isela last, her dose of Mounjaro was supposed to be increased to 10 mg from 7.5 mg. Pt states she has called a couple pharmacies with no luck on finding the medication. Pt instructed to attempt to call more pharmacies and let us know if she finds anyone with the med. But in the meantime, pt is wondering should she just stay on the 7.5 mg Mounjero or would Rosa Isela like to prescribe something different. If going to stay on 7.5 mg, pt will need new RX for it. Please call and advise. documented in this encounter [facility] 05-02-2023 Note HNO ID: [id number] Author: Randolph Basurto APRN.DATABASE ADMINISTRATOR Service: ? Author Type: Nurse Practitioner Type: Progress Notes Filed: 05/02/2023 9:59 AM Note Text: Subjective HPI Nontoxic-appearing female presents urgent care chief plaint nausea vomiting. Duration of symptoms 2 days. Associated symptoms nausea vomiting transient abdominal pain. States she has not vomited since yesterday. 1 episode of loose stool. Did take Pepto-Bismol today this is helped. No abdominal pain currently. Did have generalized abdominal pain. Presents today for evaluation. Unable to go to work due to nausea vomiting. No known sick contacts. No current pain. Denies any fever cough chest pain shortness of breath pleuritic pain hemoptysis or rashes. No urinary symptoms. Past medical history prescription medication use allergies reviewed. .Patient presents with: Nausea AND Vomiting: Nausea, vomiting, diarrhea, chills and right side pain x 2 days PAST MEDICAL HISTORY Diagnosis Date Asthma 07/08/2019 Breast mass, right 07/20/2013 fibrous. Cellulitis 08/01/2019 neck surgical site Depression 2012 DM (diabetes mellitus) (HCC) 04/07/2019 Hyperparathyroidism (HCC) 05/04/2019 Hypertension 03/04/2013 Infection of right breast 07/28/2013 Obesity, Class III, BMI >= 40 07/23/2019 Open wound of right breast 07/28/2013 PAST SURGICAL HISTORY Procedure Laterality Date BREAST BIOPSY INCISIONAL RIGHT Right 07/20/2013 fibrous PARATHYROIDECTOMY/EXPLORATION PARATHYROIDS 07/23/2019 REMOVE TONSILS/ADENOIDS,<12 Y/O 1975 THYROID FINE NEEDLE ASPIRATION Left 05/04/2019 ALLERGIES Penicillin G, Adhesive, and Penicillins MEDICATIONS metFORMIN (GLUCOPHAGE) 500 mg tablet Take 2 tablets by mouth twice daily with meals. hydroCHLOROthiazide 25 mg tablet Take 1 tablet by mouth once daily. glipiZIDE (GLUCOTROL) 5 mg tablet Take 1 tablet by mouth daily with food. tirzepatide (MOUNJARO) 10 mg/0.5 mL pen injector Inject 10 mg subcutaneously one time a week. Blood-Glucose Sensor (DEXCOM G6 SENSOR) hany Dx: Type 2 DM - Controlled E11.9 Insulin: No Blood-Glucose Meter,Continuous (DEXCOM G6 BICYCLE I ASSEMBLER) misc Dx: Type 2 DM - Controlled E11.9 Insulin: No Blood-Glucose Transmitter (DEXCOM G6 TRANSMITTER) hany Dx: Type 2 DM - Controlled E11.9 Insulin: No meloxicam (MOBIC) 15 mg tablet Take 1 tablet by mouth once daily. With food. albuterol HFA (PROVENTIL HFA, VENTOLIN HFA) 90 mcg/actuation inhaler Inhale 2 Puffs as instructed every 6 hours as needed for wheezing/shortness of breath. albuterol (PROVENTIL) 2.5 mg /3 mL (0.083 %) nebulizer solution Use 3 mL via nebulizer every 4 hours as needed for wheezing/shortness of breath. Use over 5-15minutes. lisinopril (ZESTRIL, PRINIVIL) 20 mg tablet Take 1 tablet by mouth once daily. fluticasone (FLONASE) 50 mcg/actuation nasal spray Use 2 Sprays in each nostril once daily. Rinse mouth after use. multivit with minerals/lutein (MULTIVITAMIN 50 PLUS ORAL) Take by mouth. vit A/vit C/vit E/zinc/copper (PRESERVISION AREDS ORAL) Take by mouth. generic loratadine 10 mg tablet Take 10 mg by mouth once daily. Patient taking 1 tablet once daily. FAMILY HISTORY Problem Relation Age of Onset Diabetes Father Blindness Father Possibly related to diabetes, no history of blindness per patient other (CHF) Father 58 other (CVA) Father No Ocular Disease Mother Diabetes Maternal Grandmother No Ocular Disease Maternal Grandmother No Ocular Disease Maternal Grandfather No Ocular Disease Paternal Grandmother No Ocular Disease Paternal Grandfather Anesthesia Problems No Family History Blood Clots No Family History Clotting Disorder No Family History Social History Tobacco Use Smoking status: Former Smokeless tobacco: Never Tobacco comments: stopped in her 20's Vaping Use Vaping Use: Never used Substance Use Topics Alcohol use: No Drug use: No Comment: THC drops BP 122/78 Pulse 76 Temp 36.1 ?C (97 ?F) (Tympanic) Resp 16 Wt 121.3 kg (267 lb 6.4 oz) LMP (LMP Unknown) SpO2 97% BMI 47.37 kg/m? Review of Systems Constitutional: Negative for chills, fever and malaise/fatigue. HENT: Negative for congestion, ear discharge, ear pain, sinus pain and sore throat. Eyes: Negative for blurred vision, pain, discharge and redness. Respiratory: Negative for cough, hemoptysis, sputum production, shortness of breath, wheezing and stridor. Cardiovascular: Negative for chest pain. Gastrointestinal: Positive for abdominal pain, diarrhea, nausea and vomiting. Negative for blood in stool and melena. Musculoskeletal: Negative for myalgias. Skin: Negative for itching and rash. Neurological: Negative for dizziness and headaches. Objective Physical Exam Constitutional: General: She is not in acute distress. Appearance: She is not diaphoretic. HENT: Head: Normocephalic. Nose: Nose normal. Mouth/Throat: Mouth: Mucous membranes are moist. Pharynx: (more content not included)... [facility] 05-02-2023 History of Present illness Narrative Subjective HPI Nontoxic-appearing female presents urgent care chief plaint nausea vomiting. Duration of symptoms 2 days. Associated symptoms nausea vomiting transient abdominal pain. States she has not vomited since yesterday. 1 episode of loose stool. Did take Pepto-Bismol today this is helped. No abdominal pain currently. Did have generalized abdominal pain. Presents today for evaluation. Unable to go to work due to nausea vomiting. No known sick contacts. No current pain. Denies any fever cough chest pain shortness of breath pleuritic pain hemoptysis or rashes. No urinary symptoms. Past medical history prescription medication use allergies reviewed. .Patient presents with: Nausea & Vomiting: Nausea, vomiting, diarrhea, chills and right side pain x 2 days PAST MEDICAL HISTORY Diagnosis Date Asthma 07/08/2019 Breast mass, right 07/20/2013 fibrous. Cellulitis 08/01/2019 neck surgical site Depression 2012 DM (diabetes mellitus) ([facility]) 04/07/2019 Hyperparathyroidism (HCC) 05/04/2019 Hypertension 03/04/2013 Infection of right breast 07/28/2013 Obesity, Class III, BMI >= 40 07/23/2019 Open wound of right breast 07/28/2013 PAST SURGICAL HISTORY Procedure Laterality Date BREAST BIOPSY INCISIONAL RIGHT Right 07/20/2013 fibrous PARATHYROIDECTOMY/EXPLORATION PARATHYROIDS 07/23/2019 REMOVE TONSILS/ADENOIDS,<12 Y/O 1975 THYROID FINE NEEDLE ASPIRATION Left 05/04/2019 ALLERGIES Penicillin G, Adhesive, and Penicillins MEDICATIONS metFORMIN (GLUCOPHAGE) 500 mg tablet Take 2 tablets by mouth twice daily with meals. hydroCHLOROthiazide 25 mg tablet Take 1 tablet by mouth once daily. glipiZIDE (GLUCOTROL) 5 mg tablet Take 1 tablet by mouth daily with food. tirzepatide (MOUNJARO) 10 mg/0.5 mL pen injector Inject 10 mg subcutaneously one time a week. Blood-Glucose Sensor (DEXCOM G6 SENSOR) hany Dx: Type 2 DM - Controlled E11.9 Insulin: No Blood-Glucose Meter,Continuous (DEXCOM G6 BICYCLE I ASSEMBLER) misc Dx: Type 2 DM - Controlled E11.9 Insulin: No Blood-Glucose Transmitter (DEXCOM G6 TRANSMITTER) hany Dx: Type 2 DM - Controlled E11.9 Insulin: No meloxicam (MOBIC) 15 mg tablet Take 1 tablet by mouth once daily. With food. albuterol HFA (PROVENTIL HFA, VENTOLIN HFA) 90 mcg/actuation inhaler Inhale 2 Puffs as instructed every 6 hours as needed for wheezing/shortness of breath. albuterol (PROVENTIL) 2.5 mg /3 mL (0.083 %) nebulizer solution Use 3 mL via nebulizer every 4 hours as needed for wheezing/shortness of breath. Use over 5-15minutes. lisinopril (ZESTRIL, PRINIVIL) 20 mg tablet Take 1 tablet by mouth once daily. fluticasone (FLONASE) 50 mcg/actuation nasal spray Use 2 Sprays in each nostril once daily. Rinse mouth after use. multivit with minerals/lutein (MULTIVITAMIN 50 PLUS ORAL) Take by mouth. vit A/vit C/vit E/zinc/copper (PRESERVISION AREDS ORAL) Take by mouth. generic loratadine 10 mg tablet Take 10 mg by mouth once daily. Patient taking 1 tablet once daily. FAMILY HISTORY Problem Relation Age of Onset Diabetes Father Blindness Father Possibly related to diabetes, no history of blindness per patient other (CHF) Father 58 other (CVA) Father No Ocular Disease Mother Diabetes Maternal Grandmother No Ocular Disease Maternal Grandmother No Ocular Disease Maternal Grandfather No Ocular Disease Paternal Grandmother No Ocular Disease Paternal Grandfather Anesthesia Problems No Family History Blood Clots No Family History Clotting Disorder No Family History Social History Tobacco Use Smoking status: Former Smokeless tobacco: Never Tobacco comments: stopped in her 20's Vaping Use Vaping Use: Never used Substance Use Topics Alcohol use: No Drug use: No Comment: THC drops BP 122/78 Pulse 76 Temp 36.1 C (97 F) (Tympanic) Resp 16 Wt 121.3 kg (267 lb 6.4 oz) LMP (LMP Unknown) SpO2 97% BMI 47.37 kg/m Review of Systems Constitutional: Negative for chills, fever and malaise/fatigue. HENT: Negative for congestion, ear discharge, ear pain, sinus pain and sore throat. Eyes: Negative for blurred vision, pain, discharge and redness. Respiratory: Negative for cough, hemoptysis, sputum production, shortness of breath, wheezing and stridor. Cardiovascular: Negative for chest pain. Gastrointestinal: Positive for abdominal pain, diarrhea, nausea and vomiting. Negative for blood in stool and melena. Musculoskeletal: Negative for myalgias. Skin: Negative for itching and rash. Neurological: Negative for dizziness and headaches. Objective Physical Exam Constitutional: General: She is not in acute distress. Appearance: She is not diaphoretic. HENT: Head: Normocephalic. Nose: Nose normal. Mouth/Throat: Mouth: Mucous membranes are moist. Pharynx: Oropharynx is clear. No oropharyngeal exudate or posterior oropharyngeal erythema. Eyes: Conjunctiva/sclera: Conjunctivae normal. Pupils: Pupils are equal, round, and reactive to light. Cardiovascular: Rate and Rhythm: Normal rate and regular rhythm. Heart sounds: Normal heart sounds. Pulmonary: Effort: Pulmonary effort is normal. No tachypnea, accessory muscle usage or respiratory distress. Breath sounds: Normal breath sounds. No stridor. No wheezing, rhonchi or rales. Abdominal: Palpations: Abdomen is soft. Tenderness: There is no abdominal tenderness. There is no guarding or rebound. Musculoskeletal: Cervical back: Normal range of motion and neck supple. No rigidity or tenderness. Lymphadenopathy: Cervical: No cervical adenopathy. Skin: General: Skin is warm and dry. Neurological: Mental Status: She is alert and oriented to person, place, and time. ASSESSMENT/PLAN: 1. Loose stools - ICD9: 787.7, ICD10: R19.5 Diagnosed with loose stool. No current abdominal pain. No blood in vomit or stool. No evidence of dehydration. Treat conservatively at this time. Patient was educated on supportive therapies. Patient will follow up with primary care provider as needed. Patient was instructed to immediately proceed to emergency room for any new, worsening, or symptoms lasting longer than anticipated. The patient's clinical presentation is otherwise unremarkable at this time. Based on exam and clinical finding, the patient is stable for discharge. Plan of care was discussed with patient. Patient verbalizes understanding and agrees to plan of care. This note was generated using VeraLight software. It may contain errors in wording, punctuation, or spelling. Randolph Basurto APRN.TRIXIE documented in this encounter [facility] 04-15-2023 Note HNO ID: [id number] Author: Rosa Isela Yanez APRN.CNP Service: ? Author Type: Nurse Practitioner Type: Progress Notes Filed: 04/15/2023 3:50 PM Note Text: CC: Patient presents with: 4 month follow up HPI Isaac Aviles is a 52 year old female who presents today for above. Diabetes: Home blood sugar readings: fasting average in the 120's-130's. Hypoglycemia: Yes, the past few weeks at least once a week her blood sugar has dropped into the 50's She is compliant with medication(s) and is tolerating med(s) without any side effects. Patient's last HgA1C was Hemoglobin A1C (%) Date Value 04/08/2023 6.5 12/12/2022 7.0 12/06/2021 10.1 05/31/2021 7.2 Hemoglobin A1C (POCT) (%) Date Value 06/04/2022 6.4 REVIEW OF SYSTEMS See HPI PAST MEDICAL HISTORY Diagnosis Date Asthma 07/08/2019 Breast mass, right 07/20/2013 fibrous. Cellulitis 08/01/2019 neck surgical site Depression 2012 DM (diabetes mellitus) ([facility]) 04/07/2019 Hyperparathyroidism (HCC) 05/04/2019 Hypertension 03/04/2013 Infection of right breast 07/28/2013 Obesity, Class III, BMI >= 40 07/23/2019 Open wound of right breast 07/28/2013 PAST SURGICAL HISTORY Procedure Laterality Date BREAST BIOPSY INCISIONAL RIGHT Right 07/20/2013 fibrous PARATHYROIDECTOMY/EXPLORATION PARATHYROIDS 07/23/2019 REMOVE TONSILS/ADENOIDS,<12 Y/O 1975 THYROID FINE NEEDLE ASPIRATION Left 05/04/2019 ALLERGIES Penicillin G, Adhesive, and Penicillins MEDICATIONS meloxicam (MOBIC) 15 mg tablet Take 1 tablet by mouth once daily. With food. albuterol HFA (PROVENTIL HFA, VENTOLIN HFA) 90 mcg/actuation inhaler Inhale 2 Puffs as instructed every 6 hours as needed for wheezing/shortness of breath. albuterol (PROVENTIL) 2.5 mg /3 mL (0.083 %) nebulizer solution Use 3 mL via nebulizer every 4 hours as needed for wheezing/shortness of breath. Use over 5-15minutes. tirzepatide (MOUNJARO) 7.5 mg/0.5 mL pen injector Inject 7.5 mg subcutaneously one time a week. hydroCHLOROthiazide (HYDRODIURIL, ESIDRIX) 25 mg tablet Take 1 tablet by mouth once daily. metFORMIN (GLUCOPHAGE) 500 mg tablet Take 2 tablets by mouth twice daily with meals. glipiZIDE (GLUCOTROL) 10 mg tablet Take 1 tablet by mouth daily with food. lisinopril (ZESTRIL, PRINIVIL) 20 mg tablet Take 1 tablet by mouth once daily. fluticasone (FLONASE) 50 mcg/actuation nasal spray Use 2 Sprays in each nostril once daily. Rinse mouth after use. (Patient not taking: No sig reported) multivit with minerals/lutein (MULTIVITAMIN 50 PLUS ORAL) Take by mouth. vit A/vit C/vit E/zinc/copper (PRESERVISION AREDS ORAL) Take by mouth. generic Lactobac no.41/Bifidobact no.7 (PROBIOTIC-10 ORAL) Take by mouth. (Patient not taking: No sig reported) loratadine 10 mg tablet Take 10 mg by mouth once daily. Patient taking 1 tablet once daily. FAMILY HISTORY Problem Relation Age of Onset Diabetes Father Blindness Father Possibly related to diabetes, no history of blindness per patient other (CHF) Father 58 other (CVA) Father No Ocular Disease Mother Diabetes Maternal Grandmother No Ocular Disease Maternal Grandmother No Ocular Disease Maternal Grandfather No Ocular Disease Paternal Grandmother No Ocular Disease Paternal Grandfather Anesthesia Problems No Family History Blood Clots No Family History Clotting Disorder No Family History Social History Tobacco Use Smoking status: Former Smokeless tobacco: Never Tobacco comments: stopped in her 20's Vaping Use Vaping Use: Never used Substance Use Topics Alcohol use: No Drug use: No Comment: THC drops PHYSICAL EXAM BP 114/72 Pulse 82 Resp 18 Wt 120.2 kg (265 lb) LMP (LMP Unknown) BMI 46.94 kg/m? General Appearance: well appearing, in no acute distress, alert Pysch: mood and affect broad and appropriate Health maintenance reviewed with patient: SHINGRIX VACCINE(1 of 2) due on 08/13/2023 COVID-19 VACCINE(4 - Booster for Moderna series) due on 08/13/2023 DILATED RETINAL EXAM due on 05/29/2023 LDL CHOLESTEROL due on 08/07/2023 COLORECTAL CANCER SCREENING due on 08/13/2023 HBA1C due on 10/09/2023 URINE ALBUMIN:CREATININE RATIO due on 12/17/2023 DIABETIC FOOT EXAM due on 12/17/2023 ANNUAL PCP TEAM CHRONIC DISEASE VISIT due on 12/17/2023 MAMMOGRAM due on 01/15/2024 BP CONTROLLED (<130/80) due on 02/23/2024 PAP TESTING due on 01/11/2025 HPV TESTING due on 01/11/2025 DTAP,TDAP,TD(2 - Td or Tdap) due on 12/12/2031 SPIROMETRY Completed INFLUENZA Completed DEPRESSION ASSESSMENT Completed HEPATITIS C SCREENING Completed HIV SCREENING Completed PNEUMOCOCCAL Completed HEPATITIS B Discontinued DATA REVIEWED: Most recent labs ASSESSMENT/PLAN: 1. Type 2 diabetes mellitus without complication, without long-term current use of insulin (HCC) - ICD9: 250.00, ICD10: E11.9 (primary diagnosis) - Improving control - Continue Metformin - Decrease glipizide to 5 mg daily due to hypoglycem (more content not included)... [facility] 04-03-2023 Miscellaneous Notes Patient has been identified by name and date of : Pharmacy phones for refill(s): Requested Prescriptions Pending Prescriptions Disp Refills meloxicam (MOBIC) 15 mg tablet 30 tablet 2 Sig: Take 1 tablet by mouth once daily. With food. Date of last office visit in primary care: 12/17/2022, has appt 04/15/2023 Last 2 Encounter Wt Readings: Date: Wt: 02/22/2023 123.8 kg (273 lb) 02/20/2023 123.8 kg (273 lb) Previous labs/tests for medication: Not applicable Please advise. Thank you. Juana Kelley LPN documented in this encounter [facility] 02-22-2023 History of Present illness Narrative Subjective Cough Pertinent negatives include no chills, no ear pain, no sore throat and no myalgias. Isaac Aviles is a 52 year old female who presents with cough, congestion, sinus pressure, and losing her voice and nasal drainage. She has had her symptoms for a total of 5 days. She was seen here on day 3 of her illness and advised she likely had a viral illness and was given prednisone, an inhaler, and tessalon perles. She states she is still sick and has had to miss work. She has not had a fever. In addition to her prescriptions she has been taking Mucinex complete. Review of Systems Constitutional: Negative for chills and fever. HENT: Positive for congestion and sinus pain ( pressure ). Negative for ear pain and sore throat. Respiratory: Positive for cough. Cardiovascular: Negative. Gastrointestinal: Negative for diarrhea, nausea and vomiting. Musculoskeletal: Negative for myalgias. BP 126/74 Pulse 83 Temp 37.1 C (98.8 F) (Tympanic) Resp 18 Wt 123.8 kg (273 lb) LMP (LMP Unknown) SpO2 97% BMI 48.36 kg/m PAST MEDICAL HISTORY Diagnosis Date Asthma 07/08/2019 Breast mass, right 07/20/2013 fibrous. Cellulitis 08/01/2019 neck surgical site Depression 2012 DM (diabetes mellitus) (HCC) 04/07/2019 Hyperparathyroidism (HCC) 05/04/2019 Hypertension 03/04/2013 Infection of right breast 07/28/2013 Obesity, Class III, BMI >= 40 07/23/2019 Open wound of right breast 07/28/2013 PAST SURGICAL HISTORY Procedure Laterality Date BREAST BIOPSY INCISIONAL RIGHT Right 07/20/2013 fibrous PARATHYROIDECTOMY/EXPLORATION PARATHYROIDS 07/23/2019 REMOVE TONSILS/ADENOIDS,<12 Y/O 1975 THYROID FINE NEEDLE ASPIRATION Left 05/04/2019 ALLERGIES Penicillin G, Adhesive, and Penicillins MEDICATIONS predniSONE (DELTASONE) 20 mg tablet Take 1 tablet by mouth once daily for 5 days. albuterol HFA (PROVENTIL HFA, VENTOLIN HFA) 90 mcg/actuation inhaler Inhale 2 Puffs as instructed every 6 hours as needed for wheezing/shortness of breath. albuterol (PROVENTIL) 2.5 mg /3 mL (0.083 %) nebulizer solution Use 3 mL via nebulizer every 4 hours as needed for wheezing/shortness of breath. Use over 5-15minutes. tirzepatide (MOUNJARO) 7.5 mg/0.5 mL pen injector Inject 7.5 mg subcutaneously one time a week. hydroCHLOROthiazide (HYDRODIURIL, ESIDRIX) 25 mg tablet Take 1 tablet by mouth once daily. metFORMIN (GLUCOPHAGE) 500 mg tablet Take 2 tablets by mouth twice daily with meals. meloxicam (MOBIC) 15 mg tablet Take 1 tablet by mouth once daily. With food. glipiZIDE (GLUCOTROL) 10 mg tablet Take 1 tablet by mouth daily with food. lisinopril (ZESTRIL, PRINIVIL) 20 mg tablet Take 1 tablet by mouth once daily. multivit with minerals/lutein (MULTIVITAMIN 50 PLUS ORAL) Take by mouth. vit A/vit C/vit E/zinc/copper (PRESERVISION AREDS ORAL) Take by mouth. generic loratadine 10 mg tablet Take 10 mg by mouth once daily. Patient taking 1 tablet once daily. [START ON 02/23/2023] doxycycline monohydrate 100 mg tablet Take 1 tablet by mouth twice daily for 5 days. benzonatate (TESSALON PERLES) 100 mg capsule Take 1 capsule by mouth three times daily as needed for up to 7 days. (Patient not taking: Reported on 02/22/2023) fluticasone (FLONASE) 50 mcg/actuation nasal spray Use 2 Sprays in each nostril once daily. Rinse mouth after use. (Patient not taking: No sig reported) Lactobac no.41/Bifidobact no.7 (PROBIOTIC-10 ORAL) Take by mouth. (Patient not taking: No sig reported) FAMILY HISTORY Problem Relation Age of Onset Diabetes Father Blindness Father Possibly related to diabetes, no history of blindness per patient other (CHF) Father 58 other (CVA) Father No Ocular Disease Mother Diabetes Maternal Grandmother No Ocular Disease Maternal Grandmother No Ocular Disease Maternal Grandfather No Ocular Disease Paternal Grandmother No Ocular Disease Paternal Grandfather Anesthesia Problems No Family History Blood Clots No Family History Clotting Disorder No Family History Social History Tobacco Use Smoking status: Former Smokeless tobacco: Never Tobacco comments: stopped in her 20's Vaping Use Vaping Use: Never used Substance Use Topics Alcohol use: No Drug use: No Comment: THC drops Objective Physical Exam Vitals and nursing note reviewed. Constitutional: General: She is not in acute distress. Appearance: Normal appearance. She is obese. She is not ill-appearing or toxic-appearing. HENT: Right Ear: Tympanic membrane, ear canal and external ear normal. Left Ear: Tympanic membrane, ear canal and external ear normal. Nose: Mucosal edema and congestion present. Mouth/Throat: Mouth: Mucous membranes are moist. Pharynx: Oropharynx is clear. Uvula midline. No oropharyngeal exudate or posterior oropharyngeal erythema. Cardiovascular: Rate and Rhythm: Normal rate and regular rhythm. Heart sounds: Normal heart sounds. Pulmonary: Effort: Pulmonary effort is normal. No respiratory distress. Breath sounds: Normal breath sounds. No wheezing or rales. Musculoskeletal: Cervical back: Neck supple. Lymphadenopathy: Cervical: No cervical adenopathy. Skin: General: Skin is warm and dry. Findings: No erythema or rash. Neurological: Mental Status: She is alert. ASSESSMENT/PLAN: 1. Acute sinusitis, recurrence not specified, unspecified location - ICD9: 461.9, ICD10: J01.90 - Supportive care with plenty of fluids, rest, and analgesia prn. - patient advised that her illness is likely viral in origin, despite my professional opinion and recommendations patient insists that she will not get better unless she gets an antibiotic and if I get an antibiotic I will be better in 2 or 3 days . Patient advised that in 2-3 days the viral illness will likely have resolved on its own. She still insists on antibiotic treatment. - DOXYCYCLINE MONOHYDRATE 100 MG TABLET - Follow-up with your PCP in 3-5 days if symptoms have not improved or sooner if symptoms worsen - Discussed red flags and need for immediate medical evaluation if any occur. - Discussed supportive care treatment with fluids, rest and analgesia. - Discussed expected course of illness Dary Burger APRN.CNP documented in this encounter [facility] 02-22-2023 Instructions Dary Burger APRN.CNP - 02/22/2023 4:52 PM EDT ASSESSMENT/PLAN: 1. Acute sinusitis, recurrence not specified, unspecified location - ICD9: 461.9, ICD10: J01.90 - Supportive care with plenty of fluids, rest, and analgesia prn. - patient advised that her illness is likely viral in origin, despite my professional opinion and recommendations patient insists that she will not get better unless she gets an antibiotic and if I get an antibiotic I will be better in 2 or 3 days . Patient advised that in 2-3 days the viral illness will likely have resolved on its own. She still insists on antibiotic treatment. - DOXYCYCLINE MONOHYDRATE 100 MG TABLET - Follow-up with your PCP in 3-5 days if symptoms have not improved or sooner if symptoms worsen - Discussed red flags and need for immediate medical evaluation if any occur. - Discussed supportive care treatment with fluids, rest and analgesia. - Discussed expected course of illness Dary Burger APRN.CNP Treatment for Viral Upper Respiratory Tract Infections Your body will kill off the virus by itself. Additionally, you can prime your body's immune system. This may help you get better more quickly. Drink lots of fluids Make sure you are eating well Get plenty of rest We do not have any medications that kill off these viruses. Antibiotics are used to treat bacterial infections; however, they are not active against viral infections. There are some things that might help you feel better, though. Vaporizers, humidifiers, hot showers, and hot fluids help open respiratory and sinus passages Dougherty Nasal Thompson may offer relief of nasal and head congestion Franky's Vapor Rub may relieve congestion Tylenol and Advil help control fevers and headaches Salt water gargles help relieve sore throats Chloraceptic spray or throat lozenges may also help relieve sore throat symptoms Occasionally, viral infections turn into something more serious. You should see your doctor or return to the Urgent Care if: You have fevers for longer than five days You have fevers above 102 degrees You are still sick after 10 days You have shortness of breath or wheezing After several days you are getting worse rather than better documented in this encounter [facility] 02-20-2023 History of Present illness Narrative Radiology Service Progress Note PATIENT NAME: Isaac Aviles DATE OF SERVICE: February 20, 2023 TIME: 8:59 AM PATIENT IDENTITY VERIFICATION COMPLETED USING TWO (2) IDENTIFIERS: Name and Date of confirmed by patient verbally. FALL SCREENING: Has the patient had 2 falls in the last year or 1 fall with injury or currently using an Ambulatory Assistive Device (Walker, Cane, Wheelchair, Crutches, etc.)? No PATIENT GENDER DATA: Female. status: : No status: NO. PATIENT RELEVANT IMPLANT DATA REVIEWED: Not Applicable RADIOLOGY DEPARTMENT: General X-ray: Exam(s) Completed: Chest X-Ray PERIPHERAL IV DATA: Not applicable SIGNED BY: RT Arturo(R) February 20, 2023 8:59 AM documented in this encounter [facility] 02-20-2023 History of Present illness Narrative CC: Patient presents with: Sinus Problem: sinus pressure, drainage, cough, sore throat and headache x 2 days Said the sore throat is better now HPI: Isaac Aviles is a 52 year old female who presents to the office with complaint of head congestion, cough, nonproductive, and sinus symptoms for a few days. Symptoms are staying the same. Associated symptoms includes headache. Denies fever, nausea, vomiting , and diarrhea. Treatments tried include OTC cold medicine with minor relief of symptoms. Sick contacts: unknown. History of asthma, frequent episodes of bronchitis, chronic bronchitis, bronchiectasis or COPD: yes asthma Smoker: No Seasonal/environmental allergies: No The ROS is otherwise negative. The patient's pmh, medications, allergies, and past visits are reviewed. PHYSICAL EXAM: BP 132/80 Pulse 88 Temp 36.3 C (97.4 F) Resp 16 Wt 123.8 kg (273 lb) LMP 11/24/2020 SpO2 97% BMI 48.36 kg/m General appearance: alert, cooperative, pleasant, in no acute distress Head: Normocephalic Eyes: EOM's intact, conjunctiva pink and moist, no icterus, sclera white, non-injected Ears: Right ear: External ear/canal- Normal, TM - clear with good landmarks. Left ear: External ear/canal- Normal, TM - clear with good landmarks Oropharynx:moist without lesions, No erythema, exudates or tonsillar hypertrophy. Heart: Negative. RRR without obvious murmur, gallop, or rubs. No ectopy. Lungs: mild wheezing diffusely PAST MEDICAL HISTORY Diagnosis Date Asthma 07/08/2019 Breast mass, right 07/20/2013 fibrous. Cellulitis 08/01/2019 neck surgical site Depression 2012 DM (diabetes mellitus) ([facility]) 04/07/2019 Hyperparathyroidism ([facility]) 05/04/2019 Hypertension 03/04/2013 Infection of right breast 07/28/2013 Obesity, Class III, BMI >= 40 07/23/2019 Open wound of right breast 07/28/2013 PAST SURGICAL HISTORY Procedure Laterality Date BREAST BIOPSY INCISIONAL RIGHT Right 07/20/2013 fibrous PARATHYROIDECTOMY/EXPLORATION PARATHYROIDS 07/23/2019 REMOVE TONSILS/ADENOIDS,<12 Y/O 1976 THYROID FINE NEEDLE ASPIRATION Left 05/04/2019 ALLERGIES Penicillin G, Adhesive, and Penicillins MEDICATIONS albuterol (PROVENTIL) 2.5 mg /3 mL (0.083 %) nebulizer solution Use 3 mL via nebulizer every 4 hours as needed for wheezing/shortness of breath. Use over 5-15minutes. tirzepatide (MOUNJARO) 7.5 mg/0.5 mL pen injector Inject 7.5 mg subcutaneously one time a week. hydroCHLOROthiazide (HYDRODIURIL, ESIDRIX) 25 mg tablet Take 1 tablet by mouth once daily. metFORMIN (GLUCOPHAGE) 500 mg tablet Take 2 tablets by mouth twice daily with meals. meloxicam (MOBIC) 15 mg tablet Take 1 tablet by mouth once daily. With food. glipiZIDE (GLUCOTROL) 10 mg tablet Take 1 tablet by mouth daily with food. lisinopril (ZESTRIL, PRINIVIL) 20 mg tablet Take 1 tablet by mouth once daily. multivit with minerals/lutein (MULTIVITAMIN 50 PLUS ORAL) Take by mouth. loratadine 10 mg tablet Take 10 mg by mouth once daily. Patient taking 1 tablet once daily. fluticasone (FLONASE) 50 mcg/actuation nasal spray Use 2 Sprays in each nostril once daily. Rinse mouth after use. (Patient not taking: No sig reported) vit A/vit C/vit E/zinc/copper (PRESERVISION AREDS ORAL) Take by mouth. generic (Patient not taking: Reported on 02/20/2023) Lactobac no.41/Bifidobact no.7 (PROBIOTIC-10 ORAL) Take by mouth. (Patient not taking: No sig reported) FAMILY HISTORY Problem Relation Age of Onset Diabetes Father Blindness Father Possibly related to diabetes, no history of blindness per patient other (CHF) Father 58 other (CVA) Father No Ocular Disease Mother Diabetes Maternal Grandmother No Ocular Disease Maternal Grandmother No Ocular Disease Maternal Grandfather No Ocular Disease Paternal Grandmother No Ocular Disease Paternal Grandfather Anesthesia Problems No Family History Blood Clots No Family History Clotting Disorder No Family History Social History Tobacco Use Smoking status: Former Smokeless tobacco: Never Tobacco comments: stopped in her 20's Vaping Use Vaping Use: Never used Substance Use Topics Alcohol use: No Drug use: No Comment: THC drops ASSESSMENT/PLAN: 1. Acute cough - ICD9: 786.2, ICD10: R05.1 - XR CHEST 2V FRONTAL/LAT - PREDNISONE 20 MG TABLET - ALBUTEROL SULFATE HFA 90 MCG/ACTUATION AEROSOL INHALER - BENZONATATE 100 MG CAPSULE Prescription instructions reviewed with patient as applicable. Potential red flag symptoms discussed with the patient. Reviewed appropriate action plan to take if red flag symptoms occur. Patient agreeable to treatment plan. Ciara Pena APRN.TRIXIE documented in this encounter [facility] 01-16-2023 Miscellaneous Notes January 16, 2023 PID: [id number] Isaac Aviles [address] [place] [address] Dear Ms. Aviles, We are pleased to inform you that the results of your recent breast imaging exam on 01/15/2023 are normal. Early detection of cancer is very important. We also understand recommendations regarding breast cancer screening are controversial. Please discuss with your primary care provider which strategy is best for you and whether a mammogram is right for you. Your imaging studies and report will be kept on file at [facility] as part of your permanent medical record and are available for your continuing care. Thank you for allowing us to help in meeting your health care needs. Sincerely, Dr. Parson Interpreting Radiologist [facility] (Normal over 40) documented in this encounter [facility] 12-17-2022 History of Present illness Narrative This note was created using AppBrickriter. Subjective Isaac Aviles is a 52 year old female. Her diabetes mellitus was elevating after the holidays. She did not bring her meter but glucose readings have been in the 150 range. Her hypertension was fair and asthma was controlled. She saw Dr. Whitman and was waiting on orthotics for right heel spur. Review of Systems Constitutional: Negative. Respiratory: Negative. Cardiovascular: Negative. Gastrointestinal: Negative. Neurological: Negative. ACTIVE PROBLEM LIST Hypertension Asthma Dm (Diabetes Mellitus) (Hcc) Hyperparathyroidism (Hcc) Obesity, Class III, BMI >= 40 Current Outpatient Medications Medication Sig hydroCHLOROthiazide (HYDRODIURIL, ESIDRIX) 25 mg tablet Take 1 tablet by mouth once daily. metFORMIN (GLUCOPHAGE) 500 mg tablet Take 2 tablets by mouth twice daily with meals. meloxicam (MOBIC) 15 mg tablet Take 1 tablet by mouth once daily. With food. tirzepatide (MOUNJARO) 5 mg/0.5 mL pen injector Inject 5 mg subcutaneously one time a week. glipiZIDE (GLUCOTROL) 10 mg tablet Take 1 tablet by mouth daily with food. lisinopril (ZESTRIL, PRINIVIL) 20 mg tablet Take 1 tablet by mouth once daily. multivit with minerals/lutein (MULTIVITAMIN 50 PLUS ORAL) Take by mouth. vit A/vit C/vit E/zinc/copper (PRESERVISION AREDS ORAL) Take by mouth. generic albuterol (PROVENTIL) 2.5 mg /3 mL (0.083 %) nebulizer solution Use 3 mL via nebulizer every 4 hours as needed for wheezing/shortness of breath. Use over 5-15minutes. loratadine 10 mg tablet Take 10 mg by mouth once daily. Patient taking 1 tablet once daily. dulaglutide (TRULICITY) 3 mg/0.5 mL pen injector Inject 3 mg subcutaneously one time a week. (Patient not taking: Reported on 12/17/2022) fluticasone (FLONASE) 50 mcg/actuation nasal spray Use 2 Sprays in each nostril once daily. Rinse mouth after use. (Patient not taking: No sig reported) Lactobac no.41/Bifidobact no.7 (PROBIOTIC-10 ORAL) Take by mouth. (Patient not taking: No sig reported) No current facility-administered medications for this visit. Objective BP 130/68 (BP Site: Left Arm, BP Position: Sitting, BP Cuff Size: Large Adult) Pulse 80 Temp 36.1 C (97 F) (Temporal) Resp 20 Wt 125.2 kg (276 lb) LMP 11/24/2020 BMI 48.89 kg/m Physical Exam Constitutional: Appearance: She is not ill-appearing. Cardiovascular: Rate and Rhythm: Normal rate and regular rhythm. Heart sounds: No murmur heard. No gallop. Pulmonary: Effort: Pulmonary effort is normal. Breath sounds: Normal breath sounds. No wheezing or rales. Abdominal: Tenderness: There is no abdominal tenderness. Musculoskeletal: Right lower leg: No edema. Left lower leg: No edema. Neurological: Mental Status: She is alert. Feet:Shoes and socks removed, No deformities, ulcers, calluses, normal distal pulses, and sensitive to 10 gm monofilament Component Latest Ref Rng & Units 12/12/2022 Hemoglobin A1C 4.3 - 5.6 % 7.0 (H) Estimated Average Glucose mg/dL 154 Assessment and Plan 1. Type 2 diabetes mellitus without complication, without long-term current use of insulin (HCC) - ICD9: 250.00, ICD10: E11.9 (primary diagnosis) worsening control - ALBUMIN/CREAT RATIO RND UR - TIRZEPATIDE 7.5 MG/0.5 ML SUBCUTANEOUS PEN INJECTOR. Dose increased. Discussed medication dosage, usage, goals of therapy, and side effects. - BASIC METABOLIC PNL - HGB A1C 2. Mild intermittent asthma without complication - ICD9: 493.90, ICD10: J45.20 Mild intermittent Asthma stable - ALBUTEROL SULFATE 2.5 MG/3 ML (0.083 %) SOLUTION FOR NEBULIZATION 3. Encounter for screening mammogram for malignant neoplasm of breast - ICD9: V76.12, ICD10: Z12.31 - DOUG SCREENING 4. Hyperparathyroidism (HCC) - ICD9: 252.00, ICD10: E21.3 Monitor. - TSH BLD Librado Barrios MD documented in this encounter [facility] 12-03-2022 Miscellaneous Notes Patient has been identified by name and date of : Yes Patient phones for refill(s): Requested Prescriptions Pending Prescriptions Disp Refills hydroCHLOROthiazide (HYDRODIURIL, ESIDRIX) 25 mg tablet 30 tablet 5 Sig: Take 1 tablet by mouth once daily. metFORMIN (GLUCOPHAGE) 500 mg tablet 120 tablet 5 Sig: Take 2 tablets by mouth twice daily with meals. meloxicam (MOBIC) 15 mg tablet 30 tablet 2 Sig: Take 1 tablet by mouth once daily. With food. Date of last office visit in primary care: 11/12/2022 4 month follow-up: 12/17/2022 Last 2 Encounter Wt Readings: Date: Wt: 11/21/2022 125.2 kg (276 lb) 08/13/2022 124.7 kg (275 lb) Previous labs/tests for medication: Diabetes: Hemoglobin A1C (%) Date Value 03/07/2022 7.3 12/06/2021 10.1 05/31/2021 7.2 Hemoglobin A1C (POCT) (%) Date Value 06/04/2022 6.4 Blood Pressure: BUN (mg/dL) Date Value 08/07/2022 13 05/31/2021 12 Sodium (mmol/L) Date Value 08/07/2022 139 05/31/2021 139 Last 1 Encounter BP Readings: Date: BP: 11/21/2022 128/76 Please advise. Thank you. Ignacia Carmona LPN documented in this encounter [facility] 11-21-2022 History of Present illness Narrative Subjective HPI HPI Isaac Aviles is a 52 year old female who presents today for CC of sinus pressure, ear pressure, cough. This started 10 days, dx with covid. Has tried otc medication without relief. Symptoms are worsened by nothing. Risk factors hx of sinus infections. nonsmoker. .Patient presents with: Sinus Problem: sinus pressure, drainage, bilateral ear pressure, dx with covid last week PAST MEDICAL HISTORY Diagnosis Date Asthma 07/08/2019 Breast mass, right 07/20/2013 fibrous. Cellulitis 08/01/2019 neck surgical site Depression 2012 DM (diabetes mellitus) (HCC) 04/07/2019 Hyperparathyroidism (HCC) 05/04/2019 Hypertension 03/04/2013 Infection of right breast 07/28/2013 Obesity, Class III, BMI >= 40 07/23/2019 Open wound of right breast 07/28/2013 PAST SURGICAL HISTORY Procedure Laterality Date BREAST BIOPSY INCISIONAL RIGHT Right 07/20/2013 fibrous PARATHYROIDECTOMY/EXPLORATION PARATHYROIDS 07/23/2019 REMOVE TONSILS/ADENOIDS,<12 Y/O 1976 THYROID FINE NEEDLE ASPIRATION Left 05/04/2019 ALLERGIES Penicillin G, Adhesive, and Penicillins MEDICATIONS tirzepatide (MOUNJARO) 5 mg/0.5 mL pen injector Inject 5 mg subcutaneously one time a week. glipiZIDE (GLUCOTROL) 10 mg tablet Take 1 tablet by mouth daily with food. lisinopril (ZESTRIL, PRINIVIL) 20 mg tablet Take 1 tablet by mouth once daily. meloxicam (MOBIC) 15 mg tablet Take 1 tablet by mouth once daily. With food. dulaglutide (TRULICITY) 3 mg/0.5 mL pen injector Inject 3 mg subcutaneously one time a week. hydroCHLOROthiazide (HYDRODIURIL, ESIDRIX) 25 mg tablet Take 1 tablet by mouth once daily. metFORMIN (GLUCOPHAGE) 500 mg tablet Take 2 tablets by mouth twice daily with meals. multivit with minerals/lutein (MULTIVITAMIN 50 PLUS ORAL) Take by mouth. vit A/vit C/vit E/zinc/copper (PRESERVISION AREDS ORAL) Take by mouth. generic albuterol (PROVENTIL) 2.5 mg /3 mL (0.083 %) nebulizer solution Use 3 mL via nebulizer every 4 hours as needed for wheezing/shortness of breath. Use over 5-15minutes. loratadine 10 mg tablet Take 10 mg by mouth once daily. Patient taking 1 tablet once daily. doxycycline monohydrate 100 mg tablet Take 1 tablet by mouth twice daily for 10 days. fluticasone (FLONASE) 50 mcg/actuation nasal spray Use 2 Sprays in each nostril once daily. Rinse mouth after use. (Patient not taking: Reported on 08/13/2022) Lactobac no.41/Bifidobact no.7 (PROBIOTIC-10 ORAL) Take by mouth. (Patient not taking: Reported on 08/13/2022) FAMILY HISTORY Problem Relation Age of Onset Diabetes Father Blindness Father Possibly related to diabetes, no history of blindness per patient other (CHF) Father 58 other (CVA) Father No Ocular Disease Mother Diabetes Maternal Grandmother No Ocular Disease Maternal Grandmother No Ocular Disease Maternal Grandfather No Ocular Disease Paternal Grandmother No Ocular Disease Paternal Grandfather Anesthesia Problems No Family History Blood Clots No Family History Clotting Disorder No Family History Social History Tobacco Use Smoking status: Former Smokeless tobacco: Never Tobacco comments: stopped in her 20's Vaping Use Vaping Use: Never used Substance Use Topics Alcohol use: No Drug use: No Comment: THC drops Review of Systems Constitutional: Positive for fever. HENT: Positive for congestion, ear pain and sinus pain. Negative for ear discharge, nosebleeds and sore throat. Respiratory: Positive for cough. Negative for shortness of breath and wheezing. Cardiovascular: Negative for chest pain. Musculoskeletal: Negative for neck pain. Objective Blood pressure 128/76, pulse 96, temperature 36.8 C (98.2 F), resp. rate 16, weight 125.2 kg (276 lb), last menstrual period 11/24/2020, SpO2 97 %. Physical Exam Constitutional: General: She is not in acute distress. Appearance: She is not toxic-appearing or diaphoretic. HENT: Head: Normocephalic and atraumatic. Right Ear: Hearing, tympanic membrane, ear canal and external ear normal. Left Ear: Hearing, tympanic membrane, ear canal and external ear normal. Nose: Right Sinus: Frontal sinus tenderness present. Left Sinus: Frontal sinus tenderness present. Mouth/Throat: Pharynx: Uvula midline. No pharyngeal swelling, oropharyngeal exudate, posterior oropharyngeal erythema or uvula swelling. Eyes: General: Lids are normal. No scleral icterus. Right eye: No discharge. Left eye: No discharge. Conjunctiva/sclera: Conjunctivae normal. Pupils: Pupils are equal, round, and reactive to light. Neck: Trachea: Trachea normal. Cardiovascular: Rate and Rhythm: Normal rate and regular rhythm. Heart sounds: Normal heart sounds. Pulmonary: Effort: Pulmonary effort is normal. Breath sounds: Normal breath sounds. Musculoskeletal: Cervical back: Normal range of motion and neck supple. Lymphadenopathy: Cervical: No cervical adenopathy. Right cervical: No superficial cervical adenopathy. Left cervical: No superficial cervical adenopathy. Skin: Findings: No rash. Neurological: Mental Status: She is alert and oriented to person, place, and time. ASSESSMENT/PLAN: 1. Bacterial sinusitis - ICD9: 473.9, 041.9, ICD10: J32.9, B96.89 - Will begin treatment with as per antibiotic as written, see orders - Supportive care with plenty of fluids, rest, and analgesia prn. - Follow up in 5-7 days if symptoms persist or worsen. - DOXYCYCLINE MONOHYDRATE 100 MG TABLET Sidney Gonzalez APRN.TRIXIE documented in this encounter [facility] 11-15-2022 Miscellaneous Notes Patient notified, advised may need PA. Patient will contact pharmacy. Ignacia Carmona LPN Can try to get prior authorization for Mounjaro--since on higher dose of Trulicity at 3 mg, would start at 5 mg dose. 4 weeks given with 1 RF in case Trulicity still on backorder. The following approved medication requests have been transmitted electronically. Requested Prescriptions Signed Prescriptions Disp Refills tirzepatide (MOUNJARO) 5 mg/0.5 mL pen injector 4 Each 1 Sig: Inject 5 mg subcutaneously one time a week. Authorizing Provider: EVELIO HARMON MD Patient says Ozempic & Trulicity is on backorder. Questions what she needs to do at this point. Ignacia Carmona LPN Can not complete this PA electronically with [employer]. Ozempic is also on back orders. Pharmacy gets supplies sporadically. Will see what happens when pharmacy runs rx with insurance first. We could try Ozempic instead, a prior authorization may be needed. Rosa Isela Yanez APRN.CNP Pt calls to report that [facility] has advised her that Trulicity is on backorder and they have no idea when it will be available. Pt reports she has called around to other pharmacies and is hearing the same thing. Pt reports she is due Saturday for a shot and does not have any. Pt is asking what she should do. Josephine Hernandez LPN documented in this encounter [facility] 11-12-2022 Instructions Rosa Isela Yanez APRN.CNP - 11/12/2022 1:45 PM EST FACT SHEET FOR PATIENTS, PARENTS, AND CAREGIVERS EMERGENCY USE AUTHORIZATION (EUA) OF PAXLOVID FOR CORONAVIRUS DISEASE 2019 (COVID-19) You are being given this Fact Sheet because your healthcare provider believes it is necessary to provide you with PAXLOVID for the treatment of uybm-gj-ycscrhll coronavirus disease (COVID-19) caused by the SARS-CoV-2 virus. This Fact Sheet contains information to help you understand the risks and benefits of taking the PAXLOVID you have received or may receive. The U.S. Food and Drug Administration (FDA) has issued an Emergency Use Authorization (EUA) to make PAXLOVID available during the COVID-19 pandemic (for more details about an EUA please see What is an Emergency Use Authorization? at the end of this document). PAXLOVID is not an FDA-approved medicine in the [place]. Read this Fact Sheet for information about PAXLOVID. Talk to your healthcare provider about your options or if you have any questions. It is your choice to take PAXLOVID. What is COVID-19? COVID-19 is caused by a virus called a coronavirus. You can get COVID-19 through close contact with another person who has the virus. COVID-19 illnesses have ranged from very pwjs-ho-npxdiu, including illness resulting in . While information so far suggests that most COVID-19 illness is mild, serious illness can happen and may cause some of your other medical conditions to become worse. Older people and people of all ages with severe, long lasting (chronic) medical conditions like heart disease, lung disease, and diabetes, for example seem to be at higher risk of being hospitalized for COVID-19. What is PAXLOVID? PAXLOVID is an investigational medicine used to treat yhob-iz-jzrqbjov COVID-19 in adults and children [12 years of age and older weighing at least 88 pounds (40 kg)] with positive results of direct SARS-CoV-2 viral testing, and who are at high risk for progression to severe COVID-19, including hospitalization or . PAXLOVID is investigational because it is still being studied. There is limited information about the safety and effectiveness of using PAXLOVID to treat people with typq-ol-oesykmdr COVID-19. The FDA has authorized the emergency use of PAXLOVID for the treatment of dvxr-kx-yxruhkwl COVID-19 in adults and children [12 years of age and older weighing at least 88 pounds (40 kg)] with a positive test for the virus that causes COVID-19, and who are at high risk for progression to severe COVID-19, including hospitalization or , under an EUA. 1 Revised: 09 February 2022 What should I tell my healthcare provider before I take PAXLOVID? Tell your healthcare provider if you: Have any allergies Have liver or kidney disease Are or plan to become Are a child Have any serious illnesses Tell your healthcare provider about all the medicines you take, including prescription and emfv-krl-zmdaksj medicines, vitamins, and herbal supplements. Some medicines may interact with PAXLOVID and may cause serious side effects. Keep a list of your medicines to show your healthcare provider and pharmacist when you get a new medicine. You can ask your healthcare provider or pharmacist for a list of medicines that interact with PAXLOVID. Do not start taking a new medicine without telling your healthcare provider. Your healthcare provider can tell you if it is safe to take PAXLOVID with other medicines. Tell your healthcare provider if you are taking combined hormonal contraceptive. PAXLOVID may affect how your control pills work. Females who are able to become should use another effective alternative form of contraception or an additional barrier method of contraception. Talk to your healthcare provider if you have any questions about contraceptive methods that might be right for you. How do I take PAXLOVID? PAXLOVID consists of 2 medicines: nirmatrelvir and ritonavir. Take 2 pink tablets of nirmatrelvir with 1 white tablet of ritonavir by mouth 2 times each day (in the morning and in the evening) for 5 days. For each dose, take all 3 tablets at the same time. If you have kidney disease, talk to your healthcare provider. You may need a different dose. Swallow the tablets whole. Do not chew, break, or crush the tablets. Take PAXLOVID with or without food. Do not stop taking PAXLOVID without talking to your healthcare provider, even if you feel better. If you miss a dose of PAXLOVID within 8 hours of the time it is usually taken, take it as soon as you remember. If you miss a dose by more than 8 hours, skip the missed dose and take the next dose at your regular time. Do not take 2 doses of PAXLOVID at the same time. If you take too much PAXLOVID, call your healthcare provider or go to the nearest hospital emergency room right away. If you are taking a ritonavir-or cobicistat-containing medicine to treat hepatitis C or Human Immunodeficiency Virus (HIV), you should continue to take your medicine as prescribed by your healthcare provider. Talk to your healthcare provider if you do not feel better or if you feel worse after 5 days. Who should generally not take PAXLOVID? Do not take PAXLOVID if: You are allergic to nirmatrelvir, ritonavir, or any of the ingredients in PAXLOVID You are taking any of the following medicines: Alfuzosin Pethidine, propoxyphene Ranolazine Amiodarone, dronedarone, flecainide, propafenone, quinidine Colchicine Lurasidone, pimozide, clozapine Dihydroergotamine, ergotamine, methylergonovine Lovastatin, simvastatin Sildenafil (Revatio ) for pulmonary arterial hypertension (PAH) Triazolam, oral midazolam Apalutamide Carbamazepine, phenobarbital, phenytoin Rifampin Zay s Wort (hypericum perforatum) Taking PAXLOVID with these medicines may cause serious or life-threatening side effects or affect how PAXLOVID works. These are not the only medicines that may cause serious side effects if taken with PAXLOVID. PAXLOVID may increase or decrease the levels of multiple other medicines. It is very important to tell your healthcare provider about all of the medicines you are taking because additional laboratory tests or changes in the dose of your other medicines may be necessary while you are taking PAXLOVID. Your healthcare provider may also tell you about specific symptoms to watch out for that may indicate that you need to stop or decrease the dose of some of your other medicines. What are the important possible side effects of PAXLOVID? Possible side effects of PAXLOVID are: Allergic Reactions. Allergic reactions can happen in people taking PAXLOVID, even after only 1 dose. Stop taking PAXLOVID and call your healthcare provider right away if you get any of the following symptoms of an allergic reaction: hives trouble swallowing or breathing swelling of the mouth, lips, or face throat tightness hoarseness skin rash Liver Problems. Tell your healthcare provider right away if you have any of these signs and symptoms of liver problems: loss of appetite, yellowing of your skin and the whites of eyes (jaundice), dark-colored urine, pale colored stools and itchy skin, stomach area (abdominal) pain. Resistance to HIV Medicines. If you have untreated HIV infection, PAXLOVID may lead to some HIV medicines not working as well in the future. Other possible side effects include: altered sense of taste diarrhea high blood pressure muscle aches These are not all the possible side effects of PAXLOVID. Not many people have taken PAXLOVID. Serious and unexpected side effects may happen. PAXLOVID is still being studied, so it is possible that all of the risks are not known at this time. What other treatment choices are there? Veklury (remdesivir) is FDA-approved for the treatment of hpjn-lu-woezgusd COVID-19 in certain adults and children. Talk with your doctor to see if Veklury is appropriate for you. Like PAXLOVID, FDA may also allow for the emergency use of other medicines to treat people with COVID-19. Go to https://www.fda.gov/emergency-prep aredness-andresponse/wpv-lrurh-syt sgsasdr-sik-rfvqal-framework/emerg wmgx-wwy-moohpsffsgtir for information on the emergency use of other medicines that are authorized by FDA to treat people with COVID-19. Your healthcare provider may talk with you about clinical trials for which you may be eligible. It is your choice to be treated or not to be treated with PAXLOVID. Should you decide not to receive it or for your child not to receive it, it will not change your standard medical care. What if I am or ? There is health economist treating women or mothers with PAXLOVID. For a mother and unborn baby, the benefit of taking PAXLOVID may be greater than the risk from the treatment. If you are , discuss your options and specific situation with your healthcare provider. It is recommended that you use effective barrier contraception or do not have sexual activity while taking PAXLOVID. If you are , discuss your options and specific situation with your healthcare provider. How do I report side effects with PAXLOVID? Contact your healthcare provider if you have any side effects that bother you or do not go away. Report side effects to FDA [place] at www.fda.gov/medBioserietch or call 8-439-VTV1468 or you can report side effects to [employer]). at the contact information provided below. Website Fax number Telephone number [email or web address] How should I store PAXLOVID? Store PAXLOVID tablets at room temperature, between 68?F to 77?F (20?C to 25?C). How can I learn more about COVID-19? Ask your healthcare provider. Visit https://www.cdc.gov/COVID19. Contact your local or state public health department. What is an Emergency Use Authorization (EUA)? The [place] FDA has made PAXLOVID available under an emergency access mechanism called an Emergency Use Authorization (EUA). The EUA is supported by a [place] of Health and Human Service (HHS) declaration that circumstances exist to justify the emergency use of drugs and biological products during the COVID-19 pandemic. PAXLOVID for the treatment of sqrl-ql-mcscnbwd COVID-19 in adults and children [12 years of age and older weighing at least 88 pounds (40 kg)] with positive results of direct SARS-CoV-2 viral testing, and who are at high risk for progression to severe COVID-19, including hospitalization or , has not undergone the same type of review as an FDA-approved product. In issuing an EUA under the COVID-19 public health emergency, the FDA has determined, among other things, that based on the total amount of scientific evidence available including data from adequate and well-controlled clinical trials, if available, it is reasonable to believe that the product may be effective for diagnosing, treating, or preventing COVID-19, or a serious or life-threatening disease or condition caused by COVID-19; that the known and potential benefits of the product, when used to diagnose, treat, or prevent such disease or condition, outweigh the known and potential risks of such product; and that there are no adequate, approved, and available alternatives. All of these criteria must be met to allow for the product to be used in the treatment of patients during the COVID-19 pandemic. The EUA for PAXLOVID is in effect for the duration of the COVID-19 declaration justifying emergency use of this product, unless terminated or revoked (after which the products may no longer be used under the EUA). Additional Information For general questions, visit the website or call the telephone number provided below. Website Telephone number [employer] (3-148-E58-NLQL) You can also go to www.[employer] or call for more information. Pfizer Distributed by [employer] [place] [address] [id number] Revised: 09 February 2022 documented in this encounter [facility] 11-12-2022 History of Present illness Narrative This Team Access Model visit is a virtual encounter. It required patient-provider interaction for the medical decision making as documented below. Patient agrees to the visit: Yes Patient Location: [place] CC: Patient presents with: Covid Positive HPI: Isaac Aviles is a 52 year old female who is contacted today for a virtual visit. This is an established patient of Dr. Librado Barrios MD. COVID positive test on 11/11/22, day 3 of symptoms. Symptoms are moderate REVIEW OF SYSTEMS See HPI PAST MEDICAL HISTORY Diagnosis Date Asthma 07/08/2019 Breast mass, right 07/20/2013 fibrous. Cellulitis 08/01/2019 neck surgical site Depression 2012 DM (diabetes mellitus) (HCC) 04/07/2019 Hyperparathyroidism (HCC) 05/04/2019 Hypertension 03/04/2013 Infection of right breast 07/28/2013 Obesity, Class III, BMI >= 40 07/23/2019 Open wound of right breast 07/28/2013 PAST SURGICAL HISTORY Procedure Laterality Date BREAST BIOPSY INCISIONAL RIGHT Right 07/20/2013 fibrous PARATHYROIDECTOMY/EXPLORATION PARATHYROIDS 07/23/2019 REMOVE TONSILS/ADENOIDS,<12 Y/O 1976 THYROID FINE NEEDLE ASPIRATION Left 05/04/2019 ALLERGIES Penicillin G, Adhesive, and Penicillins MEDICATIONS glipiZIDE (GLUCOTROL) 10 mg tablet Take 1 tablet by mouth daily with food. lisinopril (ZESTRIL, PRINIVIL) 20 mg tablet Take 1 tablet by mouth once daily. meloxicam (MOBIC) 15 mg tablet Take 1 tablet by mouth once daily. With food. dulaglutide (TRULICITY) 3 mg/0.5 mL pen injector Inject 3 mg subcutaneously one time a week. fluticasone (FLONASE) 50 mcg/actuation nasal spray Use 2 Sprays in each nostril once daily. Rinse mouth after use. (Patient not taking: Reported on 08/13/2022) hydroCHLOROthiazide (HYDRODIURIL, ESIDRIX) 25 mg tablet Take 1 tablet by mouth once daily. metFORMIN (GLUCOPHAGE) 500 mg tablet Take 2 tablets by mouth twice daily with meals. multivit with minerals/lutein (MULTIVITAMIN 50 PLUS ORAL) Take by mouth. vit A/vit C/vit E/zinc/copper (PRESERVISION AREDS ORAL) Take by mouth. generic Lactobac no.41/Bifidobact no.7 (PROBIOTIC-10 ORAL) Take by mouth. (Patient not taking: Reported on 08/13/2022) albuterol (PROVENTIL) 2.5 mg /3 mL (0.083 %) nebulizer solution Use 3 mL via nebulizer every 4 hours as needed for wheezing/shortness of breath. Use over 5-15minutes. loratadine 10 mg tablet Take 10 mg by mouth once daily. Patient taking 1 tablet once daily. FAMILY HISTORY Problem Relation Age of Onset Diabetes Father Blindness Father Possibly related to diabetes, no history of blindness per patient other (CHF) Father 58 other (CVA) Father No Ocular Disease Mother Diabetes Maternal Grandmother No Ocular Disease Maternal Grandmother No Ocular Disease Maternal Grandfather No Ocular Disease Paternal Grandmother No Ocular Disease Paternal Grandfather Anesthesia Problems No Family History Blood Clots No Family History Clotting Disorder No Family History Social History Tobacco Use Smoking status: Former Smokeless tobacco: Never Tobacco comments: stopped in her 20's Vaping Use Vaping Use: Never used Substance Use Topics Alcohol use: No Drug use: No Comment: THC drops Exam GENERAL: Ill-appearing, but non-toxic HEENT: no conjunctival injection, pupils equal, moist mucous membranes, and oropharynx clear without erythema PULMONARY: breathing comfortably on room air , coughing, and no wheezing noted ASSESSMENT/PLAN: 1. COVID-19 virus infection - ICD9: 079.89, ICD10: U07.1 Nirmatrelvir/Ritonavir (Paxlovid) Eligibility and Patient Discussion [facility] Formulary Restriction Criteria: Adult outpatients 18 years and older with ALL of the following: [x] Patient has positive SARS-COV-2 viral test (PCR or antigen test) during current illness [x] Patient has symptoms for 5 days or less [x] Not requiring hospitalization at any time for management of COVID-19 [x] Not requiring supplemental oxygen or a change in baseline supplemental oxygen [x] Not utilized for pre-exposure or post-exposure prophylaxis for prevention of COVID-19 [x] Patient does not have severe renal impairment (eGFR < 30 mL/min) or severe hepatic impairment (Child-Fischer Class C) [x] Meeting at least one of the criteria for high risk of progression to severe COVID-19: [] Age over 65 years [] Cancer [] Chronic kidney disease [] Chronic liver disease [] Chronic lung diseases, including cystic fibrosis [] Dementia or other neurological conditions [x] Diabetes (type 1 or type 2) [] Disabilities, including Down syndrome and neurodevelopmental disorders [x] Heart conditions [] HIV infection [] Immunocompromised state [] Mental health conditions [] Medical related technological dependence (tracheostomy, gastrostomy, or positive pressure ventilation (not related to COVID) [] Overweight and obesity (BMI greater or equal to 25 for adults) [] Physical inactivity [] [] Sickle cell disease or thalassemia [] Smoking, current or former [] Solid organ or blood stem cell transplant [] Stroke or cerebrovascular disease [] Substance use disorders [] Tuberculosis [] People from racial and ethnic minority groups Criteria above are met: Yes Date of Positive Test:11/11/22 Date of Symptom Onset: 11/09/22 Patient received COVID vaccine: Yes Drug-Drug interactions reviewed: Yes. No significant drug interactions were identified. I have discussed the use of the investigational therapeutic, nirmatrelvir/ritonavir, for the treatment of mild to moderate COVID-19 and its use under Emergency Use Authorization with the patient. The patient was informed that nirmatrelvir/ritonavir is not an FDA approved drug and that it is authorized for use under this Emergency Use Authorization. The patient was also informed of the significant known benefits and potential risks of nirmatrelvir/ritonavir, and the extent to which such potential risks and benefits are unknown. The patient was informed that there is mandatory reporting of all medication errors and serious adverse events potentially related to nirmatrelvir/ritonavir treatment within 7 calendar days from the onset of the event and that events up to 28 days after completion of therapy need to be reported. The discussion included alternatives to receiving nirmatrelvir/ritonavir, including clinical trials, and potential the risks and benefits of those alternatives. The patient was provided electronically with the Fact Sheet for Patients, Parents and Caregivers . The patient was also instructed that in addition to the treatment with nirmatrelvir/ritonavir, he/she should continue to self-isolate and use infection control measures (e.g., wear mask, isolate, social distance, avoid sharing personal items, clean and disinfect high touch surfaces, and frequent handwashing) according to CDC guidelines. The patient stated understanding and gave verbal consent to proceeding with nirmatrelvir/ritonavir treatment. Prescription instructions reviewed with patient as applicable. Potential red flag symptoms discussed with the patient. Reviewed appropriate action plan to take if red flag symptoms occur. Patient agreeable to treatment plan. Rosa Isela Yanez APRN.CNP documented in this encounter [facility] 11-12-2022 History of Present illness Narrative This is an [facility] eVisit note for Isaac Esposito/Questionnaire reviewed The chief complaint for the visit - Patient presents with: Covid19 Concern Recommendations/Treatment plan - See My Chart Message to patient Ryan Christensen PA-C documented in this encounter [facility] 09-15-2022 Miscellaneous Notes Last office visit: 08/13/22 Next appointment scheduled: 12/17/22 Last labs: 08/07/22 Patient has been identified by name and date of : Yes Last office visit in this department: 08/13/2022 RX INSTRUCTIONS: Patient aware RX will be sent to pharmacy. No need to notify patient. Patient phones requesting refills as follows: Requested Prescriptions Pending Prescriptions Disp Refills glipiZIDE (GLUCOTROL) 10 mg tablet Sig: Take 1 tablet by mouth daily with food. lisinopril (ZESTRIL, PRINIVIL) 20 mg tablet 30 tablet 5 Sig: Take 1 tablet by mouth once daily. meloxicam (MOBIC) 15 mg tablet 30 tablet 2 Sig: Take 1 tablet by mouth once daily. With food. Please review and advise. Sandra Teresa documented in this encounter [facility] 08-13-2022 History of Present illness Narrative CC: Patient presents with: F/U 3 Month HPI Isaac Aviles is a 52 year old female who presents today for above. She is concerned about her Creatinine level on her blood work (0.55). Stated she read that Meloxicam can lower her levels so she stopped taking it yesterday and wants to see if it improves. She is checking her blood sugars daily, average around 120 or less. Denies low blood sugar. Tolerating diabetes medications without side effects. Denies increased thirst, urinary frequency, nocturia, fatigue, unintentional weight loss, blurred vision, numbness, tingling or pain in extremities, ulcers or sores on feet REVIEW OF SYSTEMS General: no fevers, no chills, no change in energy, and no significant changes in weight Respiratory: no cough, no wheezing, no shortness of breath, no hemoptysis Cardiovascular: no chest pain, no chest pressure, no palpitations, and no swelling PAST MEDICAL HISTORY Diagnosis Date Asthma 07/08/2019 Breast mass, right 07/20/2013 fibrous. Cellulitis 08/01/2019 neck surgical site Depression 2012 DM (diabetes mellitus) (HCC) 04/07/2019 Hyperparathyroidism (HCC) 05/04/2019 Hypertension 03/04/2013 Infection of right breast 07/28/2013 Obesity, Class III, BMI >= 40 07/23/2019 Open wound of right breast 07/28/2013 PAST SURGICAL HISTORY Procedure Laterality Date BREAST BIOPSY INCISIONAL RIGHT Right 07/20/2013 fibrous PARATHYROIDECTOMY/EXPLORATION PARATHYROIDS 07/23/2019 REMOVE TONSILS/ADENOIDS,<12 Y/O 1975 THYROID FINE NEEDLE ASPIRATION Left 05/04/2019 ALLERGIES Penicillin G, Adhesive, and Penicillins MEDICATIONS dulaglutide (TRULICITY) 1.5 mg/0.5 mL pen injector Inject 1.5 mg subcutaneously one time a week. Inject once per week. Discard Pen After meloxicam (MOBIC) 15 mg tablet Take 1 tablet by mouth once daily. With food. glipiZIDE (GLUCOTROL) 10 mg tablet Take 1 tablet by mouth daily with food. hydroCHLOROthiazide (HYDRODIURIL, ESIDRIX) 25 mg tablet Take 1 tablet by mouth once daily. metFORMIN (GLUCOPHAGE) 500 mg tablet Take 2 tablets by mouth twice daily with meals. lisinopril (ZESTRIL, PRINIVIL) 20 mg tablet Take 1 tablet by mouth once daily. multivit with minerals/lutein (MULTIVITAMIN 50 PLUS ORAL) Take by mouth. vit A/vit C/vit E/zinc/copper (PRESERVISION AREDS ORAL) Take by mouth. generic albuterol (PROVENTIL) 2.5 mg /3 mL (0.083 %) nebulizer solution Use 3 mL via nebulizer every 4 hours as needed for wheezing/shortness of breath. Use over 5-15minutes. loratadine 10 mg tablet Take 10 mg by mouth once daily. Patient taking 1 tablet once daily. fluticasone (FLONASE) 50 mcg/actuation nasal spray Use 2 Sprays in each nostril once daily. Rinse mouth after use. (Patient not taking: Reported on 08/13/2022) Lactobac no.41/Bifidobact no.7 (PROBIOTIC-10 ORAL) Take by mouth. (Patient not taking: Reported on 08/13/2022) FAMILY HISTORY Problem Relation Age of Onset Diabetes Father Blindness Father Possibly related to diabetes, no history of blindness per patient other (CHF) Father 58 other (CVA) Father No Ocular Disease Mother Diabetes Maternal Grandmother No Ocular Disease Maternal Grandmother No Ocular Disease Maternal Grandfather No Ocular Disease Paternal Grandmother No Ocular Disease Paternal Grandfather Anesthesia Problems No Family History Blood Clots No Family History Clotting Disorder No Family History Social History Tobacco Use Smoking status: Former Smokeless tobacco: Never Tobacco comments: stopped in her 20's Vaping Use Vaping Use: Never used Substance Use Topics Alcohol use: No Drug use: No Comment: THC drops PHYSICAL EXAM BP 130/78 Pulse 78 Resp 18 Wt 124.7 kg (275 lb) LMP 11/24/2020 BMI 48.71 kg/m General Appearance: well appearing, in no acute distress, alert Lungs: Lungs clear to auscultation. No wheezing, rhonchi, rales. Heart: RRR without murmur, gallop, or rubs. No ectopy Health maintenance reviewed with patient: SHINGRIX VACCINE(1 of 2) Never done COLORECTAL CANCER SCREENING due on 08/28/2021 COVID-19 VACCINE(4 - Booster for Moderna series) due on 01/22/2022 DIABETIC FOOT EXAM due on 06/06/2022 BP CONTROLLED (<130/80) due on 06/06/2022 INFLUENZA(1) due on 07/26/2022 HBA1C due on 12/05/2022 URINE ALBUMIN:CREATININE RATIO due on 12/06/2022 MAMMOGRAM due on 01/03/2023 DILATED RETINAL EXAM due on 05/29/2023 ANNUAL PCP TEAM CHRONIC DISEASE VISIT due on 06/04/2023 LDL CHOLESTEROL due on 08/07/2023 DEPRESSION SCREENING due on 08/13/2023 PAP TESTING due on 01/11/2025 HPV TESTING due on 01/11/2025 DTAP,TDAP,TD(2 - Td or Tdap) due on 12/12/2031 SPIROMETRY Completed HEPATITIS C SCREENING Completed HIV SCREENING Completed PNEUMOCOCCAL Completed HEPATITIS B Discontinued DATA REVIEWED: Most recent labs ASSESSMENT/PLAN: 1. Type 2 diabetes mellitus without complication, without long-term current use of insulin (HCC) - ICD9: 250.00, ICD10: E11.9 (primary diagnosis) Controlled. - Continue current medications - Increase Trulicity to 3 mg weekly per patient request, diabetes well controlled but she feels it could be better. Also hoping for more weight loss - HGB A1C 2. Obesity, Class III, BMI >= 40 - ICD9: 278.01, ICD10: E66.01 Weight decreasing See above 3. Primary hypertension - ICD9: 401.9, ICD10: I10 - good control - Continue current medication(s) - Recommended regular aerobic exercise. - Recommend home blood pressure monitoring, to bring results in on next visit - Goal of BP <130/80 4. Encounter for immunization - ICD9: V03.89, ICD10: Z23 - INFLUENZA VACCINE QUADRIVALENT 6 MO - 64 YRS IM Prescription instructions reviewed with patient as applicable. Potential red flag symptoms discussed with the patient. Reviewed appropriate action plan to take if red flag symptoms occur. Patient agreeable to treatment plan. Rosa Isela Yanez APRN.CNP documented in this encounter [facility] 07-25-2022 Miscellaneous Notes ARTURO: 06/04/2022 Last refill: 04/30/2022 QTY: 2ml Refills: 2 Patient has been identified by name and date of : Yes Requested Prescriptions Pending Prescriptions Disp Refills dulaglutide (TRULICITY) 1.5 mg/0.5 mL pen injector 2 mL 2 Sig: Inject 1.5 mg subcutaneously one time a week. Inject once per week. Discard Pen After RX INSTRUCTIONS: Patient aware RX will be sent to pharmacy. No need to notify patient. Abi Ryan documented in this encounter [facility] 07-13-2022 Miscellaneous Notes Detailed message left for patient. Fasting labs ordered. Patient has a scheduled appointment on 08-13-22 and wanted to know if she should have labs done before this appointment? Contact patient at [phone] Narda Pelaez Pss documented in this encounter [facility] 07-12-2022 Miscellaneous Notes Patient has been identified by name and date of : Yes Patient phones for refill(s): Requested Prescriptions Pending Prescriptions Disp Refills meloxicam (MOBIC) 15 mg tablet 30 tablet 2 Sig: Take 1 tablet by mouth once daily. With food. Date of last office visit in primary care: 06/04/2022 3 month follow-up: 08/13/2022 Last 2 Encounter Wt Readings: Date: Wt: 06/04/2022 124.3 kg (274 lb) 05/30/2022 125.2 kg (276 lb) Previous labs/tests for medication: Not applicable Please advise. Thank you. Ignacia Carmona LPN Patient has been identified by name and date of : Yes Requested Prescriptions Pending Prescriptions Disp Refills meloxicam (MOBIC) 15 mg tablet 30 tablet 2 Sig: Take 1 tablet by mouth once daily. With food. RX INSTRUCTIONS: Patient aware RX will be sent to pharmacy. No need to notify patient. Narda Pelaez Pss documented in this encounter [facility] 06-04-2022 History of Present illness Narrative This note was created using [employer]. Subjective Isaac Aviles is a 52 year old female. She's been dealing with upper respiratory infection symptoms for 2 weeks. [facility] and tested negative for Covid and strep. Symptom management was recommended, however, symptoms developed to sinus pressure and she returned to [facility] last week, and prescribed Zpak. She continued to have sinus symptoms with only slight improvement. She was taking Advil Cold and Sinus, loratadine, Flonase, and she was doing sinus irrigation which still yielded greenish drainage. Her diabetes mellitus was controlled. Review of Systems Constitutional: Negative for chills and fever. Respiratory: Negative for cough and shortness of breath. Gastrointestinal: Negative. ACTIVE PROBLEM LIST Hypertension Asthma Dm (Diabetes Mellitus) (Hcc) Hyperparathyroidism (Hcc) Obesity, Class III, BMI >= 40 Current Outpatient Medications Medication Sig fluticasone (FLONASE) 50 mcg/actuation nasal spray Use 2 Sprays in each nostril once daily. Rinse mouth after use. meloxicam (MOBIC) 15 mg tablet Take 1 tablet by mouth once daily. With food. glipiZIDE (GLUCOTROL) 10 mg tablet Take 1 tablet by mouth daily with food. dulaglutide (TRULICITY) 1.5 mg/0.5 mL pen injector Inject 1.5 mg subcutaneously one time a week. Inject once per week. Discard Pen After hydroCHLOROthiazide (HYDRODIURIL, ESIDRIX) 25 mg tablet Take 1 tablet by mouth once daily. metFORMIN (GLUCOPHAGE) 500 mg tablet Take 2 tablets by mouth twice daily with meals. lisinopril (ZESTRIL, PRINIVIL) 20 mg tablet Take 1 tablet by mouth once daily. multivit with minerals/lutein (MULTIVITAMIN 50 PLUS ORAL) Take by mouth. vit A/vit C/vit E/zinc/copper (PRESERVISION AREDS ORAL) Take by mouth. generic Lactobac no.41/Bifidobact no.7 (PROBIOTIC-10 ORAL) Take by mouth. albuterol (PROVENTIL) 2.5 mg /3 mL (0.083 %) nebulizer solution Use 3 mL via nebulizer every 4 hours as needed for wheezing/shortness of breath. Use over 5-15minutes. loratadine 10 mg tablet Take 10 mg by mouth once daily. Patient taking 1 tablet once daily. azithromycin (ZITHROMAX) 250 mg tablet Take 1 tablet by mouth once daily for 3 days. No current facility-administered medications for this visit. Objective BP 132/80 (BP Site: Left Arm, BP Position: Sitting, BP Cuff Size: Large Adult) Pulse 76 Temp 36.5 C (97.7 F) (Temporal Artery) Resp 18 Wt 124.3 kg (274 lb) LMP 11/24/2020 BMI 48.54 kg/m Physical Exam Constitutional: General: She is not in acute distress. HENT: Right Ear: Tympanic membrane normal. Left Ear: Tympanic membrane normal. Nose: No rhinorrhea. Right Turbinates: Swollen. Left Turbinates: Swollen. Right Sinus: Maxillary sinus tenderness present. No frontal sinus tenderness. Left Sinus: Maxillary sinus tenderness present. No frontal sinus tenderness. Mouth/Throat: Mouth: Mucous membranes are moist. Pharynx: Oropharynx is clear. Pulmonary: Breath sounds: Normal breath sounds. Lymphadenopathy: Cervical: No cervical adenopathy. Neurological: Mental Status: She is alert. Assessment and Plan 1. Acute non-recurrent maxillary sinusitis - ICD9: 461.0, ICD10: J01.00 (primary diagnosis) - Supportive care with plenty of fluids, rest, and analgesia prn. - Continue Flonase, loratadine. Caution on decongestants. - AZITHROMYCIN 250 MG TABLET. Extend 3 more days. 2. Type 2 diabetes mellitus without complication, without long-term current use of insulin (HCC) - ICD9: 250.00, ICD10: E11.9 Controlled. - Continue current medications - HEMOGLOBIN A1C (POC) Librado Barrios MD documented in this encounter [facility] 05-29-2022 History of Present illness Narrative Assessment and Plan 1. Type 2 diabetes mellitus without complication, without long-term current use of insulin (HCC) -no diabetic retinopathy both eyes 2. Dry eye syndrome of both eyes -with tearing with prolonged TV watching 3. Other chronic allergic conjunctivitis of both eyes -controlled with drops as needed Plan: -Continue blood sugar and blood pressure control -artificial tears twice a day both eyes -continue anti-allergy drops as needed -Dr. Elizalde as needed for updated manifest refraction (gets her glasses off the Internet and currently wearing bifocals which she feels are no longer working for reading as well) and continue yearly follow-up. Me as needed I have confirmed and edited as necessary the relevant ophthalmic history, ROS, and the neuro exam findings as obtained by others. I have seen and examined Isaac Aviles. I have discussed the case and the management of this patient's care with the Resident/Fellow, if applicable. I also have reviewed and agree with the assessment and plan as stated above and agree with all of its relevant components. Ernesto Ko MD documented in this encounter [facility] 05-25-2022 Miscellaneous Notes Patient returned call and given provider's message below and patient verbalized understanding. Edmundo Wiggins RN Strep is negative. Symptomatic treatment only recommended. Patient calling and reports she was seen in [facility] yesterday 05/24 for a sore throat as well as other symptoms. Negative for Strep and Covid. Patient calling this morning to ask Dr. Barrios if he would order her Z-sarah beth antibiotic or other treatment due to worsened sore throat last night and this morning, low grade temp of 99.5 and increased cough. Continues with mild nausea. Denies SOB , vomiting or diarrhea. Requesting [facility] pharmacy in [place]. Please advise patient. Thank you. documented in this encounter [facility] 05-24-2022 History of Present illness Narrative Patient presents with: Nasal Congestion: right ear pain, sore throat x 1 day HPI: Feeling sick since last night. Positive symptoms: Sore throat, right Earache, Nasal Congestion, Rhinorrhea, little cough, Nausea, Negative symptoms: Fever, Vomiting, Diarrhea, OTC: Sudafed, Tylenol, sinus rinse Had third dose of Moderna COVID-19 vaccine in August. MEDICATIONS: Current Outpatient Medications Medication Sig meloxicam (MOBIC) 15 mg tablet Take 1 tablet by mouth once daily. With food. glipiZIDE (GLUCOTROL) 10 mg tablet Take 1 tablet by mouth daily with food. dulaglutide (TRULICITY) 1.5 mg/0.5 mL pen injector Inject 1.5 mg subcutaneously one time a week. Inject once per week. Discard Pen After hydroCHLOROthiazide (HYDRODIURIL, ESIDRIX) 25 mg tablet Take 1 tablet by mouth once daily. metFORMIN (GLUCOPHAGE) 500 mg tablet Take 2 tablets by mouth twice daily with meals. lisinopril (ZESTRIL, PRINIVIL) 20 mg tablet Take 1 tablet by mouth once daily. multivit with minerals/lutein (MULTIVITAMIN 50 PLUS ORAL) Take by mouth. vit A/vit C/vit E/zinc/copper (PRESERVISION AREDS ORAL) Take by mouth. generic Lactobac no.41/Bifidobact no.7 (PROBIOTIC-10 ORAL) Take by mouth. albuterol (PROVENTIL) 2.5 mg /3 mL (0.083 %) nebulizer solution Use 3 mL via nebulizer every 4 hours as needed for wheezing/shortness of breath. Use over 5-15minutes. loratadine 10 mg tablet Take 10 mg by mouth once daily. Patient taking 1 tablet once daily. No current facility-administered medications for this visit. ALLERGIES: ALLERGIES Allergen Reactions Penicillin G Swelling, Shortness of Breath Adhesive Other: See Comments Patient notes severe reaction to almost any type of adhesive in the past. Most recently developed significant ulceration at site where steri-strips were used after core biopsy Penicillins Hives VITALS: BP 128/84 Pulse 84 Temp 36.7 C (98 F) Resp 21 Wt 124.9 kg (275 lb 6.4 oz) LMP 11/24/2020 SpO2 97% BMI 48.78 kg/m PHYSICAL EXAM: GEN: mildly ill appearing HEENT: PERRL, EOMI, conjunctiva lightly injected Ears: canals clear. TMs without erythema, bulge, or effusion Sinuses: non-tender frontal sinus, pressure over maxillary sinuses Throat: moist mucous membranes, mild erythema, no exudate Neck: supple, no thyromegaly, no lymphadenopathy HEART: regular rate and rhythm, no murmurs LUNGS: clear to auscultation, no wheezes or crackles, no increased WOB ASSESSMENT/PLAN: 1. Sore throat - ICD9: 462, ICD10: J02.9 Requested - STREP A MOLECULAR (POC) - negative - suspect viral pharyngitis, differential includes COVID-19. - Discussed supportive care treatment with home isolation, rest, lozenges, gargles, saline rinse, and analgesia. - Red flags to seek further treatment include chest pain, shortness of breath, and lethargy; in the ER if severe. - 2019 CORONAVIRUS Ramin Nelson MD documented in this encounter [facility] 05-23-2022 Miscellaneous Notes ARTURO: 04/30/2022 Last refill: 03/02/2022 QTY: 30 Refills: 1 Patient's request for medication is as follows: Pending Prescriptions Disp Refills MELOXICAM 15 MG TABLET 30 tablet 1 Sig: Take 1 tablet by mouth once daily. With food. JOAO: No Please approve the above prescription(s) to electronically send to pharmacy. Mark Guidry Ma Patient has been identified by name and date of : Yes Pending Prescriptions Disp Refills MELOXICAM 15 MG TABLET 30 tablet 1 Sig: Take 1 tablet by mouth once daily. With food. JOAO: No RX INSTRUCTIONS: Patient aware RX will be sent to pharmacy. No need to notify patient. Ryanne Holden documented in this encounter [facility] 03-01-2022 Miscellaneous Notes Patient has been identified by name and date of : Yes Pharmacy phones for refill(s): Pending Prescriptions Disp Refills MELOXICAM 15 MG TABLET 30 tablet 1 Sig: Take 1 tablet by mouth once daily. With food. JOAO: No Date of last office visit in primary care: 12/12/2021; Future Appt . 03/12/2022 Last 2 Encounter Wt Readings: Date: Wt: 12/12/2021 127.2 kg (280 lb 6.4 oz) 06/06/2021 127.5 kg (281 lb) Previous labs/tests for medication: Blood Pressure: BUN (mg/dL) Date Value 05/31/2021 12 Sodium (mmol/L) Date Value 05/31/2021 139 Last 1 Encounter BP Readings: Date: BP: 12/12/2021 128/70 Liver Function: ALT (U/L) Date Value 05/31/2021 28 AST (U/L) Date Value 05/31/2021 22 Please advise. Thank you. Raquel Chew RN documented in this encounter [facility] 02-21-2022 Miscellaneous Notes Scheduled 03/12 documented in this encounter [facility] 02-14-2022 Hospital Discharge instructions Patient Education 02/14/2022 11:44:39 Neuropathy, Peripheral Peripheral Neuropathy Peripheral neuropathy is the result of damage to the peripheral nerves. It usually affects the arms or legs, and causes a change in physical feeling. Sometimes it causes weakness in the muscles. You may feel tingling, numbness or shooting pains. Symptoms may be more common at night. Skin may be extra sensitive to light touch or temperature changes. Neuropathy may be caused by a complication of a chronic disease such as diabetes, virus or bacterial infections, or physical injury. A ruptured disk with pressure on the spinal nerve may also lead to the problem. Certain vitamin deficiencies may also lead to it. It may also be caused by exposure to certain drugs or chemicals. Home care Tell the healthcare provider about all medicines you take. This includes prescription and [id number] medicines, vitamins, and herbs. Ask if any of the medicines may be causing your problems. Don't make any changes to prescription medicines without talking to your healthcare provider first. You may be prescribed medicines to help relieve the tingling feeling or for pain. Take all medicines as directed. A numb hand or foot may be more prone to injury. To help protect it: oAlways use oven mitts. oTest water with an unaffected hand or foot. oUse caution when trimming nails. File sharp areas. oWear shoes that fit well to avoid pressure points, blisters, and ulcers. oInspect your hands and feet carefully (including the soles of your feet and between your toes) at least once a week. If you see red areas, sores, or other problems, tell your healthcare provider. Follow-up care Follow up with your doctor or as advised by our staff. You may need further testing or evaluation. When to seek medical advice Call your healthcare provider right away if any of the following occur: Redness, swelling, cracking, or ulcer on any numb area, especially the feet New symptoms of numbness or muscle weakness numbness Loss of bowel or bladder control Slurred speech, confusion, or trouble speaking, walking, or seeing [employer]. [address] [place] [address]. All rights reserved. This information is not intended as a substitute for professional medical care. Always follow your healthcare professional's instructions. 02/14/2022 11:44:08 Ulnar Nerve Palsy Ulnar Nerve Palsy The ulnar nerve travels down the arm from the shoulder to the hand. It controls movement and feeling in the wrist and hand. Damage to this nerve can cause a condition called ulnar nerve palsy. A common cause of ulnar nerve palsy is leaning on the elbow for long periods of time. Injury to the arm or elbow, such as a fracture, can also damage the ulnar nerve. Symptoms of ulnar nerve palsy include: Numbness, tingling, or burning (often described as pins and needles ) Pain Weakness or muscle shrinking in the hand and fingers The treatment depends on the cause of the nerve damage. In some cases, the problem will go away on its own once pressure to the nerve is relieved. Certain tests may be done to help determine the injury and extent of damage. These include nerve conduction studies (NCS) and electromyography (EMG). Splinting the wrist to limit movement may help with healing. If the problem is due to trauma or injury, physical therapy may be prescribed. Corticosteroid injections into the area may reduce swelling and pressure on the nerve. Surgery to repair the nerve may be needed for chronic symptoms that don't respond to simpler treatments. Home care Rest the wrist and arm until normal feeling and strength return. If you were given a splint or sling, wear it as directed. Don't lean on your elbows. If medicines were prescribed for pain or nerve sensations, take them as directed. Follow-up care Follow up with your healthcare provider or as advised by our staff. When to seek medical advice Call your healthcare provider right away if you have any of the following: Increasing arm swelling or pain Numbness or weakness of the arm Symptoms spread to other parts of the body Slurred speech, confusion Trouble speaking, walking, or seeing [employer]. [address] [place] [id number]. All rights reserved. This information is not intended as a substitute for professional medical care. Always follow your healthcare professional's instructions. Follow Up Care 02/14/2022 11:16:26 With:[facility], Address:Unknown When:2-4 days With:DO BROWNING APRN-DATABASE ADMINISTRATOR Address: [address] [place] [address]- [phone] When:2-4 days [facility] Evaluation + Plan note No data available for this section [facility] Evaluation note Diagnosis Type 2 diabetes mellitus without complication, without long-term current use of insulin (HCC)- Primary [facility] Essential hypertension Unspecified essential hypertension Type 2 diabetes mellitus without complication, without long-term current use of insulin (HCC) Hypertension, unspecified type [facility] Diagnosis Sore throat- Primary Acute pharyngitis [facility] Diagnosis Type 2 diabetes mellitus without complication, without long-term current use of insulin (HCC)- Primary Dry eye syndrome of both eyes Other chronic allergic conjunctivitis of both eyes [facility] Diagnosis Acute non-recurrent maxillary sinusitis- Primary Type 2 diabetes mellitus without complication, without long-term current use of insulin (HCC) [facility] Diagnosis Type 2 diabetes mellitus without complication, without long-term current use of insulin (HCC)- Primary [facility] Diagnosis Type 2 diabetes mellitus without complication, without long-term current use of insulin (HCC)- Primary Obesity, Class III, BMI >= 40 Morbid obesity Primary hypertension Unspecified essential hypertension Encounter for immunization Need for other specified prophylactic vaccination against single bacterial disease [facility] Diagnosis Type 2 diabetes mellitus without complication, without long-term current use of insulin (HCC) Hypertension, unspecified type [facility] Diagnosis Treatment not available- Primary Procedure not carried out for other reasons [facility] Diagnosis COVID-19 virus infection- Primary [facility] Diagnosis Bacterial sinusitis- Primary Unspecified sinusitis (chronic) documented in this encounter [facility] [place] [facility] note* Diagnosis Essential hypertension Unspecified essential hypertension Type 2 diabetes mellitus without complication, without long-term current use of insulin (HCC) documented in this encounter [facility] [place] [facility] note* Diagnosis Type 2 diabetes mellitus without complication, without long-term current use of insulin (HCC)- Primary Mild intermittent asthma without complication Unspecified asthma Encounter for screening mammogram for malignant neoplasm of breast Other screening mammogram Hyperparathyroidism (HCC) Hyperparathyroidism, unspecified documented in this encounter [facility] [place] [facility] note* Diagnosis Acute cough- Primary documented in this encounter [facility] note* Diagnosis Acute sinusitis, recurrence not specified, unspecified location- Primary documented in this encounter [facility] note* Diagnosis Loose stools- Primary Abnormal feces documented in this encounter [facility] note* Diagnosis Type 2 diabetes mellitus without complication, without long-term current use of insulin (HCC) documented in this encounter [facility] note* Diagnosis Type 2 diabetes mellitus without complication, without long-term current use of insulin (HCC)- Primary Dry eye syndrome of both eyes Myopia, bilateral Myopia Presbyopia documented in this encounter [facility] note* Diagnosis Type 2 diabetes mellitus without complication, without long-term current use of insulin (HCC)- Primary Obesity, Class III, BMI >= 40 Morbid obesity Hypertension, unspecified type Need for influenza vaccination Need for prophylactic vaccination and inoculation against influenza Screen for colon cancer Special screening for malignant neoplasms, colon documented in this encounter [facility] note* Diagnosis COVID-19 virus infection- Primary documented in this encounter [facility] note* Diagnosis Type 2 diabetes mellitus without complication, without long-term current use of insulin (HCC)- Primary documented in this encounter [facility] note* Diagnosis Calcaneal spur of foot, left- Primary Tendonitis, Achilles, left Achilles bursitis or tendinitis documented in this encounter [facility] note* Diagnosis Preoperative examination- Primary Preoperative examination, unspecified Hyperparathyroidism (HCC) Hyperparathyroidism, unspecified Hypertension, unspecified type Type 2 diabetes mellitus without complication, without long-term current use of insulin (HCC) Mild intermittent asthma, unspecified whether complicated Type 2 diabetes mellitus without complication, without long-term current use of insulin (HCC)- Primary Essential hypertension Unspecified essential hypertension Mild intermittent asthma without complication Unspecified asthma Need for vaccination Need for prophylactic vaccination and inoculation against unspecified single disease Colon cancer screening Special screening for malignant neoplasms, colon Encounter for screening mammogram for malignant neoplasm of breast Other screening mammogram Obesity, Class III, BMI >= 40 Morbid obesity Acute cough [facility] (narrative)* Diagnostic Procedure Only (Routine) - Authorized Specialty Diagnoses / Procedures Referred By Lydia johnson Referred To Contact [facility] Diagnoses Encounter for screening mammogram for malignant neoplasm of breast Procedures DOUG SCREENING SCREENING MAMMOGRAPHY BI 2-VIEW BREAST INC CAD Librado Barrios MD [address] [place] [address] [facility] [address] [place] [address] Referral ID Status Reason Start Date Expiration Date Visits Requested Visits Authorized [id number] Authorized Auto-Generat ed Referral 12/17/2022 01/16/2024 1 1 [facility] Summary Purpose Family History No Family History Records FoundNo Family History Records FoundNo Family History Records FoundNo Family History Records FoundNo Family History Records Found Advance Directives Documents on File Type Date Recorded Patient Vp Software Expl anation Advance Directive(s) 01/08/2020 4:05 PM Advance Directive(s) 08/01/2019 1:20 AM Advance Directive(s) 08/01/2019 6:06 AM Advance Directive(s) 07/14/2019 8:34 AM Advance Directive(s) 07/08/2019 10:50 AM Documents on File Type Date Recorded Patient Vp Software Expl anation Advance Directive(s) 07/08/2019 10:50 AM Documents on File Type Date Recorded Patient Vp Software Expl anation Advance Directive(s) 07/08/2019 10:50 AM Health Concerns Infection Onset Date Last Indicated Resolved Time COVID-19 Rule-Out 05/24/2022 05/24/2022 Reason for Referral Specialty Diagnoses / Procedures Referred By Lydia johnson Referred To Contact Diagnoses Acute cough Ciara Pena APRN.CNP [address] [place] [address] Referral ID Status Reason Start Date Expiration Date Visits Re quested Visits Authorized [id number] Closed 1 1 Specialty Diagnoses / Procedures Referred By Contac t Referred To Contact Evelio Harmon MD [address] [place] [address] Referral ID Status Reason Start Date Expiration Date Visits Re quested Visits Authorized [id number] Closed 1 1 Specialty Diagnoses / Procedures Referred By Contac t Referred To Contact Rosa Isela Yanez APRN.CNP [address] [place] [address] Referral ID Status Reason Start Date Expiration Date Visits Re quested Visits Authorized [id number] Closed 1 1 Medications Administered Section Active Administered Medications - up to 3 most recent administrations Medication Order MAR Action Action Date Dose Rate Site PHENYLephrine 2.5 % 1 Drop (AK-DILATE, SOUTH-SYNEPHRINE) 1 Drop, BOTH EYES, DIRECTED, Starting on Sat07/23/23 at 1330, Until Sat07/24/23 at 0129, Administer for dilation PROTECT FROM LIGHT Given 07/23/2023 1:30 PM EDT 1 Drop proparacaine 0.5 % 1 Drop (ALCAINE) 1 Drop, BOTH EYES, DIRECTED, Starting on Sat07/23/23 at 1330, Until Sat07/24/23 at 0129, Administer for pneumo tonometry, tonopen tonometry, or pachymetry. In the event of a proparacaine shortage, administer tetracaine 0.5% ophthalmic drops 1 drop in the left eye as directed for pneumo tonometry, tonopen tonometry, or pachymetry Given 07/23/2023 1:30 PM EDT 1 Drop tropicamide 1 % 1 Drop (MYDRIACYL) 1 Drop, BOTH EYES, DIRECTED, Starting on Sat07/23/23 at 1330, Until Sat07/24/23 at 0129, Administer for dilation Given 07/23/2023 1:30 PM EDT 1 Drop Additional Source Comments INFORMATION SOURCE (unrecogn ized section and content) DATE CREATED AUTHOR 01/14/2019 [facility] DATE CREATED AUTHOR AUTHOR'S ORGANIZ ATION [facility] DATE CREATED AUTHOR AUTHOR'S ORGANIZ ATION 10/30/2019 [facility] DATE CREATED AUTHOR AUTHOR'S ORGANIZ ATION 01/08/2020 [facility] DATE CREATED AUTHOR AUTHOR'S ORGANIZ ATION 02/26/2024 [facility] Source Comments (unrecognize d section and content) In the event this informatio n is protected by the Federal Confidentiality of Alcohol and Drug Abuse Patient Records regulations: The Federal rules restrict any use of the information to criminally investigate or prosecute any alcohol or drug abuse patient.[facility] the event this information is protected by the Federal Confidentiality of Alcohol and Drug Abuse Patient Records regulations: The Federal rules restrict any use of the information to criminally investigate or prosecute any alcohol or drug abuse patient.[facility] the event this information is protected by the Federal Confidentiality of Alcohol and Drug Abuse Patient Records regulations: The Federal rules restrict any use of the information to criminally investigate or prosecute any alcohol or drug abuse patient.[facility] the event this information is protected by the Federal Confidentiality of Alcohol and Drug Abuse Patient Records regulations: The Federal rules restrict any use of the information to criminally investigate or prosecute any alcohol or drug abuse patient.[facility] the event this information is protected by the Federal Confidentiality of Alcohol and Drug Abuse Patient Records regulations: The Federal rules restrict any use of the information to criminally investigate or prosecute any alcohol or drug abuse patient.[facility] the event this information is protected by the Federal Confidentiality of Alcohol and Drug Abuse Patient Records regulations: The Federal rules restrict any use of the information to criminally investigate or prosecute any alcohol or drug abuse patient.[facility] the event this information is protected by the Federal Confidentiality of Alcohol and Drug Abuse Patient Records regulations: The Federal rules restrict any use of the information to criminally investigate or prosecute any alcohol or drug abuse patient.[facility] the event this information is protected by the Federal Confidentiality of Alcohol and Drug Abuse Patient Records regulations: The Federal rules restrict any use of the information to criminally investigate or prosecute any alcohol or drug abuse patient.[facility] the event this information is protected by the Federal Confidentiality of Alcohol and Drug Abuse Patient Records regulations: The Federal rules restrict any use of the information to criminally investigate or prosecute any alcohol or drug abuse patient.[facility] the event this information is protected by the Federal Confidentiality of Alcohol and Drug Abuse Patient Records regulations: The Federal rules restrict any use of the information to criminally investigate or prosecute any alcohol or drug abuse patient.[facility] the event this information is protected by the Federal Confidentiality of Alcohol and Drug Abuse Patient Records regulations: The Federal rules restrict any use of the information to criminally investigate or prosecute any alcohol or drug abuse patient.[facility] the event this information is protected by the Federal Confidentiality of Alcohol and Drug Abuse Patient Records regulations: The Federal rules restrict any use of the information to criminally investigate or prosecute any alcohol or drug abuse patient.[facility] the event this information is protected by the Federal Confidentiality of Alcohol and Drug Abuse Patient Records regulations: The Federal rules restrict any use of the information to criminally investigate or prosecute any alcohol or drug abuse patient.[facility] the event this information is protected by the Federal Confidentiality of Alcohol and Drug Abuse Patient Records regulations: The Federal rules restrict any use of the information to criminally investigate or prosecute any alcohol or drug abuse patient.[facility] the event this information is protected by the Federal Confidentiality of Alcohol and Drug Abuse Patient Records regulations: The Federal rules restrict any use of the information to criminally investigate or prosecute any alcohol or drug abuse patient.[facility] the event this information is protected by the Federal Confidentiality of Alcohol and Drug Abuse Patient Records regulations: The Federal rules restrict any use of the information to criminally investigate or prosecute any alcohol or drug abuse patient.[facility] the event this information is protected by the Federal Confidentiality of Alcohol and Drug Abuse Patient Records regulations: The Federal rules restrict any use of the information to criminally investigate or prosecute any alcohol or drug abuse patient.[facility] the event this information is protected by the Federal Confidentiality of Alcohol and Drug Abuse Patient Records regulations: The Federal rules restrict any use of the information to criminally investigate or prosecute any alcohol or drug abuse patient.[facility] the event this information is protected by the Federal Confidentiality of Alcohol and Drug Abuse Patient Records regulations: The Federal rules restrict any use of the information to criminally investigate or prosecute any alcohol or drug abuse patient.[facility] the event this information is protected by the Federal Confidentiality of Alcohol and Drug Abuse Patient Records regulations: The Federal rules restrict any use of the information to criminally investigate or prosecute any alcohol or drug abuse patient.[facility] Hospital[facility] the event this information is protected by the Federal Confidentiality of Alcohol and Drug Abuse Patient Records regulations: The Federal rules restrict any use of the information to criminally investigate or prosecute any alcohol or drug abuse patient.[facility] the event this information is protected by the Federal Confidentiality of Alcohol and Drug Abuse Patient Records regulations: The Federal rules restrict any use of the information to criminally investigate or prosecute any alcohol or drug abuse patient.[facility] HospitalIn the event this information is protected by the Federal Confidentiality of Alcohol and Drug Abuse Patient Records regulations: The Federal rules restrict any use of the information to criminally investigate or prosecute any alcohol or drug abuse patient.[facility] the event this information is protected by the Federal Confidentiality of Alcohol and Drug Abuse Patient Records regulations: The Federal rules restrict any use of the information to criminally investigate or prosecute any alcohol or drug abuse patient.[facility] the event this information is protected by the Federal Confidentiality of Alcohol and Drug Abuse Patient Records regulations: The Federal rules restrict any use of the information to criminally investigate or prosecute any alcohol or drug abuse patient.[facility] HospitalIn the event this information is protected by the Federal Confidentiality of Alcohol and Drug Abuse Patient Records regulations: The Federal rules restrict any use of the information to criminally investigate or prosecute any alcohol or drug abuse patient.[facility] the event this information is protected by the Federal Confidentiality of Alcohol and Drug Abuse Patient Records regulations: The Federal rules restrict any use of the information to criminally investigate or prosecute any alcohol or drug abuse patient.[facility]In the event this information is protected by the Federal Confidentiality of Alcohol and Drug Abuse Patient Records regulations: The Federal rules restrict any use of the information to criminally investigate or prosecute any alcohol or drug abuse patient.[facility] HospitalIn the event this information is protected by the Federal Confidentiality of Alcohol and Drug Abuse Patient Records regulations: The Federal rules restrict any use of the information to criminally investigate or prosecute any alcohol or drug abuse patient.[facility] HospitalIn the event this information is protected by the Federal Confidentiality of Alcohol and Drug Abuse Patient Records regulations: The Federal rules restrict any use of the information to criminally investigate or prosecute any alcohol or drug abuse patient.[facility] HospitalIn the event this information is protected by the Federal Confidentiality of Alcohol and Drug Abuse Patient Records regulations: The Federal rules restrict any use of the information to criminally investigate or prosecute any alcohol or drug abuse patient.[facility] HospitalIn the event this information is protected by the Federal Confidentiality of Alcohol and Drug Abuse Patient Records regulations: The Federal rules restrict any use of the information to criminally investigate or prosecute any alcohol or drug abuse patient.[facility]In the event this information is protected by the Federal Confidentiality of Alcohol and Drug Abuse Patient Records regulations: The Federal rules restrict any use of the information to criminally investigate or prosecute any alcohol or drug abuse patient.[facility] HospitalIn the event this information is protected by the Federal Confidentiality of Alcohol and Drug Abuse Patient Records regulations: The Federal rules restrict any use of the information to criminally investigate or prosecute any alcohol or drug abuse patient.[facility] HospitalIn the event this information is protected by the Federal Confidentiality of Alcohol and Drug Abuse Patient Records regulations: The Federal rules restrict any use of the information to criminally investigate or prosecute any alcohol or drug abuse patient.[facility] HospitalIn the event this information is protected by the Federal Confidentiality of Alcohol and Drug Abuse Patient Records regulations: The Federal rules restrict any use of the information to criminally investigate or prosecute any alcohol or drug abuse patient.[facility] HospitalIn the event this information is protected by the Federal Confidentiality of Alcohol and Drug Abuse Patient Records regulations: The Federal rules restrict any use of the information to criminally investigate or prosecute any alcohol or drug abuse patient.[facility] HospitalIn the event this information is protected by the Federal Confidentiality of Alcohol and Drug Abuse Patient Records regulations: The Federal rules restrict any use of the information to criminally investigate or prosecute any alcohol or drug abuse patient.[facility] Care Teams (unrecognized sec tion and content) Regional Commercial Sales Manager Relationship Specialty Start Date End Date Librado Barrios MD [address] [facility] [place] [address] PCP - General Internal Medicine 11/13/19 Regional Commercial Sales Manager Relationship Specialty Start Date End Date Librado Barrios MD [address] [facility] [place] [address] PCP - General Internal Medicine 11/13/19 Regional Commercial Sales Manager Relationship Specialty Start Date End Date Librado Barrios MD [address] [facility] [place] [address] PCP - General Internal Medicine 11/13/19 Regional Commercial Sales Manager Relationship Specialty Start Date End Date Librado Barrios MD [address] [facility] [place] [address] PCP - General Internal Medicine 11/13/19 Regional Commercial Sales Manager Relationship Specialty Start Date End Date Librado Barrios MD [address] [facility] [place] [address] PCP - General Internal Medicine 11/13/19 Regional Commercial Sales Manager Relationship Specialty Start Date End Date Librado Barrios MD [address] [facility] [place] [address] PCP - General Internal Medicine 11/13/19 Regional Commercial Sales Manager Relationship Specialty Start Date End Date Librado Barrios MD [address] [facility] [place] [address] PCP - General Internal Medicine 11/13/19 Regional Commercial Sales Manager Relationship Specialty Start Date End Date Librado Barrios MD [address] [facility] [place] [address] PCP - General Internal Medicine 11/13/19 Regional Commercial Sales Manager Relationship Specialty Start Date End Date Librado Barrios MD [facility] [place] [address] PCP - General Internal Medicine 11/13/19 Regional Commercial Sales Manager Relationship Specialty Start Date End Date Librado Barrios MD [address] [facility] [place] [address] PCP - General Internal Medicine 11/13/19 Regional Commercial Sales Manager Relationship Specialty Start Date End Date Librado Barrios MD [address] [facility] [place] [address] PCP - General Internal Medicine 11/13/19 Regional Commercial Sales Manager Relationship Specialty Start Date End Date Librado Barrios MD [address] [place] [address] PCP - General Internal Medicine 11/13/19 Regional Commercial Sales Manager Relationship Specialty Start Date End Date Librado Barrios MD [facility] [place] [address] PCP - General Internal Medicine 11/13/19 Regional Commercial Sales Manager Relationship Specialty Start Date End Date Librado Barrios MD [address] [place] [address] PCP - General Internal Medicine 11/13/19 Regional Commercial Sales Manager Relationship Specialty Start Date End Date Librado Barrios MD [address] [facility] [place] [address] PCP - General Internal Medicine 11/13/19 Regional Commercial Sales Manager Relationship Specialty Start Date End Date Librado Barrios MD [address] [facility] [place] [address] PCP - General Internal Medicine 11/13/19 Regional Commercial Sales Manager Relationship Specialty Start Date End Date Librado Barrios MD [address] [facility] [place] [address] PCP - General Internal Medicine 11/13/19 Regional Commercial Sales Manager Relationship Specialty Start Date End Date Librado Barrios MD [address] [facility] [place] [address] PCP - General Internal Medicine 11/13/19 Regional Commercial Sales Manager Relationship Specialty Start Date End Date Librado Barrios MD [address] [place] [address] PCP - General Internal Medicine 11/13/19 Regional Commercial Sales Manager Relationship Specialty Start Date End Date Librado Barrios MD [address] [place] [address] PCP - General Internal Medicine 11/13/19 Regional Commercial Sales Manager Relationship Specialty Start Date End Date Librado Barrios MD [address] [place] [address] PCP - General Internal Medicine 11/13/19 Regional Commercial Sales Manager Relationship Specialty Start Date End Date Librado Barrios MD [address] [place] [address] PCP - General Internal Medicine 11/13/19 Regional Commercial Sales Manager Relationship Specialty Start Date End Date Librado Barrios MD [address] [place] [address] PCP - General Internal Medicine 11/13/19 Regional Commercial Sales Manager Relationship Specialty Start Date End Date Librado Barrios MD [address] [place] [address] PCP - General Internal Medicine 11/13/19 Regional Commercial Sales Manager Relationship Specialty Start Date End Date Librado Barrios MD [address] [place] [address] PCP - General Internal Medicine 11/13/19 Regional Commercial Sales Manager Relationship Specialty Start Date End Date Librado Barrios MD [address] [facility] [place] [address] PCP - General Internal Medicine 11/13/19 Reason for Visit (unrecogniz ed section and content) Reason Onset Date Comments Refill Request 03/01/2022 Reason Onset Date Comments Refill Request 05/23/2022 Reason Comments Nasal Congestion right ear pain, sore throat x 1 day Reason Comments Patient Request Reason Comments Diabetes Reason Comments Recheck Reason Comments Lab Orders Reason Comments Refill Request Reason Onset Date Comments Refill Request 07/25/2022 Reason Comments F/U 3 Month Reason Comments Covid19 Concern Reason Comments Covid Positive Reason Comments Medication Problem Reason Comments Sinus Problem sinus pressure, drai nage, bilateral ear pressure, dx with covid last week Reason Onset Date Comments Refill Request 12/03/2022 Reason Comments Sinus Problem sinus pressure, drai nage, cough, sore throat and headache x 2 days Reason Comments Cough Pt reported nasal co ngestion, change in voice, x5 days. Reason Onset Date Comments Refill Request 04/03/2023 Reason Comments Nausea & Vomiting Nausea, vomiting, di arrhea, chills and right side pain x 2 days Reason Comments Medication Problem Reason Comments Insurance Authorization Reason Onset Date Comments Refill Request 06/25/2023 Reason Comments letter for jury duty release Reason Comments Diabetic Eye Exam Type 2 NIDDM Reason Onset Date Comments Follow Up Immunizations 08/05/2023 Flu vaccination Reason Onset Date Comments Refill Request 10/30/2023 Reason Comments requesting lab orders Reason Onset Date Comments Refill Request 02/18/2024 FOR RECORDS PERTAINING TO PATIENTS WHO ARE OR HAVE BEEN ENROLLED IN A CHEMICAL DEPENDENCY/SUBSTANCEABUSE PROGRAM, SOME INFORMATION MAY BE OMITTED. This clinical summary was aggregated from multiple sources. Caution should be exercised in using it in the provision of clinical care. This summary normalizes information from multiple sources, and as a consequence, information in this document may materially change the coding, format and clinical context of patient data. In addition, data may be omitted in some cases. CLINICAL DECISIONS SHOULD BE BASED ON THE PRIMARY CLINICAL RECORDS. [facility], [facility]. provides no warranty or guarantee of the accuracy or completeness of information in this document.
[2024-09-25 13:08] LABS: ANTINUCLEAR ANTIBODIES DIRECT Negative (Negative); Anti-Centromere B Ab <0.2 AI (0.0-0.9); Anti-Chromatin <0.2 AI (0.0-0.9); Anti-Jo <0.2 AI (0.0-0.9); Anti-Scleroderma-70 AB <0.2 AI (0.0-0.9); Anti-dsDNA Ab <1 IU/mL (0-9); RNP Ab <0.2 AI (0.0-0.9); SJOGREN'S Anti-SS-A test < 0.2 AI (0.0-0.9); SJOGREN'S Anti-SS-B test < 0.2 AI (0.0-0.9); Smith Ab <0.2 AI (0.0-0.9)
[2024-09-25 16:10] LABS: CCP IgG Antibodies 7 units (0-19); Lyme Scn Total Ab w/Rflx Negative (Negative)
== END | disposition home or self-care (01) ==
LOC: BIMLAB 16:16
PROVIDERS: PCP Internal Medicine; Referring Provider Internal Medicine; Visit Provider Internal Medicine
DX: M25.50 Pain in unspecified joint (principal); G89.29 Other chronic pain; R94.6 Abnormal results of thyroid function studies
CPT/HCPCS: 36415; 84443; 86038; 86200; 86225; 86235; 86431; 86618